=== PATIENT | female | born 1950 | race American Indian/Alaskan Native ===

== ENCOUNTER 2017-03-07 18:08 | Inpatient (IN) | payer BC, MEDICARE ==
--- NOTE | 2017-03-07 18:21 | ED PDOC ---
Arrival/HPI <Дмитрий Beniteziy - Last Filed: 03/07/17 20:02> - General Historian: Patient - History of Present Illness Time/Duration: 1-3 hours Context: Home <Alina Canales - Last Filed: 03/08/17 15:26> - General Time Seen by Provider: 03/07/17 18:12 - History of Present Illness Narrative History of Present Illness (Text): 03/07/17 18:20 This 66 year old female, whose past medical history includes diabetes, hypertension, CAD, chronic kidney disease, A-fib, presents to this ED c/o dysarthria x 1 1/2 hours ago. Patient stated while talking with her , she was not able to get "words out of her mouth", for at least 3 minutes. Patient stated symptoms have been gradually improving. Patient still feels symptom at this time, very it is mild. Patient stated compliance with her medication. Denies francisco, sob, cp, abdominal pain, dizziness, diplopia, weakness, paresthesias, or abnormal gait. PATIENT TOOK 2 TABS ASPIRIN 325 MG THIS MORNING. (Alina Canales) Past Medical History - Provider Review Nursing Documentation Reviewed: Yes - Infectious Disease Hx of Infectious Diseases: None - Tetanus Immunization Tetanus Immunization: Unknown - Cardiac Hx Pacemaker: No - Pulmonary Hx Respiratory Disorders: No - Neurological Hx Paralysis: No - HEENT Hx Cataracts: Yes (extraction 2014) - Renal Hx Renal Disorder: Yes Other/Comment: stage 2 renal disease - Endocrine/Metabolic Hx Diabetes Mellitus Type 2: Yes - Hematological/Oncological Hx Blood Transfusions: No - Integumentary Hx Dermatological Disorder: No - Musculoskeletal/Rheumatological Hx Musculoskeletal Disorders: No - Gastrointestinal Hx Gastrointestinal Disorders: Yes Other/Comment: H.Pylori - Genitourinary/Gynecological Hx Genitourinary Disorders: No - Psychiatric Hx Emotional Abuse: No Hx Physical Abuse: No Hx Substance Use: No - Surgical History Hx Cardiac Catheterization: Yes Other/Comment: breast sx 1979 benign tumor, benign fibroid tumor removal 2000 - Anesthesia Hx Anesthesia Reactions: Yes ("AWARE OF SURROUNDINGS BUT UNABLE TO MOVE FOR A WHILE") Hx Malignant Hyperthermia: No - Suicidal Assessment Feels Threatened In Home Enviroment: No <Alina Canales - Last Filed: 03/08/17 15:26> Family/Social History - Physician Review Nursing Documentation Reviewed: Yes Family/Social History: No Known Family HX Smoking Status: Never Smoked Hx Alcohol Use: No Hx Substance Use: No <Sary Canalesim P - Last Filed: 03/08/17 15:26> Allergies/Home Meds <Дмитрий Beniteziy - Last Filed: 03/07/17 20:02> <Canales,Nahim P - Last Filed: 03/08/17 15:26> Allergies/Adverse Reactions: Allergies Sulfa (Sulfonamide Antibiotics) Allergy (Severe, Verified 03/07/17 18:42) RASH acetaminophen [From Percocet] Adverse Reaction (Severe, Verified 03/07/17 18:42) NAUSEA/VOMITING oxycodone HCl [From Percocet] Adverse Reaction (Severe, Verified 03/07/17 18:42) NAUSEA/VOMITING bacitracin Adverse Reaction (Mild, Verified 03/07/17 18:42) RASH clonidine Adverse Reaction (Mild, Verified 03/07/17 18:42) "FEELING VERY VAGUE & CLOUDY WHEN TAKING" Clonidine may have interacted with her heart block, no longer a concern due to pacer present fentanyl Adverse Reaction (Verified 03/07/17 18:42) VOMITING Home Medications: Home Meds Medication Instructions Recorded Confirmed SITagliptin [Januvia] 100 mg PO DAILY 07/23/13 03/07/17 GlipiZIDE SR [Glucotrol XL] 10 mg PO BID 02/23/16 03/07/17 Metformin HCl [Glucophage] 1,000 mg PO BID 02/23/16 03/07/17 Insulin Glargine, Recombina 15 unit SQ HS 05/28/16 03/07/17 [Lantus] Atorvastatin [Lipitor] 20 mg PO DAILY 08/20/16 03/07/17 amLODIPine [Norvasc] 10 mg PO DAILY 09/06/16 03/07/17 Review of Systems - Review of Systems Constitutional: Normal. absent: Fatigue, Weight Change, Fevers, Night Sweats Eyes: Normal. absent: Vision Changes, Photophobia, Eye Pain ENT: Normal Respiratory: Normal. absent: SOB, Cough Cardiovascular: Normal. absent: Chest Pain, Palpitations, Edema, Calf Pain, AGUDELO , Orthopnea, Syncope Gastrointestinal: Normal. absent: Abdominal Pain, Nausea, Vomiting Genitourinary Female: Normal. absent: Dysuria, Frequency, Hematuria Musculoskeletal: Normal. absent: Back Pain Skin: Normal Neurological: Speech Changes. absent: Headache, Dizziness, Focal Weakness, Gait Changes, Facial Droop, Disequilibrium, Seizure Endocrine: Normal Hemo/Lymphatic: Normal Psychiatric: Normal <Alina Canales P - Last Filed: 03/08/17 15:26> Physical Exam Temperature: Afebrile Blood Pressure: Normal Pulse: Regular Respiratory Rate: Normal Appearance: Positive for: Well-Appearing, Non-Toxic, Comfortable Pain Distress: None Mental Status: Positive for: Alert and Oriented X 3 - Systems Exam Head: Present: Atraumatic, Normocephalic Pupils: Present: PERRL Extroacular Muscles: Present: EOMI Conjunctiva: Present: Normal Mouth: Present: Moist Mucous Membranes Neck: Present: Normal Range of Motion Respiratory/Chest: Present: Clear to Auscultation, Good Air Exchange. No: Respiratory Distress, Accessory Muscle Use Cardiovascular: Present: Regular Rate and Rhythm, Normal S1, S2. No: Murmurs Abdomen: Present: Normal Bowel Sounds. No: Tenderness, Distention, Peritoneal Signs Back: Present: Normal Inspection. No: CVA Tenderness Upper Extremity: Present: Normal Inspection, Normal ROM, NORMAL PULSES, Neurovascularly Intact, Capillary Refill < 2s. No: Cyanosis, Edema Lower Extremity: Present: Normal Inspection, NORMAL PULSES, Normal ROM, Neurovascularly Intact, Capillary Refill < 2 s. No: Edema, CALF TENDERNESS Neurological: Present: GCS=15, CN II-XII Intact, Speech Normal, Motor Func Grossly Intact, Normal Sensory Function, Normal Cerebellar Funct, Gait Normal Skin: Present: Warm, Dry, Normal Color. No: Rashes Psychiatric: Present: Alert, Oriented x 3 <Alina Canales P - Last Filed: 03/08/17 15:26> Vital Signs Temp Pulse Resp BP Pulse Ox 03/07/17 20:49 80 18 169/68 H 98 03/07/17 19:02 98.2 F 102 H 18 200/92 H 100 03/07/17 19:01 89 200/92 H Medical Decision Making <Fred Benitez - Last Filed: 03/07/17 20:02> Re-evaluation Time: 20:00 Reassessment Condition: Re-examined, Improved, Improving,but remains with symptoms <Alina Canales - Last Filed: 03/08/17 15:26> ED Course and Treatment: pt seen and examined with PA pt's symptoms have fully resolved she denies any complaints no focal neurological deficits on reevaluation BP decreased to 170's on monitor pt denies complaints agrees with obs dw Dr. Patterson, aware of and agrees with plan resident paged pt's glu elevated, states she ate at [employer] and had coke today no gap (Fred Benitez) 03/07/17 20:00 Patient came c/o aphasia x 90 minutes ago, which lasted for 3 minutes. Patient stated symptoms have been progressively improving. Physical exam was unremarkable, without neuro focal deficits. NIH score was Zero. Blood pressure was found to be elevated, and it was treated with Hydralazine 5 mg IVP. Also glucose was elevated > 400's, Regualr insuline 8 U was administered IVP. No anion gap found. Patient denies dysphagia (Alina Canales) - Lab Interpretations Lab Results: 03/07/17 19:10 03/07/17 19:10 Lab Results 03/07/17 19:55: POC Glucose (mg/dL) 403 H* 03/07/17 19:30: Urine Color Yellow, Urine Appearance Clear, Urine pH 6.5, Ur Specific [place] 1.015, Urine Protein 100 H, Urine Glucose (UA) >=1000, Urine Ketones Negative, Urine Blood Trace-lysed H, Urine Nitrate Negative, Urine Bilirubin Negative, Urine Urobilinogen 0.2, Ur Leukocyte Esterase Negative, Urine RBC 2 - 5, Urine WBC 1 - 3, Ur Epithelial Cells 1 - 3 03/07/17 19:10: Hemoglobin A1c 8.8 H 03/07/17 19:10: Triglycerides 266 H, Cholesterol 173, LDL Cholesterol Direct 111 , HDL Cholesterol 32 03/07/17 19:10: PT 11.0, INR 1.02, APTT 25.2 03/07/17 19:10: Sodium 136, Potassium 4.3, Chloride 100, Carbon Dioxide 25, Anion Gap 15, BUN 35 H, Creatinine 1.6 H, Est GFR ( Amer) 39, Est GFR ( Non-Af Amer) 32, Random Glucose 428 H* D, Calcium 10.8 H, Magnesium 2.1, Total Bilirubin 0.3, AST 23, ALT 26, Alkaline Phosphatase 77, Lactate Dehydrogenase 482, Total Creatine Kinase 61, Troponin I 0.03 D, NT-Pro-B Natriuret Pep 560 H , Total Protein 8.3, Albumin 4.1, Globulin 4.2, Albumin/Globulin Ratio 1.0 L 03/07/17 19:10: WBC 5.1, RBC 4.00, Hgb 11.2 L, Hct 33.8 L, MCV 84.5, MCH 28.0, MCHC 33.1, RDW 15.1 H, Plt Count 187, MPV 11.4 H, Gran % 54.6, Lymph % (Auto) 35.0, [place] % (Auto) 4.5, Eos % (Auto) 5.1 H, Baso % (Auto) 0.8, Gran # 2.79, Lymph # 1.8, [place] # 0.2, Eos # 0.3, Baso # 0.04 03/07/17 18:43: POC Glucose (mg/dL) > 500 H* - RAD Interpretation Narrative RAD Interpretations (Text): 03/07/17 19:08 Accession No. : [id number] Patient Name / ID : NICOLE Leyva / [id number] Exam Date : 03/07/2017 18:48:33 ( Approved ) Study Comment : Sex / Age : F / 66Y Creator : Jesus GILMORE Dictator : Faustina Chan Optical Brightener Maker Helper : Client Technical Professional : Faustina Chan Approver2 : Report Date : 03/07/2017 18:57:14 My Comment : PROCEDURE: CT HEAD WITHOUT CONTRAST. HISTORY: dysarthria COMPARISON: Comparison is made to the previous study dated 08/18/2016 TECHNIQUE: Axial computed tomography images were obtained through the head/brain without intravenous contrast. Radiation dose: Total exam DLP = 852.59 mGy-cm. This CT exam was performed using one or more of the following dose reduction techniques: Automated exposure control, adjustment of the mA and/or kV according to patient size, and/or use of iterative reconstruction technique. FINDINGS: HEMORRHAGE: No intracranial hemorrhage. BRAIN: Again seen are 2 foci of encephalomalacia at the left frontal and left posterior parietal occipital lobe consistent with old infarction. Mild atrophy and mild chronic microvascular ischemic disease are again seen. VENTRICLES: Unremarkable. No hydrocephalus. CALVARIUM: Unremarkable. PARANASAL SINUSES: Unremarkable as visualized. No significant inflammatory changes. MASTOID AIR CELLS: Unremarkable as visualized. No inflammatory changes. OTHER FINDINGS: None. IMPRESSION: No evidence of acute intracranial hemorrhage new acute territorial infarct mass effect or midline shift. Re- demonstration of foci of encephalomalacia at the left frontal and left posterior parietal occipital lobe suggestive of old infarctions. (Alina Canales) Radiology Orders: 03/07/17 18:42 HEAD W/O (CODE STROKE) [CT] Stat 03/07/17 19:06 CHEST PORTABLE [RAD] Stat - Medication Orders Current Medication Orders: Amlodipine Besylate (Norvasc) 10 mg PO DAILY [facility] Last Admin: 03/08/17 09:13 Dose: 10 mg Aspirin (Aspirin) 325 mg PO DAILY [facility] Last Admin: 03/08/17 09:13 Dose: 325 mg Atorvastatin Calcium (Lipitor) 40 mg PO DIN ROJELIO Atorvastatin Calcium (Lipitor) 20 mg PO DAILY [facility] Last Admin: 03/08/17 09:13 Dose: 20 mg Famotidine (Pepcid) 20 mg PO 1000,2200 [facility] Last Admin: 03/08/17 09:13 Dose: 20 mg Furosemide (Lasix) 40 mg PO DAILY [facility] Last Admin: 03/08/17 09:13 Dose: 40 mg Heparin Sodium (Porcine) (Heparin) 5,000 units SC Q12 [facility] PRN Reason: Protocol Last Admin: 03/08/17 09:14 Dose: 5,000 units Hydralazine HCl (Apresoline) 100 mg PO TID [facility] Last Admin: 03/08/17 13:10 Dose: 100 mg Insulin Detemir (Levemir) 15 unit SC HS [facility] Last Admin: 03/08/17 00:19 Dose: Not Given Non-Admin Reason: Patient Refused Insulin Human Regular (Humulin R Low) 0 units SC ACHS [facility] PRN Reason: Protocol Last Admin: 03/08/17 12:30 Dose: 2 units Losartan Potassium (Cozaar) 100 mg PO DAILY [facility] Last Admin: 03/08/17 09:13 Dose: 100 mg Discontinued Medications Atorvastatin Calcium (Lipitor) 40 mg PO STAT STA Stop: 03/07/17 19:38 Last Admin: 03/07/17 20:00 Dose: 40 mg Hydralazine HCl (Apresoline) 5 mg IVP ONCE ONE Stop: 03/07/17 18:52 Last Admin: 03/07/17 19:01 Dose: 5 mg Hydralazine HCl (Apresoline) 50 mg PO BID [facility] Last Admin: 03/08/17 09:14 Dose: Hydralazine HCl (Apresoline) 50 mg PO STAT STA Stop: 03/08/17 05:48 Last Admin: 03/08/17 06:06 Dose: 50 mg Hydralazine HCl (Apresoline) 50 mg PO TID [facility] Last Admin: 03/08/17 10:23 Dose: Insulin Human Regular (Humulin R) 8 units IVP STAT STA Stop: 03/07/17 19:48 Last Admin: 03/07/17 20:00 Dose: 8 units NIHSS Scale ([place]) Time Performed: 19:00 - How Severe is the [place]oke Baseline Level of Consciousness: 0=Alert LOC to Questions: 0=Both comments correct LOC to commands: 0=Obeys both correctly Best Gaze: 0=Normal Visual: 0=No visual loss Facial: 0=Normal Motor Arm - Left: 0=No drift Motor Arm - Right: 0=No drift Motor Leg - Left: 0=No drift Motor Leg - Right: 0=No drift Limb Ataxia: 0=Absent Sensory: 0=Normal Best Language: 0=No aphasia Dysarthia: 0=Normal articulation Extinction & Inattention (Neglect): 0=Normal, no object Score: 0 Risk Level: No Stroke Risk <Alina Canales - Last Filed: 03/08/17 15:26> Disposition/Present on Arrival - Present on Arrival Any Indicators Present on Arrival: No - Disposition Have Diagnosis and Disposition been Completed?: Yes Disposition Time: 20:06 Patient Plan: Observation <Fred Benitez - Last Filed: 03/07/17 20:02> - Present on Arrival Any Indicators Present on Arrival: No History of DVT/PE: No History of Uncontrolled Diabetes: No Urinary Catheter: No History Surgical Site Infection Following: None - Disposition Have Diagnosis and Disposition been Completed?: Yes Patient Plan: Observation <Alina Canales - Last Filed: 03/08/17 15:26> - Disposition Diagnosis: TIA (transient ischemic attack) Disposition: HOSPITALIZED Patient Problems: Current Active Problems Problem Status Onset TIA (transient ischemic attack) Acute Condition: FAIR
[2017-03-07 18:42] VITALS: BMI 25.3
--- NOTE | 2017-03-07 19:06 | CT ---
PROCEDURE: CT HEAD WITHOUT CONTRAST. HISTORY: dysarthria COMPARISON: Comparison is made to the previous study dated 08/18/2016 TECHNIQUE: Axial computed tomography images were obtained through the head/brain without intravenous contrast. Radiation dose: Total exam DLP = 852.59 mGy-cm. This CT exam was performed using one or more of the following dose reduction techniques: Automated exposure control, adjustment of the mA and/or kV according to patient size, and/or use of iterative reconstruction technique. FINDINGS: HEMORRHAGE: No intracranial hemorrhage. BRAIN: Again seen are 2 foci of encephalomalacia at the left frontal and left posterior parietal occipital lobe consistent with old infarction. Mild atrophy and mild chronic microvascular ischemic disease are again seen. VENTRICLES: Unremarkable. No hydrocephalus. CALVARIUM: Unremarkable. PARANASAL SINUSES: Unremarkable as visualized. No significant inflammatory changes. MASTOID AIR CELLS: Unremarkable as visualized. No inflammatory changes. OTHER FINDINGS: None. IMPRESSION: No evidence of acute intracranial hemorrhage new acute territorial infarct mass effect or midline shift. Re- demonstration of foci of encephalomalacia at the left frontal and left posterior parietal occipital lobe suggestive of old infarctions.
[2017-03-07 19:32] LABS: ALBUMIN 4.1 g/dL (3.0-4.8); BASO # 0.04 K/mm3 (0.0-2.0); BASO % 0.8 % (0.0-3.0); CALCIUM 10.8 mg/dL (8.4-10.5); EOS # 0.3 (0.0-0.7); EOS % 5.1 % (1.5-5.0); GRAN # 2.79 (1.4-6.5); GRAN % 54.6 % (50.0-68.0); HEMOGLOBIN 11.2 gm/dL (12.0-16.0); LYMPH # 1.8 (1.2-3.4); MAGNESIUM 2.1 mg/dL (1.7-2.2); MEAN CELL VOLUME 84.5 fL (80.0-105.0); MEAN CORPUSCULAR HGB CONC 33.1 g/dl (31.0-37.0); MEAN PLATELET VOLUME 11.4 fl (7.0-11.0); MONO # 0.2 (0.1-0.6); MONO % 4.5 % (1.0-6.0); PLATELET COUNT 187 10^3/uL (120.0-450.0); RED CELL DISTRIBUTION WIDTH 15.1 % (11.5-14.5); WHITE BLOOD COUNT 5.1 10^3/ul (4.5-11.0)
[2017-03-07 19:38] LABS: INR 1.02 (0.93-1.08); PARTIAL THROMBOPLASTIN TIME 25.2 Seconds (23.7-30.8)
[2017-03-07 19:44] LABS: TROPONIN I 0.03 ng/mL
[2017-03-07] MEDS ORDERED: Insulin Regular 1 UNITS/0.01 ML ML IVP STA (19:47)
[2017-03-07 20:01] LABS: PH,URINE 6.5 (4.7-8.0); URINE BILIRUBIN NEGATIVE (NEGATIVE); URINE BLOOD TRACE-LYSED (NEGATIVE); URINE GLUCOSE (UA) >=1000 mg/dL (NEGATIVE); URINE LEUKOCYTE ESTERASE NEGATIVE Leu/uL (NEGATIVE); URINE NITRATE NEGATIVE (NEGATIVE); URINE PROTEIN 100 mg/dL (<30 mg/dL); URINE UROBILINOGEN 0.2 E.U./dL (<1 E.U./dL)
[2017-03-07 20:04] LABS: URINE APPEARANCE CLEAR (CLEAR); URINE COLOR YELLOW (YELLOW)
[2017-03-07 21:33] LABS: HDL CHOLESTEROL 32 mg/dL (29-60)
[2017-03-07 21:45] LABS: LDL CHOLESTEROL 111 mg/dL (0-129)
[2017-03-07] MEDS ORDERED: Insulin Detemir 100 units/ml Vial (Levemir) SC SCH (22:00)
--- NOTE | 2017-03-08 06:23 | CP.PCM.HP ---
Addendum entered and electronically signed by MADDIE GARCIA DO 03/08/17 07:51 : MRI not ordered for patient due to pacemaker. Original Note: <MADDIE GARCIA - Last Filed: 03/08/17 06:09> History of Present Illness - History of Present Illness History of Present Illness: CC: Inability to speak 66 year old female PMH CAD, HTN, DM II, HLD presents to [facility] ED on 03/07/2017 with complaints of losing ability to speak while talking to her . Patient states that this lasted about 3 minutes. She tried speaking but could only make grunting sounds. Patient states that during this episode she did not feel any dizziness, chest pain, blurry vision, headache, n/v/d/, shortness of breath, numbness, or tingling. Patient states that the first time something similar happened was in April 2016 when she was cutting a tomato she was unable to physically cut, which lasted 15 minutes. 3 weeks later she states that when she was also speaking with her she lost the ability to speak for 15 minutes. PMD: PMH: as per HPI Allergies:sulfonamides, acetaminophen, bacitracin, oxycodone PSH: B/L cataract repair, Pacemaker SH: patients denies tobacco, alcohol, illicit drug use Review of Systems Constitutional: pt denies fever, chills, generalized weakness ENT: pt denies dysphagia, ofalgia, hearing deficit, rhinorrhea Eyes: pt denies sudden loss of vision, diplopia, blurred vision MSK: pt denies muscle stiffness, joint pain, extremity cramping Cardio: pt denies sob, heart murmur Pulm: pt denies cough, hemoptysis, wheeze GI: pt denies loss of appetite, abdominal pain, constipation, melena, n/v/d : pt denies burning on urination, urinary frequency, hematuria, urinary urgency Neuro: pt denies paresis, paresthesia, dizziness, francisco, numbness, tingling Endo: pt denies intolerance to heat/cold, diaphoresis, night sweats, polydipsia Psych: pt denies anxiety, depression, mood changes Physical exam Constitutional: pleasant female, a&o x 4, nad Head and Neck: neck supple, no jvd, trachea midline, carotid midline, no cervical/head mass Eyes: carmita, nonicteric sclera, eom intact ENT: auditory acuity grossly intact, throat not congested, no nasal deformity Cardio: rrr, no m/r/g, no carotid bruit, nml s1, s2 Pulm: CTAB, no accessory muscle use, equal nml breath sounds bilaterally Abd: s/nt/nd, nbs x 4 q, no palpable masses Derm: no rashes, no ulcers, no lesions Extr: no edema, no cyanosis, no calf tenderness, no lesions, no varicosities Neuro: cn II-XII grossly intact, ue and le 5 muscle strength bilaterally, (-)dysdiadochokinesia, (-) dysmetria Present on Admission - Present on Admission Any Indicators Present on Admission: No Past Patient History - Infectious Disease Hx of Infectious Diseases: None - Tetanus Immunizations Tetanus Immunization: Unknown - Past Medical History & Family History Past Medical History?: Yes - Past Social History Smoking Status: Never Smoked - CARDIAC Hx Pacemaker: No - PULMONARY Hx Respiratory Disorders: No - NEUROLOGICAL Hx Paralysis: No - HEENT Hx Cataracts: Yes (extraction 2014) - RENAL Hx Chronic Kidney Disease: Yes Other/Comment: stage 2 renal disease - ENDOCRINE/METABOLIC Hx Diabetes Mellitus Type 2: Yes - HEMATOLOGICAL/ONCOLOGICAL Hx Blood Transfusions: No - INTEGUMENTARY Hx Dermatological Problems: No - MUSCULOSKELETAL/RHEUMATOLOGICAL Hx Musculoskeletal Disorders: No - GASTROINTESTINAL Hx Gastrointestinal Disorders: Yes Other/Comment: H.Pylori - GENITOURINARY/GYNECOLOGICAL Hx Genitourinary Disorders: No - PSYCHIATRIC Hx Emotional Abuse: No Hx Physical Abuse: No Hx Substance Use: No - SURGICAL HISTORY Hx Cardiac Catheterization: Yes Other/Comment: breast sx 1979 benign tumor, benign fibroid tumor removal 2000 - ANESTHESIA Hx Anesthesia Reactions: Yes ("AWARE OF SURROUNDINGS BUT UNABLE TO MOVE FOR A WHILE") Hx Malignant Hyperthermia: No Meds Allergies/Adverse Reactions: Allergies Allergy/AdvReac Type Severity Reaction Status Date / Time Sulfa (Sulfonamide Allergy Severe RASH Verified 03/07/17 18:42 Antibiotics) acetaminophen [From Percocet] AdvReac Severe NAUSEA/VOMI Verified 03/07/17 18:42 TING oxycodone HCl [From Percocet] AdvReac Severe NAUSEA/VOMI Verified 03/07/17 18:42 TING bacitracin AdvReac Mild RASH Verified 03/07/17 18:42 clonidine AdvReac Mild "FEELING Verified 03/07/17 18:42 VERY VAGUE & CLOUDY WHEN TAKING" fentanyl AdvReac VOMITING Verified 03/07/17 18:42 Results - Vital Signs Recent Vital Signs: Last Vital Signs Temp 98.2 F 03/07/17 19:02 Pulse 78 03/08/17 06:06 Resp 18 03/07/17 23:31 BP 175/98 H 03/08/17 06:06 Pulse Ox 98 03/07/17 20:49 - Labs Result Diagrams: 03/07/17 19:10 03/07/17 19:10 Assessment & Plan - Assessment and Plan (Free Text) Assessment: 66 year old female PMh CAD, HTN, DM II, HLD with symptoms of TIA. Plan: 1. TIA -Neurology consulted -CT scan negative for acute changes,old infarctions in left frontal and left posterior parietal occipital lobe -Carotid and vertebral doppler studies -Administer Lipitor 40 mg PO DIN, Lipitor 20 mg PO Daily, Aspirin 325 mg PO Daily -BP control with Cozaar 100 mg PO qD, Hydralazine 50 mg PO BID, Furosemide 40 mg PO qD, Norvasc 10 mg PO qD -CBC, CMP, HgA1c, TSH results pending -Seizure/Fall precuations -PT evaluation for gait -Echo for further evaluation -Neuro Check q4x8 2. DM II -Random glucose 428 -HgbA1C results still pending -Insulin Detemir 15 unit SC HS, INsulin Humulin SC ACHS 3.HTN -BP control with Cozaar 100 mg PO qD, Hydralazine 50 mg PO BID, Furosemide 40 mg PO qD, Norvasc 10 mg PO qD -DVT/GI prophylaxis- 5000 IU Heparin q 12/Pepcid 20 mg BID <Scott Patterson - Last Filed: 03/21/17 16:57> Results - Vital Signs Recent Vital Signs: Last Vital Signs Temp 98.2 F 03/10/17 08:26 Pulse 86 03/10/17 14:00 Resp 18 03/10/17 08:26 BP 153/81 H 03/10/17 13:51 Pulse Ox 98 03/10/17 08:26 - Labs Result Diagrams: 03/10/17 07:00 03/10/17 07:00 Attending/Attestation - Attestation I have personally seen and examined this patient.: Yes I have fully participated in the care of the patient.: Yes I have reviewed all pertinent clinical information: Yes Notes (Text): 03/21/17 16:57 Medical record note made by the resident after discussion with my direction and input after the patient was personally seen and examined by me. I have reviewed the chart and agree that the record accurately reflects by personal performance of the history, physical exam, data review, and medical decision-making, in the course for the patient. I have also personally directed the plan of care.
[2017-03-08] MEDS: Insulin Reg-LOW-Coverage SC SCH ×4 (07:59→21:59)
--- NOTE | 2017-03-08 08:06 | RAD ---
HISTORY: admission COMPARISON: 09/06/2016 FINDINGS: LUNGS: There is mild vascular congestion. Prominent interstitial markings PLEURA: No significant pleural effusion identified, no pneumothorax apparent. CARDIOVASCULAR: Normal. OSSEOUS STRUCTURES: No significant abnormalities. VISUALIZED UPPER ABDOMEN: Normal. OTHER FINDINGS: Dual lead pacemaker IMPRESSION: No active disease.
[2017-03-08 08:17] LABS: HEMOGLOBIN 11.1 gm/dL (12.0-16.0); MEAN CELL VOLUME 84.4 fL (80.0-105.0); MEAN CORPUSCULAR HEMOGLOBIN 27.1 pg (25.0-35.0); MEAN CORPUSCULAR HGB CONC 32.2 g/dl (31.0-37.0); RBC 4.09 10^6/uL (3.5-6.1); RED CELL DISTRIBUTION WIDTH 15.3 % (11.5-14.5); WHITE BLOOD COUNT 6.7 10^3/ul (4.5-11.0)
[2017-03-08 08:36] LABS: CALCIUM 10.3 mg/dL (8.4-10.5)
--- NOTE | 2017-03-08 09:10 | CP.PCM.CON ---
<Adelso Chaudhry - Last Filed: 03/08/17 15:01> History of Present Illness - History of Present Illness History of Present Illness: PGY-[address] Castro's Neurology Service: Reason for Consult: TIA This is a 66 year old female with PMHx CAD, HTN, DM, HLD who presented with complaint sudden onset of loss of speaking ability. Patient was speaking to her when she suddenly felt that she could not articulate proper words. Patient stated that she could plan what she wanted to say but was unable to speak articulate words. She could only make crude or incomprehensible sounds. This lasted for 3 minutes before she regained the ability to speak properly. Patient states that this occurred twice in the past during April 2016. Previous episodes resolved in about 15 minutes. Patient denied weakness, headaches, dizziness, numbness, tingling, CP, SOB, palpitations. PMHx: CAD, HTN, DM, HLD PSHx: b/l cataract surgery, pacemaker Allergies: sulfonamides, acetaminophen, bacitracin, oxycodone Social: Denies tobacco, alcohol, drug use. Family Hx: Mother with CVA PMD: Dr. Lo Review of Systems - Constitutional Constitutional: absent: Headache, Weakness - EENT Eyes: absent: Change in Vision Ears: absent: Decreased Hearing Nose/Mouth/Throat: absent: Dysphagia - Cardiovascular Cardiovascular: absent: Chest Pain - Respiratory Respiratory: absent: Dyspnea - Gastrointestinal Gastrointestinal: absent: Abdominal Pain, Constipation, Diarrhea, Nausea, Vomiting - Genitourinary Genitourinary: absent: Dysuria - Musculoskeletal Musculoskeletal: absent: Muscle Weakness - Neurological Neurological: absent: Dizziness, Numbness, Headaches, Tingling - Endocrine Endocrine: absent: Palpitations Past Patient History - Infectious Disease Hx of Infectious Diseases: None - Tetanus Immunizations Tetanus Immunization: Unknown - Past Medical History & Family History Past Medical History?: Yes - Past Social History Smoking Status: Never Smoked - CARDIAC Hx Pacemaker: No - PULMONARY Hx Respiratory Disorders: No - NEUROLOGICAL Hx Paralysis: No - HEENT Hx Cataracts: Yes (extraction 2014) - RENAL Hx Chronic Kidney Disease: Yes Other/Comment: stage 2 renal disease - ENDOCRINE/METABOLIC Hx Diabetes Mellitus Type 2: Yes - HEMATOLOGICAL/ONCOLOGICAL Hx Blood Transfusions: No - INTEGUMENTARY Hx Dermatological Problems: No - MUSCULOSKELETAL/RHEUMATOLOGICAL Hx Musculoskeletal Disorders: No - GASTROINTESTINAL Hx Gastrointestinal Disorders: Yes Other/Comment: H.Pylori - GENITOURINARY/GYNECOLOGICAL Hx Genitourinary Disorders: No - PSYCHIATRIC Hx Emotional Abuse: No Hx Physical Abuse: No Hx Substance Use: No - SURGICAL HISTORY Hx Cardiac Catheterization: Yes Other/Comment: breast sx 1979 benign tumor, benign fibroid tumor removal 2001 - ANESTHESIA Hx Anesthesia Reactions: Yes ("AWARE OF SURROUNDINGS BUT UNABLE TO MOVE FOR A WHILE") Hx Malignant Hyperthermia: No Meds Allergies/Adverse Reactions: Allergies Allergy/AdvReac Type Severity Reaction Status Date / Time Sulfa (Sulfonamide Allergy Severe RASH Verified 03/07/17 18:42 Antibiotics) acetaminophen [From Percocet] AdvReac Severe NAUSEA/VOMI Verified 03/07/17 18:42 TING oxycodone HCl [From Percocet] AdvReac Severe NAUSEA/VOMI Verified 03/07/17 18:42 TING bacitracin AdvReac Mild RASH Verified 03/07/17 18:42 clonidine AdvReac Mild "FEELING Verified 03/07/17 18:42 VERY VAGUE & CLOUDY WHEN TAKING" fentanyl AdvReac VOMITING Verified 03/07/17 18:42 - Medications Medications: Current Medications Amlodipine Besylate (Norvasc) 10 mg PO DAILY [facility] Aspirin (Aspirin) 325 mg PO DAILY [facility] Atorvastatin Calcium (Lipitor) 40 mg PO DIN [facility] Atorvastatin Calcium (Lipitor) 20 mg PO DAILY [facility] Famotidine (Pepcid) 20 mg PO 1000,2200 [facility] Furosemide (Lasix) 40 mg PO DAILY [facility] Heparin Sodium (Porcine) (Heparin) 5,000 units SC Q12 [facility] PRN Reason: Protocol Hydralazine HCl (Apresoline) 50 mg PO BID [facility] Insulin Detemir (Levemir) 15 unit SC HS [facility] Last Admin: 03/08/17 00:19 Dose: Not Given Insulin Human Regular (Humulin R Low) 0 units SC ACHS [facility] PRN Reason: Protocol Last Admin: 03/08/17 07:59 Dose: 1 units Labetalol HCl (Trandate) 100 mg PO BID PRN PRN Reason: Heart rate Losartan Potassium (Cozaar) 100 mg PO DAILY [facility] Physical Exam - Constitutional Appears: Non-toxic, No Acute Distress - Head Exam Head Exam: ATRAUMATIC, NORMAL INSPECTION, NORMOCEPHALIC - Eye Exam Eye Exam: EOMI, PERRL - ENT Exam ENT Exam: Mucous Membranes Moist - Respiratory Exam Respiratory Exam: Clear to Auscultation Bilateral - Cardiovascular Exam Cardiovascular Exam: REGULAR RHYTHM - GI/Abdominal Exam GI & Abdominal Exam: Normal Bowel Sounds, Soft - Neurological Exam Neurological exam: Alert, CN II-XII Intact, Oriented x3 Additional comments: No pronator drift. Equivocal plantar responses. Normal finger to nose testing. Manual muscle testing 5/5 bilateral upper and lower extremities. Reflexes 2/4 bilateral upper extremities and 1/4 bilateral lower extremities. Sensations intact bilateral upper and lower extremities. Results - Vital Signs Recent Vital Signs: Last Vital Signs Temp 98.3 F 03/08/17 08:23 Pulse 78 03/08/17 08:23 Resp 18 03/08/17 08:23 BP 175/98 H 03/08/17 06:06 Pulse Ox 99 03/08/17 08:23 - Labs Result Diagrams: 03/08/17 07:00 03/08/17 07:00 Labs: Laboratory Results - last 24 hr 03/08/17 03/08/17 07:00 07:00 WBC 6.7 D RBC 4.09 Hgb 11.1 L Hct 34.5 L MCV 84.4 MCH 27.1 MCHC 32.2 RDW 15.3 H Plt Count 205 MPV 12.0 H Sodium 142 Potassium 3.7 Chloride 106 Carbon Dioxide 25 Anion Gap 15 BUN 24 H Creatinine 1.3 Est GFR ( Amer) 50 Est GFR (Non-Af Amer) 41 Random Glucose 193 H Calcium 10.3 Total Bilirubin 0.4 AST 27 ALT 24 Alkaline Phosphatase 83 Total Protein 8.2 Albumin 4.0 Globulin 4.2 Albumin/Globulin Ratio 1.0 L Assessment & Plan - Assessment and Plan (Free Text) Assessment: This is a 66 year old female with PMHx CAD, HTN, DM, HLD who presented with complaint sudden onset of loss of speaking ability. The patient suffered a TIA secondary to hypertensive urgency and hyperglycemia. CT head reveals no acute ischemic changes and shows encephalomalacia at the left frontal and left posterior parietal occipital lobe suggestive of old infarctions. Plan: 1) Needs better control of blood pressure. 2) Maintain SBP between 130-140 mmHg. 3) Continue ASA, Plavix, Lipitor for stroke prevention. 4) Low salt diet. 5) Needs better control of blood sugars. 6) Maintain blood glucose between 140-180. Case discussed with Dr. Matthew Chaudhry, PGY-1 - Date & Time Date: 03/08/17 Time: 09:21 <Soham Castro - Last Filed: 03/08/17 15:07> Meds - Medications Medications: Current Medications Amlodipine Besylate (Norvasc) 10 mg PO DAILY [facility] Last Admin: 03/08/17 09:13 Dose: 10 mg Aspirin (Aspirin) 325 mg PO DAILY [facility] Last Admin: 03/08/17 09:13 Dose: 325 mg Atorvastatin Calcium (Lipitor) 40 mg PO DIN [facility] Atorvastatin Calcium (Lipitor) 20 mg PO DAILY [facility] Last Admin: 03/08/17 09:13 Dose: 20 mg Famotidine (Pepcid) 20 mg PO 1000,2200 [facility] Last Admin: 03/08/17 09:13 Dose: 20 mg Furosemide (Lasix) 40 mg PO DAILY [facility] Last Admin: 03/08/17 09:13 Dose: 40 mg Heparin Sodium (Porcine) (Heparin) 5,000 units SC Q12 [facility] PRN Reason: Protocol Last Admin: 03/08/17 09:14 Dose: 5,000 units Hydralazine HCl (Apresoline) 100 mg PO TID [facility] Last Admin: 03/08/17 13:10 Dose: 100 mg Insulin Detemir (Levemir) 15 unit SC HS [facility] Last Admin: 03/08/17 00:19 Dose: Not Given Insulin Human Regular (Humulin R Low) 0 units SC ACHS [facility] PRN Reason: Protocol Last Admin: 03/08/17 12:30 Dose: 2 units Losartan Potassium (Cozaar) 100 mg PO DAILY [facility] Last Admin: 03/08/17 09:13 Dose: 100 mg Results - Vital Signs Recent Vital Signs: Last Vital Signs Temp 98.3 F 03/08/17 08:23 Pulse 78 03/08/17 08:23 Resp 18 03/08/17 08:23 BP 155/82 H 03/08/17 09:13 Pulse Ox 99 03/08/17 08:23 - Labs Result Diagrams: 03/08/17 07:00 03/08/17 07:00 Labs: Laboratory Results - last 24 hr 03/08/17 03/08/17 03/08/17 07:00 07:00 07:00 WBC 6.7 D RBC 4.09 Hgb 11.1 L Hct 34.5 L MCV 84.4 MCH 27.1 MCHC 32.2 RDW 15.3 H Plt Count 205 MPV 12.0 H APTT Sodium 142 Potassium 3.7 Chloride 106 Carbon Dioxide 25 Anion Gap 15 BUN 24 H Creatinine 1.3 Est GFR ( Amer) 50 Est GFR (Non-Af Amer) 41 Random Glucose 193 H Calcium 10.3 Total Bilirubin 0.4 AST 27 ALT 24 Alkaline Phosphatase 83 Total Protein 8.2 Albumin 4.0 Globulin 4.2 Albumin/Globulin Ratio 1.0 L TSH 3rd Generation 1.73 03/08/17 11:45 WBC RBC Hgb Hct MCV MCH MCHC RDW Plt Count MPV APTT 28.5 Sodium Potassium Chloride Carbon Dioxide Anion Gap BUN Creatinine Est GFR ( Amer) Est GFR (Non-Af Amer) Random Glucose Calcium Total Bilirubin AST ALT Alkaline Phosphatase Total Protein Albumin Globulin Albumin/Globulin Ratio TSH 3rd Generation Attending/Attestation - Attestation I have personally seen and examined this patient.: Yes I have fully participated in the care of the patient.: Yes I have reviewed all pertinent clinical information: Yes
--- NOTE | 2017-03-08 12:44 | CARD ---
APPROVED REPORT EKG Measurement Heart [id number] <Conclusion> Electronic ventricular pacemaker
--- NOTE | 2017-03-08 17:01 | CP.PCM.PN ---
Addendum entered and electronically signed by Miguel Jackson DO 03/09/17 10:23: Patient was seen and examined and case was discussed at length with Dr. Brown. Educated patient at length about her hypertension and DM and how these are increasing her risk of stroke. Seen with Dr. Castro at bedside as well, will continue on plavix and ASA. Will be monitoring her accuchecks and BP closely and make medication changes. Miguel Jackson D.O. PGY-2 Original Note: <BAUDILIO BROWN - Last Filed: 03/08/17 16:58> Subjective - Date & Time of Evaluation Date of Evaluation: 03/08/17 Time of Evaluation: 06:45 - Subjective Subjective: Baudilio Brown DO PGY1 - Internal Medicine Progress Note - Julius/Yesenia Service Patient seen and examined at bedside. Today is hospital day 2. Patient feels well with no complaints. She denies CP, SOB, headache, confusion, difficulty swallowing or speaking, focal weakness or numbness. Objective - Vital Signs/Intake and Output Vital Signs (last 24 hours): Temp Pulse Resp BP Pulse Ox 98.3 F 89 20 171/80 H 98 03/08/17 16:00 03/08/17 16:00 03/08/17 16:00 03/08/17 16:00 03/08/17 16:00 Intake and Output: 03/08/17 03/08/17 06:59 18:59 Intake Total 120 360 Balance 120 360 - Medications Medications: Current Medications Amlodipine Besylate (Norvasc) 10 mg PO DAILY [facility] Last Admin: 03/08/17 09:13 Dose: 10 mg Aspirin (Aspirin) 325 mg PO DAILY [facility] Last Admin: 03/08/17 09:13 Dose: 325 mg Atorvastatin Calcium (Lipitor) 40 mg PO DIN [facility] Atorvastatin Calcium (Lipitor) 20 mg PO DAILY [facility] Last Admin: 03/08/17 09:13 Dose: 20 mg Famotidine (Pepcid) 20 mg PO 1000,2200 [facility] Last Admin: 03/08/17 09:13 Dose: 20 mg Furosemide (Lasix) 40 mg PO DAILY [facility] Last Admin: 03/08/17 09:13 Dose: 40 mg Heparin Sodium (Porcine) (Heparin) 5,000 units SC Q12 [facility] PRN Reason: Protocol Last Admin: 07/11/17 09:14 Dose: 5,000 units Hydralazine HCl (Apresoline) 100 mg PO TID [facility] Last Admin: 03/08/17 13:10 Dose: 100 mg Insulin Detemir (Levemir) 15 unit SC AMHS [facility] Insulin Human Regular (Humulin R Low) 0 units SC ACHS [facility] PRN Reason: Protocol Last Admin: 03/08/17 12:30 Dose: 2 units Losartan Potassium (Cozaar) 100 mg PO DAILY [facility] Last Admin: 03/08/17 09:13 Dose: 100 mg - Labs Labs: 03/08/17 07:00 03/08/17 07:00 PT 11.0 Seconds (9.9-11.8) 03/07/17 19:10 INR 1.02 (0.93-1.08) 03/07/17 19:10 APTT 28.5 Seconds (23.7-30.8) 03/08/17 11:45 - Constitutional Appears: Well, Non-toxic, No Acute Distress - Head Exam Head Exam: ATRAUMATIC, NORMOCEPHALIC - Eye Exam Eye Exam: EOMI, Normal appearance - ENT Exam ENT Exam: Mucous Membranes Moist - Respiratory Exam Respiratory Exam: Clear to Ausculation Bilateral. absent: Rales, Rhonchi, Wheezes - Cardiovascular Exam Cardiovascular Exam: RRR, +S1, +S2 - GI/Abdominal Exam GI & Abdominal Exam: Soft, Normal Bowel Sounds. absent: Tenderness - Extremities Exam Extremities Exam: Full ROM, Normal Inspection - Neurological Exam Neurological Exam: Alert, Awake, CN II-XII Intact, Oriented x3 Neuro motor strength exam: Left Upper Extremity: 5, Right Upper Extremity: 5, Left Lower Extremity: 5, Right Lower Extremity: 5 - Psychiatric Exam Psychiatric exam: Normal Affect, Normal Mood - Skin Skin Exam: Dry, Intact, Normal Color Assessment and Plan - Assessment and Plan (Free Text) Assessment: 66 year old female PMH CAD, HTN, DM II, HLD [place] [facility] [place] with complaints of losing ability to speak while talking to her . Currently being treated for TIA, HTN, and DM. Plan: 1. 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 DM II - Random glucose 428, 403, 193. A1c 8.8 - Increase Insulin Detemir 15 unit to SC [facility], continue Insulin Humulin Sliding Scale Low 3.HTN - remains uncontrolled - Increase Hydralazine to 100 mg PO TID - Continue Cozaar 100 mg PO qD, Furosemide 40 mg PO qD, Norvasc 10 mg PO qD DVT/GI prophylaxis - 5000 IU Heparin q 12/Pepcid 20 mg BID Patient was discussed and reviewed with senior resident Dr. Jackson PGY2 and attending Dr. Patterson <Scott Patterson - Last Filed: 03/21/17 17:06> Objective - Vital Signs/Intake and Output Vital Signs (last 24 hours): Temp Pulse Resp BP Pulse Ox 98.2 F 86 18 153/81 H 98 03/10/17 08:26 03/10/17 14:00 03/10/17 08:26 03/10/17 13:51 03/10/17 08:26 - Labs Labs: 03/10/17 07:00 03/10/17 07:00 PT 11.0 Seconds (9.9-11.8) 03/07/17 19:10 INR 1.02 (0.93-1.08) 03/07/17 19:10 APTT 28.5 Seconds (23.7-30.8) 03/08/17 11:45 Attending/Attestation - Attestation I have personally seen and examined this patient.: Yes I have fully participated in the care of the patient.: Yes I have reviewed all pertinent clinical information, including history, physical exam and plan: Yes Notes (Text): 03/21/17 17:06 Medical record note made by the resident after discussion with my direction and input after the patient was personally seen and examined by me. I have reviewed the chart and agree that the record accurately reflects by personal performance of the history, physical exam, data review, and medical decision-making, in the course for the patient. I have also personally directed the plan of care.
--- NOTE | 2017-03-08 19:37 | US ---
PROCEDURE: Bilateral carotid artery duplex ultrasound HISTORY: Carotid stenosis TIA PHYSICIAN(S): Orion Gonzalez MD. TECHNIQUE: Duplex sonography and color-flow Doppler were used to evaluate the carotid bifurcations and limited segments of the vertebral arteries bilaterally. FINDINGS: There is mild smooth heterogeneous plaque noted at the carotid bifurcations bilaterally. The peak systolic velocity in the proximal right internal carotid artery is 78 cm/sec. This corresponds to a 20 to 39% proximal right ICA stenosis. Normal systolic velocities are noted in the proximal right external carotid artery. There is antegrade flow in the right vertebral artery. The peak systolic velocity in the proximal left internal carotid artery is 46 cm/sec. This corresponds to a 20 to 39% proximal left ICA stenosis. Normal systolic velocities are noted in the proximal left external carotid artery. There is antegrade flow in the left vertebral artery. IMPRESSION: 1. Bilateral 20-39% proximal ICA stenoses. 2. Antegrade flow in both vertebral arteries.
--- NOTE | 2017-03-08 20:28 | CARD ---
APPROVED REPORT EXAM: Two-dimensional and M-mode echocardiogram with Doppler and color Doppler. INDICATION 2D DIMENSIONS IVSd1.4 (0.7-1.1cm)LVDd3.8 (3.9-5.9cm) PWd1.6 (0.7-1.1cm)LVDs2.1 (2.5-4.0cm) FS (%) 44.6 %LVEF (%)76.6 (>50%) M-Mode DIMENSIONS Left Atrium (MM)3.70 (2.5-4.0cm)Aortic Root2.50 (2.2-3.7cm) Aortic Cusp Exc.2.00 (1.5-2.0cm) Aortic Valve AoV Peak Abparqbe318.0cm/Sherry Peak GR.12mmHg Mitral Valve MV E Bphsugfu831.0cm/s TDI Lateral E' Peak V6.04cm/sMedial E' Peak V7.41cm/sE/Lateral E'17.7 E/Medial E'14.4 Tricuspid Valve TR Peak [id number]/sRAP [id number] Peak Gr.51mmHg [id number] LEFT VENTRICLE The left ventricle is normal size. There is moderate concentric left ventricular hypertrophy. The left ventricular function is normal.EF-65-70% There is normal LV segmental wall motion. Transmitral Doppler flow pattern is Grade II-pseudonormal filling dynamics. No left ventricle thrombus noted on this study. There is no ventricular septal defect visualized. There is no left ventricular aneurysm. There is no mass noted in the left ventricle. RIGHT VENTRICLE The right ventricle is normal size. There is normal right ventricular wall thickness. The right ventricular systolic function is normal. There is a pacemaker lead in the right ventricle. ATRIA The left atrium is mildly dilated. The right atrium size is normal. There is a catheter/pacemaker lead seen in the right atrium. The interatrial septum is intact with no evidence for an atrial septal defect. AORTIC VALVE The aortic valve is thickened but opens well. The aortic valve is moderately thickened. There is trace to mild aortic regurgitation. There is no aortic valvular stenosis. There is no aortic valvular vegetation. MITRAL VALVE The mitral valve is thickened but opens well. Mitral regurgitation is mild to moderate. There is no mitral valve stenosis. There is no evidence of mitral valve prolapse. TRICUSPID VALVE The tricuspid valve leaflets are thickened , but open well. There is moderate to severe tricuspid regurgitation.RVSP There is moderate to severe pulmonary hypertension.61 mmof hg. There is no tricuspid valve stenosis. There is no tricuspid valve prolapse or vegetation. PULMONIC VALVE The pulmonic valve is mildly thickened. There is mild pulmonic valvular regurgitation. There is no pulmonic valvular stenosis. GREAT VESSELS The aortic root is normal in size. The ascending aorta is normal in size. The pulmonary artery is normal. The IVC is normal in size and collapses >50% with inspiration. PERICARDIAL EFFUSION There is no pleural effusion. There is no pericardial effusion. <Conclusion> The left ventricle is normal size. There is moderate concentric left ventricular hypertrophy. The left ventricular function is normal.EF-65-70% There is a pacemaker lead in the right ventricle. There is trace to mild aortic regurgitation. Mitral regurgitation is mild to moderate. There is moderate to severe tricuspid regurgitation.[id number] mmof hg. There is mild pulmonic valvular regurgitation. The IVC is normal in size and collapses >50% with inspiration. There is no pericardial effusion. There is moderate to severe pulmonary hypertension.61 mmof hg.
[2017-03-08] MEDS: Insulin Detemir 100 units/ml Vial (Levemir) SC SCH (22:00)
[2017-03-09 07:00] LABS: ALB/GLOB RATIO 0.9 (1.1-1.8); ALBUMIN 3.9 g/dL (3.0-4.8); CALCIUM 10.3 mg/dL (8.4-10.5)
[2017-03-09 07:03] LABS: HEMOGLOBIN 10.9 gm/dL (12.0-16.0); MEAN CELL VOLUME 84.4 fL (80.0-105.0); MEAN CORPUSCULAR HEMOGLOBIN 26.9 pg (25.0-35.0); MEAN CORPUSCULAR HGB CONC 31.9 g/dl (31.0-37.0); MEAN PLATELET VOLUME 11.7 fl (7.0-11.0); RBC 4.05 10^6/uL (3.5-6.1); RED CELL DISTRIBUTION WIDTH 15.3 % (11.5-14.5)
[2017-03-09] MEDS ORDERED: Potassium Chloride 20 mEq ER Tab PO ONE (07:50)
[2017-03-09] MEDS: Insulin Reg-LOW-Coverage SC SCH ×4 (08:16→21:39)
[2017-03-09] MEDS: Insulin Detemir 100 units/ml Vial (Levemir) SC SCH ×2 (09:06→21:39)
[2017-03-09] MEDS: Potassium Chloride 20 mEq ER Tab PO SCH ×2 (13:45→21:38)
--- NOTE | 2017-03-09 14:20 | CP.PCM.PN ---
Addendum entered and electronically signed by Miguel Jackson DO 03/10/17 11:42: Patient was seen and examined and case was discussed at length with Dr. López. Patient's blood pressure still uncontrolled, will keep overnight, changed to procardia off amlodipine and only PRN clonidine, discussed this with her. Patient verbalized both the understanding and agreement with the aforementioned plan. Miguel Jackson D.O. PGY-2 Original Note: <BAUDILIO LÓPEZ - Last Filed: 03/09/17 15:40> Subjective - Date & Time of Evaluation Date of Evaluation: 03/09/17 Time of Evaluation: 06:45 - Subjective Subjective: Baudilio López DO PGY1 - Internal Medicine Progress Note - Dedjenna/Yesenia Service Patient seen and examined at bedside. Today is hospital day 3. Patient feels well, but is worked up and anxious, worried about having another TIA or stroke. Immediately before the encounter, she felt a mild throbbing headache and reportedly had an elevated BP reading of 209/105, and was angry and flustered when a nurse refused to give her HTN medication that she normally takes at that time at home, but wasn't yet scheduled for administration in the hospital. After speaking to her for a few minutes, she calmed down, and was given a stat dose of hydralazine and started clonidine 0.3mg BID. Currently, she denies CP, SOB, headache, confusion, difficulty swallowing or speaking, focal weakness or numbness. Objective - Vital Signs/Intake and Output Vital Signs (last 24 hours): Temp Pulse Resp BP Pulse Ox 99 F 94 H 19 160/91 H 98 03/09/17 08:12 03/09/17 13:45 03/09/17 08:12 03/09/17 13:45 03/09/17 08:12 Intake and Output: 03/09/17 03/09/17 06:59 18:59 Intake Total 540 Balance 540 - Medications Medications: Current Medications Amlodipine Besylate (Norvasc) 10 mg PO DAILY [facility] Last Admin: 03/09/17 11:15 Dose: Not Given Aspirin (Aspirin) 325 mg PO DAILY [facility] Last Admin: 03/09/17 09:05 Dose: 325 mg Atorvastatin Calcium (Lipitor) 40 mg PO DIN [facility] Last Admin: 03/08/17 17:21 Dose: 40 mg Atorvastatin Calcium (Lipitor) 20 mg PO DAILY [facility] Last Admin: 03/09/17 09:05 Dose: 20 mg Clonidine HCl (Catapres) 0.3 mg PO BID [facility] Last Admin: 03/09/17 11:15 Dose: Not Given Famotidine (Pepcid) 20 mg PO 1000,2200 [facility] Last Admin: 03/09/17 09:05 Dose: 20 mg Furosemide (Lasix) 40 mg PO DAILY [facility] Last Admin: 03/09/17 09:06 Dose: 40 mg Heparin Sodium (Porcine) (Heparin) 5,000 units SC Q12 [facility] PRN Reason: Protocol Last Admin: 03/09/17 09:06 Dose: 5,000 units Hydralazine HCl (Apresoline) 100 mg PO TID [facility] Last Admin: 03/09/17 13:45 Dose: 100 mg Insulin Detemir (Levemir) 15 unit SC AMHS [facility] Last Admin: 03/09/17 09:06 Dose: 15 unit Insulin Human Regular (Humulin R Low) 0 units SC ACHS [facility] PRN Reason: Protocol Last Admin: 03/09/17 12:09 Dose: 3 units Losartan Potassium (Cozaar) 100 mg PO DAILY [facility] Last Admin: 03/09/17 11:15 Dose: Not Given Potassium Chloride (K-Dur 20 Meq Er Tab) 40 meq PO Q8 [facility] Last Admin: 03/09/17 13:45 Dose: 40 meq - Labs Labs: 03/09/17 06:00 03/09/17 06:00 PT 11.0 Seconds (9.9-11.8) 03/07/17 19:10 INR 1.02 (0.93-1.08) 03/07/17 19:10 APTT 28.5 Seconds (23.7-30.8) 03/08/17 11:45 - Constitutional Appears: Well, Non-toxic, Agitated - Head Exam Head Exam: ATRAUMATIC, NORMOCEPHALIC - Eye Exam Eye Exam: EOMI, Normal appearance Pupil Exam: PERRL - ENT Exam ENT Exam: Mucous Membranes Moist - Respiratory Exam Respiratory Exam: Clear to Ausculation Bilateral. absent: Rales, Rhonchi, Wheezes - Cardiovascular Exam Cardiovascular Exam: RRR, +S1, +S2 - GI/Abdominal Exam GI & Abdominal Exam: Soft, Normal Bowel Sounds - Extremities Exam Extremities Exam: Full ROM, Normal Inspection - Neurological Exam Neurological Exam: Alert, Awake, CN II-XII Intact, Oriented x3 Neuro motor strength exam: Left Upper Extremity: 5, Right Upper Extremity: 5, Left Lower Extremity: 5, Right Lower Extremity: 5 - Psychiatric Exam Psychiatric exam: Agitated, Anxious, Normal Affect - Skin Skin Exam: Dry, Intact Assessment and Plan - Assessment and Plan (Free Text) Assessment: 66 year old female PMH CAD, HTN, DM II, HLD presented to [facility] on 03/07/2017 with complaints of losing ability to speak while talking to her . Currently being treated for TIA, HTN, and DM. Plan: 1. 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 DM II - uncontrolled - Random glucose improving slightly, though still elevated A1c 8.8 - Continue insulin Detemir 15 unit to SC AMHS, continue Insulin Humulin Sliding Scale Low 3.HTN - remains uncontrolled - Given one stat dose Hydralazine to 100 mg PO, continue Hydralazine Q8H - Continue Cozaar 100 mg PO qD, Furosemide 40 mg PO qD - Stop Norvasc 10 mg PO qD - Start Nifedipine 60 mg PO HS - Start Clonidine 0.3 mg PRN BID - Start Carvedilol 12.5 mg PO Q12 - Admit from observation for continued monitoring DVT/GI prophylaxis - 5000 IU Heparin q 12/Pepcid 20 mg BID Patient was discussed and reviewed with senior resident Dr. Jackson PGY2 and attending Dr. Patterson <Scott Patterson - Last Filed: 03/21/17 17:08> Objective - Vital Signs/Intake and Output Vital Signs (last 24 hours): Temp Pulse Resp BP Pulse Ox 98.2 F 86 18 153/81 H 98 03/10/17 08:26 03/10/17 14:00 03/10/17 08:26 03/10/17 13:51 03/10/17 08:26 - Labs Labs: 03/10/17 07:00 03/10/17 07:00 PT 11.0 Seconds (9.9-11.8) 03/07/17 19:10 INR 1.02 (0.93-1.08) 03/07/17 19:10 APTT 28.5 Seconds (23.7-30.8) 03/08/17 11:45 Attending/Attestation - Attestation I have personally seen and examined this patient.: Yes I have fully participated in the care of the patient.: Yes I have reviewed all pertinent clinical information, including history, physical exam and plan: Yes Notes (Text): 03/21/17 17:08 Medical record note made by the resident after discussion with my direction and input after the patient was personally seen and examined by me. I have reviewed the chart and agree that the record accurately reflects by personal performance of the history, physical exam, data review, and medical decision-making, in the course for the patient. I have also personally directed the plan of care.
[2017-03-09] MEDS ORDERED: NIFEdipine 60 mg ER Tab PO SCH (22:00)
[2017-03-10] MEDS: Potassium Chloride 20 mEq ER Tab PO SCH ×2 (05:36→13:51)
[2017-03-10 07:22] LABS: HEMOGLOBIN 12.3 gm/dL (12.0-16.0); MEAN CELL VOLUME 83.8 fL (80.0-105.0); MEAN CORPUSCULAR HEMOGLOBIN 27.3 pg (25.0-35.0); MEAN CORPUSCULAR HGB CONC 32.6 g/dl (31.0-37.0); MEAN PLATELET VOLUME 11.3 fl (7.0-11.0); RBC 4.5 10^6/uL (3.5-6.1); RED CELL DISTRIBUTION WIDTH 15.3 % (11.5-14.5); WHITE BLOOD COUNT 5.9 10^3/ul (4.5-11.0)
[2017-03-10 07:39] LABS: ALBUMIN 4.4 g/dL (3.0-4.8)
[2017-03-10 08:27] VITALS: RESP 18; TEMP 98.2; O2SAT 98
[2017-03-10] MEDS: Insulin Reg-LOW-Coverage SC SCH ×2 (09:13→13:50)
[2017-03-10] MEDS: Insulin Detemir 100 units/ml Vial (Levemir) SC SCH (09:13)
[2017-03-10 13:55] VITALS: BP 153/81
[2017-03-10 15:07] VITALS: PULSE 86
--- NOTE | 2017-03-10 22:33 | CP.PCM.DIS ---
Provider - Provider Date of Admission: 03/09/17 14:21 Attending physician: Reji Madrid MD Primary care physician: Scott Patterson MD Consults: Neuro: Matthew Cardio: Matty Time Spent in preparation of Discharge (in minutes): 45 Diagnosis - Discharge Diagnosis (1) HTN (hypertension) Status: Chronic Priority: High (2) TIA (transient ischemic attack) Status: Acute Priority: High (3) Type 2 diabetes mellitus Status: Chronic Priority: High Hospital Course - Lab Results Lab Results: Most Recent Lab Values WBC 5.9 10^3/ul (4.5-11.0) 03/10/17 07:00 RBC 4.50 10^6/uL (3.5-6.1) 03/10/17 07:00 Hgb 12.3 gm/dL (12.0-16.0) 03/10/17 07:00 Hct 37.7 % (36.0-48.0) 03/10/17 07:00 MCV 83.8 fL (80.0-105.0) 03/10/17 07:00 MCH 27.3 pg (25.0-35.0) 03/10/17 07:00 MCHC 32.6 g/dl (31.0-37.0) 03/10/17 07:00 RDW 15.3 % (11.5-14.5) H 03/10/17 07:00 Plt Count 216 10^3/uL (120.0-450.0) 03/10/17 07:00 MPV 11.3 fl (7.0-11.0) H 03/10/17 07:00 Gran % 54.6 % (50.0-68.0) 03/07/17 19:10 Lymph % (Auto) 35.0 % (22.0-35.0) 03/07/17 19:10 [place] % (Auto) 4.5 % (1.0-6.0) 03/07/17 19:10 Eos % (Auto) 5.1 % (1.5-5.0) H 03/07/17 19:10 Baso % (Auto) 0.8 % (0.0-3.0) 03/07/17 19:10 Gran # 2.79 (1.4-6.5) 03/07/17 19:10 Lymph # 1.8 (1.2-3.4) 03/07/17 19:10 [place] # 0.2 (0.1-0.6) 03/07/17 19:10 Eos # 0.3 (0.0-0.7) 03/07/17 19:10 Baso # 0.04 K/mm3 (0.0-2.0) 03/07/17 19:10 PT 11.0 Seconds (9.9-11.8) 03/07/17 19:10 INR 1.02 (0.93-1.08) 03/07/17 19:10 APTT 28.5 Seconds (23.7-30.8) 03/08/17 11:45 Sodium 140 mmol/L (132-148) 03/10/17 07:00 Potassium 4.9 mmol/L (3.6-5.0) 03/10/17 07:00 Chloride 109 mmol/L (95-110) 03/10/17 07:00 Carbon Dioxide 19 mmol/L (21-33) L 03/10/17 07:00 Anion Gap 17 (10-20) 03/10/17 07:00 BUN 26 mg/dL (7-21) H 03/10/17 07:00 Creatinine 1.6 mg/dL (0.5-1.4) H 03/10/17 07:00 Est GFR ( Amer) 39 03/10/17 07:00 Est GFR (Non-Af Amer) 32 03/10/17 07:00 POC Glucose (mg/dL) 403 mg/dL (65-110) H* 03/07/17 19:55 Random Glucose 178 mg/dL (70-110) H 03/10/17 07:00 Hemoglobin A1c 8.8 % (4.2-6.5) H 03/07/17 19:10 Calcium 11.0 mg/dL (8.4-10.5) H 03/10/17 07:00 Magnesium 2.1 mg/dL (1.7-2.2) 03/07/17 19:10 Total Bilirubin 0.5 mg/dL (0.2-1.3) 03/10/17 07:00 AST 24 U/L (15-39) 03/10/17 07:00 ALT 23 U/L (7-56) 03/10/17 07:00 Alkaline Phosphatase 87 U/L (38-133) 03/10/17 07:00 Lactate Dehydrogenase 482 U/L (333-699) 03/07/17 19:10 Total Creatine Kinase 61 U/L (35-230) 03/07/17 19:10 Troponin I 0.03 ng/mL D 03/07/17 19:10 NT-Pro-B Natriuret Pep 560 pg/mL (0-450) H 03/07/17 19:10 Total Protein 8.8 g/dL (5.8-8.3) H 03/10/17 07:00 Albumin 4.4 g/dL (3.0-4.8) 03/10/17 07:00 Globulin 4.4 gm/dL 03/10/17 07:00 Albumin/Globulin Ratio 1.0 (1.1-1.8) L 03/10/17 07:00 Triglycerides 266 mg/dL (35-160) H 03/07/17 19:10 Cholesterol 173 mg/dL (130-200) 03/07/17 19:10 LDL Cholesterol Direct 111 mg/dL (0-129) 03/07/17 19:10 HDL Cholesterol 32 mg/dL (29-60) 03/07/17 19:10 TSH 3rd Generation 1.73 mIU/mL (0.46-4.68) 03/08/17 07:00 Urine Color Yellow (YELLOW) 03/07/17 19:30 Urine Appearance Clear (CLEAR) 03/07/17 19:30 Urine pH 6.5 (4.7-8.0) 03/07/17 19:30 Ur Specific Lynn 1.015 (1.005-1.035) 03/07/17 19:30 Urine Protein 100 mg/dL (<30 mg/dL) H 03/07/17 19:30 Urine Glucose (UA) >=1000 mg/dL (NEGATIVE) 03/07/17 19:30 Urine Ketones Negative mg/dL (NEGATIVE) 03/07/17 19:30 Urine Blood Trace-lysed (NEGATIVE) H 03/07/17 19:30 Urine Nitrate Negative (NEGATIVE) 03/07/17 19:30 Urine Bilirubin Negative (NEGATIVE) 03/07/17 19:30 Urine Urobilinogen 0.2 E.U./dL (<1 E.U./dL) 03/07/17 19:30 Ur Leukocyte Esterase Negative Veronica/uL (NEGATIVE) 03/07/17 19:30 Urine RBC 2 - 5 /hpf (0-2) 03/07/17 19:30 Urine WBC 1 - 3 /hpf (0-6) 03/07/17 19:30 Ur Epithelial Cells 1 - 3 /hpf (0-5) 03/07/17 19:30 - Hospital Course Hospital Course: 66 year old female PMH CAD, HTN, DM II, HLD [place] [facility] with complaints of losing ability to speak while talking to her . Upon admission, head CT, carotid and vertebral doppler studies, and echocardiogram were all normal or unchanged from prior exams. She also remained asymptomatic with no focal weakness, numbness, or parasthesias, aphasias, mental status changes, confusion, or LOC throughout her stay. On admission, she was severely hypertensive and hyperglycemic, despite taking her home medications. On hospital day 2, her hydralazine was changed from BID to TID, which improved her BP slightly, but it remained elevated. On day 3, her BP remained elevated and in the morning, she was agitated and complained of a headache, at which point her BP was 209/105. That day, her Norvasc was stopped and she was started on Nifedipine 60mg PO HS, and clonidine was switched to PRN. Throughout her stay, her hyperglycemia was managed on her normal home medications, and improved slightly. She admitted to poor diet recently, and the importance of diet and exercised was stressed repeatedly. Today, she feels well, BP was stable, though slightly elevated overnight, and she reports that she did not require clonidine at any point. She denies GER[place], CP, SOB, vision changes, abdominal pain. Medication compliance, stress reduction, diet and exercise were discussed and low carb diet was stressed. Medications were discussed, and all questions were answered to patient's satisfaction, and then discharged to home. Discharge Exam - Head Exam Head Exam: ATRAUMATIC, NORMOCEPHALIC - Eye Exam Eye Exam: EOMI, Normal appearance - ENT Exam ENT Exam: Mucous Membranes Moist - Neck Exam Neck exam: Normal Inspection - Respiratory Exam Respiratory Exam: Clear to PA & Lateral. absent: Rales, Rhonchi, Wheezes - Cardiovascular Exam Cardiovascular Exam: RRR, +S1, +S2 - GI/Abdominal Exam GI & Abdominal Exam: Normal Bowel Sounds, Soft. absent: Tenderness - Extremities Exam Extremities exam: normal inspection - Back Exam Back exam: NORMAL INSPECTION - Neurological Exam Neurological exam: Alert, CN II-XII Intact, Oriented x3 - Psychiatric Exam Psychiatric exam: Normal Affect, Normal Mood - Skin Skin Exam: Dry, Intact Discharge Plan - Discharge Medications Prescriptions: Clopidogrel [Plavix] 75 mg PO DAILY 30 Days NIFEdipine ER [Procardia XL] 60 mg PO HS 30 Days - Follow Up Plan Condition: FAIR Disposition: HOME/ ROUTINE Patient education suggested?: Yes Instructions: Transient Ischemic Attack (DC), Transient Ischemic Attack (GEN), Hypertension (DC), Hypertension (GEN) Additional Instructions: 1. Continue to take all medications as prescribed, including newly prescribed Plavix and Procardia 2. Maintain a low carb diet, taking extra care to avoid added sugars and sugary drinks 3. Follow up with Dr. Madrid in one week, next 4. In case of any new or worsening symptoms or concerns, contact Dr. Madrid immediately or return to the ER Referrals: Scott Patterson MD [Primary Care Provider] -
--- NOTE | 2017-03-11 09:17 | PN ---
SUBJECTIVE The patient had an episode of weakness today. No dysarthria. PHYSICAL EXAMINATION: VITAL SIGNS: Blood pressure is 158/94, heart rate in the 80s. NECK: Negative JVD. LUNGS: Without rales. HEART: S1 and S2. EXTREMITIES: Without edema. LABORATORY DATA: Hemoglobin is 12.3. Chemistries; BUN and creatinine is 26 and 1.6. Echocardiogram reveals good LV function. Her carotid artery ultrasound reveals no significant flow obstructing lesion. IMPRESSION: 1. Transient ischemic attack. 2. Coronary artery disease. 3. Diabetes mellitus. 4. Hypercholesteremia. 5. Hypertension. PLAN: Given these findings, the patient has no arrhythmias noted. Awaiting neuro recommendations. The patient was started on Plavix. The question is that the patient needs an MRA of her cranial vessels.
--- NOTE | 2017-03-11 20:06 | CP.PCM.CON ---
History of Present Illness - History of Present Illness History of Present Illness: Patient is a 66 year old woman with multiple cardiac risk factors including hypertension, diabetes mellitus, and hypercholesterolemia, who presents with an hour of dysarthria. This is her second episode. Patient has received extensive work up for TIA like symptoms without success. She notes she is currently taking Aspirin. Patient denies any chest pain or shortness of breath Review of Systems - Review of Systems All systems: reviewed and no additional remarkable complaints except - Cardiovascular Cardiovascular: absent: Chest Pain - Respiratory Respiratory: absent: Dyspnea - Neurological Additional comments: Positive dysarthria Past Patient History - Infectious Disease Hx of Infectious Diseases: None - Tetanus Immunizations Tetanus Immunization: Unknown - Past Medical History & Family History Past Medical History?: Yes - Past Social History Smoking Status: Never Smoked - CARDIAC Hx Hypercholesterolemia: Yes Hx Hypertension: Yes Hx Pacemaker: No - PULMONARY Hx Respiratory Disorders: No - NEUROLOGICAL Hx Paralysis: No - HEENT Hx Cataracts: Yes (extraction 2014) - RENAL Hx Chronic Kidney Disease: Yes Other/Comment: stage 2 renal disease - ENDOCRINE/METABOLIC Hx Diabetes Mellitus Type 2: Yes - HEMATOLOGICAL/ONCOLOGICAL Hx Blood Transfusions: No - INTEGUMENTARY Hx Dermatological Problems: No - MUSCULOSKELETAL/RHEUMATOLOGICAL Hx Musculoskeletal Disorders: No - GASTROINTESTINAL Hx Gastrointestinal Disorders: Yes Other/Comment: H.Pylori - GENITOURINARY/GYNECOLOGICAL Hx Genitourinary Disorders: No - PSYCHIATRIC Hx Emotional Abuse: No Hx Physical Abuse: No Hx Substance Use: No - SURGICAL HISTORY Hx Cardiac Catheterization: Yes Other/Comment: pacemaker, breast sx 1978 benign tumor, benign fibroid tumor removal 2000 - ANESTHESIA Hx Anesthesia Reactions: Yes ("AWARE OF SURROUNDINGS BUT UNABLE TO MOVE FOR A WHILE") Hx Malignant Hyperthermia: No Meds Home Medications: Home Medication List Medication Instructions Recorded Confirmed Type Atorvastatin [Lipitor] 40 mg PO DIN tab 03/10/17 Rx Carvedilol [Coreg] 12.5 mg PO Q12 tab 03/10/17 Rx Clopidogrel [Plavix] 75 mg PO DAILY 30 Days 03/10/17 Rx Famotidine [Pepcid] 20 mg PO 1000,2200 tab 03/10/17 Rx Insulin Detemir [Levemir] 15 unit SC AMHS unit 03/10/17 Rx Insulin Human Regular-LOW [HumuLIN 0 units SC ACHS ml 03/10/17 Rx R LOW] NIFEdipine ER [Procardia XL] 60 mg PO HS 30 Days 03/10/17 Rx cloNIDine [Catapres] 0.3 mg PO BID PRN tab 03/10/17 Rx Allergies/Adverse Reactions: Allergies Allergy/AdvReac Type Severity Reaction Status Date / Time Sulfa (Sulfonamide Allergy Severe RASH Verified 03/07/17 18:42 Antibiotics) acetaminophen [From Percocet] AdvReac Severe NAUSEA/VOMI Verified 03/07/17 18:42 TING oxycodone HCl [From Percocet] AdvReac Severe NAUSEA/VOMI Verified 03/07/17 18:42 TING bacitracin AdvReac Mild RASH Verified 03/07/17 18:42 clonidine AdvReac Mild "FEELING Verified 03/07/17 18:42 VERY VAGUE & CLOUDY WHEN TAKING" fentanyl AdvReac VOMITING Verified 03/07/17 18:42 Physical Exam - Neck Exam Additional comments: Negative JVD - Respiratory Exam Respiratory Exam: absent: Rales - Cardiovascular Exam Cardiovascular Exam: +S1, +S2 - Extremities Exam Extremities exam: Negative for: pedal edema Results - Vital Signs Recent Vital Signs: 03/09/17 Blood Pressure: 160/91 Heart Rate: 70s Last Vital Signs Temp 98.2 F 03/10/17 08:26 Pulse 86 03/10/17 14:00 Resp 18 03/10/17 08:26 BP 153/81 H 03/10/17 13:51 Pulse Ox 98 03/10/17 08:26 - Labs Result Diagrams: 03/10/17 07:00 03/10/17 07:00 Labs: 03/09/17: Hemoglobin: 10.9 BUN: 21 Creatinine: 1.5 - EKG Data EKG comments: Reveals an EKG that is a paced rhythm. Assessment & Plan - Assessment and Plan (Free Text) Assessment: 1) Status post TIA 2) Diabetes mellitus 3) Hypertension 4) Hypercholesterolemia 5) History of pacemaker for symptomatic AV gurdeep block Plan: 1) Given these findings, her echocardiogram reveals no thrombus. The carotid arteries reveal no critical carotid disease. 2) Start patient on Plavix given her recurrent episode of TIA. - Date & Time Date: 03/09/17
== END 2017-03-10 15:27 | disposition home or self-care (01) | DRG 305 ==
LOC: ED 18:08 → ERH 20:06 → 3RNO 21:22 → OBSVTOIN 03-09 14:21
PROVIDERS: ADMIT Internal Medicine; ATTEND Internal Medicine
DX: I16.0 Hypertensive urgency (principal); E11.22 Type 2 diabetes mellitus with diabetic chronic kidney disease; G93.89 Other specified disorders of brain; G45.9 Transient cerebral ischemic attack, unspecified; I12.9 Hypertensive chronic kidney disease with stage 1 through stage 4 chronic kidney disease, or unspecified chronic kidney disease; E11.65 Type 2 diabetes mellitus with hyperglycemia; N18.2 Chronic kidney disease, stage 2 (mild); E78.00 Pure hypercholesterolemia, unspecified; E78.5 Hyperlipidemia, unspecified; I25.10 Atherosclerotic heart disease of native coronary artery without angina pectoris; I48.91 Unspecified atrial fibrillation; Z79.02 Long term (current) use of antithrombotics/antiplatelets; Z79.4 Long term (current) use of insulin; Z79.82 Long term (current) use of aspirin; Z79.899 Other long term (current) drug therapy; Z82.3 Family history of stroke; Z83.3 Family history of diabetes mellitus; Z86.73 Personal history of transient ischemic attack (TIA), and cerebral infarction without residual deficits; Z95.0 Presence of cardiac pacemaker; Z98.42 Cataract extraction status, left eye; Z98.41 Cataract extraction status, right eye; Z88.6 Allergy status to analgesic agent; Z88.3 Allergy status to other anti-infective agents; Z88.5 Allergy status to narcotic agent; Z88.2 Allergy status to sulfonamides; Z88.8 Allergy status to other drugs, medicaments and biological substances; R40.2412 Glasgow coma scale score 13-15, at arrival to emergency department

== ENCOUNTER 2017-09-15 07:49 | Observation (INO) | payer BC, MEDICARE ==
--- NOTE | 2017-09-15 08:02 | ED PDOC ---
Arrival/HPI - General Time Seen by Provider: 09/15/17 07:59 Historian: Patient - History of Present Illness Narrative History of Present Illness (Text): 09/15/17 07:59 A 67 year old female, whose past medical history includes insulin dependent diabetes, hypertension, CAD and pacemaker, presents to the emergency department for right hand weakness since 05:00 this morning. Patient reports she noticed her symptom began while failing to place a paperclip on a sheet of paper. She notes her symptom has improved since but not yet fully resolved. On evaluation, patient notes she is right handed. She was asked to write her name down which was legible, however, patient states it does not appear like her usual writing. Patient denies any fever, chills, nausea, vomiting, abdominal pain, chest pain, shortness of breath, headache, dizziness or any other complaints. PMD: Dr. Álvaro Hicks Time/Duration: Other (05:00 this morning) Symptom Course: Improving Context: Home Past Medical History - Provider Review Nursing Documentation Reviewed: Yes - Infectious Disease Hx of Infectious Diseases: None - Tetanus Immunization Tetanus Immunization: Unknown - Cardiac Hx Hypertension: Yes Hx Pacemaker: Yes - Pulmonary Hx Respiratory Disorders: No - Neurological Hx Paralysis: No - HEENT Hx Cataracts: Yes (extraction 2014) - Renal Hx Renal Disorder: Yes Other/Comment: stage 2 renal disease - Endocrine/Metabolic Hx Diabetes Mellitus Type 2: Yes - Hematological/Oncological Hx Blood Transfusions: No - Integumentary Hx Dermatological Disorder: No - Musculoskeletal/Rheumatological Hx Musculoskeletal Disorders: No - Gastrointestinal Hx Gastrointestinal Disorders: Yes Other/Comment: H.Pylori - Genitourinary/Gynecological Hx Genitourinary Disorders: No - Psychiatric Hx Emotional Abuse: No Hx Physical Abuse: No Hx Substance Use: No - Surgical History Hx Cardiac Catheterization: Yes Other/Comment: pacemaker, breast sx 1979 benign tumor, benign fibroid tumor removal 2000 - Anesthesia Hx Anesthesia Reactions: Yes ("AWARE OF SURROUNDINGS BUT UNABLE TO MOVE FOR A WHILE") Hx Malignant Hyperthermia: No - Suicidal Assessment Feels Threatened In Home Enviroment: No Family/Social History - Physician Review Nursing Documentation Reviewed: Yes Family/Social History: No Known Family HX Smoking Status: Never Smoked Hx Alcohol Use: No Hx Substance Use: No Allergies/Home Meds Allergies/Adverse Reactions: Allergies Sulfa (Sulfonamide Antibiotics) Allergy (Severe, Verified 09/15/17 08:03) RASH acetaminophen [From Percocet] Adverse Reaction (Severe, Verified 09/15/17 08:03) NAUSEA/VOMITING oxycodone HCl [From Percocet] Adverse Reaction (Severe, Verified 09/15/17 08:03) NAUSEA/VOMITING bacitracin Adverse Reaction (Mild, Verified 09/15/17 08:03) RASH clonidine Adverse Reaction (Mild, Verified 09/15/17 08:03) "FEELING VERY VAGUE & CLOUDY WHEN TAKING" Clonidine may have interacted with her heart block, no longer a concern due to pacer present fentanyl Adverse Reaction (Verified 09/15/17 08:03) VOMITING Home Medications: Home Meds Medication Instructions Recorded Confirmed Unobtainable 09/15/17 09/15/17 Review of Systems - Physician Review All systems were reviewed & negative as marked: Yes - Review of Systems Constitutional: absent: Fevers, Night Sweats Respiratory: absent: SOB Cardiovascular: absent: Chest Pain Gastrointestinal: absent: Abdominal Pain, Nausea, Vomiting Neurological: Other (Right hand weakness). absent: Headache, Dizziness Physical Exam Vital Signs Reviewed: Yes Vital Signs Temp Pulse Resp BP Pulse Ox 09/15/17 09:47 48 L 20 146/63 99 09/15/17 08:03 97.8 F 70 18 133/72 99 Temperature: Afebrile Blood Pressure: Normal Pulse: Regular Respiratory Rate: Normal Appearance: Positive for: Well-Appearing, Non-Toxic, Comfortable Pain Distress: None Mental Status: Positive for: Alert and Oriented X 3 - Systems Exam Head: Present: Atraumatic, Normocephalic Pupils: Present: PERRL Extroacular Muscles: Present: EOMI Conjunctiva: Present: Normal Mouth: Present: Moist Mucous Membranes Neck: Present: Normal Range of Motion Respiratory/Chest: Present: Clear to Auscultation, Good Air Exchange. No: Respiratory Distress, Accessory Muscle Use Cardiovascular: Present: Regular Rate and Rhythm, Normal S1, S2. No: Murmurs Abdomen: Present: Normal Bowel Sounds. No: Tenderness, Distention, Peritoneal Signs Back: Present: Normal Inspection Upper Extremity: Present: Normal Inspection, Normal ROM, NORMAL PULSES, Neurovascularly Intact. No: Cyanosis, Edema Lower Extremity: Present: Normal Inspection. No: Edema Neurological: Present: GCS=15, CN II-XII Intact, Speech Normal, Motor Func Grossly Intact, Normal Sensory Function, Normal Cerebellar Funct Skin: Present: Warm, Dry, Normal Color. No: Rashes Psychiatric: Present: Alert, Oriented x 3, Normal Insight, Normal Concentration Medical Decision Making ED Course and Treatment: 09/15/17 07:59 Impression: A 67 year old female with right hand weakness. Plan: -- Head CT -- Chest xray -- EKG -- Labs -- Urinalysis -- IV fluids -- Reassess and disposition Progress Notes: EKG shows paced rhythm at 69 BPM. Interpreted by me. Patient seen upon arrival. Code stoke activated at 08:14. 09/15/17 08:22 Case discussed with neurologist Dr. Delgado Report Date : 09/15/2017 08:33:02 PROCEDURE: CT HEAD WITHOUT CONTRAST. Dictator : Haley Manzanares MD IMPRESSION: No acute intracranial abnormality. If there is a persistent focal neurologic deficit and an ongoing clinical concern for acute infarction, an MRI of the brain without intravenous contrast would be a more sensitive modality for evaluation of hyperacute/acute ischemic infarction. Left frontal and parietal lobe cystic encephalomalacia, a sequela of remote MCA territory infarctions. Important findings were discussed with Dr. Rashard Patel in the ER on 09/15/2017 at 8:30 a.m. Report Date : 09/15/2017 08:53:04 Procedure: Chest xray Dictator : Sharath Hinkle MD IMPRESSION: Chronic interstitial findings 09/15/17 09:01 Cased discussed with PMD, Dr. Hicks, who is in agreement with plan to admit under hospitalist service. call center associate hospitalist, cesar Wade. Awaiting call back. 09/15/17 10:[address] Grimaldo, Will admit to his service, Telemetry Bed. - Lab Interpretations Lab Results: 09/15/17 08:20 09/15/17 08:20 Lab Results 09/15/17 08:35: Blood Type A POSITIVE, Antibody Screen Negative, BBK History Checked Patient has bt 09/15/17 08:20: Sodium 140, Potassium 3.8, Chloride 106, Carbon Dioxide 24, Anion Gap 14, BUN 29 H, Creatinine 1.7 H, Est GFR ( Amer) 36, Est GFR ( Non-Af Amer) 30, Random Glucose 118 H, Calcium 10.2, Total Bilirubin 0.3, AST 33 , ALT 34, Alkaline Phosphatase 83, Troponin I 0.07 D, NT-Pro-B Natriuret Pep 1010 H, Total Protein 8.2, Albumin 4.0, Globulin 4.2, Albumin/Globulin Ratio 1.0 L, Triglycerides 88, Cholesterol 116 L, LDL Cholesterol Direct 59, HDL Cholesterol 32 09/15/17 08:20: PT 14.6 H, INR 1.26 H, APTT 29.9 09/15/17 08:20: WBC 6.8, RBC 3.84, Hgb 10.3 L, Hct 32.3 L, MCV 84.1, MCH 26.8, MCHC 31.9, RDW 16.3 H, Plt Count 182, MPV 11.7 H, Gran % 64.2, Lymph % (Auto) 26.7, Lucas % (Auto) 4.7, Eos % (Auto) 3.8, Baso % (Auto) 0.6, Gran # 4.34, Lymph # 1.8, Lucas # 0.3, Eos # 0.3, Baso # 0.04 I have reviewed the lab results: Yes - RAD Interpretation Radiology Orders: 09/15/17 08:06 HEAD W/O (CODE STROKE) [CT] Stat CHEST PORTABLE [RAD] Stat - Medication Orders Current Medication Orders: Sodium Chloride (Sodium Chloride 0.9%) 1,000 mls @ 125 mls/hr IV .Q8H [facility] Last Admin: 09/15/17 08:43 Dose: 125 mls/hr eMAR Start Stop Document 09/15/17 08:43 RANDY (Rec: 09/15/17 08:43 RANDY [id number]) Intravenous Solution Start Date 09/15/17 Start Time 08:43 Discontinued Medications Aspirin (Ecotrin) 325 mg PO STAT STA Stop: 09/15/17 08:21 Last Admin: 09/15/17 08:30 Dose: NIHSS Scale ([place]) Time Performed: 07:59 - How Severe is the Stoke Baseline Level of Consciousness: 0=Alert LOC to Questions: 0=Both comments correct LOC to commands: 0=Obeys both correctly Best Gaze: 0=Normal Visual: 0=No visual loss Facial: 0=Normal Motor Arm - Left: 0=No drift Motor Arm - Right: 0=No drift Motor Leg - Left: 0=No drift Motor Leg - Right: 0=No drift Limb Ataxia: 0=Absent Sensory: 0=Normal Best Language: 0=No aphasia Dysarthia: 0=Normal articulation Extinction & Inattention (Neglect): 0=Normal, no object Score: 0 Risk Level: No Stroke Risk - Notes Notes: Some incoordination of the right hand rTPA Inclusion/Exclusion - Refusal of Treatment Patient Refused Treatment: No - Inclusion Criteria for Altepase Patient is 18 years or Older: Yes The Clinical Diagnosis of Ischemic Stroke That is Causing a Potentially Disabling Neurological Deficit: No Time of Onset is Well Established to be Less Than 270 Minute Before Treatment Would Begin: Yes Risk/Benefit Discussed With Patient/Family Member Present: No - Scribe Statement The provider has reviewed the documentation as recorded by the Matthewibharmeet Domingo Provider Scribe Attestation: All medical record entries made by the Scribe were at my direction and personally dictated by me. I have reviewed the chart and agree that the record accurately reflects my personal performance of the history, physical exam, medical decision making, and the department course for this patient. I have also personally directed, reviewed, and agree with the discharge instructions and disposition. Disposition/Present on Arrival - Present on Arrival Any Indicators Present on Arrival: No History of DVT/PE: No History of Uncontrolled Diabetes: No Urinary Catheter: No History Surgical Site Infection Following: None - Disposition Have Diagnosis and Disposition been Completed?: Yes Diagnosis: TIA (transient ischemic attack), Acute CVA (cerebrovascular accident) Disposition: HOSPITALIZED Disposition Time: 10:14 Patient Plan: Admission, Telemetry Patient Problems: Current Active Problems Problem Status Onset Acute CVA (cerebrovascular accident) Acute TIA (transient ischemic attack) Acute Condition: GOOD
[2017-09-15 08:05] VITALS: BMI 26.2
[2017-09-15] MEDS ORDERED: Sodium Chloride 0.9% 1,000 ML IV SCH (08:15)
[2017-09-15] MEDS: Aspirin 325 mg EC Tablets PO STA ×2 (08:30→08:42)
--- NOTE | 2017-09-15 08:34 | CT ---
PROCEDURE: CT HEAD WITHOUT CONTRAST. HISTORY: Code Stroke COMPARISON: None available. TECHNIQUE: Axial computed tomography images were obtained through the head/brain without intravenous contrast. Radiation dose: Total exam DLP = 785.87 mGy-cm. This CT exam was performed using one or more of the following dose reduction techniques: Automated exposure control, adjustment of the mA and/or kV according to patient size, and/or use of iterative reconstruction technique. FINDINGS: HEMORRHAGE: No intracranial hemorrhage. BRAIN: Culver-white matter differentiation is preserved. There is redemonstration of cystic encephalomalacia in the left frontal and parietal lobes. There is no mass, mass effect or abnormal extra-axial fluid collection. VENTRICLES: The ventricles are normal in size, shape and configuration. CALVARIUM: The skull base and calvarium are normal. PARANASAL SINUSES: Predominantly clear. MASTOID AIR CELLS: Predominantly clear. OTHER FINDINGS: None. IMPRESSION: No acute intracranial abnormality. If there is a persistent focal neurologic deficit and an ongoing clinical concern for acute infarction, an MRI of the brain without intravenous contrast would be a more sensitive modality for evaluation of hyperacute/acute ischemic infarction. Left frontal and parietal lobe cystic encephalomalacia, a sequela of remote MCA territory infarctions. Important findings were discussed with Dr. Rashard Patel in the ER on 09/15/2017 at 8:30 a.m.
[2017-09-15 08:47] LABS: BASO # 0.04 K/mm3 (0.0-2.0); BASO % 0.6 % (0.0-3.0); EOS # 0.3 (0.0-0.7); EOS % 3.8 % (1.5-5.0); GRAN # 4.34 (1.4-6.5); GRAN % 64.2 % (50.0-68.0); HEMOGLOBIN 10.3 g/dL (12.0-16.0); LYMPH # 1.8 (1.2-3.4); LYMPH % 26.7 % (22.0-35.0); MEAN CELL VOLUME 84.1 fl (80.0-105.0); MEAN CORPUSCULAR HEMOGLOBIN 26.8 pg (25.0-35.0); MEAN CORPUSCULAR HGB CONC 31.9 g/dl (31.0-37.0); MEAN PLATELET VOLUME 11.7 fl (7.0-11.0); MONO # 0.3 (0.1-0.6); MONO % 4.7 % (1.0-6.0); RBC 3.84 10^6/uL (3.5-6.1); RED CELL DISTRIBUTION WIDTH 16.3 % (11.5-14.5); WHITE BLOOD COUNT 6.8 10^3/ul (4.5-11.0)
--- NOTE | 2017-09-15 08:54 | RAD ---
HISTORY: Code Stroke COMPARISON: 03/07/2017 FINDINGS: LUNGS: Chronic interstitial findings PLEURA: No significant pleural effusion identified, no pneumothorax apparent. CARDIOVASCULAR: Mild cardiomegaly. Dual lead pacemaker OSSEOUS STRUCTURES: No significant abnormalities. VISUALIZED UPPER ABDOMEN: Normal. OTHER FINDINGS: None. IMPRESSION: Chronic interstitial findings
[2017-09-15 09:00] LABS: INR 1.26 (0.93-1.08); PARTIAL THROMBOPLASTIN TIME 29.9 Seconds (25.1-36.5); PROTHROMBIN TIME 14.6 SECONDS (9.4-12.5)
[2017-09-15 09:10] LABS: CALCIUM 10.2 mg/dL (8.4-10.5)
[2017-09-15 09:32] LABS: TROPONIN I 0.07 ng/mL
[2017-09-15 10:36] LABS: URINE APPEARANCE CLEAR (CLEAR); URINE BILIRUBIN NEGATIVE (NEGATIVE); URINE BLOOD NEGATIVE (NEGATIVE); URINE COLOR YELLOW (YELLOW); URINE GLUCOSE (UA) NEGATIVE (NEGATIVE); URINE LEUKOCYTE ESTERASE NEGATIVE Leu/uL (NEGATIVE); URINE NITRATE NEGATIVE (NEGATIVE); URINE PROTEIN 100 mg/dL (<30 mg/dL); URINE UROBILINOGEN 0.2 E.U./dL (<1 E.U./dL)
[2017-09-15 10:45] LABS: URINE EPITHELIAL CELLS 0 - 2 /hpf (0-5); URINE RBC 0 - 2 /hpf (0-2); URINE WBC 0 - 2 /hpf (0-6)
[2017-09-15 10:46] LABS: URINE HYALINE CAST 0 - 2 /hpf
[2017-09-15] MEDS: Sodium Chloride 0.9% 1,000 ML IV SCH ×2 (12:07→23:35)
--- NOTE | 2017-09-15 13:19 | CARD ---
APPROVED REPORT EKG Measurement Heart [id number] <Conclusion> Electronic ventricular pacemaker: 100% V. Paced and A. Sensed. Alternate QRS's are fusion beats.
[2017-09-15] MEDS ORDERED: Influenza Vaccine 60 mcg/0.5 mL SYR (4YR UP) IM ONE (15:55)
[2017-09-15] MEDS ORDERED: Pneumococcal 23-Valent Vaccine IM ONE (15:55)
--- NOTE | 2017-09-15 16:45 | CP.PCM.CON ---
History of Present Illness - History of Present Illness History of Present Illness: Mrs. Carlitos Friedman is a 67-year-old woman with a past medical history of diabetes , hypertension, CAD and pacemaker on Eliquis, two previous left MCA and [employer] region ischemic strokes, who presented to the ED complaining of right hand weakness since 05:00 this morning. The weakness lasted for about 15 minutes, then began to resolve. Currently, she does not have any weakness that she does not have at baseline. Review of Systems - Review of Systems All systems: reviewed and no additional remarkable complaints except Past Patient History - Infectious Disease Hx of Infectious Diseases: None - Tetanus Immunizations Tetanus Immunization: Unknown - Past Medical History & Family History Past Medical History?: Yes - Past Social History Smoking Status: Never Smoked - CARDIAC Hx Cardiac Disorders: (cad) Hx Cardia Arrhythmia: Yes (afib) Hx Hypercholesterolemia: Yes Hx Hypertension: Yes Hx Pacemaker: Yes - PULMONARY Hx Respiratory Disorders: No - NEUROLOGICAL Hx Neurological Disorder: Yes Hx Transient Ischemic Attacks (TIA): Yes (x4 mini strokes in the past) Other/Comment: 1st mini stroke 04/2016, the first one afftected right hand weakness, the next 3 affected speech pt stated "I couldn't talk" all episodes lasting few minutes and resolving - HEENT Hx Cataracts: Yes (bl sx 2014) - RENAL Hx Chronic Kidney Disease: Yes Other/Comment: stage 2 renal disease - ENDOCRINE/METABOLIC Hx Diabetes Mellitus Type 2: Yes - HEMATOLOGICAL/ONCOLOGICAL Hx Blood Disorders: No - INTEGUMENTARY Hx Dermatological Problems: Yes Other/Comment: b/l skin discolorations both legs and itchy skin - MUSCULOSKELETAL/RHEUMATOLOGICAL Hx Musculoskeletal Disorders: No Hx Falls: No Other/Comment: 5th toe right ft turn inward pt keeps bandaid on toe to protect nail, 2nd toe crooked instep turns inward,left foot bunyon - GASTROINTESTINAL Hx Gastrointestinal Disorders: Yes Hx Gastroesophageal Reflux: Yes Hx Ulcer: Yes Other/Comment: H.Pylori - GENITOURINARY/GYNECOLOGICAL Hx Genitourinary Disorders: No - PSYCHIATRIC Hx Emotional Abuse: No Hx Physical Abuse: No Hx Substance Use: No - SURGICAL HISTORY Hx Cardiac Catheterization: Yes (2012) Other/Comment: pacemaker, breast sx 07/02/1984 left benign tumor, benign fibroid tumor removal 2000, colon polyps removed via colonoscopy, fishbome extraction via bronchoscopy from throat - ANESTHESIA Hx Anesthesia Reactions: Yes ("AWARE OF SURROUNDINGS BUT UNABLE TO MOVE FOR A WHILE") Hx Malignant Hyperthermia: No Meds Allergies/Adverse Reactions: Allergies Allergy/AdvReac Type Severity Reaction Status Date / Time Sulfa (Sulfonamide Allergy Severe RASH Verified 09/15/17 08:03 Antibiotics) acetaminophen [From Percocet] AdvReac Severe NAUSEA/VOMI Verified 09/15/17 08:03 TING oxycodone HCl [From Percocet] AdvReac Severe NAUSEA/VOMI Verified 09/15/17 08:03 TING bacitracin AdvReac Mild RASH Verified 09/15/17 08:03 clonidine AdvReac Mild "FEELING Verified 09/15/17 08:03 VERY VAGUE & CLOUDY WHEN TAKING" fentanyl AdvReac VOMITING Verified 09/15/17 08:03 - Medications Medications: Current Medications Enoxaparin Sodium (Lovenox) 30 mg SC DAILY COUNT INCLUDES THE [facility] PRN Reason: Protocol Sodium Chloride (Sodium Chloride 0.9%) 1,000 mls @ 60 mls/hr IV .[id number] COUNT INCLUDES THE [facility] Last Admin: 09/15/17 12:07 Dose: Not Given Insulin Human Regular (Humulin R Med) 0 units SC ACHS ROJELIO PRN Reason: Protocol Physical Exam - Constitutional Appears: Well - Head Exam Head Exam: ATRAUMATIC, NORMAL INSPECTION, NORMOCEPHALIC - Eye Exam Eye Exam: EOMI, Normal appearance, PERRL - ENT Exam ENT Exam: Mucous Membranes Moist, Normal Exam - Neck Exam Neck exam: Positive for: Normal Inspection - Respiratory Exam Respiratory Exam: Clear to Auscultation Bilateral, NORMAL BREATHING PATTERN - Cardiovascular Exam Cardiovascular Exam: REGULAR RHYTHM, +S1, +S2 - GI/Abdominal Exam GI & Abdominal Exam: Normal Bowel Sounds, Soft. absent: Tenderness - Rectal Exam Rectal Exam: Deferred - Extremities Exam Extremities exam: Positive for: normal inspection - Back Exam Back exam: NORMAL INSPECTION - Neurological Exam Neurological exam: Alert, CN II-XII Intact, Normal Gait, Oriented x3, Reflexes Normal Additional comments: Right upper and lower extremity drift as compared with the left side. NIHSS = 1. - Psychiatric Exam Psychiatric exam: Normal Affect, Normal Mood Results - Vital Signs Recent Vital Signs: Last Vital Signs Temp 98 F 09/15/17 13:37 Pulse 75 09/15/17 13:37 Resp 18 09/15/17 13:37 BP 160/82 H 09/15/17 13:37 Pulse Ox 99 09/15/17 09:47 - Labs Result Diagrams: 09/15/17 08:20 09/15/17 08:20 Labs: Laboratory Results - last 24 hr 09/15/17 09/15/17 09/15/17 10:32 11:42 12:40 POC Glucose (mg/dL) 126 H Troponin I 0.07 Urine Color Yellow Urine Appearance Clear Urine pH 6.0 Ur Specific [place] 1.025 Urine Protein 100 H Urine Glucose (UA) Negative Urine Ketones Negative Urine Blood Negative Urine Nitrate Negative Urine Bilirubin Negative Urine Urobilinogen 0.2 Ur Leukocyte Esterase Negative Urine RBC 0 - 2 Urine WBC 0 - 2 Ur Epithelial Cells 0 - 2 Hyaline Casts 0 - 2 - Imaging and Cardiology CT scan - head Status: Image reviewed by me, Report reviewed by me (Chronic left frontal lobe and left occipital/temporal region infarcts. ) Assessment & Plan (1) TIA (transient ischemic attack) Assessment and Plan: Considering the patient's history of multiple ischemic strokes in the past, and the fact that she has cardiac dysrhythmia with a pacemaker, I recommend the followin. Telemetry 2. Echocardiogram with bubble study 3. Continue Eliquis at 5 mg BID 4. Lipid panel, HbA1c, TSH, B12, folate 5. PT/OT eval and treat 6. Fluids with 100 mL/hr NS 7. Case management consult. Thank you for this consultation. Status: Acute Priority: High
[2017-09-15] MEDS: Insulin Reg-MEDIUM-Coverage SC SCH ×2 (17:17→23:38)
--- NOTE | 2017-09-16 00:18 | CON ---
DATE: 09/15/2017 CARDIOLOGY CONSULTATION HISTORY OF PRESENT ILLNESS: The patient is a 67-year-old woman who presented with transient hand discoordination. This has since resolved. No other symptoms were noted. The patient's past medical history is notable for diabetes, hypertension, intermittent Mobitz II Wenckebach that was symptomatic. She was treated with a pacemaker. She denies chest pain, denies shortness of breath. SOCIAL HISTORY: Does not smoke. REVIEW OF SYSTEMS: Reviewed in detail. No cardiac symptomatology noted. PHYSICAL EXAMINATION: VITAL SIGNS: On physical exam, blood pressure 146/63, heart rate varies from the 40s to the 70s, it is currently being paced. NECK: Negative JVD. LUNGS: Without rales. HEART: S1, S2. EXTREMITIES: Without edema. The strength in both upper extremities are equal. Radial pulses on both upper extremities are equal. EKG shows a paced rhythm, BUN and creatinine 29 and 1.7, hemoglobin is 10.3. IMPRESSION: 1. Transient right hand weakness. 2. Stable angina. 3. Coronary artery disease. 4. Diabetes mellitus. 5. Hypertension. 6. History of symptomatic Mobitz II heart block, treated with a pacemaker. Given these findings, the patient's hemodynamic and cardiac status is stable. We will observe on telemetry to see whether the patient goes into an atrial fibrillation which so far there is no evidence of. Orion Starr MD
--- NOTE | 2017-09-16 01:03 | HP ---
HISTORY OF PRESENT ILLNESS: I saw Leanna in the hospital room, I was called by the hospitalist to put on my service. I have known her for many years covering Dr. Madrid's services in the past, was good to see her, and she was happy to see me. She is a 67-year-old female who presents to the Emergency Room Department at 05:00 a.m. with right hand weakness. She knows her symptoms began when trying to place a paper clip on a sheet of paper, it improved, but not fully resolved yet. Her writing on paper when she uses the pen is also little bit off. PAST MEDICAL HISTORY: She has a past medical history of diabetes, hypertension, CAD, and pacemaker. She had cataracts done. She has stage II renal disease and H. Pylori in the past. She had pacemaker to breasts in 1978, benign fibroid tumor. When I get to her, she is doing much better and she is feeling better. She can move all four extremities, little bit improved. FAMILY HISTORY: No family history. SOCIAL HISTORY: Never smoked alcohol. No drugs. ALLERGIES: MULTIPLE ALLERGIES TO SULFA, PERCOCET, BACITRACIN, CLONIDINE, FENTANYL, NOT SURE WHAT MEDICATION SHE IS ON WHILE PRESENTING TO THE HOSPITAL, I WILL PUT THEM ON WHEN THEY GET THEM HERE. REVIEW OF SYSTEMS: No fever. No night sweats. No shortness of breath or cough. No chest pain or palpitations. No abdominal pain, nausea, vomiting, constipation, or diarrhea. The right hand got weak and is slowly returning. No headache. No dizziness. No skin issues. PHYSICAL EXAMINATION: GENERAL: Well appearing, comfortable and alert and oriented x3. VITAL SIGNS: 97.8 temperature, 70 pulse, 18 respiratory rate, 133/72 blood pressure, and 99% O2 sat on room air. HEENT: Head is atraumatic and normocephalic. Extraocular muscles are intact. Pupils equal and reactive to light. Tongue is midline. Throat is moist. NECK: Supple. HEART: Regular rate. Normal S1 and S2. LUNGS: Clear to auscultation bilaterally. No wheezes or rhonchi. ABDOMEN: Soft and nontender. Positive bowel sounds. EXTREMITIES: No edema bilaterally. She can move all four extremities, appears equal to me. NEUROLOGIC: Midline tongue. GCS is 15. Cranial nerves II through XII grossly intact. Normal speech. Alert and oriented x3. Thyroid midline. No palpable appreciable lymphadenopathy noticed. LABORATORY DATA: She had a urine that is clean. Chemistry; 140 sodium, potassium 3.8, BUN 29, creatinine 1.7, little bit renal insufficient, but she is getting IV fluids. GFR is 30. Sugar is 126. Calcium is 10.2. Bilirubin is 0.3, AST is 33, ALT is 34, and alk phos is 83. Troponin I is indeterminate at 0.07. BNP was high at 1010. I decrease the IV fluids down to 60 mL an hour. Total protein is 8.2, triglycerides 808, cholesterol is 116. INR is 1.26. White count of 6.8, hemoglobin 10.3, hematocrit 32.3, and platelets are 182. She will have insulin coverage, labs tomorrow. Consult with Neuro and also Cardiology. Head CT showed no acute intracranial abnormality. There is a persistent focal neurological deficit and ongoing clinical concern for acute infarction and MRI will be worthwhile, left frontal and parietal lobe cystic encephalomalacia. She had a chest x-ray, which showed chronic interstitial findings. We will continue with aggressive treatment and care. See what Neuro wants to do, Cardio wants to do, insulin coverage, and checking her labs. There was a code CVA in the Emergency Room. Darshan Jimenez DO
[2017-09-16] MEDS: Sodium Chloride 0.9% 1,000 ML IV SCH ×2 (05:35→16:08)
--- NOTE | 2017-09-16 06:24 | CP.PCM.PN ---
Subjective - Date & Time of Evaluation Date of Evaluation: 09/16/17 Time of Evaluation: 06:23 - Subjective Subjective: draft asx 180/80 Objective - Vital Signs/Intake and Output Vital Signs (last 24 hours): Temp Pulse Resp BP Pulse Ox 97.9 F 71 20 157/75 H 99 09/16/17 00:01 09/16/17 02:00 09/16/17 00:01 09/16/17 00:01 09/16/17 00:01 Intake and Output: 09/15/17 09/16/17 18:59 06:59 Intake Total 300 180 Balance 300 180 - Medications Medications: Current Medications Apixaban (Eliquis) 5 mg PO BID [facility] PRN Reason: Protocol Last Admin: 09/15/17 17:18 Dose: 5 mg Sodium Chloride (Sodium Chloride 0.9%) 1,000 mls @ 60 mls/hr IV .[id number] ROJELIO Last Admin: 09/16/17 05:35 Dose: Not Given Insulin Human Regular (Humulin R Med) 0 units SC ACHS ROJELIO PRN Reason: Protocol Last Admin: 09/15/17 23:38 Dose: Not Given - Labs Labs: PT 14.6 SECONDS (9.4-12.5) H 09/15/17 08:20 INR 1.26 (0.93-1.08) H 09/15/17 08:20 APTT 29.9 Seconds (25.1-36.5) 09/15/17 08:20
[2017-09-16 06:37] LABS: HEMOGLOBIN 10.1 g/dL (12.0-16.0); MEAN CELL VOLUME 84.6 fl (80.0-105.0); MEAN CORPUSCULAR HEMOGLOBIN 26.8 pg (25.0-35.0); MEAN CORPUSCULAR HGB CONC 31.7 g/dl (31.0-37.0); MEAN PLATELET VOLUME 11.7 fl (7.0-11.0); RBC 3.77 10^6/uL (3.5-6.1); RED CELL DISTRIBUTION WIDTH 16.8 % (11.5-14.5); WHITE BLOOD COUNT 5.4 10^3/ul (4.5-11.0)
[2017-09-16 07:06] LABS: ALB/GLOB RATIO 0.9 (1.1-1.8); CALCIUM 9.8 mg/dL (8.4-10.5)
--- NOTE | 2017-09-16 07:29 | CP.PCM.PN ---
Subjective - Date & Time of Evaluation Date of Evaluation: 09/16/17 Time of Evaluation: 07:26 - Subjective Subjective: Ms. Urbina was seen and examined at the bedside. She is alert, oriented in all spheres. She denies any headache, blurred vision, diplopia, lightheadedness, numbness, nausea, or vomiting. She is able to follow simple commands. She further states of 90% back to her baseline. There was no untoward events overnight. Objective - Vital Signs/Intake and Output Vital Signs (last 24 hours): Temp Pulse Resp BP Pulse Ox 97.4 F L 65 20 180/80 H 99 09/16/17 06:00 09/16/17 06:39 09/16/17 06:00 09/16/17 06:39 09/16/17 06:00 Intake and Output: 09/16/17 09/16/17 06:59 18:59 Intake Total 780 Balance 780 - Medications Medications: Current Medications Apixaban (Eliquis) 5 mg PO BID ROJELIO PRN Reason: Protocol Last Admin: 09/15/17 17:18 Dose: 5 mg Clonidine HCl (Catapres) 0.3 mg PO BID ROJELIO Sodium Chloride (Sodium Chloride 0.9%) 1,000 mls @ 60 mls/hr IV .[id number] [facility] Last Admin: 09/16/17 05:35 Dose: Not Given Insulin Human Regular (Humulin R Med) 0 units SC ACHS ROJELIO PRN Reason: Protocol Last Admin: 09/15/17 23:38 Dose: Not Given - Labs Labs: 09/16/17 06:00 09/16/17 06:00 PT 14.6 SECONDS (9.4-12.5) H 09/15/17 08:20 INR 1.26 (0.93-1.08) H 09/15/17 08:20 APTT 29.9 Seconds (25.1-36.5) 09/15/17 08:20 - Constitutional Appears: No Acute Distress - Head Exam Head Exam: NORMAL INSPECTION - Neurological Exam Neurological Exam: Alert, Awake, CN II-XII Intact, Oriented x3 Neuro motor strength exam: Left Upper Extremity: 5, Right Upper Extremity: 5, Left Lower Extremity: 5, Right Lower Extremity: 5 Additional comments: She is able to answer questions appropriately and follows simple commands. Sensation remains intact. Assessment and Plan (1) TIA (transient ischemic attack) Assessment & Plan: Case discussed with Dr. Delgado, continue all current medical and physical therapy. Recommend OT eval and treat, echocardiogram with bubble study. Status: Acute
[2017-09-16] MEDS: Insulin Reg-MEDIUM-Coverage SC SCH ×3 (08:38→16:53)
[2017-09-16] MEDS: NIFEdipine 60 mg ER Tab PO SCH ×2 (09:39→09:53)
[2017-09-16] MEDS: GlipiZIDE 10 mg SR Tab PO SCH ×2 (09:41→17:24)
[2017-09-16] MEDS ORDERED: Enoxaparin 30 mg Syringe SC SCH (10:00)
[2017-09-16] MEDS ORDERED: INSULIN GLARGINE HUM REC ANLOG 25 UNIT SQ SCH (10:00)
[2017-09-16] MEDS ORDERED: Insulin Detemir 100 units/ml Vial (Levemir) SC SCH (10:00)
[2017-09-16 12:52] VITALS: RESP 18
[2017-09-16 15:34] VITALS: O2SAT 97
--- NOTE | 2017-09-16 17:13 | PN ---
DATE: 09/16/2017 SUBJECTIVE: The patient is comfortable. There is no more of weakness in her right hand. OBJECTIVE: VITAL SIGNS: Blood pressure is 170 systolic, heart rate is in the 60s. NECK: Negative JVD. LUNGS: Without rales. HEART: With S1, S2. EXTREMITIES: Without edema. LABORATORY DATA: Hemoglobin is 10.1. Chemistries, BUN and creatinine are 26 and 1.3, glucose is 163. Interrogation of her pacemaker reveals the patient has transient atrial flutter. IMPRESSION: 1. Transient weakness of the right hand which is unlikely due to a transient ischemic attack. 2. History of paroxysmal atrial flutter. 3. Hypertension. 4. Diabetes mellitus. 5. History of coronary artery disease. 6. Stable angina. PLAN: Given these findings, the patient's cardiac status is stable for discharge. She has been placed on antihypertensive medications as well as back on her anticoagulants. Followup instructions have been given to the patient in detail. Orion Starr MD
[2017-09-16 17:30] VITALS: BP 137/70
[2017-09-16 18:20] VITALS: TEMP 98.4
[2017-09-16 18:36] VITALS: PULSE 61
--- NOTE | 2017-09-17 10:31 | CARD ---
APPROVED REPORT EXAM: Two-dimensional and M-mode echocardiogram with Doppler and color Doppler. Other Information Quality : AverageRhythm : INDICATION CVA/TIA BUBBLE STUDY 2D DIMENSIONS Left Atrium (2D)4.1 (1.6-4.0cm)IVSd1.3 (0.7-1.1cm) LVDd4.0 (3.9-5.9cm)PWd1.3 (0.7-1.1cm) LVDs2.7 (2.5-4.0cm)FS (%) 32.6 % LVEF (%)61.0 (>50%) M-Mode DIMENSIONS Aortic Root2.50 (2.2-3.7cm)Aortic Cusp Exc.1.60 (1.5-2.0cm) Aortic Valve AoV Peak Trlfmogh878.0cm/s Mitral Valve MV E Owwwrhzv185.0cm/sMV A Gmxcfrqj44.6cm/sE/A ratio2.0 TDI E/Lateral E'0.0E/Medial E'0.0 Tricuspid Valve TR Peak Wmlqsqcv679ic/sRAP [id number] Peak Gr.47mmHg [id number] LEFT VENTRICLE The left ventricle is normal size. There is mild concentric left ventricular hypertrophy. The left ventricular function is normal. The left ventricular ejection fraction is within the normal range. There is normal LV segmental wall motion. RIGHT VENTRICLE The right ventricle is normal size. There is a pacemaker lead in the right ventricle. ATRIA The left atrium is mildly dilated. The right atrium size is normal. A pacemaker electrode is seen in the right atrium. AORTIC VALVE The aortic valve is normal in structure. MITRAL VALVE The mitral valve is normal in structure. Mitral regurgitation is moderate. TRICUSPID VALVE The tricuspid valve is normal in structure. There is moderate tricuspid regurgitation. PULMONIC VALVE The pulmonic valve is not well visualized. GREAT VESSELS The aortic root is normal in size. PERICARDIAL EFFUSION There is no pericardial effusion. <Conclusion> The left ventricle is normal size. There is mild concentric left ventricular hypertrophy. The left ventricular function is normal. Mitral regurgitation is moderate. There is moderate tricuspid regurgitation. Negative bubble study.
--- NOTE | 2017-09-19 08:15 | DS ---
SUBJECTIVE: She is doing much better this morning. She is 95% back to where she was before she came in. She is having some hypertension issues right now. We are going to discuss this with Cardiology, also Neurology. If they say she can be discharged, we will discharge her. She came in with a kind of a picture but the symptoms kind of faded. She is on Clonidine 0.3, now twice a day for elevated blood pressure, Eliquis 5 twice a day, and stopped the IV fluids. PHYSICAL EXAMINATION: VITAL SIGNS: She has 97.4 temperature, 66 pulse, 180/80 blood pressure, 20 respiratory rate, 99% O2 saturations on room air. HEENT: Head is atraumatic, normocephalic. HEART: Regular rate. LUNGS: Decreased breath sounds. Clear to auscultation. ABDOMEN: Soft, nontender. Positive bowel sounds. EXTREMITIES: No edema. She is moving all 4 extremities equally now. LABORATORY DATA: She has 5.4 white count, 10.1 hemoglobin, 31.9 hematocrit, and 180 platelets. Sodium 143, potassium 4, BUN 26, creatinine 1.3 that is better than when she came in, last blood sugar is 126, calcium 9.8, total bilirubin is 0.5, AST is 35, ALT is 36, alkaline phosphate 39, last troponin 0.06. MEDICATIONS: I will renew her medications. She will go back on hydralazine, Coreg, Eliquis, glipizide, insulin, Lasix, atorvastatin, nifedipine, and allopurinol. I will discuss this with Cardiology and Neurology. Darshan Jimenez DO [facility]
== END 2017-09-16 21:11 | disposition home or self-care (01) ==
LOC: ED 07:49 → INTOOBSV 10:14 → ERH 10:14 → 2RSO 11:19
PROVIDERS: ADMIT Hospitalist; ATTEND Family Medicine
DX: I12.9 Hypertensive chronic kidney disease with stage 1 through stage 4 chronic kidney disease, or unspecified chronic kidney disease (principal); N18.2 Chronic kidney disease, stage 2 (mild); G93.89 Other specified disorders of brain; I25.118 Atherosclerotic heart disease of native coronary artery with other forms of angina pectoris; E11.22 Type 2 diabetes mellitus with diabetic chronic kidney disease; E78.00 Pure hypercholesterolemia, unspecified; K21.9 Gastro-esophageal reflux disease without esophagitis; Z86.73 Personal history of transient ischemic attack (TIA), and cerebral infarction without residual deficits; Z79.4 Long term (current) use of insulin; Z79.01 Long term (current) use of anticoagulants; Z95.0 Presence of cardiac pacemaker
CPT/HCPCS: 36415; 70450; 71045; 80053; 80061; 81001; 82948; 83036; 83880; 84484; 85025; 85027; 85610; 85730; 86850; 86900; 93005; 93306; 97116; 97161; 99285; G0378; G8978; G8979; G8980; J7040

== ENCOUNTER 2017-10-02 14:52 | Inpatient (IN) | payer BC, MEDICARE ==
--- NOTE | 2017-10-02 14:55 | ED PDOC ---
Arrival/HPI - General Time Seen by Provider: 10/02/17 14:54 Historian: Patient - History of Present Illness Narrative History of Present Illness (Text): 10/02/17 14:54 A 67 year old female, whose past medical history includes insulin dependent diabetes, hypertension, CAD and pacemaker, presents to the emergency department complaining of possible stroke. Patient reports face felt "twisted up" and was unable to speak. Patient notes also experiencing right arm numbness/weakness, and right facial droop. PMD: Dr. Álvaro Hicks Past Medical History - Provider Review Nursing Documentation Reviewed: Yes - Infectious Disease Hx of Infectious Diseases: None - Tetanus Immunization Tetanus Immunization: Unknown - Cardiac Hx Cardiac Disorders: (cad) Hx Cardiac Arrhythmia: Yes (afib) Hx Hypertension: Yes Hx Pacemaker: Yes - Pulmonary Hx Respiratory Disorders: No - Neurological Hx Neurological Disorder: Yes Hx Transient Ischemic Attacks (TIA): Yes (x4 mini strokes in the past) Other/Comment: 1st mini stroke 04/2016, the first one afftected right hand weakness, the next 3 affected speech pt stated "I couldn't talk" all episodes lasting few minutes and resolving - HEENT Hx Cataracts: Yes (bl sx 2014) - Renal Hx Renal Disorder: Yes Other/Comment: stage 2 renal disease - Endocrine/Metabolic Hx Diabetes Mellitus Type 2: Yes - Hematological/Oncological Hx Blood Disorders: No - Integumentary Hx Dermatological Disorder: Yes Other/Comment: b/l skin discolorations both legs and itchy skin - Musculoskeletal/Rheumatological Hx Musculoskeletal Disorders: No Hx Falls: No Other/Comment: 5th toe right ft turn inward pt keeps bandaid on toe to protect nail, 2nd toe crooked instep turns inward,left foot bunyon - Gastrointestinal Hx Gastrointestinal Disorders: Yes Hx Gastroesophageal Reflux: Yes Other/Comment: H.Pylori - Genitourinary/Gynecological Hx Genitourinary Disorders: No - Psychiatric Hx Emotional Abuse: No Hx Physical Abuse: No Hx Substance Use: No - Surgical History Hx Cardiac Catheterization: Yes (2012) Other/Comment: pacemaker, breast sx 07/02/1984 left benign tumor, benign fibroid tumor removal 2000, colon polyps removed via colonoscopy, fishbome extraction via bronchoscopy from throat - Anesthesia Hx Anesthesia Reactions: Yes ("AWARE OF SURROUNDINGS BUT UNABLE TO MOVE FOR A WHILE") Hx Malignant Hyperthermia: No - Suicidal Assessment Feels Threatened In Home Enviroment: No Family/Social History - Physician Review Nursing Documentation Reviewed: Yes Family/Social History: No Known Family HX Smoking Status: Never Smoked Hx Alcohol Use: No Hx Substance Use: No Allergies/Home Meds Allergies/Adverse Reactions: Allergies Sulfa (Sulfonamide Antibiotics) Allergy (Severe, Verified 09/15/17 08:03) RASH acetaminophen [From Percocet] Adverse Reaction (Severe, Verified 09/15/17 08:03) NAUSEA/VOMITING oxycodone HCl [From Percocet] Adverse Reaction (Severe, Verified 09/15/17 08:03) NAUSEA/VOMITING bacitracin Adverse Reaction (Mild, Verified 09/15/17 08:03) RASH clonidine Adverse Reaction (Mild, Verified 09/15/17 08:03) "FEELING VERY VAGUE & CLOUDY WHEN TAKING" Clonidine may have interacted with her heart block, no longer a concern due to pacer present fentanyl Adverse Reaction (Verified 09/15/17 08:03) VOMITING Home Medications: Home Meds Medication Instructions Recorded Confirmed Allopurinol [Zyloprim] 300 mg PO DAILY 09/15/17 10/02/17 Apixaban [Eliquis] 2.5 mg PO BID 09/15/17 10/02/17 Atorvastatin [Lipitor] 20 mg PO DAILY 09/15/17 10/02/17 Carvedilol [Coreg] 25 mg PO BID 09/15/17 10/02/17 Colchicine [Colcrys] 0.6 mg PO DAILY 09/15/17 10/02/17 Furosemide [Lasix] 20 mg PO DAILY 09/15/17 10/02/17 Glipizide [Glipizide ER] 10 mg PO BID 09/15/17 10/02/17 Insulin Glargine,Hum.rec.anlog 25 unit SQ DAILY 09/15/17 10/02/17 [Lantus Solostar] Losartan Potassium 25 mg PO DAILY 09/15/17 10/02/17 NIFEdipine ER [Nifedipine ER] 60 mg PO DAILY 09/15/17 10/02/17 cloNIDine [Catapres] 0.3 mg PO BID 09/15/17 10/02/17 hydrALAZINE [hydralazine 100 mg PO BID 09/15/17 10/02/17 Hydrochloride] Aspirin [Ecotrin] 81 mg PO DAILY 09/16/17 10/02/17 Famotidine [Pepcid] 20 mg PO DAILY 10/02/17 10/02/17 Physical Exam Vital Signs Reviewed: Yes Vital Signs Temp Pulse Resp BP Pulse Ox 10/02/17 17:52 63 18 156/75 H 99 10/02/17 16:50 67 18 152/85 H 100 10/02/17 15:55 70 18 100 10/02/17 14:54 98.2 F 69 19 154/97 H 97 Temperature: Afebrile Blood Pressure: Hypertensive Pulse: Regular Respiratory Rate: Normal Appearance: Positive for: Well-Appearing Pain Distress: None Mental Status: Positive for: Alert and Oriented X 3 - Systems Exam Head: Present: Atraumatic, Normocephalic Pupils: Present: PERRL Extroacular Muscles: Present: EOMI Conjunctiva: Present: Normal Mouth: Present: Moist Mucous Membranes Neck: Present: Normal Range of Motion Respiratory/Chest: Present: Clear to Auscultation, Good Air Exchange. No: Respiratory Distress, Accessory Muscle Use Cardiovascular: Present: Regular Rate and Rhythm, Normal S1, S2. No: Murmurs Abdomen: Present: Normal Bowel Sounds. No: Tenderness, Distention, Peritoneal Signs Back: Present: Normal Inspection Upper Extremity: Present: Normal Inspection. No: Cyanosis, Edema Lower Extremity: Present: Normal Inspection. No: Edema Neurological: Present: GCS=15, CN II-XII Intact, Speech Normal, Other (right facial droop) Skin: Present: Warm, Dry, Normal Color. No: Rashes Psychiatric: Present: Alert, Oriented x 3, Normal Insight, Normal Concentration Medical Decision Making ED Course and Treatment: 10/02/17 14:55 Impression: 67 year old female brought in for possible stroke. Physical exam shows right facial droop; otherwise overall normal examination. Plan: -- EKG -- Head CT -- Chest X-ray -- Labs -- Nasal Cannula -- Reassess and disposition Prior Visits: Notes and results from previous visits were reviewed. Patient was last seen in the emergency department on 09/15/2017 for possible stroke. Patient was admitted. Progress Notes: 10/02/2017 14:53 Code stroke called. 10/02/2017 14:56 Case discussed with neurologist, who does not agree patient to be a tPA candidate. 10/02/2017 15:15 EKG: Ordered, reviewed, and independently interpreted the EKG. Rate : 78 BPM Rhythm : AV sequential or dual chamber electronic pacemaker. Interpretation : No ST-segment elevations or depressions, no T-wave inversions, normal intervals. Comparison : No previous EKG for comparison. 10/02/2017 15:[address] IMPRESSION: No acute intracranial findings. Dictator: Sharath Gomez MD 10/02/2017 15:23 Neurologist has seen patient and states patient currently takes Eliquis 2.5 mg, and recommends giving up to 5 mg if pacemaker is abnormal. Requests for CTA of Head & Neck. 10/02/2017 15:39 Chest X-ray IMPRESSION: No active disease. Dictator: Sharath Gomez MD 10/02/17 16:04 Pacemaker normal study. - Lab Interpretations Lab Results: 10/02/17 15:18 10/02/17 15:18 Lab Results 10/02/17 15:37: Blood Type A POSITIVE, Antibody Screen Negative, BBK History Checked Patient has bt 10/02/17 15:18: Hemoglobin A1c 8.0 H 10/02/17 15:18: Sodium 144, Potassium 4.2, Chloride 106, Carbon Dioxide 21, Anion Gap 21 H, BUN 36 H, Creatinine 2.0 H, Est GFR ( Amer) 30, Est GFR ( Non-Af Amer) 25, Random Glucose 142 H, Calcium 10.7 H, Total Bilirubin 0.4, AST 36, ALT 26, Alkaline Phosphatase 90, Troponin I 0.07, Total Protein 8.8 H, Albumin 4.2, Globulin 4.5, Albumin/Globulin Ratio 0.9 L, Triglycerides 159, Cholesterol 140, LDL Cholesterol Direct 85, HDL Cholesterol 32 10/02/17 15:18: PT 18.2 H, INR 1.58 H, APTT 32.5 10/02/17 15:18: WBC 6.2, RBC 4.16, Hgb 11.4 L, Hct 35.0 L, MCV 84.1, MCH 27.4, MCHC 32.6, RDW 16.6 H, Plt Count 222, MPV 11.6 H, Gran % 56.6, Lymph % (Auto) 33.3, Turner % (Auto) 4.5, Eos % (Auto) 5.0, Baso % (Auto) 0.6, Gran # 3.50, Lymph # (Auto) 2.1, Turner # (Auto) 0.3, Eos # (Auto) 0.3, Baso # (Auto) 0.04 I have reviewed the lab results: Yes - RAD Interpretation Radiology Orders: 10/02/17 14:59 HEAD W/O (CODE STROKE) [CT] Stat CHEST PORTABLE [RAD] Stat - Medication Orders Current Medication Orders: Acetylcysteine (Acetylcysteine 20%) 4 ml PO BID [facility] Apixaban (Eliquis) 5 mg PO BID [facility] PRN Reason: Protocol Last Admin: 10/03/17 17:01 Dose: 5 mg Aspirin (Ecotrin) 81 mg PO DAILY [facility] Last Admin: 10/03/17 10:01 Dose: 81 mg Atorvastatin Calcium (Lipitor) 20 mg PO DIN [facility] Last Admin: 10/03/17 17:10 Dose: 20 mg Carvedilol (Coreg) 25 mg PO BID [facility] Last Admin: 10/03/17 10:02 Dose: 25 mg MAR Pulse and Blood Pressure Document 10/03/17 10:02 CD (Rec: 10/03/17 10:02 CD [facility] [id number]) Pulse Pulse Rate (60-90) 69 Blood Pressure Blood Pressure (100/60-150/90) 148/61 Clonidine HCl (Catapres) 0.3 mg PO BID [facility] Last Admin: 10/03/17 10:02 Dose: 0.3 mg MAR Pulse and Blood Pressure Document 10/03/17 10:02 CD (Rec: 10/03/17 10:02 CD [facility] [id number]) Pulse Pulse Rate (60-90) 69 Blood Pressure Blood Pressure (100/60-150/90) 148/61 Famotidine (Pepcid) 20 mg PO DAILY [facility] Last Admin: 10/03/17 10:04 Dose: 20 mg Hydralazine HCl (Apresoline) 100 mg PO BID [facility] Last Admin: 10/03/17 10:01 Dose: 100 mg MAR Pulse and Blood Pressure Document 10/03/17 10:01 CD (Rec: 10/03/17 10:02 CD [facility] [id number] Pulse Pulse Rate (60-90) 69 Blood Pressure Blood Pressure (100/60-150/90) 148/61 Sodium Chloride (Sodium Chloride 0.9%) 1,000 mls @ 150 mls/hr IV .Q6H40M [facility] Last Admin: 10/03/17 18:17 Dose: 150 mls/hr eMAR Start Stop Document 10/03/17 18:17 LM (Rec: 10/03/17 18:17 LM [facility] [id number]) Intravenous Solution Start Date 10/03/17 Start Time 18:17 Insulin Detemir (Levemir) 15 unit SC HS [facility] Insulin Human Lispro (Humalog Med) 0 units SC ACHS [facility] PRN Reason: Protocol Nifedipine (Procardia Xl) 60 mg PO DAILY [facility] Last Admin: 10/03/17 10:01 Dose: 60 mg MAR Pulse and Blood Pressure Document 10/03/17 10:01 CD (Rec: 10/03/17 10:01 CD [facility] [id number]) Pulse Pulse Rate (60-90) 69 Blood Pressure Blood Pressure (100/60-150/90) 148/61 Discontinued Medications Acetylcysteine (Mucomyst 20% Inhal Marilee (30ml)) 3 ml PO BID [facility] Apixaban (Eliquis) 2.5 mg PO BID ROJELIO PRN Reason: Protocol Last Admin: 10/03/17 10:02 Dose: 2.5 mg Apixaban (Eliquis) 2.5 mg PO ONCE STA PRN Reason: Protocol Stop: 10/03/17 16:27 Last Admin: 10/03/17 17:10 Dose: Aspirin (Aspirin) 325 mg PO ONCE ONE Stop: 10/03/17 16:27 Last Admin: 10/03/17 17:10 Dose: 325 mg Sodium Chloride (Sodium Chloride 0.9%) 1,000 mls @ 100 mls/hr IV .Q10H [facility] Last Admin: 10/03/17 13:43 Dose: NIHSS Scale (Wrights) Time Performed: 14:54 - How Severe is the Stoke Baseline Level of Consciousness: 0=Alert LOC to Questions: 0=Both comments correct LOC to commands: 0=Obeys both correctly Best Gaze: 0=Normal Visual: 0=No visual loss Facial: 1=Minor asymmetry Motor Arm - Left: 0=No drift Motor Arm - Right: 0=No drift Motor Leg - Left: 0=No drift Motor Leg - Right: 0=No drift Limb Ataxia: 0=Absent Sensory: 0=Normal Best Language: 0=No aphasia Dysarthia: 0=Normal articulation Extinction & Inattention (Neglect): 0=Normal, no object Score: 1 Risk Level: Minor Stroke Risk - PA / RETAIL PRICING COORDINATOR / Resident Statement MD/DO has reviewed & agrees with the documentation as recorded. - Scribe Statement The provider has reviewed the documentation as recorded by the Desiree Arango Provider Scribe Attestation: All medical record entries made by the Matthewibe were at my direction and personally dictated by me. I have reviewed the chart and agree that the record accurately reflects my personal performance of the history, physical exam, medical decision making, and the department course for this patient. I have also personally directed, reviewed, and agree with the discharge instructions and disposition. Disposition/Present on Arrival - Present on Arrival Any Indicators Present on Arrival: No History of DVT/PE: No History of Uncontrolled Diabetes: No Urinary Catheter: No History Surgical Site Infection Following: None - Disposition Have Diagnosis and Disposition been Completed?: Yes Diagnosis: TIA (transient ischemic attack), History of CVA (cerebrovascular accident), HTN (hypertension), HLD (hyperlipidemia), CAD (coronary artery disease) Disposition: HOSPITALIZED Disposition Time: 16:30 Patient Plan: Admission Condition: IMPROVED
--- NOTE | 2017-10-02 15:17 | CT ---
PROCEDURE: CT HEAD WITHOUT CONTRAST. HISTORY: Code Stroke COMPARISON: 09/15/2017 TECHNIQUE: Axial computed tomography images were obtained through the head/brain without intravenous contrast. Radiation dose: Total exam DLP = 808 mGy-cm. This CT exam was performed using one or more of the following dose reduction techniques: Automated exposure control, adjustment of the mA and/or kV according to patient size, and/or use of iterative reconstruction technique. FINDINGS: HEMORRHAGE: No intracranial hemorrhage. BRAIN: No mass effect or edema. Chronic encephalomalacia is seen in the left frontal and left parietal lobe. There are no acute intracranial findings VENTRICLES: Unremarkable. No hydrocephalus. CALVARIUM: Unremarkable. PARANASAL SINUSES: Unremarkable as visualized. No significant inflammatory changes. MASTOID AIR CELLS: Unremarkable as visualized. No inflammatory changes. OTHER FINDINGS: None. IMPRESSION: No acute intracranial findings
[2017-10-02 15:28] LABS: BASO # 0.04 K/mm3 (0.0-2.0); BASO % 0.6 % (0.0-3.0); EOS # 0.3 (0.0-0.7); GRAN # 3.5 (1.4-6.5); GRAN % 56.6 % (50.0-68.0); HEMOGLOBIN 11.4 g/dL (12.0-16.0); LYMPH # 2.1 (1.2-3.4); LYMPH % 33.3 % (22.0-35.0); MEAN CELL VOLUME 84.1 fl (80.0-105.0); MEAN CORPUSCULAR HEMOGLOBIN 27.4 pg (25.0-35.0); MEAN CORPUSCULAR HGB CONC 32.6 g/dl (31.0-37.0); MEAN PLATELET VOLUME 11.6 fl (7.0-11.0); MONO # 0.3 (0.1-0.6); MONO % 4.5 % (1.0-6.0); RBC 4.16 10^6/uL (3.5-6.1); RED CELL DISTRIBUTION WIDTH 16.6 % (11.5-14.5); WHITE BLOOD COUNT 6.2 10^3/ul (4.5-11.0)
--- NOTE | 2017-10-02 15:30 | CP.PCM.CON ---
History of Present Illness - History of Present Illness History of Present Illness: Mrs. 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 Currently, she is back to baseline and does not have any residual symptoms, with an NIHSS of 0. She was a code stroke, but is not a candidate for IV tPA due to being on Eliquis and resolved symptoms. Review of Systems - Review of Systems All systems: reviewed and no additional remarkable complaints except Past Patient History - Infectious Disease Hx of Infectious Diseases: None - Tetanus Immunizations Tetanus Immunization: Unknown - Past Medical History & Family History Past Medical History?: Yes - Past Social History Smoking Status: Never Smoked - CARDIAC Hx Cardiac Disorders: (cad) Hx Cardia Arrhythmia: Yes (afib) Hx Hypertension: Yes Hx Pacemaker: Yes - PULMONARY Hx Respiratory Disorders: No - NEUROLOGICAL Hx Neurological Disorder: Yes Hx Transient Ischemic Attacks (TIA): Yes (x4 mini strokes in the past) Other/Comment: 1st mini stroke 04/2016, the first one afftected right hand weakness, the next 3 affected speech pt stated "I couldn't talk" all episodes lasting few minutes and resolving - HEENT Hx Cataracts: Yes (bl sx 2014) - RENAL Hx Chronic Kidney Disease: Yes Other/Comment: stage 2 renal disease - ENDOCRINE/METABOLIC Hx Diabetes Mellitus Type 2: Yes - HEMATOLOGICAL/ONCOLOGICAL Hx Blood Disorders: No - INTEGUMENTARY Hx Dermatological Problems: Yes Other/Comment: b/l skin discolorations both legs and itchy skin - MUSCULOSKELETAL/RHEUMATOLOGICAL Hx Musculoskeletal Disorders: No Hx Falls: No Other/Comment: 5th toe right ft turn inward pt keeps bandaid on toe to protect nail, 2nd toe crooked instep turns inward,left foot bunyon - GASTROINTESTINAL Hx Gastrointestinal Disorders: Yes Hx Gastroesophageal Reflux: Yes Other/Comment: H.Pylori - GENITOURINARY/GYNECOLOGICAL Hx Genitourinary Disorders: No - PSYCHIATRIC Hx Emotional Abuse: No Hx Physical Abuse: No Hx Substance Use: No - SURGICAL HISTORY Hx Cardiac Catheterization: Yes (2012) Other/Comment: pacemaker, breast sx 07/02/1984 left benign tumor, benign fibroid tumor removal 2000, colon polyps removed via colonoscopy, fishbome extraction via bronchoscopy from throat - ANESTHESIA Hx Anesthesia Reactions: Yes ("AWARE OF SURROUNDINGS BUT UNABLE TO MOVE FOR A WHILE") Hx Malignant Hyperthermia: No Meds Allergies/Adverse Reactions: Allergies Allergy/AdvReac Type Severity Reaction Status Date / Time Sulfa (Sulfonamide Allergy Severe RASH Verified 09/15/17 08:03 Antibiotics) acetaminophen [From Percocet] AdvReac Severe NAUSEA/VOMI Verified 09/15/17 08:03 TING oxycodone HCl [From Percocet] AdvReac Severe NAUSEA/VOMI Verified 09/15/17 08:03 TING bacitracin AdvReac Mild RASH Verified 09/15/17 08:03 clonidine AdvReac Mild "FEELING Verified 09/15/17 08:03 VERY VAGUE & CLOUDY WHEN TAKING" fentanyl AdvReac VOMITING Verified 09/15/17 08:03 Physical Exam - Constitutional Appears: Well - Head Exam Head Exam: ATRAUMATIC, NORMAL INSPECTION, NORMOCEPHALIC - Eye Exam Eye Exam: EOMI, Normal appearance, PERRL - Respiratory Exam Respiratory Exam: Clear to Auscultation Bilateral, NORMAL BREATHING PATTERN - Cardiovascular Exam Cardiovascular Exam: REGULAR RHYTHM, +S1, +S2 - GI/Abdominal Exam GI & Abdominal Exam: Normal Bowel Sounds, Soft. 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 No acute findings noted. ) Assessment & Plan (1) TIA (transient ischemic attack) Assessment and Plan: This could be due to resurgence of the previous stroke symptoms, since the complaints were similar to previous stroke and in the same territory. However, there is also the concern that she may be having recurrent cardio-embolisms since she is not on full dose Eliquis. I recommend the followin. Telemetry and interrogation of the pacemaker to determine if she had gone into an abberant rhythm during symptoms. 2. CTA of the head/neck to rule out occlusion 3. Fluids with NS at 100 mL/hr 4. DVT Px wish SCD 5. PT/OT eval and treatment if needed. 6. Echocardiogram 7. Case management consult Thank you. Status: Acute Priority: High
[2017-10-02 15:36] LABS: INR 1.58 (0.93-1.08); PARTIAL THROMBOPLASTIN TIME 32.5 Seconds (25.1-36.5); PROTHROMBIN TIME 18.2 SECONDS (9.4-12.5)
--- NOTE | 2017-10-02 15:40 | RAD ---
HISTORY: code stroke COMPARISON: 09/15/2017 FINDINGS: LUNGS: Chronic interstitial changes are seen. PLEURA: No significant pleural effusion identified, no pneumothorax apparent. CARDIOVASCULAR: Moderate cardiomegaly. Dual lead pacemaker OSSEOUS STRUCTURES: No significant abnormalities. VISUALIZED UPPER ABDOMEN: Normal. OTHER FINDINGS: None. IMPRESSION: No active disease.
[2017-10-02 15:51] LABS: ALB/GLOB RATIO 0.9 (1.1-1.8); ALBUMIN 4.2 g/dL (3.0-4.8); CALCIUM 10.7 mg/dL (8.4-10.5)
[2017-10-02 15:57] LABS: TROPONIN I 0.07 ng/mL
[2017-10-02] MEDS: Sodium Chloride 0.9% 1,000 ML IV SCH (17:58)
[2017-10-02 20:14] VITALS: BMI 24.4
--- NOTE | 2017-10-02 20:26 | CP.PCM.HP ---
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 Patient states that she was taking to her when she felt her face was twisting. Her states that she he saw her the right side of her face was drooping and that seh was slurring her word. This episode lasted about 20 mins and resolved completely. In the ED patient is back to baseline and does not have any residual symptoms. Her NIHSS was 0. She was a code stroke, but per neurology is not a candidate for IV tPA due to being on Eliquis and resolved symptoms. Patient was recently in the hospital for similar symptoms at that time she was started on asa 81mg. She is currently on Eliquis 2.5 mg BID and Aspirin 81 mg daily for secondary stroke prevention. She denies any other complaints, denies chest pain ,sob, abd pain, n /v, fever, chills. 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 Hicks Present on Admission - Present on Admission Any Indicators Present on Admission: No Review of Systems - Constitutional Constitutional: absent: Fatigue, Fever, Headache - EENT Eyes: absent: Change in Vision Nose/Mouth/Throat: absent: Nasal Congestion, Post Nasal Drip, Sore Throat - Cardiovascular Cardiovascular: absent: Chest Pain, Chest Pain at Rest, Dyspnea, Leg Edema, Palpitations - Respiratory Respiratory: absent: Cough, Dyspnea, Wheezing - Gastrointestinal Gastrointestinal: absent: Abdominal Pain, Bloating, Constipation, Diarrhea, Nausea, Vomiting - Genitourinary Genitourinary: absent: Difficulty Urinating, Dysuria, Hematuria - Musculoskeletal Musculoskeletal: Numbness (right hand). absent: Arthralgias, Back Pain, Neck Pain, Tingling - Integumentary Integumentary: absent: Pruritus, Rash, Skin Ulcer, Wounds - Neurological Neurological: Abnormal Speech, Numbness, Other (facial droop). absent: Dizziness, Focal Weakness, Headaches, Syncope, Weakness - Hematologic/Lymphatic Hematologic: absent: Easy Bleeding, Easy Bruising Past Patient History - Infectious Disease Hx of Infectious Diseases: None - Tetanus Immunizations Tetanus Immunization: Unknown - Past Medical History & Family History Past Medical History?: Yes - Past Social History Smoking Status: Never Smoked - CARDIAC Hx Cardiac Disorders: (cad) Hx Cardia Arrhythmia: Yes (afib) Hx Hypertension: Yes Hx Pacemaker: Yes - PULMONARY Hx Respiratory Disorders: No - NEUROLOGICAL Hx Neurological Disorder: Yes Hx Transient Ischemic Attacks (TIA): Yes (x4 mini strokes in the past) Other/Comment: 1st mini stroke 04/2016, the first one afftected right hand weakness, the next 3 affected speech pt stated "I couldn't talk" all episodes lasting few minutes and resolving - HEENT Hx Cataracts: Yes (bl sx 2014) - RENAL Hx Chronic Kidney Disease: Yes Other/Comment: stage 2 renal disease - ENDOCRINE/METABOLIC Hx Diabetes Mellitus Type 2: Yes - HEMATOLOGICAL/ONCOLOGICAL Hx Blood Disorders: No - INTEGUMENTARY Hx Dermatological Problems: Yes Other/Comment: b/l skin discolorations both legs and itchy skin - MUSCULOSKELETAL/RHEUMATOLOGICAL Hx Falls: No - GASTROINTESTINAL Hx Gastrointestinal Disorders: Yes Hx Gastroesophageal Reflux: Yes Other/Comment: H.Pylori - GENITOURINARY/GYNECOLOGICAL Hx Genitourinary Disorders: No - PSYCHIATRIC Hx Emotional Abuse: No Hx Physical Abuse: No - SURGICAL HISTORY Hx Cardiac Catheterization: Yes (2012) Other/Comment: pacemaker, breast sx 07/02/1984 left benign tumor, benign fibroid tumor removal 2000, colon polyps removed via colonoscopy, fishbome extraction via bronchoscopy from throat - ANESTHESIA Hx Anesthesia Reactions: Yes ("AWARE OF SURROUNDINGS BUT UNABLE TO MOVE FOR A WHILE") Hx Malignant Hyperthermia: No Meds Allergies/Adverse Reactions: Allergies Allergy/AdvReac Type Severity Reaction Status Date / Time Sulfa (Sulfonamide Allergy Severe RASH Verified 09/15/17 08:03 Antibiotics) acetaminophen [From Percocet] AdvReac Severe NAUSEA/VOMI Verified 09/15/17 08:03 TING oxycodone HCl [From Percocet] AdvReac Severe NAUSEA/VOMI Verified 09/15/17 08:03 TING bacitracin AdvReac Mild RASH Verified 09/15/17 08:03 clonidine AdvReac Mild "FEELING Verified 09/15/17 08:03 VERY VAGUE & CLOUDY WHEN TAKING" fentanyl AdvReac VOMITING Verified 09/15/17 08:03 Physical Exam - Constitutional Appears: Well, No Acute Distress - Head Exam Head Exam: ATRAUMATIC, NORMAL INSPECTION, NORMOCEPHALIC - Eye Exam Eye Exam: EOMI, Normal appearance - ENT Exam ENT Exam: Mucous Membranes Moist - Respiratory Exam Respiratory Exam: Clear to Auscultation Bilateral, NORMAL BREATHING PATTERN. absent: Decreased Breath Sounds, Rales, Rhonchi, Wheezes, Respiratory Distress - Cardiovascular Exam Cardiovascular Exam: REGULAR RHYTHM, +S1, +S2. absent: Tachycardia, Systolic Murmur - GI/Abdominal Exam GI & Abdominal Exam: Normal Bowel Sounds, Soft. absent: Distended, Firm, Guarding - Extremities Exam Extremities exam: Positive for: normal inspection. Negative for: pedal edema, tenderness - Back Exam Back exam: NORMAL INSPECTION - Neurological Exam Neurological exam: Alert, CN II-XII Intact, Oriented x3 - Expanded Neurological Exam Expanded Patient oriented to: person, place, time Speech: Fluid Speech Cranial nerves: EOM's Intact: Normal, Facial Palsey w/Forehead Movement: Normal , Facial Palsey w/o Forehead Movement: Normal, Facial Sensation: Normal, Tongue Deviation: Normal Neuro motor strength exam: Left Upper Extremity: 5, Right Upper Extremity: 5, Left Lower Extremity: 5, Right Lower Extremity: 5 Coma Scale Eye Opening: SPONTANEOUS Coma Scale Motor Response: OBEYS COMMANDS Coma Scale Verbal: Oriented Coma Scale Total: 15 - Psychiatric Exam Psychiatric exam: Normal Affect, Normal Mood - Skin Skin Exam: Dry, Intact, Normal Color, Warm Results - Vital Signs Recent Vital Signs: Last Vital Signs Temp 98.2 F 10/02/17 14:54 Pulse 63 10/02/17 20:10 Resp 18 10/02/17 20:10 BP 156/75 H 10/02/17 20:10 Pulse Ox 99 10/02/17 17:52 - Labs Result Diagrams: 10/02/17 15:18 10/02/17 15:18 Assessment & Plan - Assessment and Plan (Free Text) Assessment: 67-year-old woman with a past medical history of insulin dependent diabetes, hypertension, CAD and pacemaker, multiple previous ischemic strokes (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 CT head was negative. She was found to CASSIA. Plan: Slurred speech right sided facial droop- resolved - most likely TIA, cardio-embolic - CT head negative - Echo on 09/16 showed EF of 61%, moderated mitral regurgitation, negative bubble study - Neuro consulted recommended CTA head and neck, will hold due to CASSIA - unable to do MRI due to pacemaker - per nurse patient passed bedside swallow eval, will continue po home medication s - lipid panel and [id number] ordered - cont BP control - cont asa and eliquis - continue lipitor - Neuro consulted - EP- Dr. Traore for pacemaker - PT/OT pending CASSIA - most like due to medications, vs dehydration - urine Na, urea and creatinine - IVF NS@100 - hold lasix and lorsartan HTN - controlled - continue coreg 25BID, clonidine 0.3 BID, hydralazine 100 BID, nifedipine 60 daily - will hold losartan and lasix due to CASSIA - cont to monitor a. fib - cont eliquis diabetes - controlled - hold home meds - ISSS - fingerstick achs DVT ppx- Elquis and scds GI ppx- pepcid <Angela Kirkland A - Last Filed: 10/10/17 07:22> Results - Vital Signs Recent Vital Signs: Last Vital Signs Temp 98.1 F 10/10/17 00:01 Pulse 67 10/10/17 02:00 Resp 21 10/10/17 01:52 BP 218/65 H 10/10/17 01:13 Pulse Ox 92 L 10/10/17 01:52 - Labs Result Diagrams: 10/09/17 05:00 10/09/17 05:00 Labs: Laboratory Results - last 24 hr 10/09/17 10/09/17 10/09/17 07:13 08:44 11:20 POC Glucose (mg/dL) 84 195 H Magnesium 2.0 10/09/17 10/09/17 15:52 22:10 POC Glucose (mg/dL) 227 H 175 H Magnesium Attending/Attestation - Attestation I have personally seen and examined this patient.: Yes I have fully participated in the care of the patient.: Yes I have reviewed all pertinent clinical information: Yes Notes (Text): 67 year old female with past medical history of diabetes, hypertension, CAD, s/ p pacemaker, and TIA/CVA who presents with complaint of brief episode of right facial droop, slurred speech and right arm numbness, now resolved. CT head is negative for acute findings. Recent echocardiogram was reviewed. Continue with aspirin, statin and eliquis. Neurology evaluation was appreciated. PT/Sp/ Sw evaluation is requested. Consider CTA head and neck once renal function improves with ivf. MRI is able to be obtained secondary to history of pacemaker. EP evaluation +/- cardiology evaluation. Resume home medications except lasix and losartan due to CASSIA. Family is at bedside and questions were answered. Angela Kirkland MD Hospitalist.
[2017-10-03] MEDS: Sodium Chloride 0.9% 1,000 ML IV SCH ×3 (04:15→21:04)
[2017-10-03 04:47] LABS: CREATININE,RANDOM URINE 48 mg/dL
[2017-10-03 06:47] LABS: BASO # 0.04 K/mm3 (0.0-2.0); BASO % 0.7 % (0.0-3.0); EOS # 0.3 (0.0-0.7); EOS % 5.2 % (1.5-5.0); GRAN # 2.59 (1.4-6.5); GRAN % 46.9 % (50.0-68.0); HEMOGLOBIN 10.4 g/dL (12.0-16.0); LYMPH # 2.3 (1.2-3.4); LYMPH % 41.2 % (22.0-35.0); MEAN CELL VOLUME 83.5 fl (80.0-105.0); MEAN CORPUSCULAR HEMOGLOBIN 26.7 pg (25.0-35.0); MEAN PLATELET VOLUME 11.5 fl (7.0-11.0); MONO # 0.3 (0.1-0.6); RBC 3.89 10^6/uL (3.5-6.1); RED CELL DISTRIBUTION WIDTH 16.4 % (11.5-14.5); WHITE BLOOD COUNT 5.5 10^3/ul (4.5-11.0)
[2017-10-03 07:29] LABS: ALB/GLOB RATIO 0.9 (1.1-1.8); ALBUMIN 3.8 g/dL (3.0-4.8); CALCIUM 9.9 mg/dL (8.4-10.5)
[2017-10-03] MEDS: NIFEdipine 60 mg ER Tab PO SCH (10:01)
--- NOTE | 2017-10-03 13:06 | CP.PCM.PN ---
Subjective - Date & Time of Evaluation Date of Evaluation: 10/03/17 Time of Evaluation: 13:03 - Subjective Subjective: Ms. Carlitos Friedman was seen and examined at the bedside. She is alert, oriented in all spheres. She denies any headache, blurred vision, nausea, or vomiting. She states of feeling lightheaded during her therapy. She is able to follow commands, Currently receiving IVF and tolerating it well. Ct of the head yesterday did not show any acute intracranial finding. There was no untoward events overnight. Objective - Vital Signs/Intake and Output Vital Signs (last 24 hours): Temp Pulse Resp BP Pulse Ox 99.5 F 67 18 181/86 H 99 10/03/17 12:00 10/03/17 12:00 10/03/17 12:00 10/03/17 12:00 10/03/17 05:44 Intake and Output: 10/03/17 10/03/17 06:59 18:59 Intake Total 1560 120 Balance 1560 120 - Medications Medications: Current Medications Apixaban (Eliquis) 2.5 mg PO BID [facility] PRN Reason: Protocol Last Admin: 10/03/17 10:02 Dose: 2.5 mg Aspirin (Ecotrin) 81 mg PO DAILY [facility] Last Admin: 10/03/17 10:01 Dose: 81 mg Atorvastatin Calcium (Lipitor) 20 mg PO DIN [facility] Carvedilol (Coreg) 25 mg PO BID [facility] Last Admin: 10/03/17 10:02 Dose: 25 mg Clonidine HCl (Catapres) 0.3 mg PO BID [facility] Last Admin: 10/03/17 10:02 Dose: 0.3 mg Famotidine (Pepcid) 20 mg PO DAILY [facility] Last Admin: 10/03/17 10:04 Dose: 20 mg Hydralazine HCl (Apresoline) 100 mg PO BID [facility] Last Admin: 10/03/17 10:01 Dose: 100 mg Sodium Chloride (Sodium Chloride 0.9%) 1,000 mls @ 100 mls/hr IV .Q10H [facility] Last Admin: 10/03/17 04:15 Dose: 100 mls/hr Nifedipine (Procardia Xl) 60 mg PO DAILY [facility] Last Admin: 10/03/17 10:01 Dose: 60 mg - Labs Labs: 10/03/17 06:00 10/03/17 06:00 PT 18.2 SECONDS (9.4-12.5) H 10/02/17 15:18 INR 1.58 (0.93-1.08) H 10/02/17 15:18 APTT 32.5 Seconds (25.1-36.5) 10/02/17 15:18 - Constitutional Appears: No Acute Distress - Head Exam Head Exam: NORMAL INSPECTION - Neurological Exam Neurological Exam: Alert, Awake, Oriented x3 Neuro motor strength exam: Left Upper Extremity: 5, Right Upper Extremity: 5, Left Lower Extremity: 5, Right Lower Extremity: 5 Additional comments: She is able to answer questions, follow commands, Sensation remains intact. Assessment and Plan (1) TIA (transient ischemic attack) Assessment & Plan: Case discussed with Dr. Roberson, continue all current medical, physical, and occupational therapies. With her creatinine level improving, recommend CTA of the head and neck and echocardiogram. Status: Acute
[2017-10-03] MEDS ORDERED: Iohexol 350 MG/100 ML VIAL ONE (13:08)
--- NOTE | 2017-10-03 14:42 | CARD ---
APPROVED REPORT EKG Measurement Heart [id number] <Conclusion> AV sequential or dual chamber electronic pacemaker
--- NOTE | 2017-10-03 16:02 | CP.PCM.PN ---
<WilsonReggie - Last Filed: 10/03/17 17:30> Subjective - Date & Time of Evaluation Date of Evaluation: 10/03/17 Time of Evaluation: 09:56 - Subjective Subjective: Reggie Rachel PGY1 IM Progress Note Patient was seen and examined at bedside.Denies any acute overnight events, but is anxious about why these events keep happening to her. The patient describes it as a Left sided weakness and trouble ambulating at times. She also says that she was slurring her speech for about 10 minutes. Regarding her pacemaker, the patient states that she saw Dr. Traore on 09/23/17 for an interrogation and was told everything was fine. The patient denies any current symptoms of slurring speech, weakness, urinary/bowel habit changes or loss of control, chest pain, shortness of breath, fevers/chills, recent falls, or trauma. Patient is able to ambulate without assistance. Dr. Traore was contacted and he states that the pacemaker was interrogated on and showed Atrial flutter but no fibrillation. He recommends patient to go for outpatient MRI at another location that has capacity for MRI's in patients with pacemakers. He also states that the patient was started on Eliquis 2.5 instead of 5 due to CKD. Objective - Vital Signs/Intake and Output Vital Signs (last 24 hours): Temp Pulse Resp BP Pulse Ox 99.5 F 68 18 130/68 99 10/03/17 12:00 10/03/17 13:50 10/03/17 12:00 10/03/17 13:50 10/03/17 05:44 Intake and Output: 10/03/17 10/03/17 06:59 18:59 Intake Total 1560 120 Balance 1560 120 - Medications Medications: Current Medications Apixaban (Eliquis) 5 mg PO BID [facility] PRN Reason: Protocol Aspirin (Ecotrin) 81 mg PO DAILY [facility] Last Admin: 10/03/17 10:01 Dose: 81 mg Atorvastatin Calcium (Lipitor) 20 mg PO DIN [facility] Carvedilol (Coreg) 25 mg PO BID [facility] Last Admin: 10/03/17 10:02 Dose: 25 mg Clonidine HCl (Catapres) 0.3 mg PO BID [facility] Last Admin: 10/03/17 10:02 Dose: 0.3 mg Famotidine (Pepcid) 20 mg PO DAILY [facility] Last Admin: 10/03/17 10:04 Dose: 20 mg Hydralazine HCl (Apresoline) 100 mg PO BID [facility] Last Admin: 10/03/17 10:01 Dose: 100 mg Sodium Chloride (Sodium Chloride 0.9%) 1,000 mls @ 100 mls/hr IV .Q10H [facility] Last Admin: 10/03/17 13:43 Dose: Not Given Nifedipine (Procardia Xl) 60 mg PO DAILY [facility] Last Admin: 10/03/17 10:01 Dose: 60 mg - Labs Labs: 10/03/17 06:00 10/03/17 06:00 PT 18.2 SECONDS (9.4-12.5) H 10/02/17 15:18 INR 1.58 (0.93-1.08) H 10/02/17 15:18 APTT 32.5 Seconds (25.1-36.5) 10/02/17 15:18 - Constitutional Appears: Well, Non-toxic, No Acute Distress - Head Exam Head Exam: ATRAUMATIC, NORMAL INSPECTION - Eye Exam Eye Exam: EOMI, Normal appearance, PERRL. absent: Nystagmus - ENT Exam ENT Exam: Mucous Membranes Moist - Neck Exam Neck Exam: Normal Inspection - Respiratory Exam Respiratory Exam: Clear to Ausculation Bilateral, NORMAL BREATHING PATTERN. absent: Rales, Rhonchi, Wheezes - Cardiovascular Exam Cardiovascular Exam: RRR, +S1, +S2 - GI/Abdominal Exam GI & Abdominal Exam: Soft, Normal Bowel Sounds. absent: Distended, Tenderness - Extremities Exam Extremities Exam: Full ROM, Normal Inspection. absent: Tenderness Additional comments: anterior nuñez multiple hyper-pigmented spots - Back Exam Back Exam: NORMAL INSPECTION - Neurological Exam Neurological Exam: Alert, Awake, Oriented x3. 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 CT head was negative. She was found to have an CASSIA. Plan: 1. TIA causing slurred speech right sided facial droop- resolved - CT head unremarkable - Echo on 09/16/17 showed EF of 61%, moderated mitral regurgitation, negative bubble study - Neuro consulted recommended CTA head and neck, will consult Nephro for assistance w/ obtaining necessary study. - unable to do MRI at [facility] due to pacemaker; recommend outpatient follow up and MRI at other location with pacemaker capability - passed bedside swallow eval, will continue po home medications - lipid panel and hgba1c ordered - cont BP control - cont asa and eliquis (decreased dose due to CKD) - continue lipitor - Neuro consulted, recs appreciated - EP- Dr. Traore for pacemaker, recommends outpatient follow up - PT/OT pending 2. CASSIA - most like due to medications, vs dehydration - FENa 3, likely 2/2 ischemic ATN - IVF NS@ 100 - holding home PO diabetic medications, Lasix, Losartan 3. HTN - controlled - continue coreg 25BID, clonidine 0.3 BID, hydralazine 100 BID, nifedipine 60 daily - will hold losartan and lasix due to CASSIA - cont to monitor 4. A. flutter - patient being paced - cont eliquis 5. diabetes - A1C 8 - hold home meds due to CASSIA on CKD - ISS med - fingerstick achs DVT ppx- Elquis and scds GI ppx- pepcid HHD Patient was seen, examined and discussed with attending, Dr. Parris Rachel PGY1 Pager # [phone] <Layla Nye - Last Filed: 10/04/17 15:18> Objective - Vital Signs/Intake and Output Vital Signs (last 24 hours): Temp Pulse Resp BP Pulse Ox 100.2 F H 67 18 144/58 L 97 10/04/17 12:00 10/04/17 12:00 10/04/17 12:00 10/04/17 12:00 10/04/17 12:00 Intake and Output: 10/04/17 10/04/17 06:59 18:59 Intake Total 1200 120 Balance 1200 120 - Medications Medications: Current Medications Acetaminophen (Tylenol 325mg Tab) 650 mg PO Q4 PRN PRN Reason: Fever >100.4 F Acetylcysteine (Acetylcysteine 20%) 4 ml PO BID [facility] Last Admin: 10/04/17 11:41 Dose: 4 ml Apixaban (Eliquis) 5 mg PO BID [facility] PRN Reason: Protocol Last Admin: 10/04/17 11:39 Dose: 5 mg Aspirin (Ecotrin) 81 mg PO DAILY [facility] Last Admin: 10/04/17 11:40 Dose: 81 mg Atorvastatin Calcium (Lipitor) 20 mg PO DIN [facility] Last Admin: 10/03/17 17:10 Dose: 20 mg Carvedilol (Coreg) 25 mg PO BID [facility] Last Admin: 10/04/17 11:40 Dose: 25 mg Clonidine HCl (Catapres) 0.3 mg PO BID [facility] Last Admin: 10/04/17 11:35 Dose: 0.3 mg Famotidine (Pepcid) 20 mg PO DAILY [facility] Last Admin: 10/04/17 11:39 Dose: 20 mg Hydralazine HCl (Apresoline) 100 mg PO BID [facility] Last Admin: 10/04/17 11:40 Dose: 100 mg Sodium Chloride (Sodium Chloride 0.9%) 1,000 mls @ 100 mls/hr IV .Q10H [facility] Last Admin: 10/04/17 05:35 Dose: 100 mls/hr Insulin Detemir (Levemir) 25 unit SC HS [facility] Insulin Human Lispro (Humalog Med) 0 units SC ACHS [facility] PRN Reason: Protocol Last Admin: 10/04/17 11:42 Dose: Not Given Nifedipine (Procardia Xl) 60 mg PO DAILY [facility] Last Admin: 10/04/17 11:39 Dose: 60 mg - Labs Labs: 10/04/17 06:30 10/04/17 06:30 PT 18.2 SECONDS (9.4-12.5) H 10/02/17 15:18 INR 1.58 (0.93-1.08) H 10/02/17 15:18 APTT 32.5 Seconds (25.1-36.5) 10/02/17 15:18 Attending/Attestation - Attestation I have personally seen and examined this patient.: Yes I have fully participated in the care of the patient.: Yes I have reviewed all pertinent clinical information, including history, physical exam and plan: Yes Notes (Text): 10/04/17 15:14 attending note; Patient seen and examined with resident. Patient is a 67-year-old woman with a past medical history of insulin dependent diabetes, hypertension, pacemaker, multiple previous ischemic strokes/TIA presented to ED with sudden onset of slurred speech, right facial droop and right arm numbness that lasted 10 minutes. her symptoms resolved. CT head is negative. CT angiogram of head and neck recommended by neurology. Acute renal failure; possibly secondary to prerenal/hemodynamic changes. Creatinine is improving after IV hydration. Monitor neurological status. Patient is tolerating diet. PT evaluation appreciated. addendum; Patient had another episode of slurred speech and right arm weakness. code Stroke called. CT head is negative. CT angios ordered. continue aspirin, Lipitor. Eliquis dosage increased to 5 mg by mouth twice a day since creatinine is improving. hypertension; continue medications. Diabetes; continue regular insulin sliding scale and Levemir. 10/04/17 15:17
--- NOTE | 2017-10-03 16:43 | CP.PCM.CON ---
History of Present Illness - History of Present Illness History of Present Illness: called to respond to a code stroke that was called at 4:15 for a 10 minute onset of miss augusto stereotypic symptoms of right face drooping and slurred speech. Patient is trully dysarthric and continues to have symptoms in this right mca territory. She is not a TPA candidate and she is on eloquis. I will order an extra eloquis and CTA Head and NEck. Past Patient History - Infectious Disease Hx of Infectious Diseases: None - Tetanus Immunizations Tetanus Immunization: Unknown - Past Medical History & Family History Past Medical History?: Yes - Past Social History Smoking Status: Never Smoked - CARDIAC Hx Cardiac Disorders: (cad) Hx Hypertension: Yes - PULMONARY Hx Respiratory Disorders: No - NEUROLOGICAL Hx Neurological Disorder: Yes Hx Transient Ischemic Attacks (TIA): Yes (x4 mini strokes in the past) Other/Comment: 1st mini stroke 04/2016, the first one afftected right hand weakness, the next 3 affected speech pt stated "I couldn't talk" all episodes lasting few minutes and resolving - HEENT Hx Cataracts: Yes (bl sx 2014) - RENAL Hx Chronic Kidney Disease: Yes Other/Comment: stage 2 renal disease - ENDOCRINE/METABOLIC Hx Diabetes Mellitus Type 2: Yes - HEMATOLOGICAL/ONCOLOGICAL Hx Blood Disorders: No - INTEGUMENTARY Hx Dermatological Problems: Yes Other/Comment: b/l skin discolorations both legs and itchy skin - MUSCULOSKELETAL/RHEUMATOLOGICAL Hx Falls: No - GASTROINTESTINAL Hx Gastrointestinal Disorders: Yes Hx Gastroesophageal Reflux: Yes Other/Comment: H.Pylori - GENITOURINARY/GYNECOLOGICAL Hx Genitourinary Disorders: No - PSYCHIATRIC Hx Emotional Abuse: No Hx Physical Abuse: No - SURGICAL HISTORY Hx Cardiac Catheterization: Yes (2012) Other/Comment: pacemaker, breast sx 07/02/1984 left benign tumor, benign fibroid tumor removal 2000, colon polyps removed via colonoscopy, fishbome extraction via bronchoscopy from throat - ANESTHESIA Hx Anesthesia Reactions: Yes ("AWARE OF SURROUNDINGS BUT UNABLE TO MOVE FOR A WHILE") Hx Malignant Hyperthermia: No Meds Allergies/Adverse Reactions: Allergies Allergy/AdvReac Type Severity Reaction Status Date / Time Sulfa (Sulfonamide Allergy Severe RASH Verified 09/15/17 08:03 Antibiotics) acetaminophen [From Percocet] AdvReac Severe NAUSEA/VOMI Verified 09/15/17 08:03 TING oxycodone HCl [From Percocet] AdvReac Severe NAUSEA/VOMI Verified 09/15/17 08:03 TING bacitracin AdvReac Mild RASH Verified 09/15/17 08:03 clonidine AdvReac Mild "FEELING Verified 09/15/17 08:03 VERY VAGUE & CLOUDY WHEN TAKING" fentanyl AdvReac VOMITING Verified 09/15/17 08:03 - Medications Medications: Current Medications Apixaban (Eliquis) 5 mg PO BID [facility] PRN Reason: Protocol Aspirin (Ecotrin) 81 mg PO DAILY [facility] Last Admin: 10/03/17 10:01 Dose: 81 mg Atorvastatin Calcium (Lipitor) 20 mg PO DIN [facility] Carvedilol (Coreg) 25 mg PO BID [facility] Last Admin: 10/03/17 10:02 Dose: 25 mg Clonidine HCl (Catapres) 0.3 mg PO BID [facility] Last Admin: 10/03/17 10:02 Dose: 0.3 mg Famotidine (Pepcid) 20 mg PO DAILY [facility] Last Admin: 10/03/17 10:04 Dose: 20 mg Hydralazine HCl (Apresoline) 100 mg PO BID [facility] Last Admin: 10/03/17 10:01 Dose: 100 mg Sodium Chloride (Sodium Chloride 0.9%) 1,000 mls @ 100 mls/hr IV .Q10H [facility] Last Admin: 10/03/17 13:43 Dose: Not Given Nifedipine (Procardia Xl) 60 mg PO DAILY [facility] Last Admin: 10/03/17 10:01 Dose: 60 mg Results - Vital Signs Recent Vital Signs: Last Vital Signs Temp 99.5 F 10/03/17 12:00 Pulse 68 10/03/17 13:50 Resp 18 10/03/17 12:00 BP 130/68 10/03/17 13:50 Pulse Ox 99 10/03/17 05:44 - Labs Result Diagrams: 10/03/17 06:00 10/03/17 06:00 Labs: Laboratory Results - last 24 hr 10/03/17 10/03/17 10/03/17 03:40 06:00 06:00 WBC 5.5 RBC 3.89 Hgb 10.4 L Hct 32.5 L MCV 83.5 MCH 26.7 MCHC 32.0 RDW 16.4 H Plt Count 203 MPV 11.5 H Gran % 46.9 L Lymph % (Auto) 41.2 H [place] % (Auto) 6.0 Eos % (Auto) 5.2 H Baso % (Auto) 0.7 Gran # 2.59 Lymph # (Auto) 2.3 [place] # (Auto) 0.3 Eos # (Auto) 0.3 Baso # (Auto) 0.04 Sodium 144 Potassium 3.9 Chloride 109 H Carbon Dioxide 20 L Anion Gap 19 BUN 25 H Creatinine 1.3 H Est GFR ( Amer) 49 Est GFR (Non-Af Amer) 41 POC Glucose (mg/dL) Random Glucose 164 H Calcium 9.9 Total Bilirubin 0.5 AST 27 ALT 30 Alkaline Phosphatase 86 Total Protein 8.0 Albumin 3.8 Globulin 4.2 Albumin/Globulin Ratio 0.9 L Ur Random Creatinine 48 Ur Random Sodium 103 Ur Random Urea Nitrogn 586 10/03/17 07:37 WBC RBC Hgb Hct MCV MCH MCHC RDW Plt Count MPV Gran % Lymph % (Auto) [place] % (Auto) Eos % (Auto) Baso % (Auto) Gran # Lymph # (Auto) [place] # (Auto) Eos # (Auto) Baso # (Auto) Sodium Potassium Chloride Carbon Dioxide Anion Gap BUN Creatinine Est GFR ( Amer) Est GFR (Non-Af Amer) POC Glucose (mg/dL) 155 H Random Glucose Calcium Total Bilirubin AST ALT Alkaline Phosphatase Total Protein Albumin Globulin Albumin/Globulin Ratio Ur Random Creatinine Ur Random Sodium Ur Random Urea Nitrogn
--- NOTE | 2017-10-03 16:59 | CT ---
PROCEDURE: CT HEAD WITHOUT CONTRAST. HISTORY: code stroke COMPARISON: 10/02/2017. TECHNIQUE: Axial computed tomography images were obtained through the head/brain without intravenous contrast. Radiation dose: Total exam DLP = 935.36 mGy-cm. This CT exam was performed using one or more of the following dose reduction techniques: Automated exposure control, adjustment of the mA and/or kV according to patient size, and/or use of iterative reconstruction technique. FINDINGS: HEMORRHAGE: No intracranial hemorrhage. BRAIN: No mass effect or edema. Encephalomalacia changes identified left occipital and left frontal parietal regions. VENTRICLES: Unremarkable. No hydrocephalus. CALVARIUM: Unremarkable. PARANASAL SINUSES: Unremarkable as visualized. No significant inflammatory changes. MASTOID AIR CELLS: Unremarkable as visualized. No inflammatory changes. OTHER FINDINGS: None. IMPRESSION: No acute intracranial abnormalities. No significant findings to account for the clinical presentation. No significant interval change compared to the prior examination(s). Code stroke protocol: Study completed 16:40 Radiologist notified 16:49 Results conveyed verbally at 16:55 I discussed findings with the resident involved in the care and management of this patient Dr. Rachel Interpretation finalized and available for review 16:57
--- NOTE | 2017-10-03 17:08 | CP.PCM.PCO ---
Addendum Addendum: 10/03/17 17:00 Reggie Rachel PGY1 CODE STROKE NOTE I was paged regarding patient experiencing Left sided weakness. The patient was examined by me and she did not exhibit any focal weaknesses at the time, and had no facial asymmetry or slurring of speech. I explained to the patient in depth that we required a CTA to better visualize her vessels and that she would receive adequate hydration to avoid renal damage. At the time, the patient was still refusing contrast studies. I was contacted again regarding slurring of speech and facial asymmetry. I re- examined the patient, and determined that she has slurring of speech, facial asymmetry but unchanged Left sided weakness similar to this morning. Findings were discussed with Dr. Roberson (neurologist) who was contacted via phone and spoke to patient on the phone. Dr. Roberson wanted the patient to receive CTA Head/Neck as well as an extra dose of Aspirin and Eliquis. Patient agreed to contrast study. CODE STROKE was called at 1618 and appropriate staff attended the [facility]. 2nd peripheral line was inserted to continue adequate IV hydration. Aspirin and Eliquis were not given at this time until it was determined whether possible CVA was hemorrhagic or ischemic to avoid further exacerbation of bleeding. Vital Signs were taken and were stable at this time. Patient was transferred to CT suite for imaging. CT Head (CODE STROKE PROTOCOL) was done and showed no acute hemorrhage, and so CTA Head/Neck were done. Patient remained stable throughout studies. Patient was transferred back to [address] [place] [address]. Radiologist contacted me regarding CT Head being unchanged from prior exam, and with no acute hemorrhage. Aspirin and Eliquis were given, and patient is being hydrated with NS. Patient is currently stable and slurring of speech/facial asymmetry is improving. Will wait for CTA study findings and reach out to Neurology if any pertinent findings. Will continue to monitor patient's vitals and neurochecks. NIHSS is attached below. Patient was seen, examined and discussed with attending, Dr. Parris Rachel PGY1 NIHSS Stroke Scale - Date/Time Evaluation Performed Date Performed: 10/03/17 Time Performed: 16:15 When Was NIHSS Performed: Code Stroke - How Severe is the Stroke Level of Consciousness: 0=Alert LOC to Questions: 0=Both comments correct LOC to commands: 0=Obeys both correctly Best Gaze: 0=Normal Visual: 0=No visual loss Facial: 2=Partial (lower face paralysis) Motor Arm - Left: 1=Drift noted before 10 sec Motor Arm - Right: 0=No drift Motor Leg - Left: 1=Drift before 5 sec Motor Leg - Right: 0=No drift Limb Ataxia: 0=Absent Sensory: 0=Normal Best Language: 1=Mild to moderate aphasia Dysarthia: 1=Mild to moderate slurring Extinction & Inattention (Neglect): 0=Normal, no object Score: 6
[2017-10-03] MEDS ORDERED: Sodium Chloride 0.9% 1,000 ML IV SCH ×2 (18:02→20:02)
[2017-10-03] MEDS ORDERED: Acetylcysteine 20% Inhal Sol (30ml) PO SCH (18:15)
[2017-10-03] MEDS: Insulin Lispro (humaLOG) MEDIUM Coverage SC SCH (21:56)
[2017-10-03] MEDS ORDERED: Insulin Detemir 100 units/ml Vial (Levemir) SC SCH (22:00)
[2017-10-04] MEDS: Sodium Chloride 0.9% 1,000 ML IV SCH ×2 (05:35→18:47)
[2017-10-04 07:19] LABS: BASO # 0.03 K/mm3 (0.0-2.0); BASO % 0.5 % (0.0-3.0); EOS # 0.3 (0.0-0.7); EOS % 4.3 % (1.5-5.0); GRAN # 3.93 (1.4-6.5); GRAN % 65.7 % (50.0-68.0); HEMOGLOBIN 10.2 g/dL (12.0-16.0); LYMPH # 1.6 (1.2-3.4); LYMPH % 26.2 % (22.0-35.0); MEAN CELL VOLUME 83.6 fl (80.0-105.0); MEAN CORPUSCULAR HEMOGLOBIN 26.9 pg (25.0-35.0); MEAN CORPUSCULAR HGB CONC 32.2 g/dl (31.0-37.0); MEAN PLATELET VOLUME 11.8 fl (7.0-11.0); MONO # 0.2 (0.1-0.6); MONO % 3.3 % (1.0-6.0); RBC 3.79 10^6/uL (3.5-6.1); RED CELL DISTRIBUTION WIDTH 16.6 % (11.5-14.5)
--- NOTE | 2017-10-04 07:37 | CON ---
DATE: NEPHROLOGY CONSULTATION HISTORY OF PRESENT ILLNESS: A 67-year-old female with past medical history of diabetes, hypertension, CKD stage III, CAD, status post pacemaker placement, multiple previous ischemic CVAs, who presented to ED yesterday with sudden onset of slurred speech, right facial droop and right arm numbness with symptoms lasting about 15-20 minutes; patient is now having another episode of CVA symptoms with new code stroke called; Nephrology being consulted due to IV contrast study in the setting of advanced renal insufficiency. The patient reports that she had been doing well while at home, had been ambulating without any difficulty, without any shortness of breath; appetite had been well; patient had been on Eliquis since July after having another CVA; patient denies any bleeding or easy bruising due to it. Code stroke was called this afternoon after the patient found to have right-sided weakness again; also was reportedly again having slurring of speech and facial asymmetry. PAST MEDICAL HISTORY: As above. The patient follows with an outside software project engineer, Dr. Jacquie Pimentel. SOCIAL HISTORY: Denies smoking. FAMILY HISTORY: Father with diabetes. Mother with pancreatic CA. REVIEW OF SYSTEMS: CONSTITUTIONAL: Eating well. No reported weight loss. HEENT: Denies any upper respiratory symptoms. Denies any flu-like symptoms. RESPIRATORY: Denies any cough. CARDIOVASCULAR: Denies any chest pains or palpitations. GI: Denies any nausea, vomiting, or diarrhea. : Denies any urinary frequency or urgency. MUSCULOSKELETAL: Gets gouty flares periodically; the last one being in June of last year; takes colchicine and allopurinol for it; denies taking any NSAIDs. SKIN: Reports pruritus of legs due to diabetes. NEURO: Denies any numbness in feet. PHYSICAL EXAMINATION: VITALS: This evening, blood pressure 115/59, heart rate 66, respirations 18 earlier this afternoon, temperature 99.5. GENERAL: No distress. Conversing coherently in full sentences. HEENT: Moist mucous membranes. Nonicteric. NECK: No cervical lymphadenopathy. RESPIRATORY: Lungs clear to auscultation bilaterally. No rales, no rhonchi, no wheezes. CARDIOVASCULAR: Heart sounds S1 and S2 normal. No murmurs, no gallops, no rubs. GI: Abdomen soft, nontender, nondistended. : No bladder distention. EXTREMITIES: No lower leg edema. SKIN: Warm and no cyanosis. Excoriations over bilateral lower legs. PSYCHIATRIC: Normal mood, normal affect. NEURO: No numbness in feet. LABORATORY DATA: This morning, CBC; WBC 5.5, hemoglobin 10.4, hematocrit 32.5, platelets 203,000. Chemistry panel: Sodium 144, potassium 3.9, chloride 109, bicarb 20, BUN 25, creatinine 1.3 (improved from 2.0 yesterday), glucose 164, calcium 9.9, albumin 3.8. Hemoglobin A1c 8.0. Chest x-ray from yesterday on presentation, directly visualized, not showing any significant pulmonary venous congestion, although report does mention chronic interstitial changes. ASSESSMENT/PLAN: 1. Acute kidney injury, resolved, likely prerenal etiology in the setting of being on diuretics and angiotensin II receptor jose daniel; no reported gastrointestinal losses. For now, continue with IV fluids with normal saline at 100 mL/hour. 2. Chronic kidney disease, stage III. The patient with serum creatinine 1.3, corresponding to estimated glomerular filtration rate of 49; proteinuric kidney disease with 2+ proteinuria consistently on previous urinalysis studies; on losartan 25 mg daily at home; unclear why dose was not increased as patient is following with an outpatient software project engineer - will defer to them. 3. Hypertensive chronic kidney disease. Blood pressure currently on the lower end of normal; on nifedipine ER 60 mg daily, Coreg 25 mg b.i.d., hydralazine 100 mg b.i.d., clonidine 0.3 mg b.i.d., losartan currently on hold, Lasix currently on hold. Patient is on extensive antihypertensive regimen. She should have workup for secondary hypertension done if not already pursued; for now, continue to hold diuretics and losartan. 4. Cerebrovascular accident. The patient undergoing urgently this afternoon; discussed with primary attending about need to rule out any possible thrombus; given the repeated presentations of cerebrovascular accident, tests should be done despite not having adequate time for prophylaxis for contrast nephropathy; continue intravenous fluids with normal saline at 100 mL/hour; 5. Anemia. Mild drop in hemoglobin after being given intravenous fluids. Check iron studies. Thank you for this referral. We will be following closely. Miguelangel Huber MD [facility] # [id number]
[2017-10-04 07:43] LABS: ALB/GLOB RATIO 0.9 (1.1-1.8); ALBUMIN 3.6 g/dL (3.0-4.8)
[2017-10-04 07:47] LABS: MAGNESIUM 1.8 mg/dL (1.7-2.2)
--- NOTE | 2017-10-04 09:17 | CT ---
PROCEDURE: CT Angiography of the neck with contrast HISTORY: code stroke COMPARISON: None available. TECHNIQUE: Contiguous axial images of the neck were obtained from the level of the skull-base to the superior mediastinum in the arteriographic phase of enhancement. Coronal and sagittal reformats or also generated. IV contrast dose: 150 cc of Omni 350 Radiation Dose - DLP: 502 mGy-cm This CT exam was performed using one or more of the following dose reduction techniques: Automated exposure control, adjustment of the mA and/or kV according to patient size, and/or use of iterative reconstruction technique. FINDINGS: RIGHT CAROTID ARTERIES: Common Carotid Artery: Normal. Carotid Bifurcation: Normal. Internal Carotid Artery:Normal. External Carotid Artery (proximal branches): Normal. LEFT CAROTID ARTERIES: Common Carotid Artery: Normal. Carotid Bifurcation: Normal. Internal Carotid Artery:Normal. External Carotid Artery (proximal branches): Normal. VERTEBRAL ARTERIES: Right Vertebral Artery: Normal. Left Vertebral Artery: Normal. OTHER FINDINGS: None. IMPRESSION: Normal CT Angiography of the neck. PROCEDURE: CT Angiography of the Brain. HISTORY: code stroke COMPARISON: None available. TECHNIQUE: CT angiography of the intracranial arteries was performed. Coronal and sagittal maximum intensity projection reformated images were generated. This CT exam was performed using one or more of the following dose reduction techniques: Automated exposure control, adjustment of the mA and/or kV according to patient size, and/or use of iterative reconstruction technique. FINDINGS: INTERNAL CEREBRAL ARTERIES: Unremarkable. The skull base, petrous, cavernous and supraclinoid segments are bilaterally widely patent. ANTERIOR CEREBRAL ARTERIES: Unremarkable. A1 and A2 segments are widely patent. Smaller distal branches unremarkable, as visualized. MIDDLE CEREBRAL ARTERIES: Unremarkable. M1 and M2 segments are widely patent. Perisylvian branches grossly symmetric. POSTERIOR CIRCULATION: Basilar Artery: Unremarkable. Distal Vertebral Arteries: Unremarkable. Posterior Cerebral Arteries: Unremarkable. Posterior Inferior Cerebellar Arteries: Unremarkable. ANEURYSM/ VASCULAR MALFORMATIONS: None. OTHER FINDINGS: None. IMPRESSION: Unremarkable CT Angiography of the Brain.
[2017-10-04] MEDS: NIFEdipine 60 mg ER Tab PO SCH (11:39)
[2017-10-04] MEDS: Insulin Lispro (humaLOG) MEDIUM Coverage SC SCH ×4 (11:41→21:51)
[2017-10-04] MEDS: Acetylcysteine 20% Inhal Soln (4ml) PO SCH ×2 (11:41→18:45)
--- NOTE | 2017-10-04 12:32 | CP.PCM.PN ---
<Reggie Rachel - Last Filed: 10/04/17 12:16> Subjective - Date & Time of Evaluation Date of Evaluation: 10/04/17 Time of Evaluation: 11:16 - Subjective Subjective: Reggie Rachel PGY1 IM Progress Note Patient was seen and examined at bedside. The patient is confused and is unable to answer questions completely but follows simple commands. She is able to move all 4 extremities, with the RUE moving with difficulty but poor wrist movement. Mr. Padilla Friedman (, ) was observed outside the patient's room and he stated that the patient was feeling well overall and carrying a normal conversation last night, however, this morning she is a bit confused. Objective - Vital Signs/Intake and Output Vital Signs (last 24 hours): Temp Pulse Resp BP Pulse Ox 98.3 F 66 20 144/58 L 97 10/04/17 06:00 10/04/17 11:40 10/04/17 06:00 10/04/17 11:40 10/04/17 06:00 Intake and Output: 10/04/17 10/04/17 06:59 18:59 Intake Total 1200 120 Balance 1200 120 - Medications Medications: Current Medications Acetylcysteine (Acetylcysteine 20%) 4 ml PO BID [facility] Last Admin: 10/04/17 11:41 Dose: 4 ml Apixaban (Eliquis) 5 mg PO BID [facility] PRN Reason: Protocol Last Admin: 10/04/17 11:39 Dose: 5 mg Aspirin (Ecotrin) 81 mg PO DAILY [facility] Last Admin: 10/04/17 11:40 Dose: 81 mg Atorvastatin Calcium (Lipitor) 20 mg PO DIN [facility] Last Admin: 10/03/17 17:10 Dose: 20 mg Carvedilol (Coreg) 25 mg PO BID [facility] Last Admin: 10/04/17 11:40 Dose: 25 mg Clonidine HCl (Catapres) 0.3 mg PO BID [facility] Last Admin: 10/04/17 11:35 Dose: 0.3 mg Famotidine (Pepcid) 20 mg PO DAILY [facility] Last Admin: 10/04/17 11:39 Dose: 20 mg Hydralazine HCl (Apresoline) 100 mg PO BID [facility] Last Admin: 10/04/17 11:40 Dose: 100 mg Sodium Chloride (Sodium Chloride 0.9%) 1,000 mls @ 100 mls/hr IV .Q10H [facility] Last Admin: 10/04/17 05:35 Dose: 100 mls/hr Insulin Detemir (Levemir) 25 unit SC HS [facility] Insulin Human Lispro (Humalog Med) 0 units SC ACHS [facility] PRN Reason: Protocol Last Admin: 10/04/17 11:42 Dose: Not Given Nifedipine (Procardia Xl) 60 mg PO DAILY [facility] Last Admin: 10/04/17 11:39 Dose: 60 mg - Labs Labs: 10/04/17 06:30 10/04/17 06:30 PT 18.2 SECONDS (9.4-12.5) H 10/02/17 15:18 INR 1.58 (0.93-1.08) H 10/02/17 15:18 APTT 32.5 Seconds (25.1-36.5) 10/02/17 15:18 - Additional Findings Additional findings: - Constitutional Appears: Well, Non-toxic, No Acute Distress - Head Exam Head Exam: ATRAUMATIC, NORMAL INSPECTION - Eye Exam Eye Exam: EOMI, Normal appearance, PERRL. absent: Nystagmus - ENT Exam ENT Exam: Mucous Membranes Moist - Neck Exam Neck Exam: Normal Inspection - Respiratory Exam Respiratory Exam: Clear to Ausculation Bilateral, NORMAL BREATHING PATTERN. absent: Rales, Rhonchi, Wheezes - Cardiovascular Exam Cardiovascular Exam: RRR, +S1, +S2 - GI/Abdominal Exam GI & Abdominal Exam: Soft, Normal Bowel Sounds. absent: Distended, Tenderness - Extremities Exam Extremities Exam: Normal Inspection. absent: Tenderness Additional comments: anterior nuñez multiple hyper-pigmented spots - Back Exam Back Exam: NORMAL INSPECTION - Neurological Exam Neurological Exam: Alert, Awake. absent: Oriented x3 (unable to assess) Neuro motor strength exam: Left Upper Extremity: 5, Right Upper Extremity: 4 ( full but sluggish ROM except for wrist movement which is not present), Left Lower Extremity: 5, Right Lower Extremity: 4 Additional comments: dysarthria noted confused; expressive aphasia noted decreased right nasolabial folds patient able to move RUE against gravity, however, the wrist is flaccid RLE able to move against gravity with no difficulty warren sign negative b/l - Psychiatric Exam Psychiatric exam: Anxious - Skin Skin Exam: Dry, Warm Assessment and Plan - Assessment and Plan (Free Text) Assessment: 67-year-old woman with a past medical history of insulin dependent diabetes, hypertension, CAD and pacemaker, multiple previous ischemic strokes (left MCA region and FLOAT REMOVER region) presented to ED with sudden onset of slurred speech, right facial droop and right arm numbness that lasted 10 minutes and resolved prior to admission. CT head was negativeon admission. She was found to have an CASSIA, which improved with hydration. CODE STROKE was called due to recurrent symptoms while on the medical floors. CT Head was unchanged and CTA Head/Neck was unremarkable. Plan: 1. TIA causing slurred speech right sided facial droop, recurrent - given patient's history of HTN, cause could be dysarthria-clumsy hand syndrome 2/2 lacunar infarcts vs embolic strokes given hx of arrhythmias - CT head shows encephalomalacia in left frontal parietal regions but no bleeding - CTA head/neck were unremarkable - Echo on 09/16/17 showed EF of 61%, moderated mitral regurgitation, pending repeat ECHO - Neuro consulted, recs appreciated - [place] [facility]; recommend outpatient follow up and MRI at other location with pacemaker capability - passed bedside swallow eval, will obtain full speech and swallow eval; currently patient is tolerating PO Diet - lipid panel wnl and A1C 8 - cont BP control - cont asa and eliquis (increased dose due to symptoms and resolved CASSIA) - continue lipitor - EP- Dr. Traore for pacemaker, recommends outpatient follow up - PT/OT pending after recurrent symptoms - Speech and swallow eval 2. CASSIA on CKD, resolved - IVF NS@ 100 - NAC was started to prevent contrast nephropathy - holding home PO diabetic medications, Lasix, Losartan - Nephrology consulted, recommending outpatient workup for secondary causes of CKD and HTN 3. HTN - controlled on multiple medications - continue coreg 25BID, clonidine 0.3 BID, hydralazine 100 BID, nifedipine 60 daily - will hold losartan and lasix due to CASSIA - cont to monitor 4. Hx arrhythmias s/p pacemaker - recent interrogation by Dr. Traore (09/23/17) showed no Afib, and he recommends outpatient follow up - cont eliquis, increased dose to 5mg BID - patient on tele floor, cont to monitor HR 5. diabetes (A1C 8) - PO meds held due to CASSIA on admission and risk of contrast nephropathy - ISS medium - Levemir 25units HS (home dose) - fingerstick achs DVT ppx- Elquis and scds GI ppx- pepcid HHD Patient was seen, examined and discussed with attending, Dr. Parris Rachel PGY1 Pager # [phone] <Layla Nye - Last Filed: 10/04/17 15:20> Objective - Vital Signs/Intake and Output Vital Signs (last 24 hours): Temp Pulse Resp BP Pulse Ox 100.2 F H 67 18 144/58 L 97 10/04/17 12:00 10/04/17 12:00 10/04/17 12:00 10/04/17 12:00 10/04/17 12:00 Intake and Output: 10/04/17 10/04/17 06:59 18:59 Intake Total 1200 120 Balance 1200 120 - Medications Medications: Current Medications Acetaminophen (Tylenol 325mg Tab) 650 mg PO Q4 PRN PRN Reason: Fever >100.4 F Acetylcysteine (Acetylcysteine 20%) 4 ml PO BID [facility] Last Admin: 10/04/17 11:41 Dose: 4 ml Apixaban (Eliquis) 5 mg PO BID [facility] PRN Reason: Protocol Last Admin: 10/04/17 11:39 Dose: 5 mg Aspirin (Ecotrin) 81 mg PO DAILY [facility] Last Admin: 10/04/17 11:40 Dose: 81 mg Atorvastatin Calcium (Lipitor) 20 mg PO DIN [facility] Last Admin: 10/03/17 17:10 Dose: 20 mg Carvedilol (Coreg) 25 mg PO BID [facility] Last Admin: 10/04/17 11:40 Dose: 25 mg Clonidine HCl (Catapres) 0.3 mg PO BID [facility] Last Admin: 10/04/17 11:35 Dose: 0.3 mg Famotidine (Pepcid) 20 mg PO DAILY [facility] Last Admin: 10/04/17 11:39 Dose: 20 mg Hydralazine HCl (Apresoline) 100 mg PO BID [facility] Last Admin: 10/04/17 11:40 Dose: 100 mg Sodium Chloride (Sodium Chloride 0.9%) 1,000 mls @ 100 mls/hr IV .Q10H [facility] Last Admin: 10/04/17 05:35 Dose: 100 mls/hr Insulin Detemir (Levemir) 25 unit SC HS [facility] Insulin Human Lispro (Humalog Med) 0 units SC ACHS [facility] PRN Reason: Protocol Last Admin: 10/04/17 11:42 Dose: Not Given Nifedipine (Procardia Xl) 60 mg PO DAILY [facility] Last Admin: 10/04/17 11:39 Dose: 60 mg - Labs Labs: 10/04/17 06:30 10/04/17 06:30 PT 18.2 SECONDS (9.4-12.5) H 10/02/17 15:18 INR 1.58 (0.93-1.08) H 10/02/17 15:18 APTT 32.5 Seconds (25.1-36.5) 10/02/17 15:18 Attending/Attestation - Attestation I have personally seen and examined this patient.: Yes I have fully participated in the care of the patient.: Yes I have reviewed all pertinent clinical information, including history, physical exam and plan: Yes Notes (Text): 10/04/17 15:18 attending note; Patient seen and examined with resident. Patient is a 67-year-old woman with a past medical history of insulin dependent diabetes, hypertension, pacemaker, multiple previous ischemic strokes/TIA presented to ED with sudden onset of slurred speech, right facial droop and right arm numbness that lasted 10 minutes. her symptoms resolved. CT head is negative. Patient had another episode of slurred speech and right arm weakness yesterday. code Stroke called. CT head is negative. CT angios is negative. continue aspirin, Lipitor. Eliquis dosage increased to 5 mg by mouth twice a day since creatinine is improving. hypertension; continue medications. Diabetes; continue regular insulin sliding scale and Levemir. Acute on CKD: resolved. Creatinine is improving after IV hydration. creatinine is stable at 1.3. patient had expressive aphasia today. Case discussed with neurologist in detail. continue current management. Speech and swallow evaluation ordered. PT evaluation requested.
--- NOTE | 2017-10-04 21:21 | CP.PCM.PN ---
Subjective - Date & Time of Evaluation Date of Evaluation: 10/04/17 Time of Evaluation: 21:00 - Subjective Subjective: Patient reportedly more aphasic and confused today; diet advanced by speech therapist; Objective - Vital Signs/Intake and Output Vital Signs (last 24 hours): Temp Pulse Resp BP Pulse Ox 99.7 F H 67 18 125/64 98 10/04/17 18:00 10/04/17 18:00 10/04/17 18:00 10/04/17 18:00 10/04/17 18:00 Intake and Output: 10/04/17 10/05/17 18:59 06:59 Intake Total 480 Balance 480 - Medications Medications: Current Medications Acetaminophen (Tylenol 325mg Tab) 650 mg PO Q4 PRN PRN Reason: Fever >100.4 F Last Admin: 10/04/17 18:48 Dose: 650 mg Acetylcysteine (Acetylcysteine 20%) 4 ml PO BID [facility] Last Admin: 10/04/17 18:45 Dose: 4 ml Apixaban (Eliquis) 5 mg PO BID [facility] PRN Reason: Protocol Last Admin: 10/04/17 18:46 Dose: 5 mg Aspirin (Ecotrin) 81 mg PO DAILY [facility] Last Admin: 10/04/17 11:40 Dose: 81 mg Atorvastatin Calcium (Lipitor) 20 mg PO DIN [facility] Last Admin: 10/04/17 18:47 Dose: 20 mg Carvedilol (Coreg) 25 mg PO BID [facility] Last Admin: 10/04/17 18:46 Dose: 25 mg Clonidine HCl (Catapres) 0.3 mg PO BID [facility] Last Admin: 10/04/17 18:46 Dose: 0.3 mg Famotidine (Pepcid) 20 mg PO DAILY [facility] Last Admin: 10/04/17 11:39 Dose: 20 mg Hydralazine HCl (Apresoline) 100 mg PO BID [facility] Last Admin: 10/04/17 18:46 Dose: 100 mg Sodium Chloride (Sodium Chloride 0.9%) 1,000 mls @ 100 mls/hr IV .Q10H [facility] Last Admin: 10/04/17 18:47 Dose: 100 mls/hr Insulin Detemir (Levemir) 25 unit SC HS [facility] Insulin Human Lispro (Humalog Med) 0 units SC ACHS [facility] PRN Reason: Protocol Last Admin: 10/04/17 18:49 Dose: 3 units Nifedipine (Procardia Xl) 60 mg PO DAILY [facility] Last Admin: 10/04/17 11:39 Dose: 60 mg - Labs Labs: 10/04/17 06:30 10/04/17 06:30 PT 18.2 SECONDS (9.4-12.5) H 10/02/17 15:18 INR 1.58 (0.93-1.08) H 10/02/17 15:18 APTT 32.5 Seconds (25.1-36.5) 10/02/17 15:18 - Constitutional Appears: Non-toxic, No Acute Distress - Eye Exam Eye Exam: absent: Scleral icterus - Respiratory Exam Respiratory Exam: Clear to Ausculation Bilateral. absent: Respiratory Distress - Cardiovascular Exam Cardiovascular Exam: RRR, +S1, +S2 - GI/Abdominal Exam GI & Abdominal Exam: Soft. absent: Distended, Tenderness - Extremities Exam Additional comments: no leg edema; - Neurological Exam Neurological Exam: Alert, Awake Additional comments: New R facial droop; speech unintelligible; - Psychiatric Exam Psychiatric exam: Normal Affect. absent: Agitated - Skin Skin Exam: Warm. absent: Cyanosis Assessment and Plan (1) Acute CVA (cerebrovascular accident) Assessment & Plan: Patient seen late today; new gross neurologic findings not seen on exam yesterday evening (R facial droop, aphasia); need to avoid tight BP control as this will add to ischemic insult acutely; should not d/c B-jose daniel or clonidine abruptly due to likelihood for severe rebound htn/tachycardia; -hold nifedipine and hydralazine; decrease clonidine to 0.2 mg bid; continue IVF for now; Status: Acute (2) CKD (chronic kidney disease) Assessment & Plan: CKD IIIA likely due to DM nephropathy; needs to be on ARB/CHICO inhibitor intermediate but should hold for now; no CASSIA from contrast CT yesterday; avoid volume depletion and further nephrotoxic agents; Status: Acute (3) HTN (hypertension) Assessment & Plan: Needs permissive hypertension in setting of acute CVA, see above; Status: Acute
[2017-10-04] MEDS: Insulin Detemir 100 units/ml Vial (Levemir) SC SCH (21:51)
--- NOTE | 2017-10-04 22:48 | CP.PCM.PN ---
Subjective - Date & Time of Evaluation Date of Evaluation: 10/04/17 Time of Evaluation: 15:30 - Subjective Subjective: Miss Urbina has right sided facial weakness, on my exam, with aphasia. however, only the right sided facial weakness is consistent, but her aphasia waxes and wanes. I do not feel that she has true aphasia at this point. Her right arm and leg weakness is 4/5, and she is not completely plegic, per my exam. Objective - Vital Signs/Intake and Output Vital Signs (last 24 hours): Temp Pulse Resp BP Pulse Ox 100.2 F H 67 18 144/58 L 97 10/04/17 12:00 10/04/17 12:00 10/04/17 12:00 10/04/17 12:00 10/04/17 12:00 Intake and Output: 10/04/17 10/04/17 06:59 18:59 Intake Total 1200 480 Balance 1200 480 - Medications Medications: Current Medications Acetaminophen (Tylenol 325mg Tab) 650 mg PO Q4 PRN PRN Reason: Fever >100.4 F Acetylcysteine (Acetylcysteine 20%) 4 ml PO BID [facility] Last Admin: 10/04/17 11:41 Dose: 4 ml Apixaban (Eliquis) 5 mg PO BID [facility] PRN Reason: Protocol Last Admin: 10/04/17 11:39 Dose: 5 mg Aspirin (Ecotrin) 81 mg PO DAILY [facility] 234 B[facility]S [facility] Last Admin: 10/04/17 11:40 Dose: 81 mg Atorvastatin Calcium (Lipitor) 20 mg PO DIN [facility] 234 [facility]S [facility] Last Admin: 10/03/17 17:10 Dose: 20 mg Carvedilol (Coreg) 25 mg PO BID [facility] 234 B[facility]S [facility] Last Admin: 10/04/17 11:40 Dose: 25 mg Clonidine HCl (Catapres) 0.3 mg PO BID [facility] 234 B[facility]S AT [facility] Last Admin: 10/04/17 11:35 Dose: 0.3 mg Famotidine (Pepcid) 20 mg PO DAILY [facility] 234 B[facility]S AT [facility] Last Admin: 10/04/17 11:39 Dose: 20 mg Hydralazine HCl (Apresoline) 100 mg PO BID [facility] 234 [facility]S [facility] Last Admin: 10/04/17 11:40 Dose: 100 mg Sodium Chloride (Sodium Chloride 0.9%) 1,000 mls @ 100 mls/hr IV .Q10H [facility] 234 [facility]S [facility] Last Admin: 10/04/17 05:35 Dose: 100 mls/hr Insulin Detemir (Levemir) 25 unit SC HS [facility] 234 B[facility]S [facility] Insulin Human Lispro (Humalog Med) 0 units SC ACHS [facility] 234 B[facility]S [facility] PRN Reason: Protocol Last Admin: 10/04/17 11:42 Dose: Not Given Nifedipine (Procardia Xl) 60 mg PO DAILY [facility] 234 [facility]S [facility] Last Admin: 10/04/17 11:39 Dose: 60 mg - Labs Labs: 10/04/17 06:30 10/04/17 06:30 PT 18.2 SECONDS (9.4-12.5) H 10/02/17 15:18 INR 1.58 (0.93-1.08) H 10/02/17 15:18 APTT 32.5 Seconds (25.1-36.5) 10/02/17 15:18 Assessment and Plan - Assessment and Plan (Free Text) Assessment: 67 yr old woman with what appears to be possibly recrudescence of stroke in left frontal lobe, etiology not clearly delineated. CTA is normal, and we are not able to obtain MRI Brain due to pacemaker. Repeat CT head has been normal as well. I feel that she may have a component of vasospasm and functional issues. In addition, this is not localization related epilepsy. Plan: 1. permissive hypertension. 2. IV fluids with normal saline 100ccs per hour 3. Speech and physical therapy.
[2017-10-05] MEDS: Sodium Chloride 0.9% 1,000 ML IV SCH (02:38)
[2017-10-05 06:50] LABS: BASO # 0.02 K/mm3 (0.0-2.0); BASO % 0.5 % (0.0-3.0); EOS # 0.2 (0.0-0.7); EOS % 3.5 % (1.5-5.0); GRAN # 2.44 (1.4-6.5); GRAN % 56.6 % (50.0-68.0); LYMPH # 1.5 (1.2-3.4); LYMPH % 34.7 % (22.0-35.0); MEAN CELL VOLUME 84.4 fl (80.0-105.0); MONO # 0.2 (0.1-0.6); MONO % 4.7 % (1.0-6.0); RBC 3.33 10^6/uL (3.5-6.1); RED CELL DISTRIBUTION WIDTH 16.7 % (11.5-14.5); WHITE BLOOD COUNT 4.3 10^3/ul (4.5-11.0)
[2017-10-05 08:01] LABS: ALB/GLOB RATIO 0.9 (1.1-1.8); CALCIUM 9.8 mg/dL (8.4-10.5)
--- NOTE | 2017-10-05 10:33 | CP.PCM.PN ---
<Reggie Rachel - Last Filed: 10/05/17 12:11> Subjective - Date & Time of Evaluation Date of Evaluation: 10/05/17 Time of Evaluation: 08:33 - Subjective Subjective: Reggie Rachel PGY1 IM Progress Note Patient was seen and examined at bedside. The patient is more alert today than yesterday, and seems more understanding and responsive. and son are bedside and medical team had conversation with them regarding the patient's current condition and her stroke treatment. Neurology [employer] was contacted regarding the patient, and she states that she will see patient, discuss with neurology team and make further recommendations. fuel verification technician was contacted by me regarding the Echo not being done yet and the importance of it, even if it's a repeat from August due to persistent symptoms. Objective - Vital Signs/Intake and Output Vital Signs (last 24 hours): Temp Pulse Resp BP Pulse Ox 99.2 F 75 20 152/80 H 98 10/05/17 05:58 10/05/17 05:58 10/05/17 05:58 10/05/17 05:58 10/05/17 05:58 Intake and Output: 10/05/17 10/05/17 06:59 18:59 Intake Total 1420 Balance 1420 - Medications Medications: Current Medications Acetaminophen (Tylenol 325mg Tab) 650 mg PO Q4 PRN PRN Reason: Fever >100.4 F Last Admin: 10/04/17 18:48 Dose: 650 mg Acetylcysteine (Acetylcysteine 20%) 4 ml PO BID [facility] Last Admin: 10/04/17 18:45 Dose: 4 ml Apixaban (Eliquis) 5 mg PO BID [facility] PRN Reason: Protocol Last Admin: 10/04/17 18:46 Dose: 5 mg Aspirin (Ecotrin) 81 mg PO DAILY [facility] Last Admin: 10/04/17 11:40 Dose: 81 mg Atorvastatin Calcium (Lipitor) 20 mg PO DIN [facility] Last Admin: 10/04/17 18:47 Dose: 20 mg Carvedilol (Coreg) 25 mg PO BID [facility] Last Admin: 10/04/17 18:46 Dose: 25 mg Clonidine HCl (Catapres) 0.2 mg PO BID [facility] Famotidine (Pepcid) 20 mg PO DAILY [facility] Last Admin: 10/04/17 11:39 Dose: 20 mg Hydralazine HCl (Apresoline) 100 mg PO BID [facility] Last Admin: 10/04/17 18:46 Dose: 100 mg Sodium Chloride (Sodium Chloride 0.9%) 1,000 mls @ 100 mls/hr IV .Q10H [facility] Last Admin: 10/05/17 02:38 Dose: 100 mls/hr Insulin Detemir (Levemir) 25 unit SC HS [facility] Last Admin: 10/04/17 21:51 Dose: Not Given Insulin Human Lispro (Humalog Med) 0 units SC ACHS [facility] PRN Reason: Protocol Last Admin: 10/04/17 21:51 Dose: Not Given Nifedipine (Procardia Xl) 60 mg PO DAILY [facility] Last Admin: 10/04/17 11:39 Dose: 60 mg - Labs Labs: 10/05/17 06:30 10/05/17 06:30 PT 18.2 SECONDS (9.4-12.5) H 10/02/17 15:18 INR 1.58 (0.93-1.08) H 10/02/17 15:18 APTT 32.5 Seconds (25.1-36.5) 10/02/17 15:18 - Additional Findings Additional findings: - Constitutional Appears: Well, Non-toxic, No Acute Distress - Head Exam Head Exam: ATRAUMATIC, NORMAL INSPECTION - Eye Exam Eye Exam: EOMI, Normal appearance, PERRL. absent: Nystagmus - ENT Exam ENT Exam: Mucous Membranes Moist - Neck Exam Neck Exam: Normal Inspection - Respiratory Exam Respiratory Exam: Clear to Ausculation Bilateral, NORMAL BREATHING PATTERN. absent: Rales, Rhonchi, Wheezes, Respiratory Distress - Cardiovascular Exam Cardiovascular Exam: RRR, +S1, +S2 - GI/Abdominal Exam GI & Abdominal Exam: Soft, Normal Bowel Sounds. absent: Distended, Tenderness - Extremities Exam Extremities Exam: Normal Inspection. absent: Tenderness Additional comments: anterior nuñez multiple hyper-pigmented spots - Back Exam Back Exam: NORMAL INSPECTION - Neurological Exam Neurological Exam: Alert, Awake. absent: Oriented x3 (unable to assess) Neuro motor strength exam: Left Upper Extremity: 5, Right Upper Extremity: 3 ( was 0 this morning, but on re-exam, the patient is able to lift arm without assistance but not full active ROM) , Left Lower Extremity: 5, Right Lower Extremity: 4 Additional comments: dysarthria noted, improved from yesterday less confused than yesterday; expressive aphasia improved and patient responding appropriately in short sentences decreased right nasolabial folds patient able to move RUE against gravity, however, the wrist is flaccid RLE able to move against gravity with no difficulty warren sign negative b/l - Psychiatric Exam Psychiatric exam: Anxious - Skin Skin Exam: Dry, Warm Assessment and Plan - Assessment and Plan (Free Text) Assessment: 67-year-old woman with a past medical history of insulin dependent diabetes, hypertension, CAD and pacemaker, multiple previous ischemic strokes (left MCA region 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 CT head was negative on admission. She was found to have an CASSIA, which resolved with hydration. CODE STROKE was called due to recurrent symptoms while on the medical floors. CT Head was unchanged and CTA Head/Neck was unremarkable. Patient continues to have persistent symptoms, will repeat CT Head today since 24hrs since onset of new symptoms and obtain echo. Plan: 1. TIA causing slurred speech right sided facial droop, recurrent - given patient's history of HTN, cause could be dysarthria-clumsy hand syndrome 2/2 lacunar infarcts vs embolic strokes given hx of arrhythmias vs ischemic 2/2 hx HLD and DM2 - CT head (on 10/03 and 10/05) showed encephalomalacia in left frontal parietal regions but no bleeding or new infarcts - CTA head/neck were unremarkable - Echo on 09/16/17 showed EF of 61%, moderated mitral regurgitation, pending repeat ECHO - Neuro consulted, recs appreciated - unable to do MRI at [facility] [place] due to pacemaker; recommend outpatient follow up and MRI at other location with pacemaker capability - speech and swallow eval recommending advanced bite size with nectar thick liquids, 1:1 assist with po, aspiration precautions, HOB upright with all po - lipid panel wnl and A1C 8 - cont BP control - cont asa and eliquis (increased dose due to symptoms and resolved CASSIA) - continue lipitor - EP- Dr. Traore for pacemaker, recommends outpatient follow up - PT/OT pending after recurrent symptoms - Speech and swallow eval 2. CASSIA on CKD, resolved - IVF NS@ 100 - NAC was started to prevent contrast nephropathy - holding home PO diabetic medications, Lasix, Losartan - Nephrology consulted, recommending outpatient workup for secondary causes of CKD and HTN 3. HTN - controlled on multiple medications - continue coreg 25BID, clonidine 0.3 BID - Hydralazine and Nifedipine were held due to permissive HTN - will hold losartan and lasix due to CASSIA - cont to monitor 4. Hx arrhythmias s/p pacemaker - recent interrogation by Dr. Traore (09/23/17) showed no Afib, and he recommends outpatient follow up - cont eliquis, increased dose to 5mg BID as CASSIA resolved and for current symptoms - patient on tele floor, cont to monitor HR 5. diabetes (A1C 8) - PO meds held due to CASSIA on admission and risk of contrast nephropathy - ISS medium - Levemir 25units HS (home dose) - fingerstick achs DVT ppx- Elquis and scds GI ppx- pepcid HHD Patient was seen, examined and discussed with attending, Dr. Parris Rachel PGY1 Pager # [phone] <Layla Nye - Last Filed: 10/05/17 17:53> Objective - Vital Signs/Intake and Output Vital Signs (last 24 hours): Temp Pulse Resp BP Pulse Ox 99.2 F 66 33 H 188/75 H 99 10/05/17 05:58 10/05/17 17:07 10/05/17 15:50 10/05/17 17:07 10/05/17 15:50 Intake and Output: 10/05/17 10/05/17 06:59 18:59 Intake Total 1420 Balance 1420 - Medications Medications: Current Medications Acetaminophen (Tylenol 325mg Tab) 650 mg PO Q4 PRN PRN Reason: Fever >100.4 F Last Admin: 10/04/17 18:48 Dose: 650 mg Acetylcysteine (Acetylcysteine 20%) 4 ml PO BID [facility] Last Admin: 10/05/17 17:18 Dose: 4 ml Apixaban (Eliquis) 5 mg PO BID [facility] PRN Reason: Protocol Last Admin: 10/05/17 17:06 Dose: 5 mg Aspirin (Ecotrin) 81 mg PO DAILY [facility] Last Admin: 10/05/17 13:59 Dose: Not Given Atorvastatin Calcium (Lipitor) 20 mg PO DIN [facility] Last Admin: 10/05/17 17:07 Dose: 20 mg Carvedilol (Coreg) 25 mg PO BID [facility] Last Admin: 10/05/17 17:07 Dose: 25 mg Clonidine HCl (Catapres) 0.2 mg PO BID [facility] Last Admin: 10/05/17 13:59 Dose: Not Given Famotidine (Pepcid) 20 mg PO BID [facility] Last Admin: 10/05/17 17:23 Dose: 20 mg Hydralazine HCl (Apresoline) 100 mg PO BID [facility] Last Admin: 10/04/17 18:46 Dose: 100 mg Insulin Detemir (Levemir) 25 unit SC HS [facility] Last Admin: 10/04/17 21:51 Dose: Not Given Insulin Human Lispro (Humalog Med) 0 units SC [facility] PRN Reason: Protocol Last Admin: 10/05/17 17:06 Dose: 5 units Nifedipine (Procardia Xl) 60 mg PO DAILY [facility] Last Admin: 10/05/17 16:13 Dose: 60 mg - Labs Labs: 10/05/17 06:30 10/05/17 06:30 PT 18.2 SECONDS (9.4-12.5) H 10/02/17 15:18 INR 1.58 (0.93-1.08) H 10/02/17 15:18 APTT 32.5 Seconds (25.1-36.5) 10/02/17 15:18 Attending/Attestation - Attestation I have personally seen and examined this patient.: Yes I have fully participated in the care of the patient.: Yes I have reviewed all pertinent clinical information, including history, physical exam and plan: Yes Notes (Text): 10/05/17 17:49 attending note; Patient seen and examined with resident this morning. Patient's son by the bedside. Patient is a 67-year-old woman with a past medical history of insulin dependent diabetes, hypertension, pacemaker, multiple previous ischemic strokes/TIA presented to ED with sudden onset of slurred speech, right facial droop and right arm numbness that lasted 10 minutes. her symptoms resolved. CT head is negative. Patient had another episode of slurred speech and right arm weakness yesterday. CT head is negative. CT angios is negative. Still with persistent arm weakness. Expressive aphasia is improving. Repeat CT head ordered. continue aspirin, Lipitor. Eliquis dosage increased to 5 mg by mouth twice a day since creatinine is improving. hypertension; continue medications. Diabetes; continue regular insulin sliding scale and Levemir. Acute on CKD: resolved. Creatinine is improving after IV hydration. creatinine is stable at 1.3. continue speech therapy. PT evaluation requested. monitor closely .
--- NOTE | 2017-10-05 11:08 | CT ---
PROCEDURE: CT HEAD WITHOUT CONTRAST. HISTORY: fu rt weakness COMPARISON: CT 10/03/2017 and CTA TECHNIQUE: Axial computed tomography images were obtained through the head/brain without intravenous contrast. Radiation dose: Total exam DLP = 854 mGy-cm. This CT exam was performed using one or more of the following dose reduction techniques: Automated exposure control, adjustment of the mA and/or kV according to patient size, and/or use of iterative reconstruction technique. FINDINGS: HEMORRHAGE: No intracranial hemorrhage. BRAIN: There is a new infarct in the left frontal lobe. This measures approximately 2 x 7 cm as seen on image 40 series 4. Chronic encephalomalacia is seen in the left occipital lobe. VENTRICLES: Unremarkable. No hydrocephalus. CALVARIUM: Unremarkable. PARANASAL SINUSES: Unremarkable as visualized. No significant inflammatory changes. MASTOID AIR CELLS: Unremarkable as visualized. No inflammatory changes. OTHER FINDINGS: None. IMPRESSION: New large infarct in the left frontal lobe
[2017-10-05] MEDS ORDERED: Albuterol-Ipratrop 3 mg / 0.5 (3 ml) UD IH STA (11:14)
[2017-10-05 11:17] LABS: ARTERIAL BLOOD GAS HCO3 15.6 mmol/L (21-28); ARTERIAL BLOOD GAS HEMOGLOBIN 9.4 g/dL (11.7-17.4); ARTERIAL BLOOD GAS O2 CAPACITY 13.1 mL/dl (16-24); ARTERIAL BLOOD GAS O2 CONTENT 12.6 ML/dl (15-23); ARTERIAL BLOOD GAS O2 SAT 95.9 % (95-98); ARTERIAL BLOOD GAS PCO2 24 mm/Hg (35-45); ARTERIAL BLOOD GAS PH 7.42 (7.35-7.45); ARTERIAL BLOOD GAS TCO2 16.3 mmol.L (22-28)
--- NOTE | 2017-10-05 12:11 | CP.PCM.CON ---
History of Present Illness - History of Present Illness History of Present Illness: Critical Care Consult Note HPI Pt is 67-year-old woman with a PMHx of insulin dependent diabetes, hypertension , CAD and pacemaker, multiple previous ischemic strokes (left MCA region and ALTERATION HAND region; asymptomatic) presented to ED with sudden onset of slurred speech, right facial droop and right arm numbness that lasted for about 15-20 minutes and then resolved completely. Pt not given tPA. Pt was on Eliquis 5mg BID, this moring had repeat CT head which showed new large LEFT frontal ischemic stroke. Pt is currently awake, alert, NAD, protecting airway, with R Arm weakness, and aphasia. PMH: IDDM, hypertension, CAD and pacemaker, multiple previous ischemic strokes ( left MCA region and ALTERATION HAND region; asymptomatic) PSH: pacemaker placement, breast biopsy social history: denies smoking, alcohol use, illicit drug use family history: mother pancreatic cancer, father diabetes ROS: as above Review of Systems - Review of Systems Review of Systems: as per HPI Past Patient History - Infectious Disease Hx of Infectious Diseases: None - Tetanus Immunizations Tetanus Immunization: Unknown - Past Medical History & Family History Past Medical History?: Yes - Past Social History Smoking Status: Never Smoked - CARDIAC Hx Cardiac Disorders: Yes Hx Hypertension: Yes - PULMONARY Hx Respiratory Disorders: No - NEUROLOGICAL HX Cerebrovascular Accident: Yes - HEENT Hx Cataracts: Yes (bl sx 2014) - RENAL Hx Chronic Kidney Disease: Yes Other/Comment: stage 2 renal disease - ENDOCRINE/METABOLIC Hx Diabetes Mellitus Type 2: Yes - HEMATOLOGICAL/ONCOLOGICAL Hx Blood Disorders: No - INTEGUMENTARY Hx Dermatological Problems: Yes Other/Comment: b/l skin discolorations both legs and itchy skin - MUSCULOSKELETAL/RHEUMATOLOGICAL Hx Musculoskeletal Disorders: No Hx Falls: No Other/Comment: 5th toe right ft turn inward pt keeps bandaid on toe to protect nail, 2nd toe crooked instep turns inward,left foot bunyon - GASTROINTESTINAL Hx Gastrointestinal Disorders: Yes Hx Gastroesophageal Reflux: Yes Other/Comment: H.Pylori - GENITOURINARY/GYNECOLOGICAL Hx Genitourinary Disorders: No - PSYCHIATRIC Hx Emotional Abuse: No Hx Physical Abuse: No Hx Substance Use: No - SURGICAL HISTORY Hx Cardiac Catheterization: Yes (2012) Other/Comment: pacemaker, breast sx 07/02/1984 left benign tumor, benign fibroid tumor removal 2000, colon polyps removed via colonoscopy, fishbome extraction via bronchoscopy from throat - ANESTHESIA Hx Anesthesia Reactions: Yes ("AWARE OF SURROUNDINGS BUT UNABLE TO MOVE FOR A WHILE") Hx Malignant Hyperthermia: No Meds Allergies/Adverse Reactions: Allergies Allergy/AdvReac Type Severity Reaction Status Date / Time Sulfa (Sulfonamide Allergy Severe RASH Verified 09/15/17 08:03 Antibiotics) acetaminophen [From Percocet] AdvReac Severe NAUSEA/VOMI Verified 09/15/17 08:03 TING oxycodone HCl [From Percocet] AdvReac Severe NAUSEA/VOMI Verified 09/15/17 08:03 TING bacitracin AdvReac Mild RASH Verified 09/15/17 08:03 clonidine AdvReac Mild "FEELING Verified 09/15/17 08:03 VERY VAGUE & CLOUDY WHEN TAKING" fentanyl AdvReac VOMITING Verified 09/15/17 08:03 - Medications Medications: Current Medications Acetaminophen (Tylenol 325mg Tab) 650 mg PO Q4 PRN PRN Reason: Fever >100.4 F Last Admin: 10/04/17 18:48 Dose: 650 mg Acetylcysteine (Acetylcysteine 20%) 4 ml PO BID [facility] Last Admin: 10/04/17 18:45 Dose: 4 ml Apixaban (Eliquis) 5 mg PO BID [facility] PRN Reason: Protocol Last Admin: 10/04/17 18:46 Dose: 5 mg Aspirin (Ecotrin) 81 mg PO DAILY [facility] Last Admin: 10/04/17 11:40 Dose: 81 mg Atorvastatin Calcium (Lipitor) 20 mg PO DIN [facility] Last Admin: 10/04/17 18:47 Dose: 20 mg Carvedilol (Coreg) 25 mg PO BID [facility] Last Admin: 10/04/17 18:46 Dose: 25 mg Clonidine HCl (Catapres) 0.2 mg PO BID [facility] Famotidine (Pepcid) 20 mg PO DAILY [facility] Last Admin: 10/04/17 11:39 Dose: 20 mg Hydralazine HCl (Apresoline) 100 mg PO BID [facility] Last Admin: 10/04/17 18:46 Dose: 100 mg Insulin Detemir (Levemir) 25 unit SC HS [facility] Last Admin: 10/04/17 21:51 Dose: Not Given Insulin Human Lispro (Humalog Med) 0 units SC [facility] PRN Reason: Protocol Last Admin: 10/04/17 21:51 Dose: Not Given Nifedipine (Procardia Xl) 60 mg PO DAILY [facility] Last Admin: 10/04/17 11:39 Dose: 60 mg Physical Exam - Constitutional Appears: Non-toxic, No Acute Distress, Older Than Stated Age - Eye Exam Eye Exam: Normal appearance - ENT Exam ENT Exam: Mucous Membranes Moist - Respiratory Exam Respiratory Exam: Wheezes, NORMAL BREATHING PATTERN - Cardiovascular Exam Cardiovascular Exam: REGULAR RHYTHM, +S1, +S2 - GI/Abdominal Exam GI & Abdominal Exam: Normal Bowel Sounds, Soft - Neurological Exam Neurological exam: Alert, Oriented x3 Additional comments: RUE 1/5 RLE 4/5 LUE 4/5 LLE 4/5 Results - Vital Signs Recent Vital Signs: Last Vital Signs Temp 99.2 F 10/05/17 05:58 Pulse 75 10/05/17 05:58 Resp 20 10/05/17 05:58 BP 152/80 H 10/05/17 05:58 Pulse Ox 98 10/05/17 05:58 - Labs Result Diagrams: 10/05/17 06:30 10/05/17 06:30 Labs: Laboratory Results - last 24 hr 10/04/17 10/04/17 10/04/17 06:30 11:22 16:39 WBC RBC Hgb Hct MCV MCH MCHC RDW Plt Count MPV Gran % Lymph % (Auto) [place] % (Auto) Eos % (Auto) Baso % (Auto) Gran # Lymph # (Auto) [place] # (Auto) Eos # (Auto) Baso # (Auto) pCO2 pO2 HCO3 ABG pH ABG Total CO2 ABG O2 Saturation ABG O2 Content ABG Base Excess ABG Hemoglobin ABG Carboxyhemoglobin POC ABG HHb (Measured) ABG Methemoglobin ABG O2 Capacity Hgb O2 Saturation FiO2 Sodium Potassium Chloride Carbon Dioxide Anion Gap BUN Creatinine Est GFR ( Amer) Est GFR (Non-Af Amer) POC Glucose (mg/dL) 122 H 206 H Random Glucose Calcium Total Bilirubin AST ALT Alkaline Phosphatase Total Protein Albumin Globulin Albumin/Globulin Ratio Vitamin B12 312 10/05/17 10/05/17 10/05/17 06:30 06:30 07:33 WBC 4.3 L D RBC 3.33 L Hgb 9.0 L Hct 28.1 L MCV 84.4 MCH 27.0 MCHC 32.0 RDW 16.7 H Plt Count 148 MPV 12.0 H Gran % 56.6 Lymph % (Auto) 34.7 [place] % (Auto) 4.7 Eos % (Auto) 3.5 Baso % (Auto) 0.5 Gran # 2.44 Lymph # (Auto) 1.5 [place] # (Auto) 0.2 Eos # (Auto) 0.2 Baso # (Auto) 0.02 pCO2 pO2 HCO3 ABG pH ABG Total CO2 ABG O2 Saturation ABG O2 Content ABG Base Excess ABG Hemoglobin ABG Carboxyhemoglobin POC ABG HHb (Measured) ABG Methemoglobin ABG O2 Capacity Hgb O2 Saturation FiO2 Sodium 145 Potassium 4.0 Chloride 116 H Carbon Dioxide 17 L Anion Gap 16 BUN 17 Creatinine 1.4 H Est GFR ( Amer) 45 Est GFR (Non-Af Amer) 38 POC Glucose (mg/dL) 182 H Random Glucose 186 H Calcium 9.8 Total Bilirubin 0.5 AST 32 ALT 49 Alkaline Phosphatase 67 Total Protein 6.5 Albumin 3.0 Globulin 3.5 Albumin/Globulin Ratio 0.9 L Vitamin B12 10/05/17 11:10 WBC RBC Hgb Hct MCV MCH MCHC RDW Plt Count MPV Gran % Lymph % (Auto) [place] % (Auto) Eos % (Auto) Baso % (Auto) Gran # Lymph # (Auto) [place] # (Auto) Eos # (Auto) Baso # (Auto) pCO2 24 L pO2 73.0 L HCO3 15.6 L ABG pH 7.42 ABG Total CO2 16.3 L ABG O2 Saturation 95.9 ABG O2 Content 12.6 L ABG Base Excess -7.6 L ABG Hemoglobin 9.4 L ABG Carboxyhemoglobin 1.0 POC ABG HHb (Measured) 4.1 ABG Methemoglobin 0.3 ABG O2 Capacity 13.1 L Hgb O2 Saturation 94.7 L FiO2 36.0 Sodium Potassium Chloride Carbon Dioxide Anion Gap BUN Creatinine Est GFR ( Amer) Est GFR (Non-Af Amer) POC Glucose (mg/dL) Random Glucose Calcium Total Bilirubin AST ALT Alkaline Phosphatase Total Protein Albumin Globulin Albumin/Globulin Ratio Vitamin B12 - Imaging and Cardiology CT scan - head Status: Image reviewed by me, Report reviewed by me Assessment & Plan - Assessment and Plan (Free Text) Assessment: 67yo female a/w acute ischemic L frontal CVA CVA HTN HLD Hx of Aflutter on A/C hx CAD Recommend: - supp o2 as needed - duonebs PRN - panculture, check procal - CXR follow up - permissive HTN for cerebral perfusion, as per neurology - cont with Eliquis 5mg BID - speech swallow eval - NPO for now - ASA, Statin - Lipid Panel, HgbA1C - Pt eval - consider JABARI, rule out LV clot - follow up neurology - GI ppx - DVT ppx - monitor in MICU
--- NOTE | 2017-10-05 12:27 | RAD ---
HISTORY: r/o volume overload COMPARISON: 03/07/2017 10/02/2017. FINDINGS: LUNGS: Increasing multifocal infiltrates likely pulmonary. PLEURA: No significant pleural effusion identified, no pneumothorax apparent. CARDIOVASCULAR: Cardiomegaly, Position/ configuration of pacemaker Satisfactory. OSSEOUS STRUCTURES: No significant abnormalities. VISUALIZED UPPER ABDOMEN: Normal. OTHER FINDINGS: None. IMPRESSION: Acute pulmonary edema.
--- NOTE | 2017-10-05 12:39 | PCM.RRT ---
<Reggie Rachel - Last Filed: 10/05/17 12:40> SUPPLIER DEVELOPMENT MANAGER Nurse Assessment - Situation Date: 10/05/17 Time SUPPLIER DEVELOPMENT MANAGER was called: 11:01 SUPPLIER DEVELOPMENT MANAGER Responder Arrival Time: 11:03 SUPPLIER DEVELOPMENT MANAGER Location:: [address] [place] [address] Room Number: [id number] SUPPLIER DEVELOPMENT MANAGER Reason for Call: Hypertension, Respiratory Distress SUPPLIER DEVELOPMENT MANAGER Called By: RN - IV IV Inserted during SUPPLIER DEVELOPMENT MANAGER?: Yes IV Fluids Initiated During SUPPLIER DEVELOPMENT MANAGER?: no - Respiratory Oxygen Delivery Method: Room Air Received Nebulizer Treatments:: Yes (1107) Was the Patient Ventilated with Bag/Mask 100% O2?: No Secretions Suctioned?: No Was the Patient Intubated?: No Was the Patient Placed on a Ventilator?: No - Medication Medications Administered During SUPPLIER DEVELOPMENT MANAGER: Duoneb Respiratory Treatment - Diagnostic Test Ordered EKG: Yes Chest X-Ray: Yes CT Scan: No (patient had just completed CT Head prior to SUPPLIER DEVELOPMENT MANAGER) - Stat Labs Ordered SUPPLIER DEVELOPMENT MANAGER Stat Labs Ordered: ABG CPR started during SUPPLIER DEVELOPMENT MANAGER?: No - Vital Signs Vital Sign: Rapid Response Vital Sign Blood Pressure 206/121 Pulse Rate 80 Respiratory Rate 20 Temperature 98.4 F Oxygen Saturation 97 - Finger Stick Blood Glucose Finger Stick Blood Glucose: 303 - Time SUPPLIER DEVELOPMENT MANAGER Ended Time SUPPLIER DEVELOPMENT MANAGER Ended: 11:15 - Vital Signs at end of SUPPLIER DEVELOPMENT MANAGER Vital Signs at end of SUPPLIER DEVELOPMENT MANAGER: Rapid Response End Vital Sign Blood Pressure 200/83 Pulse Rate 80 Respiratory Rate 20 Temperature 98.4 F O2 Sat by Pulse Oximetry 100 - Recommendations 5) SUPPLIER DEVELOPMENT MANAGER Level of Care Recommendations: Transfer to ICU Notifications: Attending Physician, Family or Designated Caregiver I.Reason for SUPPLIER DEVELOPMENT MANAGER - A) Acute Change in Patient: Subjective: BP elevated >200/100 and patient in tachypnea but SaO2 was >90% - Neurological Status (Select all that apply): Alert, Responsive, Verbal, Weakness (R-sided weakness ( NOT new symptoms; pt admitted for CVA)). absent: Disoriented - Respiratory Oxygen Delivery Method: Room Air - Constitutional Appears: Well, Non-toxic, In Acute Distress (breathing difficulty) - Head Head Exam: ATRAUMATIC, NORMAL INSPECTION - Eyes Eye Exam: EOMI, Normal appearance, PERRL - Respiratory Exam Respiratory Exam: Decreased Breath Sounds, Respiratory Distress. absent: Rhonchi, Wheezes - Cardiovascular Exam Cardiovascular Exam: RRR, +S1, +S2 - GI/Abdominal Exam GI & Abdominal Exam: Soft, Normal Bowel Sounds. absent: Distended, Tenderness - Neurological Exam Neurological Exam: Alert, Awake Additional exam: RUE 3/5 RLE 4/5 L-sided 5/5 dysarthria noted decreased right nasolabial folds - Extremities Exam Extremities Exam: Normal Inspection. absent: Full ROM, Pedal Edema Plan - Assessment of Findings&Treatment Plan Rapid response was called on patient and team responded STAT. Per staff, the patient had just returned from CT Head exam, and when she came back up, the patient was noted to be short of breath. Vitals were taken and patient was noted to be hypertensive in 200's/120's (please see above for entered information). Patient was admitted for suspicion of CVA and has been being managed by neurology and medical team appropriately. Dr. Gomez was contacted regarding STAT read of the CT head, and he read it as a large ischemic stroke in the Left frontal region. Dr. Roberson was contacted and informed that the patient will be transferred to ICU, and she recommended BP goal of 180/90, and a JABARI to be ordered. Patient's SaO2 is wnl and no new focal deficits are found. Hydralazine was ordered STAT and BP at end of SUPPLIER DEVELOPMENT MANAGER had improved. Plan: transfer patient to ICU for close monitoring of BP, respiratory status and stroke symptoms Cardiology consult placed for Dr. Starr (cardiology) for JABARI to r/o thrombus cont patient on ASA and Eliquis Goal BP 180/90 per Neuro Obtain CXR and EKG continue PT/OT and Speech therapy Continue medical management of CVA and other medical conditions Reggie Rachel PGY1 <Layla Nye - Last Filed: 10/05/17 15:17> SUPPLIER DEVELOPMENT MANAGER Nurse Assessment - Vital Signs Vital Sign: Rapid Response Vital Sign Blood Pressure 206/121 Pulse Rate 80 Respiratory Rate 20 Temperature 98.4 F Oxygen Saturation 97 - Vital Signs at end of SUPPLIER DEVELOPMENT MANAGER Vital Signs at end of SUPPLIER DEVELOPMENT MANAGER: Rapid Response End Vital Sign Blood Pressure 200/83 Pulse Rate 80 Respiratory Rate 20 Temperature 98.4 F O2 Sat by Pulse Oximetry 100 Attending/Attestation - Attestation I have personally seen and examined this patient.: Yes I have fully participated in the care of the patient.: Yes I have reviewed all pertinent clinical information, including history, physical exam and plan: Yes Notes (Text): 10/05/17 15:15 Attending note; Rapid response was called after patient was found hypotensive and had episode of shortness of breath. Blood pressure was 200/110. Patient just came back from head CT. CT scan reviewed with the radiologist. Which showed new left frontal infarct. Neurology informed. Patient is not hypoxic. Monitor blood pressure closely. Patient was evaluated by international manager. Transferred to ICU for close monitoring. Cardiology evaluation requested for possible JABARI to rule out cardiac thrombus. Patient's son by the bedside. The diagnosis and treatment option explained to him in detail.
--- NOTE | 2017-10-05 13:41 | CP.PCM.PN ---
<Bobby Alva - Last Filed: 10/05/17 13:37> Subjective - Date & Time of Evaluation Date of Evaluation: 10/05/17 Time of Evaluation: 13:37 - Subjective Subjective: Ms Carlitos Friedman was seen and examined at the bedside in ICU. She is alert, awake , with dysarthia. She has the right facial palsy with right arm flaccidity. 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 CT of the head without contrast today showed new large infarct in the left frontal lobe. She is able to answer questions appropriately and follow simple commands. She has the bilateral lower extremities SCD's. Objective - Vital Signs/Intake and Output Vital Signs (last 24 hours): Temp Pulse Resp BP Pulse Ox 99.2 F 75 20 152/80 H 98 10/05/17 05:58 10/05/17 05:58 10/05/17 05:58 10/05/17 05:58 10/05/17 05:58 Intake and Output: 10/05/17 10/05/17 06:59 18:59 Intake Total 1420 Balance 1420 - Medications Medications: Current Medications Acetaminophen (Tylenol 325mg Tab) 650 mg PO Q4 PRN PRN Reason: Fever >100.4 F Last Admin: 10/04/17 18:48 Dose: 650 mg Acetylcysteine (Acetylcysteine 20%) 4 ml PO BID [facility] Last Admin: 10/04/17 18:45 Dose: 4 ml Apixaban (Eliquis) 5 mg PO BID [facility] PRN Reason: Protocol Last Admin: 10/04/17 18:46 Dose: 5 mg Aspirin (Ecotrin) 81 mg PO DAILY [facility] Last Admin: 10/04/17 11:40 Dose: 81 mg Atorvastatin Calcium (Lipitor) 20 mg PO DIN [facility] Last Admin: 10/04/17 18:47 Dose: 20 mg Carvedilol (Coreg) 25 mg PO BID [facility] Last Admin: 10/04/17 18:46 Dose: 25 mg Clonidine HCl (Catapres) 0.2 mg PO BID [facility] Famotidine (Pepcid) 20 mg PO DAILY [facility] Last Admin: 10/04/17 11:39 Dose: 20 mg Hydralazine HCl (Apresoline) 100 mg PO BID [facility] Last Admin: 10/04/17 18:46 Dose: 100 mg Insulin Detemir (Levemir) 25 unit SC HS [facility] Last Admin: 10/04/17 21:51 Dose: Not Given Insulin Human Lispro (Humalog Med) 0 units SC [facility] PRN Reason: Protocol Last Admin: 10/04/17 21:51 Dose: Not Given Nifedipine (Procardia Xl) 60 mg PO DAILY [facility] Last Admin: 10/04/17 11:39 Dose: 60 mg - Labs Labs: 10/05/17 06:30 10/05/17 06:30 PT 18.2 SECONDS (9.4-12.5) H 10/02/17 15:18 INR 1.58 (0.93-1.08) H 10/02/17 15:18 APTT 32.5 Seconds (25.1-36.5) 10/02/17 15:18 - Constitutional Appears: No Acute Distress - Head Exam Head Exam: NORMAL INSPECTION - Eye Exam Pupil Exam: PERRL - Respiratory Exam Respiratory Exam: Accessory Muscle Use Additional comments: tachypnea RR- 30's - Neurological Exam Neurological Exam: Alert, Awake, Oriented x3 Neuro motor strength exam: Left Upper Extremity: 5, Right Upper Extremity: 0, Left Lower Extremity: 5, Right Lower Extremity: 3 Additional comments: New onset of right facial palsy, right arm flaccidity, right lower extremity weakness. Sensation is asymmetric less in the right side in comparison to the left. Assessment and Plan (1) Acute CVA (cerebrovascular accident) Assessment & Plan: Case discussed with Dr. Roberson, continue all current medical, physical, occupational, and speech therapies. NPO for now until speech can re-evaluate the patient. Recommend JABARI, wallpaper scraper was on consult. Unable to do MRI due to her PPM. Recommend permissive HTN treat blood pressure if systolic is above 200mm HG and diastolic above 100 mmg/hg. Status: Acute <Roberson,Gautami - Last Filed: 10/05/17 14:11> Objective - Vital Signs/Intake and Output Vital Signs (last 24 hours): Temp Pulse Resp BP Pulse Ox 99.2 F 75 20 152/80 H 98 10/05/17 05:58 10/05/17 05:58 10/05/17 05:58 10/05/17 05:58 10/05/17 05:58 Intake and Output: 10/05/17 10/05/17 06:59 18:59 Intake Total 1420 Balance 1420 - Medications Medications: Current Medications Acetaminophen (Tylenol 325mg Tab) 650 mg PO Q4 PRN PRN Reason: Fever >100.4 F Last Admin: 10/04/17 18:48 Dose: 650 mg Acetylcysteine (Acetylcysteine 20%) 4 ml PO BID [facility] Last Admin: 10/05/17 13:58 Dose: Not Given Apixaban (Eliquis) 5 mg PO BID [facility] PRN Reason: Protocol Last Admin: 10/05/17 13:59 Dose: Not Given Aspirin (Ecotrin) 81 mg PO DAILY [facility] Last Admin: 10/05/17 13:59 Dose: Not Given Atorvastatin Calcium (Lipitor) 20 mg PO DIN [facility] Last Admin: 10/04/17 18:47 Dose: 20 mg Carvedilol (Coreg) 25 mg PO BID [facility] Last Admin: 10/05/17 13:59 Dose: Not Given Clonidine HCl (Catapres) 0.2 mg PO BID [facility] Last Admin: 10/05/17 13:59 Dose: Not Given Famotidine (Pepcid) 20 mg PO DAILY [facility] Last Admin: 10/05/17 14:00 Dose: Not Given Hydralazine HCl (Apresoline) 100 mg PO BID [facility] Last Admin: 10/04/17 18:46 Dose: 100 mg Insulin Detemir (Levemir) 25 unit SC HS [facility] Last Admin: 10/04/17 21:51 Dose: Not Given Insulin Human Lispro (Humalog Med) 0 units SC ACHS [facility] PRN Reason: Protocol Last Admin: 10/05/17 14:00 Dose: Not Given Nifedipine (Procardia Xl) 60 mg PO DAILY [facility] Last Admin: 10/04/17 11:39 Dose: 60 mg - Labs Labs: 10/05/17 06:30 10/05/17 06:30 PT 18.2 SECONDS (9.4-12.5) H 10/02/17 15:18 INR 1.58 (0.93-1.08) H 10/02/17 15:18 APTT 32.5 Seconds (25.1-36.5) 10/02/17 15:18 Assessment and Plan - Assessment and Plan (Free Text) Assessment: At this point, it seems that this is a thrombotic event in the same location where patient has had prior strokes. Heparin could cause hemorrhage in this patient and we will weigh risk benefit before deciding on this management pathway. JABARI would be important to evaluate cardiogenic origin.
[2017-10-05] MEDS: Acetylcysteine 20% Inhal Soln (4ml) PO SCH ×2 (13:58→17:18)
[2017-10-05] MEDS: Insulin Lispro (humaLOG) MEDIUM Coverage SC SCH ×4 (13:59→22:24)
--- NOTE | 2017-10-05 15:56 | CARD ---
APPROVED REPORT EKG Measurement Heart [id number] <Conclusion> Atria sensed, ventricular paced rhythm
[2017-10-05] MEDS: NIFEdipine 60 mg ER Tab PO SCH (16:13)
[2017-10-05] MEDS: Insulin Detemir 100 units/ml Vial (Levemir) SC SCH (22:24)
--- NOTE | 2017-10-06 00:41 | CON ---
DATE: 10/05/2017 CARDIOLOGY CONSULTATION HISTORY OF PRESENT ILLNESS: The patient is a 67-year-old woman who presented with recurrent neurologic events. The patient suffers from diabetes mellitus, hypertension, coronary artery disease, and has had a pacemaker placed. At her last admission, she was placed on Eliquis b.i.d. She presented at this admission with a new left frontal CVA. She denies chest pain, denies shortness of breath. She is compliant with her medications. SOCIAL HISTORY: The patient does not smoke. REVIEW OF SYSTEMS: A 14-point review of systems was reviewed in detail. No ongoing symptoms at this time. PHYSICAL EXAMINATION: VITAL SIGNS: Blood pressure varies from 152 to 206, currently 180. NECK: Negative JVD. LUNGS: Without rales. HEART: S1, S2. EXTREMITIES: Without edema. DIAGNOSTIC DATA: EKG, is a paced rhythm. LABORATORY DATA: Hemoglobin is 9.0. Chemistries; BUN and creatinine are 17 and 1.4. Glucose is 206. IMPRESSION: 1. Recurrent transient ischemic attacks. 2. Hypertension. 3. Coronary artery disease. 4. History of pacemaker placement. 5. Diabetes mellitus. PLAN: Given these findings, we will schedule the patient for JABARI tomorrow to evaluate intracardiac thrombus as well as to review her aortic arch. Orion Starr MD
--- NOTE | 2017-10-06 04:20 | CP.PCM.PN ---
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, found to be in acute pulmonary edema with uncontrolled htn; still with new facial droop and aphasia; Objective - Vital Signs/Intake and Output Vital Signs (last 24 hours): Temp Pulse Resp BP Pulse Ox 98.0 F 69 36 H 186/98 H 100 10/05/17 18:29 10/06/17 03:50 10/06/17 03:50 10/06/17 03:00 10/06/17 03:50 Intake and Output: 10/05/17 10/06/17 18:59 06:59 Intake Total 400 Balance 400 - Medications Medications: Current Medications Acetaminophen (Tylenol 325mg Tab) 650 mg PO Q4 PRN PRN Reason: Fever >100.4 F Last Admin: 10/04/17 18:48 Dose: 650 mg Acetylcysteine (Acetylcysteine 20%) 4 ml PO BID [facility] Last Admin: 10/05/17 17:18 Dose: 4 ml Apixaban (Eliquis) 5 mg PO BID [facility] PRN Reason: Protocol Last Admin: 10/05/17 17:06 Dose: 5 mg Aspirin (Ecotrin) 81 mg PO DAILY [facility] Last Admin: 10/05/17 13:59 Dose: Not Given Atorvastatin Calcium (Lipitor) 20 mg PO DIN [facility] Last Admin: 10/05/17 17:07 Dose: 20 mg Carvedilol (Coreg) 25 mg PO BID [facility] Last Admin: 10/05/17 17:07 Dose: 25 mg Clonidine HCl (Catapres) 0.2 mg PO BID [facility] Last Admin: 10/05/17 13:59 Dose: Not Given Clonidine HCl (Catapres) 0.2 mg PO BID PRN PRN Reason: Systolic Blood Pressure Famotidine (Pepcid) 20 mg PO BID [facility] Last Admin: 10/05/17 17:23 Dose: 20 mg Hydralazine HCl (Apresoline) 100 mg PO BID [facility] Last Admin: 10/04/17 18:46 Dose: 100 mg Hydralazine HCl (Apresoline) 10 mg IVP Q6H PRN PRN Reason: Systolic Blood Pressure Insulin Detemir (Levemir) 25 unit SC [facility] Last Admin: 10/05/17 22:24 Dose: 25 unit Insulin Human Lispro (Humalog Med) 0 units SC ACHS [facility] PRN Reason: Protocol Last Admin: 10/05/17 22:24 Dose: Not Given Nifedipine (Procardia Xl) 60 mg PO DAILY [facility] Last Admin: 10/05/17 16:13 Dose: 60 mg - Labs Labs: 10/05/17 06:30 10/05/17 06:30 PT 18.2 SECONDS (9.4-12.5) H 10/02/17 15:18 INR 1.58 (0.93-1.08) H 10/02/17 15:18 APTT 32.5 Seconds (25.1-36.5) 10/02/17 15:18 - Constitutional Appears: Non-toxic, No Acute Distress - Eye Exam Eye Exam: absent: Scleral icterus - ENT Exam ENT Exam: Mucous Membranes Moist - Respiratory Exam Additional comments: basal rales present; mildly tachypneic, no resp distress; - Cardiovascular Exam Cardiovascular Exam: RRR, +S1, +S2 - GI/Abdominal Exam GI & Abdominal Exam: Soft. absent: Distended, Tenderness - Extremities Exam Additional comments: mild lower leg edema - Neurological Exam Neurological Exam: Alert, Awake Additional comments: following commands but speech not intelligible; - Psychiatric Exam Psychiatric exam: Normal Mood. absent: Agitated - Skin Skin Exam: Warm. absent: Cyanosis Assessment and Plan (1) Acute CVA (cerebrovascular accident) Assessment & Plan: New R frontal lobe CVA; agree with permissive hypertension but should avoid rebound htn from holding clonidine, restart at lower dose (0.1 mg prn); Status: Acute (2) CKD (chronic kidney disease) Assessment & Plan: Renal function relatively stable; monitor; avoid nephrotoxic insults; Status: Chronic (3) HTN (hypertension) Assessment & Plan: BP meds decreased to allow permissive htn; see above; Status: Acute (4) Pulmonary edema Assessment & Plan: In the setting of IVF, uncontrolled BP, LVH and CKD; mildly tachypeic with rales on exam; however, is otherwise comfortable with acceptable O2 sat on [place] oxygen; should avoid diuretics and dropping BP in the setting of acute CVA; Status: Acute
[2017-10-06 06:51] LABS: BASO # 0.03 K/mm3 (0.0-2.0); BASO % 0.3 % (0.0-3.0); EOS # 0.1 (0.0-0.7); EOS % 0.8 % (1.5-5.0); GRAN # 6.52 (1.4-6.5); GRAN % 74.9 % (50.0-68.0); LYMPH # 1.6 (1.2-3.4); LYMPH % 18.6 % (22.0-35.0); MEAN CELL VOLUME 84.4 fl (80.0-105.0); MEAN CORPUSCULAR HEMOGLOBIN 27.4 pg (25.0-35.0); MEAN CORPUSCULAR HGB CONC 32.5 g/dl (31.0-37.0); MEAN PLATELET VOLUME 11.3 fl (7.0-11.0); MONO # 0.5 (0.1-0.6); MONO % 5.4 % (1.0-6.0); RBC 3.65 10^6/uL (3.5-6.1); RED CELL DISTRIBUTION WIDTH 16.6 % (11.5-14.5); WHITE BLOOD COUNT 8.7 10^3/ul (4.5-11.0)
[2017-10-06 07:11] LABS: ALB/GLOB RATIO 0.9 (1.1-1.8); ALBUMIN 3.7 g/dL (3.0-4.8); CALCIUM 10.1 mg/dL (8.4-10.5)
[2017-10-06] MEDS: Insulin Lispro (humaLOG) MEDIUM Coverage SC SCH ×4 (09:08→21:36)
--- NOTE | 2017-10-06 09:12 | CT ---
PROCEDURE: CT HEAD WITHOUT CONTRAST. HISTORY: ischemic stroke COMPARISON: CT 10/05/2017 TECHNIQUE: Axial computed tomography images were obtained through the head/brain without intravenous contrast. Radiation dose: Total exam DLP = 800 mGy-cm. This CT exam was performed using one or more of the following dose reduction techniques: Automated exposure control, adjustment of the mA and/or kV according to patient size, and/or use of iterative reconstruction technique. FINDINGS: HEMORRHAGE: No intracranial hemorrhage. BRAIN: There is a slight increase in the size of left frontal infarct especially in the anterior aspect of the frontal lobe adjacent to the frontal horn. The remainder of the infarct is unchanged. The infarct is more well defined and hypodense. There is no hemorrhage VENTRICLES: Unremarkable. No hydrocephalus. CALVARIUM: Unremarkable. PARANASAL SINUSES: Unremarkable as visualized. No significant inflammatory changes. MASTOID AIR CELLS: Unremarkable as visualized. No inflammatory changes. OTHER FINDINGS: None. IMPRESSION: There is a slight increase in the size of left frontal infarct especially in the anterior aspect of the frontal lobe adjacent to the frontal horn. The remainder of the infarct is unchanged. The infarct is more well defined and hypodense. There is no hemorrhage
[2017-10-06] MEDS: Acetylcysteine 20% Inhal Soln (4ml) PO SCH (10:01)
[2017-10-06] MEDS: NIFEdipine 60 mg ER Tab PO SCH (10:52)
[2017-10-06] MEDS ORDERED: Naloxone 0.4 mg/ml Inj (Adult) ONE (12:34)
[2017-10-06] MEDS ORDERED: Flumazenil 0.1 mg/ml Inj (5ml) IVP ONE (12:34)
[2017-10-06] MEDS ORDERED: Midazolam 2 MG/2 ML VIAL ONE (12:34)
[2017-10-06] MEDS ORDERED: Midazolam 2 MG/2 ML VIAL IV ONE (13:04)
--- NOTE | 2017-10-06 13:45 | CP.PCM.PN ---
<Jannie Cardoso - Last Filed: 10/06/17 13:42> Subjective - Date & Time of Evaluation Date of Evaluation: 10/06/17 Time of Evaluation: 13:42 - Subjective Subjective: ICU progress note for José Reyes PGY2 Patient seen and examined at bedside. She had no events overnight as per nursing staff. Patient is aphasic and only saying yes. ROS could not obtained. She does follow commands. Objective - Vital Signs/Intake and Output Vital Signs (last 24 hours): Temp Pulse Resp BP Pulse Ox 98.0 F 62 30 H 194/78 H 100 10/05/17 18:29 10/06/17 10:52 10/06/17 10:40 10/06/17 10:52 10/06/17 10:40 Intake and Output: 10/06/17 10/06/17 06:59 18:59 Intake Total 0 Output Total 100 Balance -100 - Medications Medications: Current Medications Acetaminophen (Tylenol 325mg Tab) 650 mg PO Q4 PRN PRN Reason: Fever >100.4 F Last Admin: 10/04/17 18:48 Dose: 650 mg Acetylcysteine (Acetylcysteine 20%) 4 ml PO BID [facility] [place] Last Admin: 10/06/17 10:01 Dose: 4 ml Apixaban (Eliquis) 5 mg PO BID [facility] PRN Reason: Protocol Last Admin: 10/06/17 10:13 Dose: 5 mg Aspirin (Ecotrin) 81 mg PO DAILY [facility] Last Admin: 10/06/17 10:13 Dose: 81 mg Atorvastatin Calcium (Lipitor) 20 mg PO DIN [facility] [place] Last Admin: 10/05/17 17:07 Dose: 20 mg Carvedilol (Coreg) 25 mg PO BID [facility] Last Admin: 10/06/17 10:52 Dose: 25 mg Clonidine HCl (Catapres) 0.2 mg PO BID [facility] Last Admin: 10/05/17 13:59 Dose: Not Given Famotidine (Pepcid) 20 mg PO DAILY [facility] [place] Last Admin: 10/06/17 10:01 Dose: 20 mg Hydralazine HCl (Apresoline) 100 mg PO BID [facility] [place] Last Admin: 10/04/17 18:46 Dose: 100 mg Hydralazine HCl (Apresoline) 10 mg IVP Q6 PRN PRN Reason: Systolic Blood Pressure Insulin Detemir (Levemir) 25 unit SC HS [facility] [place] Last Admin: 10/05/17 22:24 Dose: 25 unit Insulin Human Lispro (Humalog Med) 0 units SC [facility] PRN Reason: Protocol Last Admin: 10/06/17 12:23 Dose: Not Given Nifedipine (Procardia Xl) 60 mg PO DAILY [facility] Last Admin: 10/06/17 10:52 Dose: 60 mg - Labs Labs: 10/06/17 06:30 10/06/17 06:30 PT 18.2 SECONDS (9.4-12.5) H 10/02/17 15:18 INR 1.58 (0.93-1.08) H 10/02/17 15:18 APTT 32.5 Seconds (25.1-36.5) 10/02/17 15:18 - Constitutional Appears: No Acute Distress - Head Exam Head Exam: ATRAUMATIC, NORMOCEPHALIC - Eye Exam Eye Exam: Normal appearance, PERRL Pupil Exam: NORMAL ACCOMODATION, PERRL - ENT Exam ENT Exam: Mucous Membranes Moist Additional comments: R facial droop - Respiratory Exam Respiratory Exam: Clear to Ausculation Bilateral, NORMAL BREATHING PATTERN. absent: Rales, Rhonchi, Wheezes - Cardiovascular Exam Cardiovascular Exam: REGULAR RHYTHM, +S1, +S2. absent: Gallop, Rubs, Murmur - GI/Abdominal Exam GI & Abdominal Exam: Soft, Normal Bowel Sounds. absent: Rigid, Tenderness, Mass , Rebound - Extremities Exam Extremities Exam: Normal Inspection. absent: Calf Tenderness, Pedal Edema - Neurological Exam Neurological Exam: Alert, Awake Neuro motor strength exam: Left Upper Extremity: 5, Right Upper Extremity: 0, Left Lower Extremity: 5, Right Lower Extremity: 4 Additional comments: R sided facial droop. Aphasia. Follows commands. 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 Plan: Neuro: Left frontal ischemic stroke Alert, awake, following commands with expressive aphasia Neuro consulted-recs appreciated Repeat head CT showed slight increase in L frontal stroke Continue Eliquis, Lipitor, ASA, statin Maintain normothermia Pt on Depakote seizure precaution Physical therapy, speech therapy Cardio: Pt has pacer JABARI will be done today to r/o any thrombus Hx arrhythmias Pt on ASA, Eliquis, Lipitor Pt on coreg and norvasc Cardio consulted- recs appreciated EP consulted Pulm: Comfortable on room air HOB elevated, aspiration precautions Maintain >90% Sp02 Mucomyst GI: Speech swallow eval pending Will start diet after eval Nephro: CASSIA on CKD Cr stable Monitor electrolytes, replete as needed Maintain euvolemia Avoid diuretics Avoid nephrotoxic drugs ID: Afebrile, no leukocytosis No sign of infection - will continue to monitor Heme/onc: Hgb stable- no overt signs of bleeding Continue to monitor H/H Endo: Hx of IDDM Levemir 25U HS ISS maintain euglycemia DVT ppx: SCDs- hold anticoagulants for risk of hemorrhagic conversion in CVA GI ppx: Pepcid Case seen, discussed and reviewed with attending. José Cardoso PGY2 <Bud Gay - Last Filed: 10/06/17 17:44> Objective - Vital Signs/Intake and Output Vital Signs (last 24 hours): Temp Pulse Resp BP Pulse Ox 98.4 F 66 32 H 155/62 H 93 L 10/06/17 16:51 10/06/17 15:55 10/06/17 15:55 10/06/17 15:55 10/06/17 15:55 Intake and Output: 10/06/17 10/06/17 06:59 18:59 Intake Total 0 Output Total 100 Balance -100 - Medications Medications: Current Medications Acetaminophen (Tylenol 325mg Tab) 650 mg PO Q4 PRN PRN Reason: Fever >100.4 F Last Admin: 10/04/17 18:48 Dose: 650 mg Apixaban (Eliquis) 5 mg PO BID [facility] PRN Reason: Protocol Last Admin: 10/06/17 10:13 Dose: 5 mg Aspirin (Ecotrin) 81 mg PO DAILY [facility] Last Admin: 10/06/17 10:13 Dose: 81 mg Atorvastatin Calcium (Lipitor) 20 mg PO DIN [facility] Last Admin: 10/05/17 17:07 Dose: 20 mg Carvedilol (Coreg) 12.5 mg PO BID [facility] Clonidine HCl (Catapres) 0.2 mg PO BID [facility] Last Admin: 10/05/17 13:59 Dose: Not Given Famotidine (Pepcid) 20 mg PO DAILY [facility] Last Admin: 10/06/17 10:01 Dose: 20 mg Hydralazine HCl (Apresoline) 100 mg PO BID [facility] Last Admin: 10/04/17 18:46 Dose: 100 mg Hydralazine HCl (Apresoline) 10 mg IVP Q6 PRN PRN Reason: Systolic Blood Pressure Valproate Sodium 250 mg/ (Sodium Chloride) 102.5 mls @ 100 mls/hr IVPB Q12 [facility] Insulin Detemir (Levemir) 25 unit SC HS [facility] [place] Last Admin: 10/05/17 22:24 Dose: 25 unit Insulin Human Lispro (Humalog Med) 0 units SC ACHS [facility] PRN Reason: Protocol Last Admin: 10/06/17 16:46 Dose: Not Given Nifedipine (Procardia Xl) 60 mg PO DAILY [facility] Last Admin: 10/06/17 10:52 Dose: 60 mg - Labs Labs: 10/06/17 06:30 10/06/17 06:30 PT 18.2 SECONDS (9.4-12.5) H 10/02/17 15:18 INR 1.58 (0.93-1.08) H 10/02/17 15:18 APTT 32.5 Seconds (25.1-36.5) 10/02/17 15:18 Attending/Attestation - Attestation I have personally seen and examined this patient.: Yes I have fully participated in the care of the patient.: Yes I have reviewed all pertinent clinical information, including history, physical exam and plan: Yes Notes (Text): 10/06/17 17:40 67 yo with L.MCA stroke, in the ICU for acute stroke management, not a candidate for tPA (eliquis failure/on eliquis), permissive hypertension for first 24 hrs then normotension, maintain euvolemia, euglycemia and normothermia , 02sat>93. Passed swallow eval-->ok PO meds and nutrition. DVT/GI prophylaxis. JABARI: no PFO or ASD by bubbles, very minimal by doppler; significant "smoking" in [place] (as per Dr. Ge)-->will call hematology consult for eliquis failure. Ok to downgrade to medsurg/strke floor as per Dr. Roberson. AP ccm time 40 min
--- NOTE | 2017-10-06 13:54 | CP.PCM.PN ---
Subjective - Date & Time of Evaluation Date of Evaluation: 10/06/17 Time of Evaluation: 13:48 - Subjective Subjective: Ms. Carlitos BYRNES was seen and examined at the bedside in ICU. She is alert, awake, but with expressive aphasia. She is able to communicate usind non- verbal cues such as shaking and nodding her head with occasional few clear words such as no or yes. She denies any headache, dizziness, lightheadedness. She remains with right facial droop and right arm flaccid and right lower extremity weak but able to move.CT scan of the head today showed a slight increase in the size of left frontal infarct especially in the anterior aspect of the frontal lobe adjacent to the frontal horn. The remainder of the infarct is unchanged. The infarct is more well defined and hypodense. There is no hemorrhage. According to staff the patient mood was labile overnight with periods of crying. Patient is schedule for JABARI today.There was no untoward events overnight. Objective - Vital Signs/Intake and Output Vital Signs (last 24 hours): Temp Pulse Resp BP Pulse Ox 98.0 F 62 30 H 194/78 H 100 10/05/17 18:29 10/06/17 10:52 10/06/17 10:40 10/06/17 10:52 10/06/17 10:40 Intake and Output: 10/06/17 10/06/17 06:59 18:59 Intake Total 0 Output Total 100 Balance -100 - Medications Medications: Current Medications Acetaminophen (Tylenol 325mg Tab) 650 mg PO Q4 PRN PRN Reason: Fever >100.4 F Last Admin: 10/04/17 18:48 Dose: 650 mg Acetylcysteine (Acetylcysteine 20%) 4 ml PO BID [facility] Last Admin: 10/06/17 10:01 Dose: 4 ml Apixaban (Eliquis) 5 mg PO BID [facility] PRN Reason: Protocol Last Admin: 10/06/17 10:13 Dose: 5 mg Aspirin (Ecotrin) 81 mg PO DAILY [facility] Last Admin: 10/06/17 10:13 Dose: 81 mg Atorvastatin Calcium (Lipitor) 20 mg PO DIN [facility] Last Admin: 10/05/17 17:07 Dose: 20 mg Carvedilol (Coreg) 12.5 mg PO BID [facility] Clonidine HCl (Catapres) 0.2 mg PO BID [facility] Last Admin: 10/05/17 13:59 Dose: Not Given Famotidine (Pepcid) 20 mg PO DAILY [facility] Last Admin: 10/06/17 10:01 Dose: 20 mg Hydralazine HCl (Apresoline) 100 mg PO BID [facility] Last Admin: 10/04/17 18:46 Dose: 100 mg Hydralazine HCl (Apresoline) 10 mg IVP Q6 PRN PRN Reason: Systolic Blood Pressure Valproate Sodium 250 mg/ (Sodium Chloride) 102.5 mls @ 100 mls/hr IVPB Q12 [facility] Insulin Detemir (Levemir) 25 unit SC HS [facility] Last Admin: 10/05/17 22:24 Dose: 25 unit Insulin Human Lispro (Humalog Med) 0 units SC ACHS [facility] PRN Reason: Protocol Last Admin: 10/06/17 12:23 Dose: Not Given Nifedipine (Procardia Xl) 60 mg PO DAILY [facility] Last Admin: 10/06/17 10:52 Dose: 60 mg - Labs Labs: 10/06/17 06:30 10/06/17 06:30 PT 18.2 SECONDS (9.4-12.5) H 10/02/17 15:18 INR 1.58 (0.93-1.08) H 10/02/17 15:18 APTT 32.5 Seconds (25.1-36.5) 10/02/17 15:18 - Constitutional Appears: No Acute Distress - Head Exam Head Exam: NORMAL INSPECTION - Neurological Exam Neurological Exam: Alert, Awake Neuro motor strength exam: Left Upper Extremity: 5, Right Upper Extremity: 0, Left Lower Extremity: 5, Right Lower Extremity: 3 Additional comments: She is able to participate in a conversation using non-verbal cues. She is able to follow simple commands. Sensation is asymmetrical especially in the right upper extremity and facial area. Assessment and Plan (1) Acute CVA (cerebrovascular accident) Assessment & Plan: Case discussed with Dr. Roberson, continue all current medical, physical, occupational, and speech therapies. Recommend Depakote 250 mg IV Q 12 hours for mood stabilizer. Pending JABARI this afternoon. Recommend acute rehab for discharge planning. Status: Acute
--- NOTE | 2017-10-06 16:15 | PN ---
DATE: 10/06/2017 CARDIOLOGY FOLLOWUP SUBJECTIVE: The patient is comfortable in bed. No shortness of breath. PHYSICAL EXAMINATION: VITAL SIGNS: Blood pressure is 190 systolic. NECK: Negative JVD. LUNGS: Without rales. HEART: S1, S2. EXTREMITIES: Without edema. LABORATORY DATA: Hemoglobin is 10. Chemistries: BUN and creatinine 19 and 1.3. Glucose is 140. IMPRESSION: 1. Recurrent cerebrovascular accident. 2. Accelerated hypertension. 3. Diabetes mellitus. 4. History of pacemaker placement. Given these findings, the patient was given her blood pressure medications today. After an hour if her pressure does not come down, we will add an extra dose of clonidine. Orion Starr MD
--- NOTE | 2017-10-06 16:16 | CARD ---
APPROVED REPORT EXAM: Transesophageal echocardiogram with color flow Doppler. INDICATION R/O THROMBUS/PFO Reason For Test : Rule out cardiac source of emboli. PROCEDURE After obtaining informed consent, patient underwent transesophageal echo in the Echo Lab. Type of Sedation : Conscious Sedation Sedation was administered by . Sedation was achieved with Versed and , Fentanyl 1mg and 25 mcg intravenously. Transesophageal probe was inserted and advanced into esophagus without difficulty. Echo enhancement indication: R/O Septal defect. Echo enhancement agent administered: Agitated Saline The JABARI was performed without complications. Throughout the procedure, the blood pressure, pulse oximetry, cardiac rhythm, and rate were monitored. The patient tolerated the procedure without adverse effects. Recovery from conscious sedation was uneventful and vital signs were stable. LEFT VENTRICLE The left ventricle is normal size. There is mild to moderate concentric left ventricular hypertrophy. The left ventricular function is normal.EF-60-65% There is normal LV segmental wall motion. The left ventricular diastolic function is normal. No left ventricle thrombus noted on this study. There is no ventricular septal defect visualized. There is no mass noted in the left ventricle. RIGHT VENTRICLE The right ventricle is mildly dilated. There is normal right ventricular wall thickness. Systolic function is mildly reduced. There is a pacemaker lead in the right ventricle. ATRIA The left atrium is moderately dilated. The right atrium is mildly dilated. There is a catheter/pacemaker lead seen in the right atrium. The atrial septum is aneurysmal, Tiny PFO by color flow and left to Right Shunt intermittent, and not by Bubble study.( negative Bubbltstudy for Right to left shunt). AORTIC VALVE The aortic valve is mildly thickened. There is trace aortic regurgitation. There is no aortic valvular stenosis. There is no aortic valvular vegetation. MITRAL VALVE The mitral valve leaflets are thickened. A moderate mitral valve prolapse is present. There is no mitral valve stenosis. There is no mitral valve regurgitation noted. TRICUSPID VALVE The tricuspid valve leaflets display thickening. There is moderate tricuspid regurgitation. There is no tricuspid valve prolapse or vegetation. There is no tricuspid valve stenosis. PULMONIC VALVE The pulmonary valve is normal in structure. There is trace to mild pulmonic valvular regurgitation. There is no pulmonic valvular stenosis. GREAT VESSELS The aortic root is normal in size. The ascending aorta is normal in size. The pulmonary artery is normal. The IVC is normal in size and collapses >50% with inspiration. PERICARDIAL EFFUSION There is no pericardial effusion. There is no pleural effusion. <Conclusion> The left ventricle is normal size. There is mild to moderate concentric left ventricular hypertrophy. The left ventricular function is normal.EF-60-65% The atrial septum is aneurysmal, Tiny PFO by color flow and left to Right Shunt intermittent, and not by Bubble study.( negative Bubbltstudy for Right to left shunt). There is trace aortic regurgitation. A moderate mitral valve prolapse is present. There is moderate tricuspid regurgitation. PPM Lead noted in RA/RV Mild Flat Plaque noted in descending aorta ( non Mobile) Thick Spontaneous Contrast Echo noted (smoke) in ENOCH. Velocity in ENOCH<0.3m/s.
--- NOTE | 2017-10-06 17:15 | CP.PCM.PN ---
<Reggie Rachel - Last Filed: 10/07/17 04:21> Subjective - Date & Time of Evaluation Date of Evaluation: 10/06/17 Time of Evaluation: 11:21 - Subjective Subjective: Reggie Rachel PGY1 IM Progress Note Patient was seen and examined in ICU with family bedside. The patient is more alert today but remains aphasic. RUE limited ROM but able to move RLE with some difficulty. Overall, she seems less in distress and anxious than on prior day. Denies any chest pain, shortness of breath, fevers/chills. Objective - Vital Signs/Intake and Output Vital Signs (last 24 hours): Temp Pulse Resp BP Pulse Ox 98.4 F 66 32 H 155/62 H 93 L 10/06/17 16:51 10/06/17 15:55 10/06/17 15:55 10/06/17 15:55 10/06/17 15:55 Intake and Output: 10/06/17 10/06/17 06:59 18:59 Intake Total 0 Output Total 100 Balance -100 - Medications Medications: Current Medications Acetaminophen (Tylenol 325mg Tab) 650 mg PO Q4 PRN PRN Reason: Fever >100.4 F Last Admin: 10/04/17 18:48 Dose: 650 mg Acetylcysteine (Acetylcysteine 20%) 4 ml PO BID [facility] Last Admin: 10/06/17 10:01 Dose: 4 ml Apixaban (Eliquis) 5 mg PO BID [facility] PRN Reason: Protocol Last Admin: 10/06/17 10:13 Dose: 5 mg Aspirin (Ecotrin) 81 mg PO DAILY [facility] Last Admin: 10/06/17 10:13 Dose: 81 mg Atorvastatin Calcium (Lipitor) 20 mg PO DIN [facility] Last Admin: 10/05/17 17:07 Dose: 20 mg Carvedilol (Coreg) 12.5 mg PO BID [facility] Clonidine HCl (Catapres) 0.2 mg PO BID [facility] Last Admin: 10/05/17 13:59 Dose: Not Given Famotidine (Pepcid) 20 mg PO DAILY [facility] Last Admin: 10/06/17 10:01 Dose: 20 mg Hydralazine HCl (Apresoline) 100 mg PO BID [facility] Last Admin: 10/04/17 18:46 Dose: 100 mg Hydralazine HCl (Apresoline) 10 mg IVP Q6 PRN PRN Reason: Systolic Blood Pressure Valproate Sodium 250 mg/ (Sodium Chloride) 102.5 mls @ 100 mls/hr IVPB Q12 [facility] Insulin Detemir (Levemir) 25 unit SC HS [facility] Last Admin: 10/05/17 22:24 Dose: 25 unit Insulin Human Lispro (Humalog Med) 0 units SC ACHS ROJELIO PRN Reason: Protocol Last Admin: 10/06/17 16:46 Dose: Not Given Nifedipine (Procardia Xl) 60 mg PO DAILY [facility] Last Admin: 10/06/17 10:52 Dose: 60 mg - Labs Labs: 10/06/17 06:30 10/06/17 06:30 PT 18.2 SECONDS (9.4-12.5) H 10/02/17 15:18 INR 1.58 (0.93-1.08) H 10/02/17 15:18 APTT 32.5 Seconds (25.1-36.5) 10/02/17 15:18 - Additional Findings Additional findings: - Constitutional Appears: Well, Non-toxic, No Acute Distress - Head Exam Head Exam: ATRAUMATIC, NORMAL INSPECTION - Eye Exam Eye Exam: EOMI, Normal appearance, PERRL. absent: Nystagmus - ENT Exam ENT Exam: Mucous Membranes Moist - Neck Exam Neck Exam: Normal Inspection - Respiratory Exam Respiratory Exam: Clear to Ausculation Bilateral, NORMAL BREATHING PATTERN. absent: Rales, Rhonchi, Wheezes, Respiratory Distress - Cardiovascular Exam Cardiovascular Exam: RRR, +S1, +S2 - GI/Abdominal Exam GI & Abdominal Exam: Soft, Normal Bowel Sounds. absent: Distended, Tenderness - Extremities Exam Extremities Exam: Normal Inspection. absent: Tenderness Additional comments: anterior nuñez multiple hyper-pigmented spots - Back Exam Back Exam: NORMAL INSPECTION - Neurological Exam Neurological Exam: Alert, Awake. absent: Oriented x3 (unable to assess) Neuro motor strength exam: Left Upper Extremity: 5, Right Upper Extremity: 3 , Left Lower Extremity: 5, Right Lower Extremity: 4 Additional comments: dysarthria noted, improved from yesterday less confused than yesterday; expressive aphasia improved and patient responding appropriately in short sentences decreased right nasolabial folds patient able to move RUE against gravity, however, the wrist is flaccid RLE able to move against gravity with no difficulty awrren sign negative b/l - Psychiatric Exam Psychiatric exam: Anxious - Skin Skin Exam: Dry, Warm Assessment and Plan - Assessment and Plan (Free Text) Assessment: 67-year-old woman with a past medical history of insulin dependent diabetes, hypertension, CAD and pacemaker, multiple previous ischemic strokes (left MCA region and [facility] HEALTH NURSE region) presented to ED with sudden onset of slurred speech, right facial droop and right arm numbness that lasted 10 minutes and resolved prior to admission. CT head was negative on admission. She was found to have an CASSIA, which resolved with hydration. CODE STROKE was called due to recurrent symptoms while on the medical floors. CT Head was unchanged and CTA Head/Neck was unremarkable. Patient continued to have persistent symptoms, and repeat CT Head showed acute stroke. Patient was transferred to ICU due to shortness of breath after [employer]ER was called. Plan: 1. 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 Traore for pacemaker, recommends outpatient follow up - PT/OT pending after recurrent symptoms - Speech and swallow eval 2. CASSIA on CKD, resolved - IVF NS@ 100 - NAC was started to prevent contrast nephropathy - holding home PO diabetic medications, Lasix, Losartan - Nephrology consulted, recommending outpatient workup for secondary causes of CKD and HTN 3. HTN, in setting of CVA requiring permissive HTN - controlled on multiple medications per Nephro, Neuro and Cardio recs - continue coreg 25BID, clonidine 0.3 BID - Hydralazine and Nifedipine were held due to permissive HTN - will hold losartan and lasix due to CASSIA on admission - cont to monitor 4. Hx arrhythmias s/p pacemaker - recent interrogation by Dr. Traore (09/23/17) showed no Afib, and he recommends outpatient follow up - cont eliquis, increased dose to 5mg BID as CASSIA resolved and for current symptoms - patient on tele floor, cont to monitor HR 5. diabetes (A1C 8) - PO meds held due to CASSIA on admission and risk of contrast nephropathy - ISS medium - Levemir 25units HS (home dose) - fingerstick achs DVT ppx- Elquis and scds GI ppx- pepcid HHD Patient was seen, examined and discussed with attending, Dr. Parris Rachel PGY1 Pager # [phone] <Layla Nye - Last Filed: 10/08/17 13:10> Objective - Vital Signs/Intake and Output Vital Signs (last 24 hours): Temp Pulse Resp BP Pulse Ox 99 F 60 20 184/74 H 100 10/08/17 00:13 10/08/17 09:58 10/08/17 06:50 10/08/17 09:58 10/08/17 06:50 Intake and Output: 10/08/17 10/08/17 06:59 18:59 Intake Total 250 Balance 250 - Medications Medications: Current Medications Acetaminophen (Tylenol 325mg Tab) 650 mg PO Q4 PRN PRN Reason: Fever >100.4 F Last Admin: 10/04/17 18:48 Dose: 650 mg Albuterol/Ipratropium (Duoneb 3 Mg/0.5 Mg (3 Ml) Ud) 3 ml IH [id number] PRN PRN Reason: Shortness of Breath Aspirin (Ecotrin) 81 mg PO DAILY [facility] Last Admin: 10/08/17 09:58 Dose: 81 mg Atorvastatin Calcium (Lipitor) 20 mg PO DIN [facility] Last Admin: 10/07/17 17:05 Dose: 20 mg Carvedilol (Coreg) 6.25 mg PO BID [facility] Last Admin: 10/08/17 09:58 Dose: 6.25 mg Clonidine HCl (Catapres) 0.2 mg PO BID [facility] Last Admin: 10/05/17 13:59 Dose: Not Given Docusate Sodium (Colace Liquid) 100 mg PO TID [facility] Last Admin: 10/08/17 09:58 Dose: 100 mg Famotidine (Pepcid) 20 mg PO DAILY [facility] Last Admin: 10/08/17 09:58 Dose: 20 mg Hydralazine HCl (Apresoline) 100 mg PO BID [facility] Last Admin: 10/04/17 18:46 Dose: 100 mg Hydralazine HCl (Apresoline) 10 mg IVP Q6 PRN PRN Reason: Systolic Blood Pressure Last Admin: 10/08/17 03:12 Dose: 10 mg Valproate Sodium 250 mg/ (Sodium Chloride) 102.5 mls @ 100 mls/hr IVPB Q12 [facility] Last Admin: 10/08/17 10:03 Dose: 100 mls/hr Heparin Sodium/Sodium Chloride (Heparin 66065 Units/250ml 1/2 Normal Saline) 25 ,000 units in 250 mls @ 12.974 mls/hr IV .[id number] PRN; Protocol; 18 UNITS/KG/HR PRN Reason: ADJUST RATE PER PROTOCOL Last Admin: 10/08/17 05:35 Dose: 15 units/kg/hr, 10.811 mls/hr Sodium Chloride (Sodium Chloride 0.45%) 1,000 mls @ 60 mls/hr IV .[id number] [facility] Last Admin: 10/08/17 09:59 Dose: 60 mls/hr Insulin Detemir (Levemir) 25 unit SC HS [facility] Last Admin: 10/07/17 22:02 Dose: 25 unit Insulin Human Lispro (Humalog Med) 0 units SC ACHS [facility] PRN Reason: Protocol Last Admin: 10/08/17 07:30 Dose: Not Given Losartan Potassium (Cozaar) 12.5 mg PO DAILY [facility] Nifedipine (Procardia Xl) 60 mg PO DAILY [facility] Last Admin: 10/08/17 09:54 Dose: 60 mg Polyethylene Glycol (Miralax) 17 gm PO DAILY [facility] Last Admin: 10/07/17 16:03 Dose: 17 gm Warfarin Sodium (Coumadin) 5 mg PO 1800 [facility] PRN Reason: Protocol Last Admin: 10/07/17 22:02 Dose: 5 mg - Labs Labs: 10/08/17 04:00 10/08/17 04:00 PT 20.4 SECONDS (9.4-12.5) H 10/08/17 04:00 INR 1.75 (0.93-1.08) H 10/08/17 04:00 APTT 79.5 Seconds (25.1-36.5) H 10/08/17 10:55 Attending/Attestation - Attestation I have personally seen and examined this patient.: Yes I have fully participated in the care of the patient.: Yes I have reviewed all pertinent clinical information, including history, physical exam and plan: Yes Notes (Text): 10/08/17 12:00 Attending note; patient seen and examined with resident in ICU. Patient's family by the bedside. still have expressive aphasia. Right-sided weakness upper extremity more than lower extremity. blood pressure is fluctuating. Medications adjusted. CT scan showed new left frontal infarct. Neurology evaluation appreciated. Patient is not hypoxic. Monitor blood pressure closely. JABARI showed negative bubble study no thrombus but smoke/left ventircular appendage. monitor the patient closely in ICU. Frequent neuro checks.
[2017-10-06] MEDS: Insulin Detemir 100 units/ml Vial (Levemir) SC SCH (21:39)
--- NOTE | 2017-10-06 21:39 | CP.PCM.CON ---
History of Present Illness - History of Present Illness History of Present Illness: 67 year old female with a history of DM, CAD s/p pacemaker, multiple ischemic CVA's, admitted with acute ischemic CVA while on aspirin and Eliquis. I have been asked to comment on whether the patient has failed anticoagulation with Eliquis given her new CVA. The patient currently has expressive aphasia and I am unable to obtained a history from the patient. Review of her records shows her home medication list including aspirin 81mg daily and Eliquis 2.5mg BID. The patient has undergone a JABAIR which revealed an aneurismal atrial septum with tiny PFO and smoke in the ENOCH. She is currently receiving Eliquis 5mg BID. Pat medical, surgical, family, social history cannot be obtained from the patient. Allergies: Per documentation sulfa, acetaminophen, oxycodone, bacitracin, clonidine, fentanyl. Review of systems cannot be reviewed. Past Patient History - Infectious Disease Hx of Infectious Diseases: None - Tetanus Immunizations Tetanus Immunization: Unknown - Past Medical History & Family History Past Medical History?: Yes - Past Social History Smoking Status: Never Smoked - CARDIAC Hx Cardiac Disorders: Yes Hx Hypertension: Yes - PULMONARY Hx Respiratory Disorders: No - NEUROLOGICAL HX Cerebrovascular Accident: Yes - HEENT Hx Cataracts: Yes (bl sx 2014) - RENAL Hx Chronic Kidney Disease: Yes Other/Comment: stage 2 renal disease - ENDOCRINE/METABOLIC Hx Diabetes Mellitus Type 2: Yes - HEMATOLOGICAL/ONCOLOGICAL Hx Blood Disorders: No - INTEGUMENTARY Hx Dermatological Problems: Yes Other/Comment: b/l skin discolorations both legs and itchy skin - MUSCULOSKELETAL/RHEUMATOLOGICAL Hx Musculoskeletal Disorders: No Hx Falls: No Other/Comment: 5th toe right ft turn inward pt keeps bandaid on toe to protect nail, 2nd toe crooked instep turns inward,left foot bunyon - GASTROINTESTINAL Hx Gastrointestinal Disorders: Yes Hx Gastroesophageal Reflux: Yes Other/Comment: H.Pylori - GENITOURINARY/GYNECOLOGICAL Hx Genitourinary Disorders: No - PSYCHIATRIC Hx Emotional Abuse: No Hx Physical Abuse: No Hx Substance Use: No - SURGICAL HISTORY Hx Cardiac Catheterization: Yes (2012) Other/Comment: pacemaker, breast sx 07/02/1984 left benign tumor, benign fibroid tumor removal 2000, colon polyps removed via colonoscopy, fishbome extraction via bronchoscopy from throat - ANESTHESIA Hx Anesthesia Reactions: Yes ("AWARE OF SURROUNDINGS BUT UNABLE TO MOVE FOR A WHILE") Hx Malignant Hyperthermia: No Meds Allergies/Adverse Reactions: Allergies Allergy/AdvReac Type Severity Reaction Status Date / Time Sulfa (Sulfonamide Allergy Severe RASH Verified 09/15/17 08:03 Antibiotics) acetaminophen [From Percocet] AdvReac Severe NAUSEA/VOMI Verified 09/15/17 08:03 TING oxycodone HCl [From Percocet] AdvReac Severe NAUSEA/VOMI Verified 09/15/17 08:03 TING bacitracin AdvReac Mild RASH Verified 09/15/17 08:03 clonidine AdvReac Mild "FEELING Verified 09/15/17 08:03 VERY VAGUE & CLOUDY WHEN TAKING" fentanyl AdvReac VOMITING Verified 09/15/17 08:03 - Medications Medications: Current Medications Acetaminophen (Tylenol 325mg Tab) 650 mg PO Q4 PRN PRN Reason: Fever >100.4 F Last Admin: 10/04/17 18:48 Dose: 650 mg Apixaban (Eliquis) 5 mg PO BID [facility] PRN Reason: Protocol Last Admin: 10/06/17 17:49 Dose: 5 mg Aspirin (Ecotrin) 81 mg PO DAILY [facility] Last Admin: 10/06/17 10:13 Dose: 81 mg Atorvastatin Calcium (Lipitor) 20 mg PO DIN [facility] Last Admin: 10/06/17 17:49 Dose: 20 mg Carvedilol (Coreg) 12.5 mg PO BID [facility] Last Admin: 10/06/17 17:46 Dose: 12.5 mg Clonidine HCl (Catapres) 0.2 mg PO BID [facility] Last Admin: 10/05/17 13:59 Dose: Not Given Famotidine (Pepcid) 20 mg PO DAILY [facility] Last Admin: 10/06/17 10:01 Dose: 20 mg Hydralazine HCl (Apresoline) 100 mg PO BID [facility] Last Admin: 10/04/17 18:46 Dose: 100 mg Hydralazine HCl (Apresoline) 10 mg IVP Q6 PRN PRN Reason: Systolic Blood Pressure Valproate Sodium 250 mg/ (Sodium Chloride) 102.5 mls @ 100 mls/hr IVPB Q12 [facility] Insulin Detemir (Levemir) 25 unit SC HS [facility] Last Admin: 10/05/17 22:24 Dose: 25 unit Insulin Human Lispro (Humalog Med) [address] [facility] PRN Reason: Protocol Last Admin: 10/06/17 16:46 Dose: Not Given Nifedipine (Procardia Xl) 60 mg PO DAILY [facility] Last Admin: 10/06/17 10:52 Dose: 60 mg Physical Exam - Head Exam Head Exam: ATRAUMATIC - Eye Exam Eye Exam: Normal appearance - ENT Exam ENT Exam: Mucous Membranes Dry - Respiratory Exam Respiratory Exam: NORMAL BREATHING PATTERN - Cardiovascular Exam Cardiovascular Exam: +S1, +S2 - GI/Abdominal Exam GI & Abdominal Exam: Normal Bowel Sounds - Extremities Exam Extremities exam: Positive for: normal inspection Results - Vital Signs Recent Vital Signs: Last Vital Signs Temp 98.4 F 10/06/17 16:51 Pulse 62 10/06/17 18:00 Resp 38 H 10/06/17 18:00 BP 171/72 H 10/06/17 18:00 Pulse Ox 94 L 10/06/17 18:00 - Labs Result Diagrams: 10/06/17 06:30 10/06/17 06:30 Labs: Laboratory Results - last 24 hr 10/05/17 10/06/17 10/06/17 22:18 06:30 06:30 WBC 8.7 D RBC 3.65 Hgb 10.0 L Hct 30.8 L MCV 84.4 MCH 27.4 MCHC 32.5 RDW 16.6 H Plt Count 169 MPV 11.3 H Gran % 74.9 H Lymph % (Auto) 18.6 L [place] % (Auto) 5.4 Eos % (Auto) 0.8 L Baso % (Auto) 0.3 Gran # 6.52 H Lymph # (Auto) 1.6 [place] # (Auto) 0.5 Eos # (Auto) 0.1 Baso # (Auto) 0.03 Sodium 147 Potassium 4.0 Chloride 117 H Carbon Dioxide 17 L Anion Gap 17 BUN 19 Creatinine 1.3 H Est GFR ( Amer) 49 Est GFR (Non-Af Amer) 41 POC Glucose (mg/dL) 218 H Random Glucose 140 H Calcium 10.1 Total Bilirubin 0.6 AST 24 ALT 38 Alkaline Phosphatase 74 Total Protein 7.8 Albumin 3.7 Globulin 4.1 Albumin/Globulin Ratio 0.9 L 10/06/17 10/06/17 10/06/17 08:10 11:35 16:40 WBC RBC Hgb Hct MCV MCH MCHC RDW Plt Count MPV Gran % Lymph % (Auto) [place] % (Auto) Eos % (Auto) Baso % (Auto) Gran # Lymph # (Auto) [place] # (Auto) Eos # (Auto) Baso # (Auto) Sodium Potassium Chloride Carbon Dioxide Anion Gap BUN Creatinine Est GFR ( Amer) Est GFR (Non-Af Amer) POC Glucose (mg/dL) 122 H 146 H 141 H Random Glucose Calcium Total Bilirubin AST ALT Alkaline Phosphatase Total Protein Albumin Globulin Albumin/Globulin Ratio Assessment & Plan (1) Acute CVA (cerebrovascular accident) Assessment and Plan: appears to be cardiac thromboembolic related per documentation the patient appears to have been on Eliquis 2.5mg; this would be an underdosing as opposed to an Eliquis failure given the patient is now on therapeutic full dosing of Eliquis, it is reasonable to continue Eliquis should the patient develop further clotting, I would recommend switching to coumadin Status: Acute Priority: Medium (2) Anemia Assessment and Plan: will check retic count, b12, folate, ferritin to further characterize Status: Acute (3) Coagulopathy Assessment and Plan: secondary to Eliquis may have nutritional component Thank you for this interesting consult. Status: Acute
--- NOTE | 2017-10-06 22:09 | CP.PCM.PN ---
Objective - Vital Signs/Intake and Output Vital Signs (last 24 hours): Temp Pulse Resp BP Pulse Ox 98.4 F 62 38 H 171/72 H 94 L 10/06/17 16:51 10/06/17 18:00 10/06/17 18:00 10/06/17 18:00 10/06/17 18:00 Intake and Output: 10/06/17 10/07/17 18:59 06:59 Intake Total 360 Output Total 100 Balance 260 - Medications Medications: Current Medications Acetaminophen (Tylenol 325mg Tab) 650 mg PO Q4 PRN PRN Reason: Fever >100.4 F Last Admin: 10/04/17 18:48 Dose: 650 mg Apixaban (Eliquis) 5 mg PO BID [facility] PRN Reason: Protocol Last Admin: 10/06/17 17:49 Dose: 5 mg Aspirin (Ecotrin) 81 mg PO DAILY [facility] Last Admin: 10/06/17 10:13 Dose: 81 mg Atorvastatin Calcium (Lipitor) 20 mg PO DIN [facility] Last Admin: 10/06/17 17:49 Dose: 20 mg Carvedilol (Coreg) 12.5 mg PO BID [facility] Last Admin: 10/06/17 17:46 Dose: 12.5 mg Clonidine HCl (Catapres) 0.2 mg PO BID [facility] Last Admin: 10/05/17 13:59 Dose: Not Given Famotidine (Pepcid) 20 mg PO DAILY [facility] Last Admin: 10/06/17 10:01 Dose: 20 mg Hydralazine HCl (Apresoline) 100 mg PO BID [facility] Last Admin: 10/04/17 18:46 Dose: 100 mg Hydralazine HCl (Apresoline) 10 mg IVP Q6 PRN PRN Reason: Systolic Blood Pressure Valproate Sodium 250 mg/ (Sodium Chloride) 102.5 mls @ 100 mls/hr IVPB Q12 [facility] Insulin Detemir (Levemir) 25 unit SC HS [facility] Last Admin: 10/06/17 21:39 Dose: 25 unit Insulin Human Lispro (Humalog Med) 0 units SC ACHS [facility] PRN Reason: Protocol Last Admin: 10/06/17 21:36 Dose: Not Given Nifedipine (Procardia Xl) 60 mg PO DAILY [facility] Last Admin: 10/06/17 10:52 Dose: 60 mg - Labs Labs: 10/06/17 06:30 10/06/17 06:30 PT 18.2 SECONDS (9.4-12.5) H 10/02/17 15:18 INR 1.58 (0.93-1.08) H 10/02/17 15:18 APTT 32.5 Seconds (25.1-36.5) 10/02/17 15:18 Assessment and Plan (1) Acute CVA (cerebrovascular accident) Status: Acute (2) CKD (chronic kidney disease) Status: Chronic (3) HTN (hypertension) Status: Acute (4) Pulmonary edema Status: Acute
[2017-10-06] MEDS: Valproate 250 MG in Sodium Chloride 0.9% 100 ML IVPB SCH (22:17)
[2017-10-07 07:13] LABS: BASO # 0.03 K/mm3 (0.0-2.0); BASO % 0.4 % (0.0-3.0); EOS # 0.1 (0.0-0.7); EOS % 0.9 % (1.5-5.0); GRAN # 5.82 (1.4-6.5); GRAN % 74.5 % (50.0-68.0); HEMOGLOBIN 9.7 g/dL (12.0-16.0); LYMPH # 1.6 (1.2-3.4); LYMPH % 20.2 % (22.0-35.0); MEAN CELL VOLUME 84.1 fl (80.0-105.0); MEAN CORPUSCULAR HGB CONC 32.1 g/dl (31.0-37.0); MEAN PLATELET VOLUME 11.9 fl (7.0-11.0); MONO # 0.3 (0.1-0.6); RBC 3.59 10^6/uL (3.5-6.1); WHITE BLOOD COUNT 7.8 10^3/ul (4.5-11.0)
[2017-10-07 07:37] LABS: ALB/GLOB RATIO 0.9 (1.1-1.8); ALBUMIN 3.5 g/dL (3.0-4.8); CALCIUM 10.1 mg/dL (8.4-10.5)
[2017-10-07] MEDS: Insulin Lispro (humaLOG) MEDIUM Coverage SC SCH ×4 (08:20→21:58)
[2017-10-07] MEDS: Valproate 250 MG in Sodium Chloride 0.9% 100 ML IVPB SCH ×2 (10:20→22:03)
[2017-10-07] MEDS: NIFEdipine 60 mg ER Tab PO SCH (10:22)
--- NOTE | 2017-10-07 14:01 | CP.PCM.PN ---
<Bobby Alva - Last Filed: 10/07/17 14:02> Subjective - Date & Time of Evaluation Date of Evaluation: 10/07/17 Time of Evaluation: 13:57 - Subjective Subjective: Ms. Carlitos Friedman was seen and examined at the bedside in ICU. She is alert, awake, able to utter few words clearly, but unable to state place, person and time. She has expressive aphasia from previous examination.She uses non-verbal cues such as shaking or nodding her head. She is able to follow simple commands , but remains with right facial droop, right arm flaccid, right lower extremity weakness. Sensation remains asymmetrical. She is able to tolerate diet with assistance.She had an episode of elevated blood pressure and was medicated by staff, currently her blood pressure is 124/63. Her respirations remains on the 30's with saturation at 99%. There was no untoward events overnight. Objective - Vital Signs/Intake and Output Vital Signs (last 24 hours): Temp Pulse Resp BP Pulse Ox 98.2 F 61 30 H 124/63 99 10/07/17 06:00 10/07/17 11:59 10/07/17 11:59 10/07/17 12:00 10/07/17 11:59 - Medications Medications: Current Medications Acetaminophen (Tylenol 325mg Tab) 650 mg PO Q4 PRN PRN Reason: Fever >100.4 F Last Admin: 10/04/17 18:48 Dose: 650 mg Apixaban (Eliquis) 5 mg PO BID [facility] PRN Reason: Protocol Last Admin: 10/07/17 10:21 Dose: 5 mg Aspirin (Ecotrin) 81 mg PO DAILY [facility] Last Admin: 10/07/17 10:22 Dose: 81 mg Atorvastatin Calcium (Lipitor) 20 mg PO DIN [facility] Last Admin: 10/06/17 17:49 Dose: 20 mg Carvedilol (Coreg) 12.5 mg PO BID [facility] Last Admin: 10/07/17 10:21 Dose: 12.5 mg Clonidine HCl (Catapres) 0.2 mg PO BID [facility] Last Admin: 10/05/17 13:59 Dose: Not Given Famotidine (Pepcid) 20 mg PO DAILY [facility] Last Admin: 10/07/17 10:21 Dose: 20 mg Hydralazine HCl (Apresoline) 100 mg PO BID [facility] Last Admin: 10/04/17 18:46 Dose: 100 mg Hydralazine HCl (Apresoline) 10 mg IVP Q6 PRN PRN Reason: Systolic Blood Pressure Last Admin: 10/07/17 10:13 Dose: 10 mg Valproate Sodium 250 mg/ (Sodium Chloride) 102.5 mls @ 100 mls/hr IVPB Q12 [facility] Last Admin: 10/07/17 10:20 Dose: 100 mls/hr Insulin Detemir (Levemir) 25 unit SC HS [facility] Last Admin: 10/06/17 21:39 Dose: 25 unit Insulin Human Lispro (Humalog Med) 0 units SC ACHS [facility] PRN Reason: Protocol Last Admin: 10/07/17 08:20 Dose: Not Given Nifedipine (Procardia Xl) 60 mg PO DAILY [facility] Last Admin: 10/07/17 10:22 Dose: 60 mg - Labs Labs: 10/07/17 06:55 10/07/17 06:55 PT 18.2 SECONDS (9.4-12.5) H 10/02/17 15:18 INR 1.58 (0.93-1.08) H 10/02/17 15:18 APTT 32.5 Seconds (25.1-36.5) 10/02/17 15:18 - Constitutional Appears: No Acute Distress - Head Exam Head Exam: NORMAL INSPECTION - Neurological Exam Neurological Exam: Alert, Awake Neuro motor strength exam: Left Upper Extremity: 5, Right Upper Extremity: 0, Left Lower Extremity: 5, Right Lower Extremity: 2/1 Additional comments: Neurological decline from previous examination. She is unable to spontaneously move her right lower extremity. Assessment and Plan (1) Acute CVA (cerebrovascular accident) Assessment & Plan: Case discussed with Dr. Roberson, continue all current medical, physical, occupational, speech therapies. Pending repeat CT scan of the head without contrast and maintain normotensive, keep head of the bed elevated at least 30 degrees to maintain brain perfusion. Status: Acute <Piyush Roberson - Last Filed: 10/07/17 17:29> Objective - Vital Signs/Intake and Output Vital Signs (last 24 hours): Temp Pulse Resp BP Pulse Ox 98.2 F 63 30 H 168/73 H 100 10/07/17 06:00 10/07/17 17:05 10/07/17 14:50 10/07/17 17:05 10/07/17 14:40 - Medications Medications: Current Medications Acetaminophen (Tylenol 325mg Tab) 650 mg PO Q4 PRN PRN Reason: Fever >100.4 F Last Admin: 10/04/17 18:48 Dose: 650 mg Aspirin (Ecotrin) 81 mg PO DAILY [facility] Last Admin: 10/07/17 10:22 Dose: 81 mg Atorvastatin Calcium (Lipitor) 20 mg PO DIN [facility] Last Admin: 10/07/17 17:05 Dose: 20 mg Carvedilol (Coreg) 12.5 mg PO BID [facility] Last Admin: 10/07/17 17:05 Dose: 12.5 mg Clonidine HCl (Catapres) 0.2 mg PO BID [facility] Last Admin: 10/05/17 13:59 Dose: Not Given Docusate Sodium (Colace Liquid) 100 mg PO TID [facility] Last Admin: 10/07/17 17:05 Dose: 100 mg Famotidine (Pepcid) 20 mg PO DAILY [facility] Last Admin: 10/07/17 10:21 Dose: 20 mg Hydralazine HCl (Apresoline) 100 mg PO BID [facility] Last Admin: 10/04/17 18:46 Dose: 100 mg Hydralazine HCl (Apresoline) 10 mg IVP Q6 PRN PRN Reason: Systolic Blood Pressure Last Admin: 10/07/17 10:13 Dose: 10 mg Valproate Sodium 250 mg/ (Sodium Chloride) 102.5 mls @ 100 mls/hr IVPB Q12 [facility] Last Admin: 10/07/17 10:20 Dose: 100 mls/hr Heparin Sodium/Sodium Chloride (Heparin 05873 Units/250ml 1/2 Normal Saline) 25 ,000 units in 250 mls @ 12.974 mls/hr IV .[id number] PRN; Protocol; 18 UNITS/KG/HR PRN Reason: ADJUST RATE PER PROTOCOL Insulin Detemir (Levemir) 25 unit SC HS [facility] Last Admin: 10/06/17 21:39 Dose: 25 unit Insulin Human Lispro (Humalog Med) 0 units SC ACHS [facility] PRN Reason: Protocol Last Admin: 10/07/17 12:30 Dose: 1 units Nifedipine (Procardia Xl) 60 mg PO DAILY [facility] Last Admin: 10/07/17 10:22 Dose: 60 mg Polyethylene Glycol (Miralax) 17 gm PO DAILY [facility] Last Admin: 10/07/17 16:03 Dose: 17 gm Warfarin Sodium (Coumadin) 5 mg PO 1800 [facility] PRN Reason: Protocol - Labs Labs: 10/07/17 06:55 10/07/17 06:55 PT 18.2 SECONDS (9.4-12.5) H 10/02/17 15:18 INR 1.58 (0.93-1.08) H 10/02/17 15:18 APTT 32.5 Seconds (25.1-36.5) 10/02/17 15:18 Assessment and Plan - Assessment and Plan (Free Text) Assessment: Plan: It appears to be that Miss casas has had another right internal capsule ischemic stroke. This is the same territory that she continually infarcts. Recent ECHO shows that she has smoke in her left atrial appendage. I am quite suspicious that she has a clot in this region, and will anticoagulate her to bridge to coumadin. Risks and benefit discussed with family. ;
--- NOTE | 2017-10-07 14:28 | CT ---
PROCEDURE: CT HEAD WITHOUT CONTRAST. HISTORY: rt wkness COMPARISON: Head CT 10/06/2017. TECHNIQUE: Axial computed tomography images were obtained through the head/brain without intravenous contrast. Radiation dose: Total exam DLP = 849.85 mGy-cm. This CT exam was performed using one or more of the following dose reduction techniques: Automated exposure control, adjustment of the mA and/or kV according to patient size, and/or use of iterative reconstruction technique. FINDINGS: HEMORRHAGE: No intracranial hemorrhage. BRAIN: Injected mid left MCA infarct in evolution again appreciated remaining likely early chronic phase with limited increase in edema at the left frontal parietal junction noted. Local mass effect is stable but there remains no subfalcine herniation. The basilar cisterns remain widely patent. This infarcted territory obscures the prior small left chronic infarct if not enveloping it. Mild diffuse cerebral atrophy chronic microangiopathy are again seen underlying bilaterally. Posterior fossa contents are stable appearing, including the brainstem. Chronic lobar infarction left occipital lobe again evident. Mild age related neuro degenerative changes are again identified. VENTRICLES: Trace effacing the left lateral ventricle appears stable with remaining ventricular system unremarkable. No hydrocephalus. CALVARIUM: Unremarkable. PARANASAL SINUSES: Unremarkable as visualized. No significant inflammatory changes. MASTOID AIR CELLS: Unremarkable as visualized. No inflammatory changes. OTHER FINDINGS: None. IMPRESSION: Early chronic infarct left anterior and middle MCA distribution again evident with marginal increased edema posteriorly at the left frontal parietal junction. No subfalcine herniation. Basilar cisterns are widely patent and no associated intracranial hemorrhage is appreciated this time or new infarcted territory. Chronic infarct left occipital lobe again evident. Age related neuro degenerative changes reiterated and remain mild.
--- NOTE | 2017-10-07 14:28 | PN ---
DATE: FOLLOWUP Covering for Dr. Orion Starr MD. SUBJECTIVE: The patient was noted to have more motor deficits, especially in the right leg as well as speech difficulty. She does not appear to be in any distress. PHYSICAL EXAMINATION: VITAL SIGNS: Blood pressure 124/63, heart rate 61, respirations 30, temperature 97.9. HEENT: Loss of right nasolabial fold. CHEST: Minimal rhonchi. HEART: S1 and S2 regular. ABDOMEN: Soft. EXTREMITIES: Trace leg edema. EKG revealed atrial sensed, ventricular paced rhythm. Transesophageal echocardiography study revealed smoke in the left atrium. Ejection fraction is in the rage of 60-65%. Negative bubble study for right to left shunt. Most recent CAT scan from yesterday revealed slight increase in the size of left frontal infarct, especially in the anterior aspect. LABORATORY DATA: Today's hemoglobin and hematocrit 9.7 and 30.2. White count and platelet count are within normal limit. SMA-7: Sodium 150, potassium 3.9, chloride 118, CO2 of 18, glucose 107, BUN 26, creatinine 1.4. ASSESSMENT: 1. Recurrent cerebrovascular accident. 2. Chronic renal insufficiency. 3. Accelerated hypertension. 4. Diabetes mellitus. 5. Dual-chamber pacemaker placement. RECOMMENDATIONS: Continue hydralazine 100 mg twice a day with hydralazine 10 mg IV push q. 6 hours p.r.n. Continue Coreg 12.5 mg twice a day, aspirin 81 mg once a day, Eliquis was started today at 5 mg twice a day, Lipitor 20 mg once a day, Procardia XL 60 mg once a day. The patient will undergo a repeat head CT scan today. Case was discussed with the patient's family at the bedside. Ramiro Syed MD
--- NOTE | 2017-10-07 14:57 | CP.PCM.PN ---
<Reggie Rachel - Last Filed: 10/07/17 18:02> Subjective - Date & Time of Evaluation Date of Evaluation: 10/07/17 Time of Evaluation: 14:55 - Subjective Subjective: Reggie Rachel PGY1 IM Progress Note Patient was seen and examined in ICU with family bedside. The patient is more alert today but remains aphasic. RUE very limited ROM but able to move RLE with some difficulty. Overall, she seems less in distress and anxious than on prior day. Denies any chest pain, shortness of breath, fevers/chills. Objective - Vital Signs/Intake and Output Vital Signs (last 24 hours): Temp Pulse Resp BP Pulse Ox 98.2 F 61 30 H 124/63 99 10/07/17 06:00 10/07/17 11:59 10/07/17 11:59 10/07/17 12:00 10/07/17 11:59 - Medications Medications: Current Medications Acetaminophen (Tylenol 325mg Tab) 650 mg PO Q4 PRN PRN Reason: Fever >100.4 F Last Admin: 10/04/17 18:48 Dose: 650 mg Apixaban (Eliquis) 5 mg PO BID [facility] PRN Reason: Protocol Last Admin: 10/07/17 10:21 Dose: 5 mg Aspirin (Ecotrin) 81 mg PO DAILY [facility] Last Admin: 10/07/17 10:22 Dose: 81 mg Atorvastatin Calcium (Lipitor) 20 mg PO DIN [facility] Last Admin: 10/06/17 17:49 Dose: 20 mg Carvedilol (Coreg) 12.5 mg PO BID [facility] Last Admin: 10/07/17 10:21 Dose: 12.5 mg Clonidine HCl (Catapres) 0.2 mg PO BID [facility] Last Admin: 10/05/17 13:59 Dose: Not Given Famotidine (Pepcid) 20 mg PO DAILY [facility] Last Admin: 10/07/17 10:21 Dose: 20 mg Hydralazine HCl (Apresoline) 100 mg PO BID [facility] Last Admin: 10/04/17 18:46 Dose: 100 mg Hydralazine HCl (Apresoline) 10 mg IVP Q6 PRN PRN Reason: Systolic Blood Pressure Last Admin: 10/07/17 10:13 Dose: 10 mg Valproate Sodium 250 mg/ (Sodium Chloride) 102.5 mls @ 100 mls/hr IVPB Q12 [facility] Last Admin: 10/07/17 10:20 Dose: 100 mls/hr Insulin Detemir (Levemir) 25 unit SC [facility] Last Admin: 10/06/17 21:39 Dose: 25 unit Insulin Human Lispro (Humalog Med) 0 units SC ACHS [facility] PRN Reason: Protocol Last Admin: 10/07/17 08:20 Dose: Not Given Nifedipine (Procardia Xl) 60 mg PO DAILY [facility] Last Admin: 10/07/17 10:22 Dose: 60 mg - Labs Labs: 10/07/17 06:55 10/07/17 06:55 PT 18.2 SECONDS (9.4-12.5) H 10/02/17 15:18 INR 1.58 (0.93-1.08) H 10/02/17 15:18 APTT 32.5 Seconds (25.1-36.5) 10/02/17 15:18 - Additional Findings Additional findings: - Constitutional Appears: Well, Non-toxic, No Acute Distress - Head Exam Head Exam: ATRAUMATIC, NORMAL INSPECTION - Eye Exam Eye Exam: EOMI, Normal appearance, PERRL. absent: Nystagmus - ENT Exam ENT Exam: Mucous Membranes Moist - Neck Exam Neck Exam: Normal Inspection - Respiratory Exam Respiratory Exam: Clear to Ausculation Bilateral, NORMAL BREATHING PATTERN. absent: Rales, Rhonchi, Wheezes, Respiratory Distress - Cardiovascular Exam Cardiovascular Exam: RRR, +S1, +S2 - GI/Abdominal Exam GI & Abdominal Exam: Soft, Normal Bowel Sounds. absent: Distended, Tenderness - Extremities Exam Extremities Exam: Normal Inspection. absent: Tenderness Additional comments: anterior nuñez multiple hyper-pigmented spots - Back Exam Back Exam: NORMAL INSPECTION - Neurological Exam Neurological Exam: Alert, Awake. absent: Oriented x3 (unable to assess) Neuro motor strength exam: Left Upper Extremity: 5, Right Upper Extremity: 2 , Left Lower Extremity: 5, Right Lower Extremity: 4 Additional comments: dysarthria noted, improved from yesterday less confused than yesterday; expressive aphasia improved and patient responding appropriately in short sentences decreased right nasolabial folds patient unable to move RUE against gravity, and the wrist is flaccid RLE able to move against gravity with difficulty warren sign negative b/l - Psychiatric Exam Psychiatric exam: Anxious - Skin Skin Exam: Dry, Warm Assessment and Plan - Assessment and Plan (Free Text) Assessment: 67-year-old woman with a past medical history of insulin dependent diabetes, hypertension, CAD and pacemaker, 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 CT head was negative on admission. She was found to have an CASSIA, which resolved with hydration. CODE STROKE was called due to recurrent symptoms while on the medical floors. CT Head was unchanged and CTA Head/Neck was unremarkable. Patient continued to have persistent symptoms, and repeat CT Head showed acute stroke. Patient was transferred to ICU due to shortness of breath after [employer] was called. Plan: 1. CVA in frontal lobe, after recurrent TIA's - no hemorrhage is noted - CT head on 10/05 verified L frontal lobe infarct that was previously not seen ( on 10/03 and 10/05 CT's showed encephalomalacia in left frontal parietal regions but no bleeding or new infarcts; CTA head/neck were unremarkable) - JABARI showed EF 60-65%, atrial septum aneurysm w/ L to R shunt (negative bubble study) and mild flat plaque in descending aorta - Neuro consulted, recs appreciated - unable to do MRI at [facility] due to pacemaker; recommend outpatient follow up and MRI at other location with pacemaker capability - speech and swallow eval recommending advanced bite size with nectar thick liquids, 1:1 assist with po, aspiration precautions, HOB upright with all po - lipid panel wnl and A1C 8 - cont BP control - will switch from Eliquis to heparin drip and bridge to Coumadin - continue lipitor - EP- Dr. Traore for pacemaker, recommends outpatient follow up - PT/OT pending after recurrent symptoms - Speech and swallow eval 2. HTN, in setting of CVA requiring permissive HTN - controlled on multiple medications per Nephro, Neuro and Cardio recs - continue coreg 25BID, clonidine 0.3 BID - Hydralazine and Nifedipine were held due to permissive HTN - will hold losartan and lasix due to CASSIA on admission - cont to monitor 3. Hx arrhythmias s/p pacemaker - recent interrogation by Dr. Traore (09/23/17) showed no Afib, and he recommends outpatient follow up - will switch patient from Eliquis to Heparin drip and Coumadin - patient on tele floor, cont to monitor HR 4. Hx CKD - CASSIA resolved - IVF NS@ 100 - NAC was started to prevent contrast nephropathy - holding home PO diabetic medications, Lasix, Losartan - Nephrology consulted, recommending outpatient workup for secondary causes of CKD and HTN 5. diabetes (A1C 8) - PO meds held due to CASSIA on admission and risk of contrast nephropathy - ISS medium - Levemir 25units HS (home dose) - fingerstick achs DVT ppx- Elquis and scds GI ppx- pepcid HHD Patient was seen, examined and discussed with attending, Dr. Parris Rachel PGY1 Pager # [phone] <Layla Nye - Last Filed: 10/08/17 13:12> Objective - Vital Signs/Intake and Output Vital Signs (last 24 hours): Temp Pulse Resp BP Pulse Ox 99 F 60 20 184/74 H 100 10/08/17 00:13 10/08/17 09:58 10/08/17 06:50 10/08/17 09:58 10/08/17 06:50 Intake and Output: 10/08/17 10/08/17 06:59 18:59 Intake Total 250 Balance 250 - Medications Medications: Current Medications Acetaminophen (Tylenol 325mg Tab) 650 mg PO Q4 PRN PRN Reason: Fever >100.4 F Last Admin: 10/04/17 18:48 Dose: 650 mg Albuterol/Ipratropium (Duoneb 3 Mg/0.5 Mg (3 Ml) Ud) 3 ml IH [id number] PRN PRN Reason: Shortness of Breath Aspirin (Ecotrin) 81 mg PO DAILY [facility] Last Admin: 10/08/17 09:58 Dose: 81 mg Atorvastatin Calcium (Lipitor) 20 mg PO DIN [facility] Last Admin: 10/07/17 17:05 Dose: 20 mg Carvedilol (Coreg) 6.25 mg PO BID [facility] Last Admin: 10/08/17 09:58 Dose: 6.25 mg Clonidine HCl (Catapres) 0.2 mg PO BID [facility] Last Admin: 10/05/17 13:59 Dose: Not Given Docusate Sodium (Colace Liquid) 100 mg PO TID [facility] Last Admin: 10/08/17 09:58 Dose: 100 mg Famotidine (Pepcid) 20 mg PO DAILY [facility] Last Admin: 10/08/17 09:58 Dose: 20 mg Hydralazine HCl (Apresoline) 100 mg PO BID [facility] Last Admin: 10/04/17 18:46 Dose: 100 mg Hydralazine HCl (Apresoline) 10 mg IVP Q6 PRN PRN Reason: Systolic Blood Pressure Last Admin: 10/08/17 03:12 Dose: 10 mg Valproate Sodium 250 mg/ (Sodium Chloride) 102.5 mls @ 100 mls/hr IVPB Q12 [facility] Last Admin: 10/08/17 10:03 Dose: 100 mls/hr Heparin Sodium/Sodium Chloride (Heparin 35202 Units/250ml 1/2 Normal Saline) 25 ,000 units in 250 mls @ 12.974 mls/hr IV .[id number] PRN; Protocol; 18 UNITS/KG/HR PRN Reason: ADJUST RATE PER PROTOCOL Last Admin: 10/08/17 05:35 Dose: 15 units/kg/hr, 10.811 mls/hr Sodium Chloride (Sodium Chloride 0.45%) 1,000 mls @ 60 mls/hr IV .[id number] [facility] Last Admin: 10/08/17 09:59 Dose: 60 mls/hr Insulin Detemir (Levemir) 25 unit SC HS [facility] Last Admin: 10/07/17 22:02 Dose: 25 unit Insulin Human Lispro (Humalog Med) 0 units SC ACHS [facility] PRN Reason: Protocol Last Admin: 10/08/17 07:30 Dose: Not Given Losartan Potassium (Cozaar) 12.5 mg PO DAILY [facility] Nifedipine (Procardia Xl) 60 mg PO DAILY [facility] Last Admin: 10/08/17 09:54 Dose: 60 mg Polyethylene Glycol (Miralax) 17 gm PO DAILY [facility] Last Admin: 10/07/17 16:03 Dose: 17 gm Warfarin Sodium (Coumadin) 5 mg PO 1800 [facility] PRN Reason: Protocol Last Admin: 10/07/17 22:02 Dose: 5 mg - Labs Labs: 10/08/17 04:00 10/08/17 04:00 PT 20.4 SECONDS (9.4-12.5) H 10/08/17 04:00 INR 1.75 (0.93-1.08) H 10/08/17 04:00 APTT 79.5 Seconds (25.1-36.5) H 10/08/17 10:55 Attending/Attestation - Attestation I have personally seen and examined this patient.: Yes I have fully participated in the care of the patient.: Yes I have reviewed all pertinent clinical information, including history, physical exam and plan: Yes Notes (Text): 10/08/17 13:11 Attending note; patient seen and examined with resident in ICU. Patient's family by the bedside. still have expressive aphasia. Right-sided weakness upper extremity more than lower extremity. blood pressure is fluctuating. Medications adjusted. right lower extremity is still weak. Repeat CT head did not show any hemorrhage. Eliquis discontinued. Will start heparin drip. Started on Coumadin. We will change to Coumadin upon discharge. Case discussed with neurologist in detail. monitor the patient closely in ICU. Frequent neuro checks.
[2017-10-07] MEDS ORDERED: Heparin25000 units/250ml 1/2NS 25,000 UNITS/250 ML BAG IV PRN (15:09)
[2017-10-07] MEDS: POLYETHYLENE GLYCOL 3350 17 GM/Dose PACKET PO SCH (16:03)
[2017-10-07 18:01] LABS: INR 2.07 (0.93-1.08); PROTHROMBIN TIME 23.9 SECONDS (9.4-12.5)
--- NOTE | 2017-10-07 19:22 | CP.PCM.PN ---
Subjective - Date & Time of Evaluation Date of Evaluation: 10/07/17 Time of Evaluation: 07:15 Objective - Vital Signs/Intake and Output Vital Signs (last 24 hours): Temp Pulse Resp BP Pulse Ox 98.2 F 61 30 H 158/72 H 100 10/07/17 06:00 10/07/17 18:00 10/07/17 18:00 10/07/17 18:00 10/07/17 18:00 Intake and Output: 10/07/17 10/08/17 18:59 06:59 Intake Total 500 Balance 500 - Medications Medications: Current Medications Acetaminophen (Tylenol 325mg Tab) 650 mg PO Q4 PRN PRN Reason: Fever >100.4 F Last Admin: 10/04/17 18:48 Dose: 650 mg Aspirin (Ecotrin) 81 mg PO DAILY [facility] Last Admin: 10/07/17 10:22 Dose: 81 mg Atorvastatin Calcium (Lipitor) 20 mg PO DIN [facility] Last Admin: 10/07/17 17:05 Dose: 20 mg Carvedilol (Coreg) 12.5 mg PO BID [facility] Last Admin: 10/07/17 17:05 Dose: 12.5 mg Clonidine HCl (Catapres) 0.2 mg PO BID [facility] Last Admin: 10/05/17 13:59 Dose: Not Given Docusate Sodium (Colace Liquid) 100 mg PO TID [facility] Last Admin: 10/07/17 17:05 Dose: 100 mg Famotidine (Pepcid) 20 mg PO DAILY [facility] Last Admin: 10/07/17 10:21 Dose: 20 mg Hydralazine HCl (Apresoline) 100 mg PO BID [facility] Last Admin: 10/04/17 18:46 Dose: 100 mg Hydralazine HCl (Apresoline) 10 mg IVP Q6 PRN PRN Reason: Systolic Blood Pressure Last Admin: 10/07/17 10:13 Dose: 10 mg Valproate Sodium 250 mg/ (Sodium Chloride) 102.5 mls @ 100 mls/hr IVPB Q12 [facility] Last Admin: 10/07/17 10:20 Dose: 100 mls/hr Heparin Sodium/Sodium Chloride (Heparin 29100 Units/250ml 1/2 Normal Saline) 25 ,000 units in 250 mls @ 12.974 mls/hr IV .[id number] PRN; Protocol; 18 UNITS/KG/HR PRN Reason: ADJUST RATE PER PROTOCOL Insulin Detemir (Levemir) 25 unit SC HS [facility] Last Admin: 10/06/17 21:39 Dose: 25 unit Insulin Human Lispro (Humalog Med) 0 units SC ACHS [facility] PRN Reason: Protocol Last Admin: 10/07/17 17:30 Dose: 3 units Nifedipine (Procardia Xl) 60 mg PO DAILY [facility] Last Admin: 10/07/17 10:22 Dose: 60 mg Polyethylene Glycol (Miralax) 17 gm PO DAILY [facility] Last Admin: 10/07/17 16:03 Dose: 17 gm Warfarin Sodium (Coumadin) 5 mg PO 1800 [facility] PRN Reason: Protocol - Labs Labs: 10/07/17 06:55 10/07/17 06:55 PT 23.9 SECONDS (9.4-12.5) H 10/07/17 17:40 INR 2.07 (0.93-1.08) H 10/07/17 17:40 APTT 33.0 Seconds (25.1-36.5) 10/07/17 17:40
--- NOTE | 2017-10-07 19:52 | CP.PCM.PN ---
Subjective - Date & Time of Evaluation Date of Evaluation: 10/07/17 Time of Evaluation: 12:00 - Subjective Subjective: Patient tolerating diet; breathing improved; Objective - Vital Signs/Intake and Output Vital Signs (last 24 hours): Temp Pulse Resp BP Pulse Ox 98.2 F 61 30 H 158/72 H 100 10/07/17 06:00 10/07/17 18:00 10/07/17 18:00 10/07/17 18:00 10/07/17 18:00 Intake and Output: 10/07/17 10/08/17 18:59 06:59 Intake Total 500 Balance 500 - Medications Medications: Current Medications Acetaminophen (Tylenol 325mg Tab) 650 mg PO Q4 PRN PRN Reason: Fever >100.4 F Last Admin: 10/04/17 18:48 Dose: 650 mg Aspirin (Ecotrin) 81 mg PO DAILY [facility] Last Admin: 10/07/17 10:22 Dose: 81 mg Atorvastatin Calcium (Lipitor) 20 mg PO DIN [facility] Last Admin: 10/07/17 17:05 Dose: 20 mg Carvedilol (Coreg) 12.5 mg PO BID [facility] Last Admin: 10/07/17 17:05 Dose: 12.5 mg Clonidine HCl (Catapres) 0.2 mg PO BID [facility] Last Admin: 10/05/17 13:59 Dose: Not Given Docusate Sodium (Colace Liquid) 100 mg PO TID [facility] Last Admin: 10/07/17 17:05 Dose: 100 mg Famotidine (Pepcid) 20 mg PO DAILY [facility] Last Admin: 10/07/17 10:21 Dose: 20 mg Hydralazine HCl (Apresoline) 100 mg PO BID [facility] Last Admin: 10/04/17 18:46 Dose: 100 mg Hydralazine HCl (Apresoline) 10 mg IVP Q6 PRN PRN Reason: Systolic Blood Pressure Last Admin: 10/07/17 10:13 Dose: 10 mg Valproate Sodium 250 mg/ (Sodium Chloride) 102.5 mls @ 100 mls/hr IVPB Q12 [facility] Last Admin: 10/07/17 10:20 Dose: 100 mls/hr Heparin Sodium/Sodium Chloride (Heparin 72775 Units/250ml 1/2 Normal Saline) 25 ,000 units in 250 mls @ 12.974 mls/hr IV .[id number] PRN; Protocol; 18 UNITS/KG/HR PRN Reason: ADJUST RATE PER PROTOCOL Insulin Detemir (Levemir) 25 unit SC HS [facility] Last Admin: 10/06/17 21:39 Dose: 25 unit Insulin Human Lispro (Humalog Med) 0 units SC ACHS [facility] PRN Reason: Protocol Last Admin: 10/07/17 17:30 Dose: 3 units Nifedipine (Procardia Xl) 60 mg PO DAILY [facility] Last Admin: 10/07/17 10:22 Dose: 60 mg Polyethylene Glycol (Miralax) 17 gm PO DAILY [facility] Last Admin: 10/07/17 16:03 Dose: 17 gm Warfarin Sodium (Coumadin) 5 mg PO 1800 [facility] PRN Reason: Protocol - Labs Labs: 10/07/17 06:55 10/07/17 06:55 PT 23.9 SECONDS (9.4-12.5) H 10/07/17 17:40 INR 2.07 (0.93-1.08) H 10/07/17 17:40 APTT 33.0 Seconds (25.1-36.5) 10/07/17 17:40 - Constitutional Appears: Non-toxic, No Acute Distress - Eye Exam Eye Exam: Normal appearance. absent: Scleral icterus - ENT Exam ENT Exam: Mucous Membranes Moist - Respiratory Exam Respiratory Exam: Clear to Ausculation Bilateral. absent: Respiratory Distress - Cardiovascular Exam Cardiovascular Exam: RRR, +S1, +S2 - GI/Abdominal Exam GI & Abdominal Exam: Soft. absent: Distended, Tenderness - Extremities Exam Additional comments: mild leg edema; - Neurological Exam Neurological Exam: Alert, Awake - Psychiatric Exam Psychiatric exam: Normal Mood. absent: Agitated - Skin Skin Exam: Warm. absent: Cyanosis Assessment and Plan (1) Acute CVA (cerebrovascular accident) Assessment & Plan: Fluctuating BP; agree with permissive htn, hydralazine 10 mg IVP for SBP > 200; Status: Acute (2) CKD (chronic kidney disease) Assessment & Plan: Stable renal function; monitor; avoid nephrotoxic agents (NSAIDS, phosphate containing enema); Status: Chronic (3) HTN (hypertension) Status: Acute (4) Pulmonary edema Status: Acute
[2017-10-07] MEDS ORDERED: Albuterol-Ipratrop 3 mg / 0.5 (3 ml) UD IH PRN (21:08)
--- NOTE | 2017-10-07 21:12 | CP.CCUPN ---
CCU Subjective - Physician Review Subjective (Free Text): 10/07/17 19:09 Patient was initially transferred to the tele floor. However patient had worsening in neurologic exam today, thus repeat CT was obtained revealing worsening in cerebral edema, thus patient was accepted back to icu. Patient is otherwise awake and alert. Able to verbalize and express herself. No fevers. Critical Care Time Spent (in minutes): 45 CCU Objective - Vital Signs / Intake & Output Vital Signs (Last 4 hours): Vital Signs Pulse Resp BP Pulse Ox 10/07/17 18:00 61 30 H 158/72 H 100 10/07/17 17:50 60 30 H 99 10/07/17 17:40 61 30 H 100 10/07/17 17:30 61 29 H 100 10/07/17 17:20 60 30 H 100 10/07/17 17:10 48 L 25 H 100 Intake and Output (Last 8hrs): Intake & Output 10/07/17 10/07/17 10/07/17 06:59 14:59 22:59 Intake Total 500 Balance 500 Weight 158 lb 14.4 oz Intake: IV 100 Right Forearm 100 Oral 400 Other: # Bowel Movements 0 - Physical Exam Head: Positive for: Atraumatic, Normocephalic Pupils: Positive for: PERRL Extroacular Muscles: Positive for: EOMI Conjunctiva: Positive for: Normal Mouth: Positive for: Moist Mucous Membranes Neck: Positive for: Normal Range of Motion Respiratory/Chest: Positive for: Clear to Auscultation, Good Air Exchange, Tachypneic. Negative for: Respiratory Distress, Accessory Muscle Use, Wheezes, Rales, Retracting, Rhonchi, Tender to Palpation Cardiovascular: Positive for: Regular Rate and Rhythm, Normal S1, S2. Negative for: Murmurs Abdomen: Positive for: Normal Bowel Sounds. Negative for: Tenderness, Distention, Peritoneal Signs Back: Positive for: Normal Inspection Upper Extremity: Positive for: Normal Inspection. Negative for: Cyanosis, Edema Lower Extremity: Positive for: Normal Inspection. Negative for: Edema Neurological: Positive for: GCS=15, Speech Normal, Other (right facial droop). Negative for: Motor Func Grossly Intact Skin: Positive for: Warm, Dry, Normal Color. Negative for: Rashes Psychiatric: Positive for: Alert, Oriented x 3, Normal Insight, Normal Concentration - Medications Active Medications: Active Medications Generic Name Dose Route Start Last Admin Trade Name Freq PRN Reason Stop Dose Admin Acetaminophen 650 mg 10/04/17 13:16 10/04/17 18:48 Tylenol 325mg Tab PO 650 mg Q4 PRN Administration Fever >100.4 F Albuterol/Ipratropium 3 ml 10/07/17 21:08 Duoneb 3 Mg/0.5 Mg (3 Ml) Ud IH [id number] PRN Shortness of Breath Aspirin 81 mg 10/03/17 10:00 10/07/17 10:22 Ecotrin PO 81 mg DAILY ROJELIO Administration Atorvastatin Calcium 20 mg 10/03/17 17:00 10/07/17 17:05 Lipitor PO 20 mg DIN ROJELIO Administration Carvedilol 12.5 mg 10/06/17 13:42 10/07/17 17:05 Coreg PO 12.5 mg BID ROJELIO Administration Clonidine HCl 0.2 mg 10/05/17 02:25 10/05/17 13:59 Catapres PO Not Given BID ROJELIO Docusate Sodium 100 mg 10/07/17 18:00 10/07/17 17:05 Colace Liquid PO 100 mg TID ROJELIO Administration Famotidine 20 mg 10/06/17 08:34 10/07/17 10:21 Pepcid PO 20 mg DAILY RO[facility]ELIO Administration Hydralazine HCl 100 mg 10/03/17 10:00 10/04/17 18:46 Apresoline PO 100 mg BID RO[facility]ELIO Administration Hydralazine HCl 10 mg 10/06/17 06:58 10/07/17 10:13 Apresoline IVP 10 mg Q6 PRN Administration Systolic Blood Pressure Valproate Sodium 250 mg/ 102.5 mls @ 100 mls/hr 10/06/17 22:00 10/07/17 10:20 Sodium Chloride IVPB 100 mls/hr Q12 ROJELIO Administration Heparin Sodium/Sodium Chloride 25,000 units in 250 mls @ 12.974 mls/hr 22:00 Heparin 01091 Units/250ml 1/2 Normal Saline IV .[id number] PRN ADJUST RATE PER PROTOCOL Protocol 18 UNITS/KG/HR Insulin Detemir 25 unit 10/04/17 05:15 10/06/17 21:39 Levemir SC 25 unit HS ROJELIO Administration Insulin Human Lispro 0 units 10/03/17 22:00 10/07/17 17:30 Humalog Med SC 3 units ACHS ROJELIO Administration Protocol Nifedipine 60 mg 10/03/17 10:00 10/07/17 10:22 Procardia Xl PO 60 mg DAILY [facility] Administration Polyethylene Glycol 17 gm 10/07/17 15:15 10/07/17 16:03 Miralax PO 17 gm DAILY [facility] Administration Warfarin Sodium 5 mg 10/07/17 22:00 Coumadin PO 1800 [facility] Protocol - Patient Studies Lab Studies: Microbiology Studies 10/05/17 12:00 MRSA Culture (Admit) - Final Naris MRSA NOT DETECTED Lab Studies 10/07/17 10/07/17 10/07/17 Range/Units 17:40 15:48 11:19 WBC (4.5-11.0) 10^3/ul RBC (3.5-6.1) 10^6/uL Hgb (12.0-16.0) g/dL Hct (36.0-48.0) % MCV (80.0-105.0) fl MCH (25.0-35.0) pg MCHC (31.0-37.0) g/dl RDW (11.5-14.5) % Plt Count (120.0-450.0) 10^3/uL MPV (7.0-11.0) fl Gran % (50.0-68.0) % Lymph % (Auto) (22.0-35.0) % Winn % (Auto) (1.0-6.0) % Eos % (Auto) (1.5-5.0) % Baso % (Auto) (0.0-3.0) % Gran # (1.4-6.5) Lymph # (Auto) (1.2-3.4) Winn # (Auto) (0.1-0.6) Eos # (Auto) (0.0-0.7) Baso # (Auto) (0.0-2.0) K/mm3 PT 23.9 H (9.4-12.5) SECONDS INR 2.07 H (0.93-1.08) APTT 33.0 (25.1-36.5) Seconds Sodium (132-148) mmol/L Potassium (3.6-5.0) mmol/L Chloride (98-107) mmol/L Carbon Dioxide (21-33) mmol/L Anion Gap (10-20) BUN (7-21) mg/dL Creatinine (0.7-1.2) mg/dl Est GFR ( Amer) Est GFR (Non-Af Amer) POC Glucose (mg/dL) 247 H 185 H (65-110) mg/dL Random Glucose (70-110) mg/dL Calcium (8.4-10.5) mg/dL Total Bilirubin (0.2-1.3) mg/dL AST (14-36) U/L ALT (7-56) U/L Alkaline Phosphatase (38-126) U/L Total Protein (5.8-8.3) g/dL Albumin (3.0-4.8) g/dL Globulin gm/dL Albumin/Globulin Ratio (1.1-1.8) 10/07/17 10/07/17 10/07/17 Range/Units 07:42 06:55 06:55 WBC 7.8 (4.5-11.0) 10^3/ul RBC 3.59 (3.5-6.1) 10^6/uL Hgb 9.7 L (12.0-16.0) g/dL Hct 30.2 L (36.0-48.0) % MCV 84.1 (80.0-105.0) fl MCH 27.0 (25.0-35.0) pg MCHC 32.1 (31.0-37.0) g/dl RDW 17.0 H (11.5-14.5) % Plt Count 155 (120.0-450.0) 10^3/uL MPV 11.9 H (7.0-11.0) fl Gran % 74.5 H (50.0-68.0) % Lymph % (Auto) 20.2 L (22.0-35.0) % Winn % (Auto) 4.0 (1.0-6.0) % Eos % (Auto) 0.9 L (1.5-5.0) % Baso % (Auto) 0.4 (0.0-3.0) % Gran # 5.82 (1.4-6.5) Lymph # (Auto) 1.6 (1.2-3.4) Winn # (Auto) 0.3 (0.1-0.6) Eos # (Auto) 0.1 (0.0-0.7) Baso # (Auto) 0.03 (0.0-2.0) K/mm3 PT (9.4-12.5) SECONDS INR (0.93-1.08) APTT (25.1-36.5) Seconds Sodium 150 H (132-148) mmol/L Potassium 3.9 (3.6-5.0) mmol/L Chloride 118 H (98-107) mmol/L Carbon Dioxide 18 L (21-33) mmol/L Anion Gap 17 (10-20) BUN 26 H (7-21) mg/dL Creatinine 1.4 H (0.7-1.2) mg/dl Est GFR ( Amer) 45 Est GFR (Non-Af Amer) 38 POC Glucose (mg/dL) 94 (65-110) mg/dL Random Glucose 107 (70-110) mg/dL Calcium 10.1 (8.4-10.5) mg/dL Total Bilirubin 0.7 (0.2-1.3) mg/dL AST 22 (14-36) U/L ALT 28 (7-56) U/L Alkaline Phosphatase 69 (38-126) U/L Total Protein 7.6 (5.8-8.3) g/dL Albumin 3.5 (3.0-4.8) g/dL Globulin 4.1 gm/dL Albumin/Globulin Ratio 0.9 L (1.1-1.8) 10/06/17 Range/Units 21:35 WBC (4.5-11.0) 10^3/ul RBC (3.5-6.1) 10^6/uL Hgb (12.0-16.0) g/dL Hct (36.0-48.0) % MCV (80.0-105.0) fl MCH (25.0-35.0) pg MCHC (31.0-37.0) g/dl RDW (11.5-14.5) % Plt Count (120.0-450.0) 10^3/uL MPV (7.0-11.0) fl Gran % (50.0-68.0) % Lymph % (Auto) (22.0-35.0) % Winn % (Auto) (1.0-6.0) % Eos % (Auto) (1.5-5.0) % Baso % (Auto) (0.0-3.0) % Gran # (1.4-6.5) Lymph # (Auto) (1.2-3.4) Winn # (Auto) (0.1-0.6) Eos # (Auto) (0.0-0.7) Baso # (Auto) (0.0-2.0) K/mm3 PT (9.4-12.5) SECONDS INR (0.93-1.08) APTT (25.1-36.5) Seconds Sodium (132-148) mmol/L Potassium (3.6-5.0) mmol/L Chloride (98-107) mmol/L Carbon Dioxide (21-33) mmol/L Anion Gap (10-20) BUN (7-21) mg/dL Creatinine (0.7-1.2) mg/dl Est GFR ( Amer) Est GFR (Non-Af Amer) POC Glucose (mg/dL) 263 H (65-110) mg/dL Random Glucose (70-110) mg/dL Calcium (8.4-10.5) mg/dL Total Bilirubin (0.2-1.3) mg/dL AST (14-36) U/L ALT (7-56) U/L Alkaline Phosphatase (38-126) U/L Total Protein (5.8-8.3) g/dL Albumin (3.0-4.8) g/dL Globulin gm/dL Albumin/Globulin Ratio (1.1-1.8) Laboratory Results - last 24 hr 10/06/17 10/07/17 10/07/17 21:35 06:55 06:55 WBC 7.8 RBC 3.59 Hgb 9.7 L Hct 30.2 L MCV 84.1 MCH 27.0 MCHC 32.1 RDW 17.0 H Plt Count 155 MPV 11.9 H Gran % 74.5 H Lymph % (Auto) 20.2 L Winn % (Auto) 4.0 Eos % (Auto) 0.9 L Baso % (Auto) 0.4 Gran # 5.82 Lymph # (Auto) 1.6 Winn # (Auto) 0.3 Eos # (Auto) 0.1 Baso # (Auto) 0.03 PT INR APTT Sodium 150 H Potassium 3.9 Chloride 118 H Carbon Dioxide 18 L Anion Gap 17 BUN 26 H Creatinine 1.4 H Est GFR ( Amer) 45 Est GFR (Non-Af Amer) 38 POC Glucose (mg/dL) 263 H Random Glucose 107 Calcium 10.1 Total Bilirubin 0.7 AST 22 ALT 28 Alkaline Phosphatase 69 Total Protein 7.6 Albumin 3.5 Globulin 4.1 Albumin/Globulin Ratio 0.9 L 10/07/17 10/07/17 10/07/17 07:42 11:19 15:48 WBC RBC Hgb Hct MCV MCH MCHC RDW Plt Count MPV Gran % Lymph % (Auto) Winn % (Auto) Eos % (Auto) Baso % (Auto) Gran # Lymph # (Auto) Winn # (Auto) Eos # (Auto) Baso # (Auto) PT INR APTT Sodium Potassium Chloride Carbon Dioxide Anion Gap BUN Creatinine Est GFR ( Amer) Est GFR (Non-Af Amer) POC Glucose (mg/dL) 94 185 H 247 H Random Glucose Calcium Total Bilirubin AST ALT Alkaline Phosphatase Total Protein Albumin Globulin Albumin/Globulin Ratio 10/07/17 17:40 WBC RBC Hgb Hct MCV MCH MCHC RDW Plt Count MPV Gran % Lymph % (Auto) Winn % (Auto) Eos % (Auto) Baso % (Auto) Gran # Lymph # (Auto) Winn # (Auto) Eos # (Auto) Baso # (Auto) PT 23.9 H INR 2.07 H APTT 33.0 Sodium Potassium Chloride Carbon Dioxide Anion Gap BUN Creatinine Est GFR ( Amer) Est GFR (Non-Af Amer) POC Glucose (mg/dL) Random Glucose Calcium Total Bilirubin AST ALT Alkaline Phosphatase Total Protein Albumin Globulin Albumin/Globulin Ratio Fingerstick Blood Sugar Results: 247 Results Reviewed to Date: Yes (CT of the head w/o contrast.) Review of Systems - Review of Systems All systems: reviewed and no additional remarkable complaints except Review of Systems: all negative except + sob. Critical Care Progress Note - Ventilator Checklist Head of Bed 30 Degrees: Yes Daily Sedation Vacation: Yes (n/a) - Extremities/Vascular Does the Patient have a Central Venous Catheter?: No - Prophylaxis GI Prophylaxis GI: PPI - Prophylaxis DVT Prophylaxis DVT: Heparin SQ - Nutrition Nutrition: Nutrition Category Date Time Status Dysphagia/Modified Consistency Diet [DIET] Diets 10/07/17 Dinner Ordered Assessment/Plan - Assessment and Plan (Free Text) Assessment: This is a 67 y/o with PMHx of IDDM, HTN, CAD, [place] s/p pacer maker, multiple strokes (L MCA and CROSS ROLLER) admitted for L frontal ischemic stroke. Had JABARI on 10/06 with tiny PFO with left to right shunting, and MVP. Patient had repeat CT head today revealing worsening in cerebral edema. Plan: Neuro: Left frontal ischemic stroke - Patient is alert, awake, following commands with expressive aphasia - Repeat head CT with slight increase in L frontal stroke - Eliquis was discontinued, now on heparin drip to be bridged with Coumadin - Maintain normothermia - continue Lipitor and asa - On Depakote for seizure prophylaxis. - Continue neuro checks, seizure prophylaxis Cardio:- Maintain MAP above 65. - s/p JABARI with small pfo, and mvp ( please see emr for full report). - on anticoagulation and statin as stated above - On coreg, norvasc, clonidine and hydralazine prn for BP. 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 Nephro: CASSIA on CKD - Cr stable - Monitor electrolytes, replete as needed - Maintain euvolemia - Avoid diuretics - Avoid nephrotoxic drugs ID: - Afebrile, no leukocytosis - No sign of infection - will continue to monitor Heme/onc: - Hgb stable- no overt signs of bleeding - Continue to monitor H/H Endo: IDDM - Levemir 25 units HS - ISS - maintain euglycemia DVT ppx: on heparin drip bridging with Coumadin for secondary prevention. Patient seen, examined and case discussed with the attending. - Date & Time Date: 10/07/17 Time: 07:40
[2017-10-07] MEDS: Insulin Detemir 100 units/ml Vial (Levemir) SC SCH (22:02)
--- NOTE | 2017-10-07 22:03 | CP.PCM.PN ---
Subjective - Date & Time of Evaluation Date of Evaluation: 10/07/17 Time of Evaluation: 18:00 - Subjective Subjective: Appears comfortable, aphasic Objective - Vital Signs/Intake and Output Vital Signs (last 24 hours): Temp Pulse Resp BP Pulse Ox 98.2 F 61 30 H 158/72 H 100 10/07/17 06:00 10/07/17 18:00 10/07/17 18:00 10/07/17 18:00 10/07/17 18:00 Intake and Output: 10/07/17 10/08/17 18:59 06:59 Intake Total 500 Balance 500 - Medications Medications: Current Medications Acetaminophen (Tylenol 325mg Tab) 650 mg PO Q4 PRN PRN Reason: Fever >100.4 F Last Admin: 10/04/17 18:48 Dose: 650 mg Albuterol/Ipratropium (Duoneb 3 Mg/0.5 Mg (3 Ml) Ud) 3 ml IH [id number] PRN PRN Reason: Shortness of Breath Aspirin (Ecotrin) 81 mg PO DAILY [facility] Last Admin: 10/07/17 10:22 Dose: 81 mg Atorvastatin Calcium (Lipitor) 20 mg PO DIN [facility] Last Admin: 10/07/17 17:05 Dose: 20 mg Carvedilol (Coreg) 12.5 mg PO BID [facility] Last Admin: 10/07/17 17:05 Dose: 12.5 mg Clonidine HCl (Catapres) 0.2 mg PO BID [facility] Last Admin: 10/05/17 13:59 Dose: Not Given Docusate Sodium (Colace Liquid) 100 mg PO TID [facility] Last Admin: 10/07/17 17:05 Dose: 100 mg Famotidine (Pepcid) 20 mg PO DAILY [facility] Last Admin: 10/07/17 10:21 Dose: 20 mg Hydralazine HCl (Apresoline) 100 mg PO BID [facility] Last Admin: 10/04/17 18:46 Dose: 100 mg Hydralazine HCl (Apresoline) 10 mg IVP Q6 PRN PRN Reason: Systolic Blood Pressure Last Admin: 10/07/17 10:13 Dose: 10 mg Valproate Sodium 250 mg/ (Sodium Chloride) 102.5 mls @ 100 mls/hr IVPB Q12 [facility] Last Admin: 10/07/17 10:20 Dose: 100 mls/hr Heparin Sodium/Sodium Chloride (Heparin 29159 Units/250ml 1/2 Normal Saline) 25 ,000 units in 250 mls @ 12.974 mls/hr IV .[id number] PRN; Protocol; 18 UNITS/KG/HR PRN Reason: ADJUST RATE PER PROTOCOL Insulin Detemir (Levemir) 25 unit SC HS [facility] Last Admin: 10/06/17 21:39 Dose: 25 unit Insulin Human Lispro (Humalog Med) 0 units SC ACHS [facility] PRN Reason: Protocol Last Admin: 10/07/17 21:58 Dose: Not Given Nifedipine (Procardia Xl) 60 mg PO DAILY [facility] Last Admin: 10/07/17 10:22 Dose: 60 mg Polyethylene Glycol (Miralax) 17 gm PO DAILY [facility] Last Admin: 10/07/17 16:03 Dose: 17 gm Warfarin Sodium (Coumadin) 5 mg PO 1800 [facility] PRN Reason: Protocol - Labs Labs: 10/07/17 06:55 10/07/17 06:55 PT 23.9 SECONDS (9.4-12.5) H 10/07/17 17:40 INR 2.07 (0.93-1.08) H 10/07/17 17:40 APTT 33.0 Seconds (25.1-36.5) 10/07/17 17:40 - Head Exam Head Exam: ATRAUMATIC - Eye Exam Eye Exam: Normal appearance - ENT Exam ENT Exam: Mucous Membranes Dry - Respiratory Exam Respiratory Exam: NORMAL BREATHING PATTERN - Cardiovascular Exam Cardiovascular Exam: +S1, +S2 - GI/Abdominal Exam GI & Abdominal Exam: Normal Bowel Sounds Assessment and Plan (1) Acute CVA (cerebrovascular accident) Assessment & Plan: cardio thrombo embolic switched to heparin/coumadin Status: Acute (2) Anemia Status: Acute (3) Coagulopathy Status: Acute
[2017-10-07] MEDS: Heparin25000 units/250ml 1/2NS 25,000 UNITS/250 ML BAG IV PRN (22:04)
[2017-10-08 04:06] LABS: HEMOGLOBIN 9.2 g/dL (12.0-16.0); MEAN CELL VOLUME 84.5 fl (80.0-105.0); MEAN CORPUSCULAR HEMOGLOBIN 26.9 pg (25.0-35.0); MEAN CORPUSCULAR HGB CONC 31.8 g/dl (31.0-37.0); MEAN PLATELET VOLUME 12.2 fl (7.0-11.0); RBC 3.42 10^6/uL (3.5-6.1); RED CELL DISTRIBUTION WIDTH 17.2 % (11.5-14.5); WHITE BLOOD COUNT 7.4 10^3/ul (4.5-11.0)
[2017-10-08 04:19] LABS: ALB/GLOB RATIO 0.9 (1.1-1.8); ALBUMIN 3.6 g/dL (3.0-4.8); CALCIUM 9.9 mg/dL (8.4-10.5)
[2017-10-08 04:33] LABS: INR 1.75 (0.93-1.08); PARTIAL THROMBOPLASTIN TIME 105.7 Seconds (25.1-36.5); PROTHROMBIN TIME 20.4 SECONDS (9.4-12.5)
[2017-10-08] MEDS: Heparin25000 units/250ml 1/2NS 25,000 UNITS/250 ML BAG IV PRN ×2 (05:35→23:47)
[2017-10-08] MEDS: Insulin Lispro (humaLOG) MEDIUM Coverage SC SCH ×4 (07:30→22:05)
[2017-10-08] MEDS: NIFEdipine 60 mg ER Tab PO SCH (09:54)
[2017-10-08] MEDS: Sodium Chloride 0.45% 1,000 ML IV SCH (09:59)
[2017-10-08] MEDS: Valproate 250 MG in Sodium Chloride 0.9% 100 ML IVPB SCH ×2 (10:03→22:10)
--- NOTE | 2017-10-08 11:01 | CP.PCM.PN ---
Subjective - Date & Time of Evaluation Date of Evaluation: 10/08/17 Time of Evaluation: 07:35 - Subjective Subjective: Pt seen and examined, reports no major complaints. Objective - Vital Signs/Intake and Output Vital Signs (last 24 hours): Temp Pulse Resp BP Pulse Ox 99 F 60 20 184/74 H 100 10/08/17 00:13 10/08/17 09:58 10/08/17 06:50 10/08/17 09:58 10/08/17 06:50 Intake and Output: 10/08/17 10/08/17 06:59 18:59 Intake Total 250 Balance 250 - Medications Medications: Current Medications Acetaminophen (Tylenol 325mg Tab) 650 mg PO Q4 PRN PRN Reason: Fever >100.4 F Last Admin: 10/04/17 18:48 Dose: 650 mg Albuterol/Ipratropium (Duoneb 3 Mg/0.5 Mg (3 Ml) Ud) 3 ml IH [id number] PRN PRN Reason: Shortness of Breath Aspirin (Ecotrin) 81 mg PO DAILY [facility] Last Admin: 10/08/17 09:58 Dose: 81 mg Atorvastatin Calcium (Lipitor) 20 mg PO DIN [facility] Last Admin: 10/07/17 17:05 Dose: 20 mg Carvedilol (Coreg) 6.25 mg PO BID [facility] Last Admin: 10/08/17 09:58 Dose: 6.25 mg Clonidine HCl (Catapres) 0.2 mg PO BID [facility] Last Admin: 10/05/17 13:59 Dose: Not Given Docusate Sodium (Colace Liquid) 100 mg PO TID [facility] Last Admin: 10/08/17 09:58 Dose: 100 mg Famotidine (Pepcid) 20 mg PO DAILY [facility] Last Admin: 10/08/17 09:58 Dose: 20 mg Hydralazine HCl (Apresoline) 100 mg PO BID [facility] Last Admin: 10/04/17 18:46 Dose: 100 mg Hydralazine HCl (Apresoline) 10 mg IVP Q6 PRN PRN Reason: Systolic Blood Pressure Last Admin: 10/08/17 03:12 Dose: 10 mg Valproate Sodium 250 mg/ (Sodium Chloride) 102.5 mls @ 100 mls/hr IVPB Q12 [facility] Last Admin: 10/08/17 10:03 Dose: 100 mls/hr Heparin Sodium/Sodium Chloride (Heparin 10898 Units/250ml 1/2 Normal Saline) 25 ,000 units in 250 mls @ 12.974 mls/hr IV .[id number] PRN; Protocol; 18 UNITS/KG/HR PRN Reason: ADJUST RATE PER PROTOCOL Last Admin: 10/08/17 05:35 Dose: 15 units/kg/hr, 10.811 mls/hr Sodium Chloride (Sodium Chloride 0.45%) 1,000 mls @ 60 mls/hr IV .[id number] [facility] Last Admin: 10/08/17 09:59 Dose: 60 mls/hr Insulin Detemir (Levemir) 25 unit SC HS [facility] Last Admin: 10/07/17 22:02 Dose: 25 unit Insulin Human Lispro (Humalog Med) 0 units SC ACHS [facility] PRN Reason: Protocol Last Admin: 10/08/17 07:30 Dose: Not Given Nifedipine (Procardia Xl) 60 mg PO DAILY [facility] Last Admin: 10/08/17 09:54 Dose: 60 mg Polyethylene Glycol (Miralax) 17 gm PO DAILY [facility] Last Admin: 10/07/17 16:03 Dose: 17 gm Warfarin Sodium (Coumadin) 5 mg PO 1800 [facility] PRN Reason: Protocol Last Admin: 10/07/17 22:02 Dose: 5 mg - Labs Labs: 10/08/17 04:00 10/08/17 04:00 PT 20.4 SECONDS (9.4-12.5) H 10/08/17 04:00 INR 1.75 (0.93-1.08) H 10/08/17 04:00 APTT 105.7 Seconds (25.1-36.5) H* 10/08/17 04:00 - Constitutional Appears: Non-toxic, No Acute Distress - Eye Exam Eye Exam: Normal appearance - ENT Exam ENT Exam: Mucous Membranes Moist - Respiratory Exam Respiratory Exam: Clear to Ausculation Bilateral, NORMAL BREATHING PATTERN - Cardiovascular Exam Cardiovascular Exam: REGULAR RHYTHM, +S1, +S2 - GI/Abdominal Exam GI & Abdominal Exam: Soft, Normal Bowel Sounds - Extremities Exam Extremities Exam: Pedal Edema - Neurological Exam Neurological Exam: Alert, Awake, Oriented x3 Neuro motor strength exam: Left Upper Extremity: 4, Right Upper Extremity: 0, Left Lower Extremity: 4, Right Lower Extremity: 3 Assessment and Plan - Assessment and Plan (Free Text) Assessment: 67yo female a/w acute ischemic L frontal CVA CVA HTN HLD Hx of Aflutter on A/C hx CAD Recommend: - supp o2 as needed - duonebs PRN - BP control, Coreg - Decrease dose of Coreg to 6.25mg BID - cont with Heparin/Coumadin bridge as per neurology - repeat CTH today - ASA, Statin - Pt eval - follow up neurology - GI ppx - DVT ppx - if CT Head stable, can be transferred to telemetry, stable
--- NOTE | 2017-10-08 15:37 | CP.PCM.PN ---
<Jerrod Cowart - Last Filed: 10/08/17 15:33> Subjective - Date & Time of Evaluation Date of Evaluation: 10/08/17 Time of Evaluation: 10:20 - Subjective Subjective: Dr. Nye Service Pt was seen and examined at bedside. No acute complaints at this time. Pt is able to move RLE as before. No acute or adverse events overnight. Pt BP remains elevated. Pt is tolerating oral intake. Pt denied fever, chills, sob, chest pains, abdominal pain, nausea, vomiting, diarrhea, constipation or urinary symptoms. Objective - Vital Signs/Intake and Output Vital Signs (last 24 hours): Temp Pulse Resp BP Pulse Ox 99 F 60 23 146/65 99 10/08/17 00:13 10/08/17 13:20 10/08/17 13:20 10/08/17 13:00 10/08/17 13:20 Intake and Output: 10/08/17 10/08/17 06:59 18:59 Intake Total 250 Balance 250 - Medications Medications: Current Medications Acetaminophen (Tylenol 325mg Tab) 650 mg PO Q4 PRN PRN Reason: Fever >100.4 F Last Admin: 10/04/17 18:48 Dose: 650 mg Albuterol/Ipratropium (Duoneb 3 Mg/0.5 Mg (3 Ml) Ud) 3 ml IH [id number] PRN PRN Reason: Shortness of Breath Aspirin (Ecotrin) 81 mg PO DAILY [facility] Last Admin: 10/08/17 09:58 Dose: 81 mg Atorvastatin Calcium (Lipitor) 20 mg PO DIN [facility] Last Admin: 10/07/17 17:05 Dose: 20 mg Carvedilol (Coreg) 6.25 mg PO BID [facility] Last Admin: 10/08/17 09:58 Dose: 6.25 mg Clonidine HCl (Catapres) 0.2 mg PO BID [facility] Last Admin: 10/05/17 13:59 Dose: Not Given Docusate Sodium (Colace Liquid) 100 mg PO TID [facility] Last Admin: 10/08/17 09:58 Dose: 100 mg Famotidine (Pepcid) 20 mg PO DAILY [facility] Last Admin: 10/08/17 09:58 Dose: 20 mg Hydralazine HCl (Apresoline) 100 mg PO BID [facility] Last Admin: 02/06/18 18:46 Dose: 100 mg Hydralazine HCl (Apresoline) 10 mg IVP Q6 PRN PRN Reason: Systolic Blood Pressure Last Admin: 10/08/17 03:12 Dose: 10 mg Valproate Sodium 250 mg/ (Sodium Chloride) 102.5 mls @ 100 mls/hr IVPB Q12 [facility] Last Admin: 10/08/17 10:03 Dose: 100 mls/hr Heparin Sodium/Sodium Chloride (Heparin 79448 Units/250ml 1/2 Normal Saline) 25 ,000 units in 250 mls @ 12.974 mls/hr IV .[id number] PRN; Protocol; 18 UNITS/KG/HR PRN Reason: ADJUST RATE PER PROTOCOL Last Admin: 10/08/17 05:35 Dose: 15 units/kg/hr, 10.811 mls/hr Sodium Chloride (Sodium Chloride 0.45%) 1,000 mls @ 60 mls/hr IV .[id number] [facility] Last Admin: 10/08/17 09:59 Dose: 60 mls/hr Insulin Detemir (Levemir) 25 unit SC HS [facility] Last Admin: 10/07/17 22:02 Dose: 25 unit Insulin Human Lispro (Humalog Med) 0 units SC ACHS [facility] PRN Reason: Protocol Last Admin: 10/08/17 07:30 Dose: Not Given Losartan Potassium (Cozaar) 12.5 mg PO DAILY [facility] Last Admin: 10/08/17 12:50 Dose: 12.5 mg Nifedipine (Procardia Xl) 60 mg PO DAILY [facility] Last Admin: 10/08/17 09:54 Dose: 60 mg Polyethylene Glycol (Miralax) 17 gm PO DAILY [facility] Last Admin: 10/07/17 16:03 Dose: 17 gm Warfarin Sodium (Coumadin) 5 mg PO 1800 [facility] PRN Reason: Protocol Last Admin: 10/07/17 22:02 Dose: 5 mg - Labs Labs: 10/08/17 04:00 10/08/17 04:00 PT 20.4 SECONDS (9.4-12.5) H 10/08/17 04:00 INR 1.75 (0.93-1.08) H 10/08/17 04:00 APTT 79.5 Seconds (25.1-36.5) H 10/08/17 10:55 - Constitutional Appears: No Acute Distress - Head Exam Head Exam: ATRAUMATIC, NORMAL INSPECTION, NORMOCEPHALIC - Eye Exam Eye Exam: EOMI, Normal appearance, PERRL Pupil Exam: NORMAL ACCOMODATION, PERRL - ENT Exam ENT Exam: Mucous Membranes Moist, Normal Exam - Respiratory Exam Respiratory Exam: Clear to Ausculation Bilateral, NORMAL BREATHING PATTERN - Cardiovascular Exam Cardiovascular Exam: REGULAR RHYTHM, +S1, +S2. absent: Murmur - GI/Abdominal Exam GI & Abdominal Exam: Soft, Normal Bowel Sounds. absent: Tenderness - Extremities Exam Additional comments: RT sided Weakness - Neurological Exam Neurological Exam: Alert, Awake, CN II-XII Intact Neuro motor strength exam: Left Upper Extremity: 4, Right Upper Extremity: 3, Left Lower Extremity: 4, Right Lower Extremity: 3 - Psychiatric Exam Psychiatric exam: Normal Affect, Normal Mood - Skin Skin Exam: Dry, Intact, Normal Color, Warm Assessment and Plan - Assessment and Plan (Free Text) Assessment: 67-year-old woman with a past medical history of insulin dependent diabetes, hypertension, CAD and pacemaker, multiple previous ischemic strokes (left MCA region and EDGE STRIPPER region) presented to ED with sudden onset of slurred speech, right facial droop and right arm numbness that lasted 10 minutes and resolved prior to admission. CT head was negative on admission. She was found to have an CASSIA, which resolved with hydration. CODE STROKE was called due to recurrent symptoms while on the medical floors. CT Head was unchanged and CTA Head/Neck was unremarkable. Patient continued to have persistent symptoms, and repeat CT Head showed acute stroke. Patient was transferred to ICU due to shortness of breath after [employer] was called. Pt has been in ICU for close monitoring. 1. CVA in frontal lobe, after recurrent TIA's - no hemorrhage is noted - CT head on 10/05 verified L frontal lobe infarct that was previously not seen ( on 10/03 and 10/05 CT's showed encephalomalacia in left frontal parietal regions but no bleeding or new infarcts; CTA head/neck were unremarkable) - JABARI showed EF 60-65%, atrial septum aneurysm w/ L to R shunt (negative bubble study) and mild flat plaque in descending aorta - Neuro consulted, recs appreciated - unable to do MRI at [facility] due to pacemaker; recommend outpatient follow up and MRI at other location with pacemaker capability - speech and swallow eval recommending advanced bite size with nectar thick liquids, 1:1 assist with po, aspiration precautions, HOB upright with all po - lipid panel wnl and A1C 8 - cont BP control - will switch from Eliquis to heparin drip and bridge to Coumadin. Will start tonight - continue lipitor - EP- Dr. Traore for pacemaker, recommends outpatient follow up - PT/OT pending after recurrent symptoms - Speech and swallow eval 2. HTN, in setting of CVA requiring permissive HTN - controlled on multiple medications per Nephro, Neuro and Cardio recs - continue coreg 25BID, clonidine 0.3 BID - Hydralazine and Nifedipine were held due to permissive HTN - will hold losartan and lasix due to CASSIA on admission - cont to monitor 3. Hx arrhythmias s/p pacemaker - recent interrogation by Dr. Traore (09/23/17) showed no Afib, and he recommends outpatient follow up - will switch patient from Eliquis to Heparin drip and Coumadin - patient on tele floor, cont to monitor HR 4. Hx CKD - CASSIA resolved - IVF NS@ 100 - NAC was started to prevent contrast nephropathy - holding home PO diabetic medications, Lasix, Losartan - Nephrology consulted, recommending outpatient workup for secondary causes of CKD and HTN 5. diabetes (A1C 8) - PO meds held due to CASSIA on admission and risk of contrast nephropathy - ISS medium - Levemir 25units HS (home dose) - fingerstick achs DVT ppx- Elquis and scds GI ppx- pepcid HHD Patient was seen, examined and discussed with attending, Dr. Nye <Layla Nye - Last Filed: 10/08/17 16:54> Objective - Vital Signs/Intake and Output Vital Signs (last 24 hours): Temp Pulse Resp BP Pulse Ox 99 F 60 23 146/65 99 10/08/17 00:13 10/08/17 13:20 10/08/17 13:20 10/08/17 13:00 10/08/17 13:20 Intake and Output: 10/08/17 10/08/17 06:59 18:59 Intake Total 250 Balance 250 - Medications Medications: Current Medications Acetaminophen (Tylenol 325mg Tab) 650 mg PO Q4 PRN PRN Reason: Fever >100.4 F Last Admin: 10/04/17 18:48 Dose: 650 mg Albuterol/Ipratropium (Duoneb 3 Mg/0.5 Mg (3 Ml) Ud) 3 ml IH [id number] PRN PRN Reason: Shortness of Breath Aspirin (Ecotrin) 81 mg PO DAILY [facility] Last Admin: 10/08/17 09:58 Dose: 81 mg Atorvastatin Calcium (Lipitor) 20 mg PO DIN [facility] Last Admin: 10/07/17 17:05 Dose: 20 mg Carvedilol (Coreg) 6.25 mg PO BID [facility] Last Admin: 10/08/17 09:58 Dose: 6.25 mg Clonidine HCl (Catapres) 0.2 mg PO BID [facility] Last Admin: 10/05/17 13:59 Dose: Not Given Docusate Sodium (Colace Liquid) 100 mg PO TID [facility] Last Admin: 10/08/17 14:00 Dose: 100 mg Famotidine (Pepcid) 20 mg PO DAILY [facility] Last Admin: 10/08/17 09:58 Dose: 20 mg Hydralazine HCl (Apresoline) 100 mg PO BID [facility] Last Admin: 10/04/17 18:46 Dose: 100 mg Hydralazine HCl (Apresoline) 10 mg IVP Q6 PRN PRN Reason: Systolic Blood Pressure Last Admin: 10/08/17 03:12 Dose: 10 mg Valproate Sodium 250 mg/ (Sodium Chloride) 102.5 mls @ 100 mls/hr IVPB Q12 [facility] Last Admin: 10/08/17 10:03 Dose: 100 mls/hr Heparin Sodium/Sodium Chloride (Heparin 08481 Units/250ml 1/2 Normal Saline) 25 ,000 units in 250 mls @ 12.974 mls/hr IV .[id number] PRN; Protocol; 18 UNITS/KG/HR PRN Reason: ADJUST RATE PER PROTOCOL Last Admin: 10/08/17 05:35 Dose: 15 units/kg/hr, 10.811 mls/hr Sodium Chloride (Sodium Chloride 0.45%) 1,000 mls @ 60 mls/hr IV .[id number] [facility] Last Admin: 10/08/17 09:59 Dose: 60 mls/hr Insulin Detemir (Levemir) 25 unit SC HS [facility] Last Admin: 10/07/17 22:02 Dose: 25 unit Insulin Human Lispro (Humalog Med) 0 units SC ACHS [facility] PRN Reason: Protocol Last Admin: 10/08/17 16:33 Dose: Not Given Losartan Potassium (Cozaar) 12.5 mg PO DAILY [facility] Last Admin: 10/08/17 12:50 Dose: 12.5 mg Nifedipine (Procardia Xl) 60 mg PO DAILY [facility] Last Admin: 10/08/17 09:54 Dose: 60 mg Polyethylene Glycol (Miralax) 17 gm PO DAILY [facility] Last Admin: 10/07/17 16:03 Dose: 17 gm Warfarin Sodium (Coumadin) 5 mg PO 1800 [facility] PRN Reason: Protocol Last Admin: 10/07/17 22:02 Dose: 5 mg - Labs Labs: 10/08/17 04:00 10/08/17 04:00 PT 20.4 SECONDS (9.4-12.5) H 10/08/17 04:00 INR 1.75 (0.93-1.08) H 10/08/17 04:00 APTT 97.9 Seconds (25.1-36.5) H 10/08/17 15:45 Attending/Attestation - Attestation I have personally seen and examined this patient.: Yes I have fully participated in the care of the patient.: Yes I have reviewed all pertinent clinical information, including history, physical exam and plan: Yes Notes (Text): 10/08/17 16:52 Attending note; patient seen and examined with resident in ICU. patient is more alert and awake. Right lower extremity weakness is improving. still have expressive aphasia. Right-sided weakness upper extremity more than lower extremity. BP is acceptable. Repeat CT head did not show any hemorrhage. Eliquis discontinued. on heparin drip. Started on Coumadin. Case discussed with neurologist in detail. monitor the patient closely in ICU. Frequent neuro checks.
[2017-10-08] MEDS: POLYETHYLENE GLYCOL 3350 17 GM/Dose PACKET PO SCH (17:40)
--- NOTE | 2017-10-08 18:49 | CT ---
EXAM: CT Head Without Intravenous Contrast CLINICAL HISTORY: 67 years old, female; Signs and symptoms; Other: R/O bleed TECHNIQUE: Axial computed tomography images of the head/brain without intravenous contrast. All CT scans at this facility use one or more dose reduction techniques, viz.: automated exposure control; ma/kV adjustment per patient size (including targeted exams where dose is matched to indication; i.e. head); or iterative reconstruction technique. Coronal and sagittal reformatted images were created and reviewed. COMPARISON: CT - HEAD W/O CONTRAST 2017-10-07 14:00 FINDINGS: Brain: Mild atrophy. No intracranial hemorrhage. No mass. Mild encephalomalacia within left occipital parietal region. Few scattered foci of decreased attenuation within periventricular/subcortical white matter. Ill-defined decreased attenuation within left frontal parietal region with loss of martinez-white matter differentiation, similar to previous examination. Midline shift: None. Ventricles: No hydrocephalus. Bones/joints: No acute fracture. Soft tissues: Unremarkable. Vasculature: Atherosclerotic disease of intracranial arteries. Sinuses: No acute sinusitis. Mastoid air cells: No mastoid effusion. Orbits: Unremarkable as visualized. IMPRESSION: 1. Evolving acute infarction within left frontal parietal region. 2. Chronic ischemic matter changes. 3. Incidental/non-acute findings are described above.
--- NOTE | 2017-10-08 19:03 | PN ---
DATE: SUBJECTIVE: The patient is able to have her pureed diet; however, she could not take her crushed medications. She has a slight improvement of power in the right leg. She is awake, cooperative, does not appear to be in any respiratory distress. IV heparin was started yesterday as well as Coumadin 3 mg was given yesterday. Eliquis was discontinued. PHYSICAL EXAMINATION: VITAL SIGNS: Blood pressure 145/61, heart rate 68, temperature 99, respirations 35. HEENT: Pale conjunctivae. CHEST: Diminished breath sounds over the bases. HEART: S1 and S2 regular. ABDOMEN: Soft. EXTREMITIES: No edema. Repeat head CT scan yesterday revealed early chronic infarct left anterior and middle cerebral artery distribution, again evident was marginal increased edema posteriorly at the left frontal parietal junction. No herniation. ASSESSMENT: 1. Left anterior and mid cerebral artery distribution cerebral infarct. 2. Chronic renal insufficiency. 3. Hypertension. 4. Diabetes mellitus. 5. History of dual-chamber pacemaker placement. The patient is in a paced rhythm. RECOMMENDATIONS: Continue current IV heparin. Continue hydralazine 10 mg every 6 hours p.r.n., Coreg 6.25 mg twice a day, Coumadin 5 mg will be administered today. Continue Cozaar 12.5 mg once a day, aspirin 81 mg once a day, Lipitor 20 mg once a day, Procardia XL 60 mg once a day. Valproic acid 250 mg IV piggyback q. 12 hours. Ramiro Syed MD
--- NOTE | 2017-10-08 19:13 | CP.PCM.PN ---
Subjective - Date & Time of Evaluation Date of Evaluation: 10/08/17 Time of Evaluation: 19:00 - Subjective Subjective: No complaints, appears comfortable Objective - Vital Signs/Intake and Output Vital Signs (last 24 hours): Temp Pulse Resp BP Pulse Ox 99 F 69 28 H 155/99 H 97 10/08/17 00:13 10/08/17 18:30 10/08/17 18:30 10/08/17 18:10 10/08/17 18:30 Intake and Output: 10/08/17 10/09/17 18:59 06:59 Intake Total 1290 Output Total 100 Balance 1190 - Medications Medications: Current Medications Acetaminophen (Tylenol 325mg Tab) 650 mg PO Q4 PRN PRN Reason: Fever >100.4 F Last Admin: 10/04/17 18:48 Dose: 650 mg Albuterol/Ipratropium (Duoneb 3 Mg/0.5 Mg (3 Ml) Ud) 3 ml IH [id number] PRN PRN Reason: Shortness of Breath Aspirin (Ecotrin) 81 mg PO DAILY [facility] Last Admin: 10/08/17 09:58 Dose: 81 mg Atorvastatin Calcium (Lipitor) 20 mg PO DIN [facility] Last Admin: 10/08/17 17:42 Dose: 20 mg Carvedilol (Coreg) 6.25 mg PO BID [facility] Last Admin: 10/08/17 17:32 Dose: 6.25 mg Clonidine HCl (Catapres) 0.2 mg PO BID [facility] Last Admin: 10/05/17 13:59 Dose: Not Given Docusate Sodium (Colace Liquid) 100 mg PO TID [facility] Last Admin: 10/08/17 17:30 Dose: 100 mg Famotidine (Pepcid) 20 mg PO DAILY [facility] Last Admin: 10/08/17 09:58 Dose: 20 mg Hydralazine HCl (Apresoline) 100 mg PO BID [facility] Last Admin: 10/04/17 18:46 Dose: 100 mg Hydralazine HCl (Apresoline) 10 mg IVP Q6 PRN PRN Reason: Systolic Blood Pressure Last Admin: 10/08/17 03:12 Dose: 10 mg Valproate Sodium 250 mg/ (Sodium Chloride) 102.5 mls @ 100 mls/hr IVPB Q12 [facility] Last Admin: 10/08/17 10:03 Dose: 100 mls/hr Heparin Sodium/Sodium Chloride (Heparin 67881 Units/250ml 1/2 Normal Saline) 25 ,000 units in 250 mls @ 12.974 mls/hr IV .[id number] PRN; Protocol; 18 UNITS/KG/HR PRN Reason: ADJUST RATE PER PROTOCOL Last Titration: 10/08/17 18:25 Dose: 12 units/kg/hr, 8.649 mls/hr Sodium Chloride (Sodium Chloride 0.45%) 1,000 mls @ 60 mls/hr IV .[id number] [facility] Last Admin: 10/08/17 09:59 Dose: 60 mls/hr Insulin Detemir (Levemir) 25 unit SC HS [facility] Last Admin: 10/07/17 22:02 Dose: 25 unit Insulin Human Lispro (Humalog Med) 0 units SC ACHS [facility] PRN Reason: Protocol Last Admin: 10/08/17 16:33 Dose: Not Given Losartan Potassium (Cozaar) 12.5 mg PO DAILY [facility] Last Admin: 10/08/17 12:50 Dose: 12.5 mg Nifedipine (Procardia Xl) 60 mg PO DAILY [facility] Last Admin: 10/08/17 09:54 Dose: 60 mg Ondansetron HCl (Zofran Inj) 4 mg IVP Q6H PRN PRN Reason: Nausea/Vomiting Last Admin: 10/08/17 19:01 Dose: 4 mg Polyethylene Glycol (Miralax) 17 gm PO DAILY [facility] Last Admin: 10/08/17 17:40 Dose: Not Given Warfarin Sodium (Coumadin) 5 mg PO 1800 [facility] PRN Reason: Protocol Last Admin: 10/08/17 17:31 Dose: 5 mg - Labs Labs: 10/08/17 04:00 10/08/17 04:00 PT 20.4 SECONDS (9.4-12.5) H 10/08/17 04:00 INR 1.75 (0.93-1.08) H 10/08/17 04:00 APTT 97.9 Seconds (25.1-36.5) H 10/08/17 15:45 - Head Exam Head Exam: ATRAUMATIC - Eye Exam Eye Exam: Normal appearance - ENT Exam ENT Exam: Mucous Membranes Dry - Respiratory Exam Respiratory Exam: NORMAL BREATHING PATTERN - Cardiovascular Exam Cardiovascular Exam: +S1, +S2 - GI/Abdominal Exam GI & Abdominal Exam: Normal Bowel Sounds Assessment and Plan (1) Acute CVA (cerebrovascular accident) Assessment & Plan: cardio thromboembolic heparin/coumadin per neuro Status: Acute (2) Anemia Assessment & Plan: anemia of CKD anemia of chronic disease Status: Acute (3) Coagulopathy Assessment & Plan: anticoagulation Status: Acute
[2017-10-08] MEDS: Insulin Detemir 100 units/ml Vial (Levemir) SC SCH (22:05)
--- NOTE | 2017-10-08 22:11 | CP.PCM.PN ---
Subjective - Date & Time of Evaluation Date of Evaluation: 10/08/17 Time of Evaluation: 12:00 - Subjective Subjective: Patient reports tolerating diet well; occasional shortness of breath; Objective - Vital Signs/Intake and Output Vital Signs (last 24 hours): Temp Pulse Resp BP Pulse Ox 99 F 69 28 H 155/99 H 97 10/08/17 00:13 10/08/17 18:30 10/08/17 18:30 10/08/17 18:10 10/08/17 18:30 Intake and Output: 10/08/17 10/09/17 18:59 06:59 Intake Total 1290 Output Total 100 Balance 1190 - Medications Medications: Current Medications Acetaminophen (Tylenol 325mg Tab) 650 mg PO Q4 PRN PRN Reason: Fever >100.4 F Last Admin: 10/04/17 18:48 Dose: 650 mg Albuterol/Ipratropium (Duoneb 3 Mg/0.5 Mg (3 Ml) Ud) 3 ml IH [id number] PRN PRN Reason: Shortness of Breath Aspirin (Ecotrin) 81 mg PO DAILY [facility] Last Admin: 10/08/17 09:58 Dose: 81 mg Atorvastatin Calcium (Lipitor) 20 mg PO DIN [facility] Last Admin: 10/08/17 17:42 Dose: 20 mg Carvedilol (Coreg) 6.25 mg PO BID [facility] Last Admin: 10/08/17 17:32 Dose: 6.25 mg Clonidine HCl (Catapres) 0.2 mg PO BID [facility] Last Admin: 10/05/17 13:59 Dose: Not Given Docusate Sodium (Colace Liquid) 100 mg PO TID [facility] Last Admin: 10/08/17 17:30 Dose: 100 mg Famotidine (Pepcid) 20 mg PO DAILY [facility] Last Admin: 10/08/17 09:58 Dose: 20 mg Hydralazine HCl (Apresoline) 100 mg PO BID [facility] Last Admin: 10/04/17 18:46 Dose: 100 mg Hydralazine HCl (Apresoline) 10 mg IVP Q6 PRN PRN Reason: Systolic Blood Pressure Last Admin: 10/08/17 03:12 Dose: 10 mg Valproate Sodium 250 mg/ (Sodium Chloride) 102.5 mls @ 100 mls/hr IVPB Q12 [facility] Last Admin: 10/08/17 10:03 Dose: 100 mls/hr Heparin Sodium/Sodium Chloride (Heparin 28369 Units/250ml 1/2 Normal Saline) 25 ,000 units in 250 mls @ 12.974 mls/hr IV .[id number] PRN; Protocol; 18 UNITS/KG/HR PRN Reason: ADJUST RATE PER PROTOCOL Last Titration: 10/08/17 18:25 Dose: 12 units/kg/hr, 8.649 mls/hr Sodium Chloride (Sodium Chloride 0.45%) 1,000 mls @ 60 mls/hr IV .[id number] [facility] Last Admin: 10/08/17 09:59 Dose: 60 mls/hr Insulin Detemir (Levemir) 25 unit SC HS [facility] Last Admin: 10/08/17 22:05 Dose: Not Given Insulin Human Lispro (Humalog Med) 0 units SC ACHS [facility] PRN Reason: Protocol Last Admin: 10/08/17 22:05 Dose: Not Given Losartan Potassium (Cozaar) 12.5 mg PO DAILY [facility] Last Admin: 10/08/17 12:50 Dose: 12.5 mg Nifedipine (Procardia Xl) 60 mg PO DAILY [facility] Last Admin: 10/08/17 09:54 Dose: 60 mg Ondansetron HCl (Zofran Inj) 4 mg IVP Q6H PRN PRN Reason: Nausea/Vomiting Last Admin: 10/08/17 19:01 Dose: 4 mg Polyethylene Glycol (Miralax) 17 gm PO DAILY [facility] Last Admin: 10/08/17 17:40 Dose: Not Given Warfarin Sodium (Coumadin) 5 mg PO 1800 [facility] PRN Reason: Protocol Last Admin: 10/08/17 17:31 Dose: 5 mg - Labs Labs: 10/08/17 04:00 10/08/17 04:00 PT 20.4 SECONDS (9.4-12.5) H 10/08/17 04:00 INR 1.75 (0.93-1.08) H 10/08/17 04:00 APTT 97.9 Seconds (25.1-36.5) H 10/08/17 15:45 - Constitutional Appears: Non-toxic, No Acute Distress - Eye Exam Eye Exam: Normal appearance. absent: Scleral icterus - ENT Exam ENT Exam: Mucous Membranes Moist - Respiratory Exam Respiratory Exam: Clear to Ausculation Bilateral. absent: Respiratory Distress - Cardiovascular Exam Cardiovascular Exam: REGULAR RHYTHM, +S1, +S2 - GI/Abdominal Exam GI & Abdominal Exam: Soft. absent: Distended, Tenderness - Extremities Exam Additional comments: mild leg edema; - Neurological Exam Neurological Exam: Alert, Awake - Psychiatric Exam Psychiatric exam: Normal Affect, Normal Mood. absent: Agitated - Skin Skin Exam: Warm. absent: Cyanosis Assessment and Plan (1) Acute CVA (cerebrovascular accident) Status: Acute (2) CKD (chronic kidney disease) Assessment & Plan: Stable renal function; monitor; avoid nephrotoxic meds; Status: Chronic (3) HTN (hypertension) Assessment & Plan: BP control fluctuating; will add losartan 12.5 mg daily, continue rest of meds; Status: Acute (4) Pulmonary edema Status: Acute (5) Hypernatremia Assessment & Plan: Secondary to inadequate PO fluid intake; agree with 1/2NS at 60 cc/hr; Status: Acute
[2017-10-09] MEDS: Sodium Chloride 0.45% 1,000 ML IV SCH ×2 (04:33→22:04)
[2017-10-09 05:49] LABS: HEMOGLOBIN 8.9 g/dL (12.0-16.0); MEAN CELL VOLUME 85.2 fl (80.0-105.0); MEAN CORPUSCULAR HEMOGLOBIN 26.8 pg (25.0-35.0); MEAN CORPUSCULAR HGB CONC 31.4 g/dl (31.0-37.0); MEAN PLATELET VOLUME 11.8 fl (7.0-11.0); RBC 3.32 10^6/uL (3.5-6.1); RED CELL DISTRIBUTION WIDTH 16.9 % (11.5-14.5)
[2017-10-09 06:00] LABS: ALB/GLOB RATIO 0.8 (1.1-1.8); ALBUMIN 3.2 g/dL (3.0-4.8); CALCIUM 9.4 mg/dL (8.4-10.5)
[2017-10-09 06:07] LABS: INR 1.48 (0.93-1.08); PROTHROMBIN TIME 17.1 SECONDS (9.4-12.5)
[2017-10-09] MEDS: Insulin Lispro (humaLOG) MEDIUM Coverage SC SCH ×4 (07:33→22:11)
[2017-10-09] MEDS: Valproate 250 MG in Sodium Chloride 0.9% 100 ML IVPB SCH ×2 (09:36→22:02)
[2017-10-09] MEDS: NIFEdipine 60 mg ER Tab PO SCH (09:38)
[2017-10-09] MEDS: POLYETHYLENE GLYCOL 3350 17 GM/Dose PACKET PO SCH (09:41)
--- NOTE | 2017-10-09 11:52 | CP.PCM.PN ---
Subjective - Date & Time of Evaluation Date of Evaluation: 10/09/17 Time of Evaluation: 11:49 - Subjective Subjective: Ms. Carlitos Friedman was seen and examined at the bedside in ICU. She is alert, oriented with right facial droop and right arm flaccid. She is able to answer to all questions and follow simple commands. She is able to move her right lower extremity in comparison from previous examination. Currently, receiving Heparin drip and IVF. There was no untoward events overnight. Objective - Vital Signs/Intake and Output Vital Signs (last 24 hours): Temp Pulse Resp BP Pulse Ox 97.5 F L 60 17 177/70 H 98 10/09/17 11:01 10/09/17 10:50 10/09/17 10:50 10/09/17 10:05 10/09/17 10:50 Intake and Output: 10/09/17 10/09/17 06:59 18:59 Intake Total 975 Output Total 700 Balance 275 - Medications Medications: Current Medications Acetaminophen (Tylenol 325mg Tab) 650 mg PO Q4 PRN PRN Reason: Fever >100.4 F Last Admin: 10/04/17 18:48 Dose: 650 mg Albuterol/Ipratropium (Duoneb 3 Mg/0.5 Mg (3 Ml) Ud) 3 ml IH [id number] PRN PRN Reason: Shortness of Breath Aspirin (Ecotrin) 81 mg PO DAILY [facility] Last Admin: 10/09/17 09:38 Dose: 81 mg Atorvastatin Calcium (Lipitor) 20 mg PO DIN [facility] Last Admin: 10/08/17 17:42 Dose: 20 mg Carvedilol (Coreg) 6.25 mg PO BID [facility] Last Admin: 10/09/17 09:37 Dose: 6.25 mg Clonidine HCl (Catapres) 0.2 mg PO BID [facility] Last Admin: 10/05/17 13:59 Dose: Not Given Docusate Sodium (Colace Liquid) 100 mg PO TID [facility] Last Admin: 10/09/17 09:36 Dose: 100 mg Famotidine (Pepcid) 20 mg PO DAILY [facility] Last Admin: 10/09/17 09:37 Dose: 20 mg Hydralazine HCl (Apresoline) 100 mg PO BID [facility] Last Admin: 10/04/17 18:46 Dose: 100 mg Hydralazine HCl (Apresoline) 10 mg IVP Q6 PRN PRN Reason: Systolic Blood Pressure Last Admin: 10/08/17 03:12 Dose: 10 mg Valproate Sodium 250 mg/ (Sodium Chloride) 102.5 mls @ 100 mls/hr IVPB Q12 [facility] Last Admin: 10/09/17 09:36 Dose: 100 mls/hr Heparin Sodium/Sodium Chloride (Heparin 81598 Units/250ml 1/2 Normal Saline) 25 ,000 units in 250 mls @ 12.974 mls/hr IV .[id number] PRN; Protocol; 18 UNITS/KG/HR PRN Reason: ADJUST RATE PER PROTOCOL Last Admin: 10/08/17 23:47 Dose: 12 units/kg/hr, 8.649 mls/hr Sodium Chloride (Sodium Chloride 0.45%) 1,000 mls @ 60 mls/hr IV .[id number] [facility] Last Admin: 10/09/17 04:33 Dose: 60 mls/hr Insulin Detemir (Levemir) 25 unit SC HS [facility] Last Admin: 10/08/17 22:05 Dose: Not Given Insulin Human Lispro (Humalog Med) 0 units SC ACHS [facility] PRN Reason: Protocol Last Admin: 10/09/17 07:33 Dose: Not Given Losartan Potassium (Cozaar) 25 mg PO DAILY [facility] Last Admin: 10/09/17 09:39 Dose: 25 mg Nifedipine (Procardia Xl) 60 mg PO DAILY [facility] Last Admin: 10/09/17 09:38 Dose: 60 mg Ondansetron HCl (Zofran Inj) 4 mg IVP Q6H PRN PRN Reason: Nausea/Vomiting Last Admin: 10/09/17 10:01 Dose: 4 mg Polyethylene Glycol (Miralax) 17 gm PO DAILY [facility] Last Admin: 10/09/17 09:41 Dose: 17 gm Warfarin Sodium (Coumadin) 5 mg PO 1800 ROJELIO PRN Reason: Protocol Last Admin: 10/08/17 17:31 Dose: 5 mg - Labs Labs: 10/09/17 05:00 10/09/17 05:00 PT 17.1 SECONDS (9.4-12.5) H 10/09/17 05:00 INR 1.48 (0.93-1.08) H 10/09/17 05:00 APTT 70.0 Seconds (25.1-36.5) H 10/09/17 05:00 - Constitutional Appears: No Acute Distress - Head Exam Head Exam: NORMAL INSPECTION - Neurological Exam Neurological Exam: Alert, Awake Neuro motor strength exam: Left Upper Extremity: 5, Right Upper Extremity: 0, Left Lower Extremity: 5, Right Lower Extremity: 2/1 Additional comments: Neurological improved from previous examination. She is able to move her right lower extremity. Assessment and Plan (1) Acute CVA (cerebrovascular accident) Assessment & Plan: Case discussed with Dr. Roberson, continue all current medical, physical, occupational, and speech therapies. Recommend normotension and elevated head of head at least 30 degrees. Status: Acute
--- NOTE | 2017-10-09 12:57 | CP.PCM.PN ---
<Jerrod Cowart - Last Filed: 10/09/17 12:58> Subjective - Date & Time of Evaluation Date of Evaluation: 10/09/17 Time of Evaluation: 08:00 - Subjective Subjective: Dr. Nye Service Pt was seen and examined at bedside. No acute complaints at this time. Pt is able to move RLE as before, however still has rt facial droop and flaccid RUE. No acute or adverse events overnight. Pt HTN improving. Pt is tolerating oral intake. Pt denied fever, chills, sob, chest pains, abdominal pain, nausea, vomiting, diarrhea, constipation or urinary symptoms. Objective - Vital Signs/Intake and Output Vital Signs (last 24 hours): Temp Pulse Resp BP Pulse Ox 97.5 F L 60 17 177/70 H 98 10/09/17 11:01 10/09/17 10:50 10/09/17 10:50 10/09/17 10:05 10/09/17 10:50 Intake and Output: 10/09/17 10/09/17 06:59 18:59 Intake Total 975 Output Total 700 Balance 275 - Medications Medications: Current Medications Acetaminophen (Tylenol 325mg Tab) 650 mg PO Q4 PRN PRN Reason: Fever >100.4 F Last Admin: 10/04/17 18:48 Dose: 650 mg Albuterol/Ipratropium (Duoneb 3 Mg/0.5 Mg (3 Ml) Ud) 3 ml IH [id number] PRN PRN Reason: Shortness of Breath Aspirin (Ecotrin) 81 mg PO DAILY [facility] Last Admin: 10/09/17 09:38 Dose: 81 mg Atorvastatin Calcium (Lipitor) 20 mg PO DIN [facility] Last Admin: 10/08/17 17:42 Dose: 20 mg Carvedilol (Coreg) 6.25 mg PO BID [facility] Last Admin: 10/09/17 09:37 Dose: 6.25 mg Clonidine HCl (Catapres) 0.2 mg PO BID [facility] Last Admin: 10/05/17 13:59 Dose: Not Given Docusate Sodium (Colace Liquid) 100 mg PO TID [facility] Last Admin: 10/09/17 09:36 Dose: 100 mg Famotidine (Pepcid) 20 mg PO DAILY [facility] Last Admin: 10/09/17 09:37 Dose: 20 mg Hydralazine HCl (Apresoline) 100 mg PO BID [facility] Last Admin: 10/04/17 18:46 Dose: 100 mg Hydralazine HCl (Apresoline) 10 mg IVP Q6 PRN PRN Reason: Systolic Blood Pressure Last Admin: 10/08/17 03:12 Dose: 10 mg Valproate Sodium 250 mg/ (Sodium Chloride) 102.5 mls @ 100 mls/hr IVPB Q12 [facility] Last Admin: 10/09/17 09:36 Dose: 100 mls/hr Heparin Sodium/Sodium Chloride (Heparin 04640 Units/250ml 1/2 Normal Saline) 25 ,000 units in 250 mls @ 12.974 mls/hr IV .[id number] PRN; Protocol; 18 UNITS/KG/HR PRN Reason: ADJUST RATE PER PROTOCOL Last Admin: 10/08/17 23:47 Dose: 12 units/kg/hr, 8.649 mls/hr Sodium Chloride (Sodium Chloride 0.45%) 1,000 mls @ 60 mls/hr IV .[id number] [facility] Last Admin: 10/09/17 04:33 Dose: 60 mls/hr Insulin Detemir (Levemir) 25 unit SC HS [facility] Last Admin: 10/08/17 22:05 Dose: Not Given Insulin Human Lispro (Humalog Med) 0 units SC ACHS [facility] PRN Reason: Protocol Last Admin: 10/09/17 11:51 Dose: 1 units Losartan Potassium (Cozaar) 25 mg PO DAILY [facility] Last Admin: 10/09/17 09:39 Dose: 25 mg Nifedipine (Procardia Xl) 60 mg PO DAILY [facility] Last Admin: 10/09/17 09:38 Dose: 60 mg Ondansetron HCl (Zofran Inj) 4 mg IVP Q6H PRN PRN Reason: Nausea/Vomiting Last Admin: 10/09/17 10:01 Dose: 4 mg Polyethylene Glycol (Miralax) 17 gm PO DAILY [facility] Last Admin: 10/09/17 09:41 Dose: 17 gm Warfarin Sodium (Coumadin) 5 mg PO 1800 ROJELIO PRN Reason: Protocol Last Admin: 10/08/17 17:31 Dose: 5 mg - Labs Labs: 10/09/17 05:00 10/09/17 05:00 PT 17.1 SECONDS (9.4-12.5) H 10/09/17 05:00 INR 1.48 (0.93-1.08) H 10/09/17 05:00 APTT 70.0 Seconds (25.1-36.5) H 10/09/17 05:00 - Constitutional Appears: No Acute Distress - Head Exam Head Exam: ATRAUMATIC, NORMAL INSPECTION, NORMOCEPHALIC Additional comments: RT facial droop - Eye Exam Eye Exam: EOMI, Normal appearance, PERRL Pupil Exam: NORMAL ACCOMODATION, PERRL - ENT Exam ENT Exam: Mucous Membranes Moist, Normal Exam - Neck Exam Neck Exam: Full ROM, Normal Inspection. absent: Lymphadenopathy - Respiratory Exam Respiratory Exam: Clear to Ausculation Bilateral, NORMAL BREATHING PATTERN - Cardiovascular Exam Cardiovascular Exam: REGULAR RHYTHM, +S1, +S2. absent: Murmur - GI/Abdominal Exam GI & Abdominal Exam: Soft, Normal Bowel Sounds. 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 CT head was negative on admission. She was found to have an CASSIA, which resolved with hydration. CODE STROKE was called due to recurrent symptoms while on the medical floors. CT Head was unchanged and CTA Head/Neck was unremarkable. Patient continued to have persistent symptoms, and repeat CT Head showed acute stroke. Patient was transferred to ICU due to shortness of breath after [employer] was called. Pt has been in ICU for close monitoring. 1. CVA in frontal lobe, after recurrent TIA's - still have expressive aphasia. Right-sided weakness upper extremity> Right lower extremity. - BP is acceptable. Repeat CT head did not show any hemorrhage. - Eliquis discontinued. on heparin drip. Started on Coumadin. - Neuro consulted, rec normotension and elevated head of head at least 30 degrees. - continue lipitor - EP- Dr. Traore for pacemaker, recommends outpatient follow up - PT/OT pending after recurrent symptoms - Speech and swallow eval 2. HTN, in setting of CVA requiring permissive HTN - controlled on multiple medications per Nephro, Neuro and Cardio recs - continue coreg 25BID, clonidine 0.3 BID - Hydralazine and Nifedipine were held due to permissive HTN - will hold losartan and lasix due to CASSIA on admission - cont to monitor 3. Hx arrhythmias s/p pacemaker - recent interrogation by Dr. Traore (09/23/17) showed no Afib, and he recommends outpatient follow up - will switch patient from Eliquis to Heparin drip and Coumadin - patient on tele floor, cont to monitor HR 4. Hx CKD - CASSIA resolved - IVF NS@ 100 - NAC was started to prevent contrast nephropathy - holding home PO diabetic medications, Lasix, Losartan - Nephrology consulted, recommending outpatient workup for secondary causes of CKD and HTN 5. diabetes (A1C 8) - PO meds held due to CASSIA on admission and risk of contrast nephropathy - ISS medium - Levemir 25units HS (home dose) - fingerstick achs DVT ppx- Elquis and scds GI ppx- pepcid HHD Patient was seen, examined and discussed with attending, Dr. Nye <Layla Nye - Last Filed: 10/09/17 13:50> Objective - Vital Signs/Intake and Output Vital Signs (last 24 hours): Temp Pulse Resp BP Pulse Ox 97.9 F 60 25 H 124/65 97 10/09/17 12:00 10/09/17 13:00 10/09/17 13:00 10/09/17 12:00 10/09/17 13:00 Intake and Output: 10/09/17 10/09/17 06:59 18:59 Intake Total 975 Output Total 700 Balance 275 - Medications Medications: Current Medications Acetaminophen (Tylenol 325mg Tab) 650 mg PO Q4 PRN PRN Reason: Fever >100.4 F Last Admin: 10/04/17 18:48 Dose: 650 mg Albuterol/Ipratropium (Duoneb 3 Mg/0.5 Mg (3 Ml) Ud) 3 ml IH [id number] PRN PRN Reason: Shortness of Breath Aspirin (Ecotrin) 81 mg PO DAILY [facility] Last Admin: 10/09/17 09:38 Dose: 81 mg Atorvastatin Calcium (Lipitor) 20 mg PO DIN [facility] Last Admin: 10/08/17 17:42 Dose: 20 mg Carvedilol (Coreg) 6.25 mg PO BID [facility] Last Admin: 10/09/17 09:37 Dose: 6.25 mg Clonidine HCl (Catapres) 0.2 mg PO BID [facility] Last Admin: 10/05/17 13:59 Dose: Not Given Docusate Sodium (Colace Liquid) 100 mg PO TID [facility] Last Admin: 10/09/17 13:08 Dose: 100 mg Famotidine (Pepcid) 20 mg PO DAILY [facility] Last Admin: 10/09/17 09:37 Dose: 20 mg Hydralazine HCl (Apresoline) 100 mg PO BID [facility] Last Admin: 10/04/17 18:46 Dose: 100 mg Hydralazine HCl (Apresoline) 10 mg IVP Q6 PRN PRN Reason: Systolic Blood Pressure Last Admin: 10/08/17 03:12 Dose: 10 mg Valproate Sodium 250 mg/ (Sodium Chloride) 102.5 mls @ 100 mls/hr IVPB Q12 [facility] Last Admin: 10/09/17 09:36 Dose: 100 mls/hr Heparin Sodium/Sodium Chloride (Heparin 81209 Units/250ml 1/2 Normal Saline) 25 ,000 units in 250 mls @ 12.974 mls/hr IV .[id number] PRN; Protocol; 18 UNITS/KG/HR PRN Reason: ADJUST RATE PER PROTOCOL Last Admin: 10/08/17 23:47 Dose: 12 units/kg/hr, 8.649 mls/hr Sodium Chloride (Sodium Chloride 0.45%) 1,000 mls @ 60 mls/hr IV .[id number] [facility] Last Admin: 10/09/17 04:33 Dose: 60 mls/hr Insulin Detemir (Levemir) 25 unit SC HS [facility] Last Admin: 10/08/17 22:05 Dose: Not Given Insulin Human Lispro (Humalog Med) 0 units SC ACHS [facility] PRN Reason: Protocol Last Admin: 10/09/17 11:51 Dose: 1 units Losartan Potassium (Cozaar) 25 mg PO DAILY [facility] Last Admin: 10/09/17 09:39 Dose: 25 mg Nifedipine (Procardia Xl) 60 mg PO DAILY [facility] Last Admin: 10/09/17 09:38 Dose: 60 mg Ondansetron HCl (Zofran Inj) 4 mg IVP Q6H PRN PRN Reason: Nausea/Vomiting Last Admin: 10/09/17 10:01 Dose: 4 mg Polyethylene Glycol (Miralax) 17 gm PO DAILY [facility] Last Admin: 10/09/17 09:41 Dose: 17 gm Warfarin Sodium (Coumadin) 5 mg PO 1800 [facility] PRN Reason: Protocol Last Admin: 10/08/17 17:31 Dose: 5 mg - Labs Labs: 10/09/17 05:00 10/09/17 05:00 PT 17.1 SECONDS (9.4-12.5) H 10/09/17 05:00 INR 1.48 (0.93-1.08) H 10/09/17 05:00 APTT 70.0 Seconds (25.1-36.5) H 10/09/17 05:00 Attending/Attestation - Attestation I have personally seen and examined this patient.: Yes I have fully participated in the care of the patient.: Yes I have reviewed all pertinent clinical information, including history, physical exam and plan: Yes Notes (Text): 10/09/17 13:49 Attending note; patient seen and examined with resident in ICU. patient's and son by the bedside patient is more alert and awake. Right lower extremity weakness is improving. still have expressive aphasia. Right-sided weakness upper extremity more than lower extremity. BP is acceptable. Repeat CT head did not show any hemorrhage. Eliquis discontinued. on heparin drip. Started on Coumadin. Case discussed with neurologist in detail. Frequent neuro checks. needs acute rehabilitation placement. Will discuss with behavioral health case manager and social media community manager for discharge planning.
--- NOTE | 2017-10-09 20:10 | PN ---
DATE: SUBJECTIVE: The patient was reported to me by the nurse that she vomited her Coumadin last night. She started on intravenous heparin. She is more awake, cooperative, and able to have something mobility of right leg. No chest pain. PHYSICAL EXAMINATION: VITAL SIGNS: Blood pressure 124/65, heart rate 67, respirations 21, temperature 97.9. HEENT: Loss of right nasolabial fold. CHEST: Clear. HEART: S1 and S2 regular. EXTREMITIES: No edema. LABORATORY DATA: Hemoglobin and hematocrit 8.5 and 28.3, white count and platelet count within normal limits. SMA-7: Sodium 147, potassium 4, chloride 114, CO2 of 23, glucose 89, BUN 24, creatinine 1.1. ASSESSMENT: 1. Left anterior and middle cerebral artery distribution cerebral infarcts. 2. Prerenal azotemia. 3. Hypertension. 4. Diabetes mellitus. 5. Dual-chamber pacemaker placement. The patient is in a paced rhythm. RECOMMENDATIONS: Continue current intravenous heparin in a regimen. Continue hydralazine 100 mg b.i.d., Coreg 6.25 mg twice a day, Coumadin 5 mg will be administered today. Continue Cozaar 25 mg once a day, aspirin 81 mg once a day, Lipitor 20 mg once a day, Procardia XL 60 mg once a day. Ramiro Syed MD
--- NOTE | 2017-10-09 21:28 | CP.PCM.PN ---
Subjective - Date & Time of Evaluation Date of Evaluation: 10/09/17 Time of Evaluation: 17:00 - Subjective Subjective: No complaints, appears comfortable Objective - Vital Signs/Intake and Output Vital Signs (last 24 hours): Temp Pulse Resp BP Pulse Ox 97.9 F 64 25 H 201/84 H 100 10/09/17 12:00 10/09/17 19:05 10/09/17 17:50 10/09/17 19:05 10/09/17 17:50 Intake and Output: 10/09/17 10/10/17 18:59 06:59 Intake Total 1316 Output Total 400 Balance 916 - Medications Medications: Current Medications Acetaminophen (Tylenol 325mg Tab) 650 mg PO Q4 PRN PRN Reason: Fever >100.4 F Last Admin: 10/04/17 18:48 Dose: 650 mg Albuterol/Ipratropium (Duoneb 3 Mg/0.5 Mg (3 Ml) Ud) 3 ml IH [id number] PRN PRN Reason: Shortness of Breath Aspirin (Ecotrin) 81 mg PO DAILY [facility] Last Admin: 10/09/17 09:38 Dose: 81 mg Atorvastatin Calcium (Lipitor) 20 mg PO DIN [facility] Last Admin: 10/09/17 17:28 Dose: 20 mg Carvedilol (Coreg) 6.25 mg PO BID [facility] Last Admin: 10/09/17 17:28 Dose: 6.25 mg Clonidine HCl (Catapres) 0.2 mg PO BID [facility] Last Admin: 10/05/17 13:59 Dose: Not Given Docusate Sodium (Colace Liquid) 100 mg PO TID [facility] Last Admin: 10/09/17 17:25 Dose: Not Given Famotidine (Pepcid) 20 mg PO DAILY [facility] Last Admin: 10/09/17 09:37 Dose: 20 mg Hydralazine HCl (Apresoline) 100 mg PO BID [facility] Last Admin: 10/04/17 18:46 Dose: 100 mg Hydralazine HCl (Apresoline) 10 mg IVP Q6 PRN PRN Reason: Systolic Blood Pressure Last Admin: 10/09/17 19:05 Dose: 10 mg Valproate Sodium 250 mg/ (Sodium Chloride) 102.5 mls @ 100 mls/hr IVPB Q12 [facility] Last Admin: 10/09/17 09:36 Dose: 100 mls/hr Heparin Sodium/Sodium Chloride (Heparin 29432 Units/250ml 1/2 Normal Saline) 25 ,000 units in 250 mls @ 12.974 mls/hr IV .[id number] PRN; Protocol; 18 UNITS/KG/HR PRN Reason: ADJUST RATE PER PROTOCOL Last Admin: 10/08/17 23:47 Dose: 12 units/kg/hr, 8.649 mls/hr Sodium Chloride (Sodium Chloride 0.45%) 1,000 mls @ 60 mls/hr IV .[id number] [facility] Last Admin: 10/09/17 04:33 Dose: 60 mls/hr Insulin Detemir (Levemir) 25 unit SC HS [facility] Last Admin: 10/08/17 22:05 Dose: Not Given Insulin Human Lispro (Humalog Med) 0 units SC ACHS [facility] PRN Reason: Protocol Last Admin: 10/09/17 16:59 Dose: 1 units Losartan Potassium (Cozaar) 25 mg PO DAILY [facility] Last Admin: 10/09/17 09:39 Dose: 25 mg Nifedipine (Procardia Xl) 60 mg PO DAILY [facility] Last Admin: 10/09/17 09:38 Dose: 60 mg Ondansetron HCl (Zofran Inj) 4 mg IVP Q6H PRN PRN Reason: Nausea/Vomiting Last Admin: 10/09/17 10:01 Dose: 4 mg Polyethylene Glycol (Miralax) 17 gm PO DAILY [facility] Last Admin: 10/09/17 09:41 Dose: 17 gm Warfarin Sodium (Coumadin) 5 mg PO 1800 [facility] PRN Reason: Protocol Last Admin: 10/09/17 17:29 Dose: 5 mg - Labs Labs: 10/09/17 05:00 10/09/17 05:00 PT 17.1 SECONDS (9.4-12.5) H 10/09/17 05:00 INR 1.48 (0.93-1.08) H 10/09/17 05:00 APTT 70.0 Seconds (25.1-36.5) H 10/09/17 05:00 - Head Exam Head Exam: ATRAUMATIC - ENT Exam ENT Exam: Mucous Membranes Dry - Respiratory Exam Respiratory Exam: NORMAL BREATHING PATTERN - Cardiovascular Exam Cardiovascular Exam: +S1, +S2 - GI/Abdominal Exam GI & Abdominal Exam: Normal Bowel Sounds Assessment and Plan (1) Acute CVA (cerebrovascular accident) Assessment & Plan: cardio thromboembolic was on Eliquis; on heparin/coumadin Status: Acute (2) Anemia Assessment & Plan: chronic and renal disease Status: Acute (3) Coagulopathy Assessment & Plan: anticoagulation Status: Acute
[2017-10-09] MEDS: Insulin Detemir 100 units/ml Vial (Levemir) SC SCH (22:41)
[2017-10-10] MEDS: Heparin25000 units/250ml 1/2NS 25,000 UNITS/250 ML BAG IV PRN (05:28)
[2017-10-10 07:19] LABS: HEMOGLOBIN 9.9 g/dL (12.0-16.0); MEAN CELL VOLUME 83.8 fl (80.0-105.0); MEAN CORPUSCULAR HEMOGLOBIN 26.3 pg (25.0-35.0); MEAN CORPUSCULAR HGB CONC 31.4 g/dl (31.0-37.0); MEAN PLATELET VOLUME 12.2 fl (7.0-11.0); RBC 3.76 10^6/uL (3.5-6.1); RED CELL DISTRIBUTION WIDTH 16.6 % (11.5-14.5); WHITE BLOOD COUNT 8.8 10^3/ul (4.5-11.0)
[2017-10-10 07:45] LABS: ALB/GLOB RATIO 0.8 (1.1-1.8); ALT/SGPT 33 U/L (7-56); AST/SGOT 24 U/L (14-36); BLOOD UREA NITROGEN 24 mg/dL (7-21); CALCIUM 9.3 mg/dL (8.4-10.5); GFR AFRICAN-AMERICAN > 60; GFR NON-AFRICAN AMERICAN 55
[2017-10-10 07:47] LABS: INR 1.86 (0.93-1.08); PARTIAL THROMBOPLASTIN TIME 63.9 Seconds (25.1-36.5); PROTHROMBIN TIME 21.7 SECONDS (9.4-12.5)
[2017-10-10] MEDS: NIFEdipine 60 mg ER Tab PO SCH ×2 (08:46→09:48)
[2017-10-10] MEDS: Insulin Lispro (humaLOG) MEDIUM Coverage SC SCH ×4 (08:53→22:05)
[2017-10-10] MEDS: Valproate 250 MG in Sodium Chloride 0.9% 100 ML IVPB SCH ×2 (09:50→22:05)
--- NOTE | 2017-10-10 13:02 | CP.PCM.PN ---
Subjective - Date & Time of Evaluation Date of Evaluation: 10/10/17 Time of Evaluation: 13:00 - Subjective Subjective: Ms. Carlitos Friedman was seen and examined at the bedside. She is alert, with dysarthia. She denies any headache, dizziness, lightheadedness, nause, or vomiting, but claims of poor appetite. She is able to follow simple commands. She had episode of elevated blood pressure medication was given with blood pressure at the moment is 176/90. She remains with right facial droop and right arm flaccidity. She is able to move her right lower extremity. She remains on heparin drip with no s/s bleeding. She was able to state that ehad physical therapy this morning. Objective - Vital Signs/Intake and Output Vital Signs (last 24 hours): Temp Pulse Resp BP Pulse Ox 98.1 F 60 17 170/74 H 97 10/10/17 12:00 10/10/17 12:30 10/10/17 12:30 10/10/17 12:00 10/10/17 12:30 Intake and Output: 10/10/17 10/10/17 06:59 18:59 Intake Total 1226 Output Total 150 Balance 1076 - Medications Medications: Current Medications Acetaminophen (Tylenol 325mg Tab) 650 mg PO Q4 PRN PRN Reason: Fever >100.4 F Last Admin: 10/04/17 18:48 Dose: 650 mg Albuterol/Ipratropium (Duoneb 3 Mg/0.5 Mg (3 Ml) Ud) 3 ml IH [id number] PRN PRN Reason: Shortness of Breath Aspirin (Ecotrin) 81 mg PO DAILY [facility] Last Admin: 10/10/17 09:47 Dose: Not Given Atorvastatin Calcium (Lipitor) 20 mg PO DIN [facility] Last Admin: 10/09/17 17:28 Dose: 20 mg Carvedilol (Coreg) 6.25 mg PO BID [facility] Last Admin: 10/10/17 09:46 Dose: Not Given Clonidine HCl (Catapres) 0.2 mg PO BID [facility] Last Admin: 10/05/17 13:59 Dose: Not Given Docusate Sodium (Colace Liquid) 100 mg PO TID [facility] Last Admin: 10/10/17 09:46 Dose: Not Given Famotidine (Pepcid) 20 mg PO DAILY [facility] Last Admin: 10/10/17 09:47 Dose: Not Given Hydralazine HCl (Apresoline) 100 mg PO BID [facility] Last Admin: 10/04/17 18:46 Dose: 100 mg Hydralazine HCl (Apresoline) 10 mg IVP Q6 PRN PRN Reason: Systolic Blood Pressure Last Admin: 10/10/17 08:00 Dose: 10 mg Valproate Sodium 250 mg/ (Sodium Chloride) 102.5 mls @ 100 mls/hr IVPB Q12 [facility] Last Admin: 10/10/17 09:50 Dose: 100 mls/hr Heparin Sodium/Sodium Chloride (Heparin 31047 Units/250ml 1/2 Normal Saline) 25 ,000 units in 250 mls @ 12.974 mls/hr IV .[id number] PRN; Protocol; 18 UNITS/KG/HR PRN Reason: ADJUST RATE PER PROTOCOL Last Admin: 10/10/17 05:28 Dose: 12 units/kg/hr, 8.649 mls/hr Sodium Chloride (Sodium Chloride 0.45%) 1,000 mls @ 60 mls/hr IV .[id number] [facility] Last Admin: 10/09/17 22:04 Dose: 60 mls/hr Insulin Detemir (Levemir) 25 unit SC HS [facility] Last Admin: 10/09/17 22:41 Dose: 25 unit Insulin Human Lispro (Humalog Med) 0 units SC ACHS [facility] PRN Reason: Protocol Last Admin: 10/10/17 08:53 Dose: Not Given Losartan Potassium (Cozaar) 25 mg PO DAILY [facility] Last Admin: 10/10/17 09:47 Dose: Not Given Nifedipine (Procardia Xl) 60 mg PO DAILY [facility] Last Admin: 10/10/17 09:48 Dose: Not Given Ondansetron HCl (Zofran Inj) 4 mg IVP Q6H PRN PRN Reason: Nausea/Vomiting Last Admin: 10/09/17 10:01 Dose: 4 mg Polyethylene Glycol (Miralax) 17 gm PO DAILY [facility] Last Admin: 10/09/17 09:41 Dose: 17 gm Warfarin Sodium (Coumadin) 5 mg PO 1800 [facility]EL[facility] PRN Reason: Protocol Last Admin: 10/09/17 17:29 Dose: 5 mg - Labs Labs: 10/10/17 05:30 10/10/17 05:30 PT 21.7 SECONDS (9.4-12.5) H 10/10/17 05:30 INR 1.86 (0.93-1.08) H 10/10/17 05:30 APTT 63.9 Seconds (25.1-36.5) H 10/10/17 05:30 - Constitutional Appears: No Acute Distress - Head Exam Head Exam: NORMAL INSPECTION - Neurological Exam Neurological Exam: Alert, Awake Neuro motor strength exam: Left Upper Extremity: 5, Right Upper Extremity: 0, Left Lower Extremity: 5, Right Lower Extremity: 2/1 Additional comments: Neurological unchanged from previous examination. Assessment and Plan (1) Acute CVA (cerebrovascular accident) Assessment & Plan: Case discussed with Dr. Delgado, continue all current medical, physical, occupational, and speech therapies. Recommend dietary consult for supplements to boost her appetite. Recommend blood pressure control. Status: Acute
--- NOTE | 2017-10-10 13:37 | CP.PCM.PN ---
<Silas Fernandes - Last Filed: 10/11/17 03:42> Subjective - Date & Time of Evaluation Date of Evaluation: 10/10/17 Time of Evaluation: 11:00 - Subjective Subjective: Patient seen and examined at bedside. Patient's aphasia has improved. Patient able to speak however cannot make out full sentences. Patient still portrays weakness in right upper and lower extremity. Denies headache, abdominal pain, fever, chills, nausea, vomiting, diarrhea. Objective - Vital Signs/Intake and Output Vital Signs (last 24 hours): Temp Pulse Resp BP Pulse Ox 98.1 F 60 17 170/74 H 97 10/10/17 12:00 10/10/17 12:30 10/10/17 12:30 10/10/17 12:00 10/10/17 12:30 Intake and Output: 10/10/17 10/10/17 06:59 18:59 Intake Total 1226 Output Total 150 Balance 1076 - Medications Medications: Current Medications Acetaminophen (Tylenol 325mg Tab) 650 mg PO Q4 PRN PRN Reason: Fever >100.4 F Last Admin: 10/04/17 18:48 Dose: 650 mg Albuterol/Ipratropium (Duoneb 3 Mg/0.5 Mg (3 Ml) Ud) 3 ml IH [id number] PRN PRN Reason: Shortness of Breath Aspirin (Ecotrin) 81 mg PO DAILY [facility] Last Admin: 10/10/17 09:47 Dose: Not Given Atorvastatin Calcium (Lipitor) 20 mg PO DIN [facility] Last Admin: 10/09/17 17:28 Dose: 20 mg Carvedilol (Coreg) 6.25 mg PO BID [facility] Last Admin: 10/10/17 09:46 Dose: Not Given Clonidine HCl (Catapres) 0.2 mg PO BID [facility] Last Admin: 10/05/17 13:59 Dose: Not Given Docusate Sodium (Colace Liquid) 100 mg PO TID [facility] Last Admin: 10/10/17 09:46 Dose: Not Given Famotidine (Pepcid) 20 mg PO DAILY [facility] Last Admin: 10/10/17 09:47 Dose: Not Given Hydralazine HCl (Apresoline) 100 mg PO BID [facility] Last Admin: 10/04/17 18:46 Dose: 100 mg Hydralazine HCl (Apresoline) 10 mg IVP Q6 PRN PRN Reason: Systolic Blood Pressure Last Admin: 10/10/17 08:00 Dose: 10 mg Valproate Sodium 250 mg/ (Sodium Chloride) 102.5 mls @ 100 mls/hr IVPB Q12 [facility] Last Admin: 10/10/17 09:50 Dose: 100 mls/hr Heparin Sodium/Sodium Chloride (Heparin 74462 Units/250ml 1/2 Normal Saline) 25 ,000 units in 250 mls @ 12.974 mls/hr IV .[id number] PRN; Protocol; 18 UNITS/KG/HR PRN Reason: ADJUST RATE PER PROTOCOL Last Admin: 10/10/17 05:28 Dose: 12 units/kg/hr, 8.649 mls/hr Sodium Chloride (Sodium Chloride 0.45%) 1,000 mls @ 60 mls/hr IV .[id number] [facility] Last Admin: 10/09/17 22:04 Dose: 60 mls/hr Insulin Detemir (Levemir) 25 unit SC HS [facility] Last Admin: 10/09/17 22:41 Dose: 25 unit Insulin Human Lispro (Humalog Med) 0 units SC ACHS [facility] PRN Reason: Protocol Last Admin: 10/10/17 08:53 Dose: Not Given Losartan Potassium (Cozaar) 25 mg PO DAILY [facility] Last Admin: 10/10/17 09:47 Dose: Not Given Nifedipine (Procardia Xl) 60 mg PO DAILY [facility] Last Admin: 10/10/17 09:48 Dose: Not Given Ondansetron HCl (Zofran Inj) 4 mg IVP Q6H PRN PRN Reason: Nausea/Vomiting Last Admin: 10/09/17 10:01 Dose: 4 mg Polyethylene Glycol (Miralax) 17 gm PO DAILY [facility] Last Admin: 10/09/17 09:41 Dose: 17 gm Warfarin Sodium (Coumadin) 5 mg PO 1800 ROJELIO PRN Reason: Protocol Last Admin: 10/09/17 17:29 Dose: 5 mg - Labs Labs: 10/10/17 05:30 10/10/17 05:30 PT 21.7 SECONDS (9.4-12.5) H 10/10/17 05:30 INR 1.86 (0.93-1.08) H 10/10/17 05:30 APTT 63.9 Seconds (25.1-36.5) H 10/10/17 05:30 - Constitutional Appears: Non-toxic, No Acute Distress - Head Exam Head Exam: ATRAUMATIC, NORMAL INSPECTION, NORMOCEPHALIC - Eye Exam Eye Exam: EOMI, Normal appearance - ENT Exam ENT Exam: Mucous Membranes Moist, Normal Exam - Neck Exam Neck Exam: Normal Inspection. absent: Full ROM - Respiratory Exam Respiratory Exam: Clear to Ausculation Bilateral, NORMAL BREATHING PATTERN. absent: Chest Wall Tenderness, Rhonchi, Wheezes - Cardiovascular Exam Cardiovascular Exam: REGULAR RHYTHM, +S1, +S2 - GI/Abdominal Exam GI & Abdominal Exam: Soft, Normal Bowel Sounds - Neurological Exam Neurological Exam: Alert, Awake, Oriented x3. 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 CT head was negative on admission. She was found to have an CASSIA, which resolved with hydration. CODE STROKE was called due to recurrent symptoms while on the medical floors. CT Head was unchanged and CTA Head/Neck was unremarkable. Patient continued to have persistent symptoms, and repeat CT Head showed acute stroke. Patient was transferred to ICU due to shortness of breath after [employer] was called. Pt has been in ICU for close monitoring. Plan: CVA in frontal lobe, after recurrent TIA's - expressive aphasia improving. Right-sided weakness upper extremity> Right lower extremity still present. - Repeat CT head did not show any hemorrhage. - Continue heparin drip along with Coumadin. - Neuro consulted, rec normotension and elevated head of head at least 30 degrees. - continue lipitor - EP- Dr. Traore for pacemaker, recommends outpatient follow up - PT recommends subacute rehab - Speech and swallow evaluation; pureed diet recommended HTN, in setting of CVA requiring permissive HTN - controlled on multiple medications per Nephro, Neuro and Cardio recs - continue coreg 25BID, clonidine 0.3 BID - Hydralazine held due to permissive HTN - Continue to hold lasix due to CASSIA on admission - cont to monitor History of arrhythmias s/p pacemaker - recent interrogation by Dr. Traore (09/23/17) showed no Afib, and he recommends outpatient follow up - Patient currently on Heparin drip and coumadin History of CKD - CASSIA resolved - IVF NS@ 60 - NAC was started to prevent contrast nephropathy - holding home PO diabetic medications and lasix - Nephrology consulted, recommending outpatient workup for secondary causes of CKD and HTN DM II (HgA1C 8) - PO meds held due to CASSIA on admission and risk of contrast nephropathy - ISS medium - Levemir 25units HS (home dose) - fingerstick achs DVT/GI prophylaxis- Elquis and scds/pepcid HHD Patient was seen, examined and discussed with attending, Dr. Re Fernandes PGY1 <Jass Grimaldo - Last Filed: 10/11/17 15:06> Objective - Vital Signs/Intake and Output Vital Signs (last 24 hours): Temp Pulse Resp BP Pulse Ox 98.3 F 74 19 170/99 H 100 10/11/17 12:00 10/11/17 14:00 10/11/17 12:00 10/11/17 12:00 10/11/17 09:40 Intake and Output: 10/11/17 10/11/17 06:59 18:59 Intake Total 533 Balance 533 - Medications Medications: Current Medications Acetaminophen (Tylenol 325mg Tab) 650 mg PO Q4 PRN PRN Reason: Fever >100.4 F Last Admin: 10/04/17 18:48 Dose: 650 mg Albuterol/Ipratropium (Duoneb 3 Mg/0.5 Mg (3 Ml) Ud) 3 ml IH [id number] PRN PRN Reason: Shortness of Breath Aspirin (Ecotrin) 81 mg PO DAILY [facility] Last Admin: 10/11/17 10:27 Dose: 81 mg Atorvastatin Calcium (Lipitor) 20 mg PO DIN [facility] Last Admin: 10/10/17 18:14 Dose: 20 mg Carvedilol (Coreg) 12.5 mg PO BID [facility] Clonidine HCl (Catapres) 0.1 mg PO Q8H PRN PRN Reason: Systolic Blood Pressure Last Admin: 10/11/17 10:27 Dose: 0.1 mg Docusate Sodium (Colace Liquid) 100 mg PO TID [facility] Last Admin: 10/11/17 13:07 Dose: 100 mg Famotidine (Pepcid) 20 mg PO DAILY [facility] Last Admin: 10/11/17 10:27 Dose: 20 mg Hydralazine HCl (Apresoline) 100 mg PO BID [facility] Last Admin: 10/04/17 18:46 Dose: 100 mg Hydralazine HCl (Apresoline) 10 mg IVP Q6 PRN PRN Reason: Systolic Blood Pressure Last Admin: 10/10/17 08:00 Dose: 10 mg Valproate Sodium 250 mg/ (Sodium Chloride) 102.5 mls @ 100 mls/hr IVPB Q12 [facility] Last Admin: 10/11/17 10:27 Dose: 100 mls/hr Sodium Chloride (Sodium Chloride 0.45%) 1,000 mls @ 60 mls/hr IV .[id number] [facility] Last Admin: 10/11/17 05:02 Dose: 60 mls/hr Insulin Detemir (Levemir) 25 unit SC [facility] Last Admin: 10/10/17 22:16 Dose: 25 unit Insulin Human Lispro (Humalog Med) 0 units SC ACHS [facility] PRN Reason: Protocol Last Admin: 10/11/17 11:30 Dose: Not Given Losartan Potassium (Cozaar) 50 mg PO DAILY [facility] Last Admin: 10/11/17 10:26 Dose: 50 mg Nifedipine (Procardia Xl) 60 mg PO DAILY [facility] Last Admin: 10/11/17 10:26 Dose: 60 mg Ondansetron HCl (Zofran Inj) 4 mg IVP Q6H PRN PRN Reason: Nausea/Vomiting Last Admin: 10/09/17 10:01 Dose: 4 mg Polyethylene Glycol (Miralax) 17 gm PO DAILY [facility] Last Admin: 10/11/17 10:30 Dose: Not Given Warfarin Sodium (Coumadin) 2 mg PO 1800 [facility] PRN Reason: Protocol - Labs Labs: 10/11/17 06:30 10/11/17 06:30 PT 45.1 SECONDS (9.4-12.5) H 10/11/17 12:50 INR 3.82 (0.93-1.08) H* 10/11/17 12:50 APTT 52.5 Seconds (25.1-36.5) H 10/11/17 12:50 Attending/Attestation - Attestation I have personally seen and examined this patient.: Yes I have fully participated in the care of the patient.: Yes I have reviewed all pertinent clinical information, including history, physical exam and plan: Yes Notes (Text): I have seen and examined patient at bedside. Agree with the above note with the following addition/ exception: Briefly this is 67 year old female with history of HTN, DM-2, PPM who was admitted with cardiothromboembolic CVA. She was on eliquis which was stopped and was switched to heparin/ coumadin. Today INR is therapeutic. Will stop heparin. She continues to have expressive aphasia and RUE >RLE weakness. Will continue to monitor neuro checks. Discussed with patients son in detail. PT recommended [facility]. Awaiting placement. Upon discharge patient will follow up with Dr Hicks. Dr Jass Grimaldo
--- NOTE | 2017-10-10 16:11 | PN ---
DATE: 10/10/2017 SUBJECTIVE: The patient is awake, oriented, and has voluntary movement of the right lower extremity. She did vomit today some of her medications as they were mixed with food. PHYSICAL EXAMINATION: VITAL SIGNS: Most recent blood pressure is 170/74, heart rate 66, temperature 98.1, respirations 20. HEENT: Loss of right nasolabial fold. CHEST: Clear. HEART: S1 and S2, regular. EXTREMITIES: No edema. LABORATORY DATA: Hemoglobin and hematocrit 9.9 and 31.5. White count and platelet count are within normal limit. SMA-7: Sodium 145, potassium 3.8, chloride 112, CO2 of 22, glucose 132, BUN 24, and creatinine 1.0. ASSESSMENT: 1. Left anterior and middle cerebral artery territory cerebral infarct. 2. Uncontrolled hypertension. 3. Uncontrolled diabetes mellitus. 4. Prerenal azotemia. RECOMMENDATIONS: Continue hydralazine 100 mg twice a day. Continue intravenous heparin in therapeutic regimen. Continue aspirin 81 mg once a day, Lipitor 20 mg once a day, and Procardia XL 60 mg once a day. Coumadin 5 mg will be given today. Today's INR is 1.86. Ramiro Syed MD
[2017-10-10] MEDS: POLYETHYLENE GLYCOL 3350 17 GM/Dose PACKET PO SCH (16:44)
--- NOTE | 2017-10-10 19:18 | CP.PCM.PN ---
Subjective - Date & Time of Evaluation Date of Evaluation: 10/10/17 Time of Evaluation: 11:00 - Subjective Subjective: Patient breathing well; partially consuming diet; vomited earlier; Objective - Vital Signs/Intake and Output Vital Signs (last 24 hours): Temp Pulse Resp BP Pulse Ox 97.4 F L 78 20 196/95 H 96 10/10/17 16:00 10/10/17 18:11 10/10/17 18:11 10/10/17 18:00 10/10/17 18:10 Intake and Output: 10/10/17 10/11/17 18:59 06:59 Intake Total 823 Balance 823 - Medications Medications: Current Medications Acetaminophen (Tylenol 325mg Tab) 650 mg PO Q4 PRN PRN Reason: Fever >100.4 F Last Admin: 10/04/17 18:48 Dose: 650 mg Albuterol/Ipratropium (Duoneb 3 Mg/0.5 Mg (3 Ml) Ud) 3 ml IH [id number] PRN PRN Reason: Shortness of Breath Aspirin (Ecotrin) 81 mg PO DAILY [facility] Last Admin: 10/10/17 09:47 Dose: Not Given Atorvastatin Calcium (Lipitor) 20 mg PO DIN [facility] Last Admin: 10/10/17 18:14 Dose: 20 mg Carvedilol (Coreg) 6.25 mg PO BID [facility] Last Admin: 10/10/17 18:14 Dose: 6.25 mg Clonidine HCl (Catapres) 0.2 mg PO BID [facility] Last Admin: 10/05/17 13:59 Dose: Not Given Docusate Sodium (Colace Liquid) 100 mg PO TID [facility] Last Admin: 10/10/17 17:58 Dose: Not Given Famotidine (Pepcid) 20 mg PO DAILY [facility] Last Admin: 10/10/17 09:47 Dose: Not Given Hydralazine HCl (Apresoline) 100 mg PO BID [facility] Last Admin: 10/04/17 18:46 Dose: 100 mg Hydralazine HCl (Apresoline) 10 mg IVP Q6 PRN PRN Reason: Systolic Blood Pressure Last Admin: 10/10/17 08:00 Dose: 10 mg Valproate Sodium 250 mg/ (Sodium Chloride) 102.5 mls @ 100 mls/hr IVPB Q12 [facility] Last Admin: 10/10/17 09:50 Dose: 100 mls/hr Heparin Sodium/Sodium Chloride (Heparin 32693 Units/250ml 1/2 Normal Saline) 25 ,000 units in 250 mls @ 12.974 mls/hr IV .[id number] PRN; Protocol; 18 UNITS/KG/HR PRN Reason: ADJUST RATE PER PROTOCOL Last Admin: 10/10/17 05:28 Dose: 12 units/kg/hr, 8.649 mls/hr Sodium Chloride (Sodium Chloride 0.45%) 1,000 mls @ 60 mls/hr IV .[id number] [facility] Last Admin: 10/09/17 22:04 Dose: 60 mls/hr Insulin Detemir (Levemir) 25 unit SC HS [facility] Last Admin: 10/09/17 22:41 Dose: 25 unit Insulin Human Lispro (Humalog Med) 0 units SC ACHS [facility] PRN Reason: Protocol Last Admin: 10/10/17 17:58 Dose: Not Given Losartan Potassium (Cozaar) 25 mg PO DAILY [facility] Last Admin: 10/10/17 09:47 Dose: Not Given Nifedipine (Procardia Xl) 60 mg PO DAILY [facility] Last Admin: 10/10/17 09:48 Dose: Not Given Ondansetron HCl (Zofran Inj) 4 mg IVP Q6H PRN PRN Reason: Nausea/Vomiting Last Admin: 10/09/17 10:01 Dose: 4 mg Polyethylene Glycol (Miralax) 17 gm PO DAILY [facility] Last Admin: 10/10/17 16:44 Dose: Not Given Warfarin Sodium (Coumadin) 5 mg PO 1800 [facility] PRN Reason: Protocol Last Admin: 10/10/17 18:14 Dose: 5 mg - Labs Labs: 10/10/17 05:30 10/10/17 05:30 PT 21.7 SECONDS (9.4-12.5) H 10/10/17 05:30 INR 1.86 (0.93-1.08) H 10/10/17 05:30 APTT 63.9 Seconds (25.1-36.5) H 10/10/17 05:30 - Constitutional Appears: Non-toxic, No Acute Distress - Eye Exam Eye Exam: absent: Scleral icterus - ENT Exam ENT Exam: Mucous Membranes Moist - Cardiovascular Exam Cardiovascular Exam: RRR, +S1, +S2 - GI/Abdominal Exam GI & Abdominal Exam: Soft, Tenderness. absent: Distended - Extremities Exam Additional comments: no leg edema; - Neurological Exam Neurological Exam: Alert, Awake Additional comments: facial droop improved - Psychiatric Exam Psychiatric exam: Normal Affect, Normal Mood. absent: Agitated - Skin Skin Exam: Warm. absent: Cyanosis Assessment and Plan (1) Acute CVA (cerebrovascular accident) Status: Acute (2) CKD (chronic kidney disease) Assessment & Plan: Stable renal function; continue losartan 25 mg daily; Status: Chronic (3) HTN (hypertension) Assessment & Plan: BP still markedly elevated; was on high dose of clonidine at home previously; restart clonidine 0.1 mg q8h prn for SBP > 170; Status: Acute (4) Pulmonary edema Status: Acute (5) Hypernatremia Assessment & Plan: Improving with 1/2NS at 60 cc/hr, continue; Status: Acute
--- NOTE | 2017-10-10 19:53 | CP.PCM.PN ---
Subjective - Date & Time of Evaluation Date of Evaluation: 10/10/17 Time of Evaluation: 18:45 - Subjective Subjective: No complaints, appears comfortable Objective - Vital Signs/Intake and Output Vital Signs (last 24 hours): Temp Pulse Resp BP Pulse Ox 97.4 F L 78 20 196/95 H 96 10/10/17 16:00 10/10/17 18:11 10/10/17 18:11 10/10/17 18:00 10/10/17 18:10 Intake and Output: 10/10/17 10/11/17 18:59 06:59 Intake Total 823 Balance 823 - Medications Medications: Current Medications Acetaminophen (Tylenol 325mg Tab) 650 mg PO Q4 PRN PRN Reason: Fever >100.4 F Last Admin: 10/04/17 18:48 Dose: 650 mg Albuterol/Ipratropium (Duoneb 3 Mg/0.5 Mg (3 Ml) Ud) 3 ml IH [id number] PRN PRN Reason: Shortness of Breath Aspirin (Ecotrin) 81 mg PO DAILY [facility] Last Admin: 10/10/17 09:47 Dose: Not Given Atorvastatin Calcium (Lipitor) 20 mg PO DIN [facility] Last Admin: 10/10/17 18:14 Dose: 20 mg Carvedilol (Coreg) 6.25 mg PO BID [facility] Last Admin: 10/10/17 18:14 Dose: 6.25 mg Clonidine HCl (Catapres) 0.2 mg PO BID [facility] Last Admin: 10/05/17 13:59 Dose: Not Given Clonidine HCl (Catapres) 0.1 mg PO Q8H PRN PRN Reason: Systolic Blood Pressure Docusate Sodium (Colace Liquid) 100 mg PO TID [facility] Last Admin: 10/10/17 17:58 Dose: Not Given Famotidine (Pepcid) 20 mg PO DAILY [facility] Last Admin: 10/10/17 09:47 Dose: Not Given Hydralazine HCl (Apresoline) 100 mg PO BID [facility] Last Admin: 10/04/17 18:46 Dose: 100 mg Hydralazine HCl (Apresoline) 10 mg IVP Q6 PRN PRN Reason: Systolic Blood Pressure Last Admin: 10/10/17 08:00 Dose: 10 mg Valproate Sodium 250 mg/ (Sodium Chloride) 102.5 mls @ 100 mls/hr IVPB Q12 [facility] Last Admin: 10/10/17 09:50 Dose: 100 mls/hr Heparin Sodium/Sodium Chloride (Heparin 53406 Units/250ml 1/2 Normal Saline) 25 ,000 units in 250 mls @ 12.974 mls/hr IV .[id number] PRN; Protocol; 18 UNITS/KG/HR PRN Reason: ADJUST RATE PER PROTOCOL Last Admin: 10/10/17 05:28 Dose: 12 units/kg/hr, 8.649 mls/hr Sodium Chloride (Sodium Chloride 0.45%) 1,000 mls @ 60 mls/hr IV .[id number] [facility] Last Admin: 10/09/17 22:04 Dose: 60 mls/hr Insulin Detemir (Levemir) 25 unit SC HS [facility] Last Admin: 10/09/17 22:41 Dose: 25 unit Insulin Human Lispro (Humalog Med) 0 units SC ACHS [facility] PRN Reason: Protocol Last Admin: 10/10/17 17:58 Dose: Not Given Losartan Potassium (Cozaar) 25 mg PO DAILY [facility] Last Admin: 10/10/17 09:47 Dose: Not Given Nifedipine (Procardia Xl) 60 mg PO DAILY [facility] Last Admin: 10/10/17 09:48 Dose: Not Given Ondansetron HCl (Zofran Inj) 4 mg IVP Q6H PRN PRN Reason: Nausea/Vomiting Last Admin: 10/09/17 10:01 Dose: 4 mg Polyethylene Glycol (Miralax) 17 gm PO DAILY [facility] Last Admin: 10/10/17 16:44 Dose: Not Given Warfarin Sodium (Coumadin) 5 mg PO 1800 [facility] PRN Reason: Protocol Last Admin: 10/10/17 18:14 Dose: 5 mg - Labs Labs: 10/10/17 05:30 10/10/17 05:30 PT 21.7 SECONDS (9.4-12.5) H 10/10/17 05:30 INR 1.86 (0.93-1.08) H 10/10/17 05:30 APTT 63.9 Seconds (25.1-36.5) H 10/10/17 05:30 - Head Exam Head Exam: ATRAUMATIC - Eye Exam Eye Exam: Normal appearance - ENT Exam ENT Exam: Mucous Membranes Dry - Respiratory Exam Respiratory Exam: NORMAL BREATHING PATTERN - Cardiovascular Exam Cardiovascular Exam: +S1, +S2 - GI/Abdominal Exam GI & Abdominal Exam: Normal Bowel Sounds Assessment and Plan (1) Acute CVA (cerebrovascular accident) Assessment & Plan: cardio thromboembolic was on Eliquis but switched to heparin/coumadin Status: Acute (2) Anemia Assessment & Plan: chronic disease Status: Acute (3) Coagulopathy Assessment & Plan: anticoagulation Status: Acute
[2017-10-10] MEDS: Sodium Chloride 0.45% 1,000 ML IV SCH (20:14)
[2017-10-10] MEDS: Insulin Detemir 100 units/ml Vial (Levemir) SC SCH (22:16)
[2017-10-11] MEDS: Sodium Chloride 0.45% 1,000 ML IV SCH (05:02)
[2017-10-11 07:18] LABS: HEMOGLOBIN 10.2 g/dL (12.0-16.0); MEAN CELL VOLUME 83.8 fl (80.0-105.0); MEAN CORPUSCULAR HEMOGLOBIN 26.2 pg (25.0-35.0); MEAN CORPUSCULAR HGB CONC 31.2 g/dl (31.0-37.0); MEAN PLATELET VOLUME 11.5 fl (7.0-11.0); RBC 3.9 10^6/uL (3.5-6.1); RED CELL DISTRIBUTION WIDTH 16.6 % (11.5-14.5); WHITE BLOOD COUNT 10.9 10^3/ul (4.5-11.0)
[2017-10-11] MEDS: Insulin Lispro (humaLOG) MEDIUM Coverage SC SCH ×4 (07:30→21:51)
--- NOTE | 2017-10-11 07:30 | CP.PCM.DIS ---
<Silas Fernandes - Last Filed: 10/14/17 04:25> Provider - Provider Date of Admission: 10/02/17 15:50 Attending physician: Jass Grimaldo MD Primary care physician: Álvaro Hicks DO Consults: Cardiology: Dr. Starr Nephrology: Dr. Huber Neurology: Dr. Delgado Time Spent in preparation of Discharge (in minutes): 45 Diagnosis - Discharge Diagnosis (1) Acute CVA (cerebrovascular accident) Status: Acute Priority: High (2) HLD (hyperlipidemia) Status: Chronic Priority: Medium (3) Type 2 diabetes mellitus Status: Chronic Priority: Medium (4) HTN (hypertension) Status: Chronic Priority: High Hospital Course - Lab Results Lab Results: Micro Results 10/05/17 12:00 Naris MRSA Culture (Admit) - Final MRSA NOT DETECTED Most Recent Lab Values WBC 10.9 10^3/ul (4.5-11.0) D 10/11/17 06:30 RBC 3.90 10^6/uL (3.5-6.1) 10/11/17 06:30 Hgb 10.2 g/dL (12.0-16.0) L 10/11/17 06:30 Hct 32.7 % (36.0-48.0) L 10/11/17 06:30 MCV 83.8 fl (80.0-105.0) 10/11/17 06:30 MCH 26.2 pg (25.0-35.0) 10/11/17 06:30 MCHC 31.2 g/dl (31.0-37.0) 10/11/17 06:30 RDW 16.6 % (11.5-14.5) H 10/11/17 06:30 Plt Count 233 10^3/uL (120.0-450.0) 10/11/17 06:30 MPV 11.5 fl (7.0-11.0) H 10/11/17 06:30 Gran % 74.5 % (50.0-68.0) H 10/07/17 06:55 Lymph % (Auto) 20.2 % (22.0-35.0) L 10/07/17 06:55 Bosque % (Auto) 4.0 % (1.0-6.0) 10/07/17 06:55 Eos % (Auto) 0.9 % (1.5-5.0) L 10/07/17 06:55 Baso % (Auto) 0.4 % (0.0-3.0) 10/07/17 06:55 Gran # 5.82 (1.4-6.5) 10/07/17 06:55 Lymph # (Auto) 1.6 (1.2-3.4) 10/07/17 06:55 [place] # (Auto) 0.3 (0.1-0.6) 10/07/17 06:55 Eos # (Auto) 0.1 (0.0-0.7) 10/07/17 06:55 Baso # (Auto) 0.03 K/mm3 (0.0-2.0) 10/07/17 06:55 PT 21.7 SECONDS (9.4-12.5) H 10/10/17 05:30 INR 1.86 (0.93-1.08) H 10/10/17 05:30 APTT 63.9 Seconds (25.1-36.5) H 10/10/17 05:30 pCO2 24 mm/Hg (35-45) L 10/05/17 11:10 pO2 73.0 mm/Hg (80-100) L 10/05/17 11:10 HCO3 15.6 mmol/L (21-28) L 10/05/17 11:10 ABG pH 7.42 (7.35-7.45) 10/05/17 11:10 ABG Total CO2 16.3 mmol.L (22-28) L 10/05/17 11:10 ABG O2 Saturation 95.9 % (95-98) 10/05/17 11:10 ABG O2 Content 12.6 ML/dl (15-23) L 10/05/17 11:10 ABG Base Excess -7.6 mmol/L (-2.0-3.0) L 10/05/17 11:10 ABG Hemoglobin 9.4 g/dL (11.7-17.4) L 10/05/17 11:10 ABG Carboxyhemoglobin 1.0 % (0.5-1.5) 10/05/17 11:10 POC ABG HHb (Measured) 4.1 % (0-5) 10/05/17 11:10 ABG Methemoglobin 0.3 % (0.0-3.0) 10/05/17 11:10 ABG O2 Capacity 13.1 mL/dl (16-24) L 10/05/17 11:10 Hgb O2 Saturation 94.7 % (95.0-98.0) L 10/05/17 11:10 FiO2 36.0 % 10/05/17 11:10 Sodium 145 mmol/L (132-148) 10/10/17 05:30 Potassium 3.8 mmol/L (3.6-5.0) 10/10/17 05:30 Chloride 112 mmol/L (98-107) H 10/10/17 05:30 Carbon Dioxide 22 mmol/L (21-33) 10/10/17 05:30 Anion Gap 15 (10-20) 10/10/17 05:30 BUN 24 mg/dL (7-21) H 10/10/17 05:30 Creatinine 1.0 mg/dl (0.7-1.2) 10/10/17 05:30 Est GFR ( Amer) > 60 10/10/17 05:30 Est GFR (Non-Af Amer) 55 10/10/17 05:30 POC Glucose (mg/dL) 149 mg/dL (65-110) H 10/10/17 21:31 Random Glucose 132 mg/dL (70-110) H 10/10/17 05:30 Hemoglobin A1c 8.0 % (4.2-6.5) H 10/02/17 15:18 Calcium 9.3 mg/dL (8.4-10.5) 10/10/17 05:30 Phosphorus 3.0 mg/dL (2.5-4.5) 10/04/17 06:30 Magnesium 2.0 mg/dL (1.7-2.2) 10/09/17 08:44 Total Bilirubin 0.4 mg/dL (0.2-1.3) 10/10/17 05:30 AST 24 U/L (14-36) 10/10/17 05:30 ALT 33 U/L (7-56) 10/10/17 05:30 Alkaline Phosphatase 71 U/L (38-126) 10/10/17 05:30 Troponin I 0.07 ng/mL 10/02/17 15:18 Total Protein 6.7 g/dL (5.8-8.3) 10/10/17 05:30 Albumin 3.0 g/dL (3.0-4.8) 10/10/17 05:30 Globulin 3.7 gm/dL 10/10/17 05:30 Albumin/Globulin Ratio 0.8 (1.1-1.8) L 10/10/17 05:30 Triglycerides 159 mg/dL (35-160) 10/02/17 15:18 Cholesterol 140 mg/dL (130-200) 10/02/17 15:18 LDL Cholesterol Direct 85 mg/dL (0-129) 10/02/17 15:18 HDL Cholesterol 32 mg/dL (29-60) 10/02/17 15:18 Vitamin B12 312 pg/mL (239-931) 10/04/17 06:30 TSH 3rd Generation 2.76 mIU/mL (0.46-4.68) 10/04/17 06:30 Ur Random Creatinine 48 mg/dL 10/03/17 03:40 Ur Random Sodium 103 meq/L 10/03/17 03:40 Ur Random Urea Nitrogn 586 mg/dL 10/03/17 03:40 Blood Type A POSITIVE 10/02/17 15:37 Antibody Screen Negative 10/02/17 15:37 BBK History Checked Patient has bt 10/02/17 15:37 - Hospital Course Hospital Course: Patient is a 67 year old female with a history of insulin dependent diabetes, hypertension, CAD s/p pacemaker who presented initially on 10/02/17 with complaints of face feeling twisted and unable to speak. Patient also states she had right arm numbness, weakness, and right facial droop. To note patient has experienced four TIAs with first occuring in 04/2016 which caused right handed weakness, with the following three causing aphasia which lasted only a few minutes. CT head was negative on admission. She was found to have an CASSIA, which resolved with hydration. CODE STROKE was called due to recurrent symptoms while on the medical floors. CT Head was unchanged and CTA Head/Neck was unremarkable. Patient continued to have persistent symptoms, and repeat CT Head showed acute stroke in left frontal lobe. Patient was transferred to ICU due to shortness of breath after [employer] was called. Patient was examined in the ICU and found to have expressive aphasia as well as right sided upper and lower extremity weakness and numbness. Patient was then transferred to telemetry for further monitoring. While on the floors, patient continued to progress with regards to her symptoms. The first morning after being transferred patient was able to verbally communicate with more facility. Right sided lower extremity weakness was improving, with a muscle strength increasing from 0/5 to 3/5. Patient still was unable to move her right upper extremity. The following morning patient's expressive aphasia had completely resolved and continued to grain muscle strength in right lower extremity. Patient's right upper extremity was still noted to have some weakness however patient was able to move the right upper extremity. During course of stay patient received continuous physical therapy. As per physical therapy evaluation and recommendations, acute rehab would be fitting for patient upon discharge. Patient did note to have an issue with hypertension however with Nephrology on board, patient's blood pressure was finally stabilized. Once authorization was complete, patient was transferred to acute rehabilitation for further treatment. Case reviewed and discussed with Dr. Re Fernandes PGY1 Discharge Exam - Head Exam Head Exam: ATRAUMATIC, NORMAL INSPECTION, NORMOCEPHALIC - Eye Exam Eye Exam: EOMI, Normal appearance - ENT Exam ENT Exam: Normal Exam - Respiratory Exam Respiratory Exam: Clear to PA & Lateral, NORMAL BREATHING PATTERN, UNREMARKABLE - Cardiovascular Exam Cardiovascular Exam: REGULAR RHYTHM, +S1, +S2 - GI/Abdominal Exam GI & Abdominal Exam: Hypoactive Bowel Sounds, Unremarkable - Extremities Exam Extremities exam: normal inspection - Back Exam Back exam: NORMAL INSPECTION - Neurological Exam Neurological exam: Alert, Oriented x3 Additional comments: expressive aphasia resolved, right lower extremity muscle strength 4/5, right upper extremity 1/5 - Psychiatric Exam Psychiatric exam: Normal Affect, Normal Mood - Skin Skin Exam: Intact, Normal Color, Warm Discharge Plan - Discharge Medications Prescriptions: Albuterol/Ipratropium [Duoneb 3 mg/0.5 mg (3 ml) UD] 3 ml IH [id number] PRN #1 neb PRN Reason: Shortness Of Breath Acetaminophen [Tylenol 325mg tab] 650 mg PO Q4 PRN #60 tab PRN Reason: Fever >100.4 F Carvedilol [Coreg] 12.5 mg PO BID #24 tab cloNIDine [Catapres] 0.1 mg PO BID #28 tab Docusate [Colace LIQUID] 100 mg PO TID #42 udc Famotidine [Pepcid] 20 mg PO DAILY #14 tab Insulin Detemir [Levemir] 10 unit SC HS #1 unit NIFEdipine ER [Procardia XL] 60 mg PO DAILY #14 ter Polyethylene Glycol 3350 [Miralax] 17 gm PO DAILY #14 packet Valproic Acid Cap [Depakene Cap] 250 mg PO BID #14 sgl - Follow Up Plan Condition: IMPROVED Disposition: REHAB FACILITY/REHAB UNIT Instructions: Lowering the Risk of Having Another Stroke, Stroke Rehab Exercises Additional Instructions: Discharge instructions Follow up with Dr. Hicks, primary care doctor, within 1 week of hospital/ rehab discharge. Follow up with Dr. Edison Traore for regular pacemaker interrogation. Follow up with Dr. Miguelangel Huber for chronic kidney disease Patient take glucerna dietary supplement with meals, honey thickened. Referrals: Álvaro Hicks DO [Primary Care Provider] - <Jass Grimaldo - Last Filed: 10/14/17 13:19> Provider - Provider Date of Admission: 10/02/17 15:50 Attending physician: Jass Grimaldo MD Primary care physician: Álvaro Hicks DO Hospital Course - Lab Results Lab Results: Micro Results 10/05/17 12:00 Naris MRSA Culture (Admit) - Final MRSA NOT DETECTED Most Recent Lab Values WBC 6.8 10^3/ul (4.5-11.0) 10/13/17 07:30 RBC 3.43 10^6/uL (3.5-6.1) L 10/13/17 07:30 Hgb 9.1 g/dL (12.0-16.0) L 10/13/17 07:30 Hct 29.2 % (36.0-48.0) L 10/13/17 07:30 MCV 85.1 fl (80.0-105.0) 10/13/17 07:30 MCH 26.5 pg (25.0-35.0) 10/13/17 07:30 MCHC 31.2 g/dl (31.0-37.0) 10/13/17 07:30 RDW 16.7 % (11.5-14.5) H 10/13/17 07:30 Plt Count 197 10^3/uL (120.0-450.0) 10/13/17 07:30 MPV 12.0 fl (7.0-11.0) H 10/13/17 07:30 Gran % 74.5 % (50.0-68.0) H 10/07/17 06:55 Lymph % (Auto) 20.2 % (22.0-35.0) L 10/07/17 06:55 Bosque % (Auto) 4.0 % (1.0-6.0) 10/07/17 06:55 Eos % (Auto) 0.9 % (1.5-5.0) L 10/07/17 06:55 Baso % (Auto) 0.4 % (0.0-3.0) 10/07/17 06:55 Gran # 5.82 (1.4-6.5) 10/07/17 06:55 Lymph # (Auto) 1.6 (1.2-3.4) 10/07/17 06:55 [place] # (Auto) 0.3 (0.1-0.6) 10/07/17 06:55 Eos # (Auto) 0.1 (0.0-0.7) 10/07/17 06:55 Baso # (Auto) 0.03 K/mm3 (0.0-2.0) 10/07/17 06:55 PT 18.8 SECONDS (9.4-12.5) H 10/13/17 07:30 INR 1.62 (0.93-1.08) H 10/13/17 07:30 APTT 35.5 Seconds (25.1-36.5) 10/12/17 06:30 pCO2 24 mm/Hg (35-45) L 10/05/17 11:10 pO2 73.0 mm/Hg (80-100) L 10/05/17 11:10 HCO3 15.6 mmol/L (21-28) L 10/05/17 11:10 ABG pH 7.42 (7.35-7.45) 10/05/17 11:10 ABG Total CO2 16.3 mmol.L (22-28) L 10/05/17 11:10 ABG O2 Saturation 95.9 % (95-98) 10/05/17 11:10 ABG O2 Content 12.6 ML/dl (15-23) L 10/05/17 11:10 ABG Base Excess -7.6 mmol/L (-2.0-3.0) L 10/05/17 11:10 ABG Hemoglobin 9.4 g/dL (11.7-17.4) L 10/05/17 11:10 ABG Carboxyhemoglobin 1.0 % (0.5-1.5) 10/05/17 11:10 POC ABG HHb (Measured) 4.1 % (0-5) 10/05/17 11:10 ABG Methemoglobin 0.3 % (0.0-3.0) 10/05/17 11:10 ABG O2 Capacity 13.1 mL/dl (16-24) L 10/05/17 11:10 Hgb O2 Saturation 94.7 % (95.0-98.0) L 10/05/17 11:10 FiO2 36.0 % 10/05/17 11:10 Sodium 142 mmol/L (132-148) 10/13/17 07:30 Potassium 4.0 mmol/L (3.6-5.0) 10/13/17 07:30 Chloride 109 mmol/L (98-107) H 10/13/17 07:30 Carbon Dioxide 26 mmol/L (21-33) 10/13/17 07:30 Anion Gap 12 (10-20) 10/13/17 07:30 BUN 16 mg/dL (7-21) 10/13/17 07:30 Creatinine 1.0 mg/dl (0.7-1.2) 10/13/17 07:30 Est GFR ( Amer) > 60 10/13/17 07:30 Est GFR (Non-Af Amer) 55 10/13/17 07:30 POC Glucose (mg/dL) 279 mg/dL (65-110) H 10/13/17 16:34 Random Glucose 134 mg/dL (70-110) H 10/13/17 07:30 Hemoglobin A1c 8.0 % (4.2-6.5) H 10/02/17 15:18 Calcium 8.6 mg/dL (8.4-10.5) 10/13/17 07:30 Phosphorus 3.0 mg/dL (2.5-4.5) 10/04/17 06:30 Magnesium 2.0 mg/dL (1.7-2.2) 10/09/17 08:44 Total Bilirubin 0.1 mg/dL (0.2-1.3) L 10/13/17 07:30 AST 20 U/L (14-36) 10/13/17 07:30 ALT 32 U/L (7-56) 10/13/17 07:30 Alkaline Phosphatase 58 U/L (38-126) 10/13/17 07:30 Troponin I 0.07 ng/mL 10/02/17 15:18 Total Protein 5.9 g/dL (5.8-8.3) 10/13/17 07:30 Albumin 2.7 g/dL (3.0-4.8) L 10/13/17 07:30 Globulin 3.3 gm/dL 10/13/17 07:30 Albumin/Globulin Ratio 0.8 (1.1-1.8) L 10/13/17 07:30 Triglycerides 159 mg/dL (35-160) 10/02/17 15:18 Cholesterol 140 mg/dL (130-200) 10/02/17 15:18 LDL Cholesterol Direct 85 mg/dL (0-129) 10/02/17 15:18 HDL Cholesterol 32 mg/dL (29-60) 10/02/17 15:18 Vitamin B12 312 pg/mL (239-931) 10/04/17 06:30 TSH 3rd Generation 2.76 mIU/mL (0.46-4.68) 10/04/17 06:30 Ur Random Creatinine 48 mg/dL 10/03/17 03:40 Ur Random Sodium 103 meq/L 10/03/17 03:40 Ur Random Urea Nitrogn 586 mg/dL 10/03/17 03:40 Blood Type A POSITIVE 10/02/17 15:37 Antibody Screen Negative 10/02/17 15:37 BBK History Checked Patient has bt 10/02/17 15:37 Attending/Attestation - Attestation I have personally seen and examined this patient.: Yes I have fully participated in the care of the patient.: Yes I have reviewed all pertinent clinical information, including history, physical exam and plan: Yes Notes (Text): have seen and examined patient at bedside. Agree with the above note with the following addition/ exception: Briefly this is 67 year old female with history of HTN, DM-2, PPM who was admitted with cardiothromboembolic CVA. Expressive aphasia and RLE weakness has significantly improved. RUE weakness remains there however slightly improved. Speech has improved as well. She was on eliquis which was stopped and was switched to coumadin. Advised patient to continue coumadin and have a repeat INR tomorrow Target INR 2-3. BP was high therefore antihypertensives were adjusted. Speech and swallow recommended puree diet. Encourage her to eat. Appetite has improved today. Insulin adjusted for hypoglycemia. PT recommended DOUGLAS. Upon discharge patient will follow up with Dr Hicks and Dr León GOINS. Dr Jass Grimaldo
[2017-10-11 07:34] LABS: PARTIAL THROMBOPLASTIN TIME 99.2 Seconds (25.1-36.5); PROTHROMBIN TIME 41.5 SECONDS (9.4-12.5)
[2017-10-11 07:36] LABS: INR 3.52 (0.93-1.08)
[2017-10-11 08:16] LABS: ALB/GLOB RATIO 0.8 (1.1-1.8); ALBUMIN 2.9 g/dL (3.0-4.8); ALT/SGPT 29 U/L (7-56); AST/SGOT 27 U/L (14-36); BLOOD UREA NITROGEN 19 mg/dL (7-21); CALCIUM 8.9 mg/dL (8.4-10.5); GFR AFRICAN-AMERICAN > 60; GFR NON-AFRICAN AMERICAN 55
[2017-10-11] MEDS ORDERED: Heparin25000 units/250ml 1/2NS 25,000 UNITS/250 ML BAG IV PRN ×2 (09:30→09:35)
[2017-10-11] MEDS: NIFEdipine 60 mg ER Tab PO SCH (10:26)
[2017-10-11] MEDS: Valproate 250 MG in Sodium Chloride 0.9% 100 ML IVPB SCH ×2 (10:27→21:44)
[2017-10-11] MEDS: POLYETHYLENE GLYCOL 3350 17 GM/Dose PACKET PO SCH (10:30)
[2017-10-11 13:21] LABS: INR 3.82 (0.93-1.08); PARTIAL THROMBOPLASTIN TIME 52.5 Seconds (25.1-36.5); PROTHROMBIN TIME 45.1 SECONDS (9.4-12.5)
--- NOTE | 2017-10-11 13:42 | CP.PCM.PN ---
Subjective - Date & Time of Evaluation Date of Evaluation: 10/11/17 Time of Evaluation: 12:00 - Subjective Subjective: Neurology Progress note: Pt seen and examined at bedside. No acute events overnight. She is alert with dysarthia, able to follow commands. Pt with also right facial droop and right arm flaccidity but is able to move her right lower extremity. 12 Point ROS performed and negative other than stated above. Objective - Vital Signs/Intake and Output Vital Signs (last 24 hours): Temp Pulse Resp BP Pulse Ox 98.1 F 73 20 193/84 H 99 10/11/17 06:00 10/11/17 10:27 10/11/17 06:00 10/11/17 10:27 10/11/17 06:00 Intake and Output: 10/11/17 10/11/17 06:59 18:59 Intake Total 533 Balance 533 - Medications Medications: Current Medications Acetaminophen (Tylenol 325mg Tab) 650 mg PO Q4 PRN PRN Reason: Fever >100.4 F Last Admin: 10/04/17 18:48 Dose: 650 mg Albuterol/Ipratropium (Duoneb 3 Mg/0.5 Mg (3 Ml) Ud) 3 ml IH [id number] PRN PRN Reason: Shortness of Breath Aspirin (Ecotrin) 81 mg PO DAILY [facility] Last Admin: 10/11/17 10:27 Dose: 81 mg Atorvastatin Calcium (Lipitor) 20 mg PO DIN [facility] Last Admin: 10/10/17 18:14 Dose: 20 mg Carvedilol (Coreg) 12.5 mg PO BID [facility] Clonidine HCl (Catapres) 0.1 mg PO Q8H PRN PRN Reason: Systolic Blood Pressure Last Admin: 10/11/17 10:27 Dose: 0.1 mg Docusate Sodium (Colace Liquid) 100 mg PO TID [facility] Last Admin: 10/11/17 13:07 Dose: 100 mg Famotidine (Pepcid) 20 mg PO DAILY [facility] Last Admin: 10/11/17 10:27 Dose: 20 mg Hydralazine HCl (Apresoline) 100 mg PO BID [facility] Last Admin: 10/04/17 18:46 Dose: 100 mg Hydralazine HCl (Apresoline) 10 mg IVP Q6 PRN PRN Reason: Systolic Blood Pressure Last Admin: 10/10/17 08:00 Dose: 10 mg Valproate Sodium 250 mg/ (Sodium Chloride) 102.5 mls @ 100 mls/hr IVPB Q12 [facility] Last Admin: 10/11/17 10:27 Dose: 100 mls/hr Sodium Chloride (Sodium Chloride 0.45%) 1,000 mls @ 60 mls/hr IV .[id number] [facility] Last Admin: 10/11/17 05:02 Dose: 60 mls/hr Insulin Detemir (Levemir) 25 unit SC HS [facility] Last Admin: 10/10/17 22:16 Dose: 25 unit Insulin Human Lispro (Humalog Med) 0 units SC ACHS [facility] PRN Reason: Protocol Last Admin: 10/11/17 11:30 Dose: Not Given Losartan Potassium (Cozaar) 50 mg PO DAILY [facility] Last Admin: 10/11/17 10:26 Dose: 50 mg Nifedipine (Procardia Xl) 60 mg PO DAILY [facility] Last Admin: 10/11/17 10:26 Dose: 60 mg Ondansetron HCl (Zofran Inj) 4 mg IVP Q6H PRN PRN Reason: Nausea/Vomiting Last Admin: 10/09/17 10:01 Dose: 4 mg Polyethylene Glycol (Miralax) 17 gm PO DAILY [facility] Last Admin: 10/11/17 10:30 Dose: Not Given Warfarin Sodium (Coumadin) 2 mg PO 1800 [facility] PRN Reason: Protocol - Labs Labs: 10/11/17 06:30 10/11/17 06:30 PT 45.1 SECONDS (9.4-12.5) H 10/11/17 12:50 INR 3.82 (0.93-1.08) H* 10/11/17 12:50 APTT 52.5 Seconds (25.1-36.5) H 10/11/17 12:50 - Constitutional Appears: No Acute Distress - Eye Exam Eye Exam: EOMI - Extremities Exam Extremities Exam: absent: Calf Tenderness, Pedal Edema - Neurological Exam Neurological Exam: Alert, Awake, Motor Sensory Deficit, Oriented x3 Neuro motor strength exam: Left Upper Extremity: 5, Right Upper Extremity: 0, Left Lower Extremity: 5, Right Lower Extremity: 4 Assessment and Plan - Assessment and Plan (Free Text) Assessment: 67-year-old woman with a past medical history of insulin dependent diabetes, hypertension, afib, CAD and pacemaker, multiple previous ischemic strokes (left MCA region 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 - Cont Coumadin with goal INR of 2-3 - Cont Aspirin 81mg daily - Cont PT & OT - Glycemic control with blood sugars 140-180 - Recommend blood pressure control - Plan for rehab once accepted Case and plan was reviewed and discussed in detail with Dr Delgado.
--- NOTE | 2017-10-11 14:17 | PN ---
DATE: 10/11/2017 CARDIOLOGY FOLLOWUP SUBJECTIVE: The patient is comfortable. She is ambulating with physical therapy. PHYSICAL EXAMINATION: VITAL SIGNS: Blood pressure varies from 173 to 193, heart rate is in the 70s. NECK: Negative JVD. LUNGS: Without rales. HEART: Reveals S1, S2. EXTREMITIES: Without edema. LABORATORY DATA: Hemoglobin is 10.2. Coagulations reveals an INR of 3.52 today. IMPRESSION: 1. Recurrent cerebrovascular accidents. 2. Accelerated hypertension. 3. Coronary artery disease. 4. Hypercholesterolemia. PLAN: The patient will need full anticoagulation. Given that her INR is currently therapeutic, we will discontinue her IV heparin. Losartan has been added for better blood pressure control. Orion Starr MD
--- NOTE | 2017-10-11 15:12 | CP.PCM.PN ---
<Silas Fernandes - Last Filed: 10/11/17 19:03> Subjective - Date & Time of Evaluation Date of Evaluation: 10/11/17 Time of Evaluation: 05:55 - Subjective Subjective: Patient seen and examined at bedside in no acute distress. Patient was able to communicate very well first thing in the morning; expressive aphasia continues to improve. Patient denies headaches, body aches, abdominal pain, nausea, vomiting, diarrhea, fever, chills. Patient states she has no complaints. Objective - Vital Signs/Intake and Output Vital Signs (last 24 hours): Temp Pulse Resp BP Pulse Ox 98.3 F 74 19 170/99 H 100 10/11/17 12:00 10/11/17 14:00 10/11/17 12:00 10/11/17 12:00 10/11/17 09:40 Intake and Output: 10/11/17 10/11/17 06:59 18:59 Intake Total 533 Balance 533 - Medications Medications: Current Medications Acetaminophen (Tylenol 325mg Tab) 650 mg PO Q4 PRN PRN Reason: Fever >100.4 F Last Admin: 10/04/17 18:48 Dose: 650 mg Albuterol/Ipratropium (Duoneb 3 Mg/0.5 Mg (3 Ml) Ud) 3 ml IH [id number] PRN PRN Reason: Shortness of Breath Aspirin (Ecotrin) 81 mg PO DAILY [facility] Last Admin: 10/11/17 10:27 Dose: 81 mg Atorvastatin Calcium (Lipitor) 20 mg PO DIN [facility] Last Admin: 10/10/17 18:14 Dose: 20 mg Carvedilol (Coreg) 12.5 mg PO BID [facility] Clonidine HCl (Catapres) 0.1 mg PO Q8H PRN PRN Reason: Systolic Blood Pressure Last Admin: 10/11/17 10:27 Dose: 0.1 mg Docusate Sodium (Colace Liquid) 100 mg PO TID [facility] Last Admin: 10/11/17 13:07 Dose: 100 mg Famotidine (Pepcid) 20 mg PO DAILY [facility] Last Admin: 10/11/17 10:27 Dose: 20 mg Hydralazine HCl (Apresoline) 100 mg PO BID [facility] Last Admin: 10/04/17 18:46 Dose: 100 mg Hydralazine HCl (Apresoline) 10 mg IVP Q6 PRN PRN Reason: Systolic Blood Pressure Last Admin: 10/10/17 08:00 Dose: 10 mg Valproate Sodium 250 mg/ (Sodium Chloride) 102.5 mls @ 100 mls/hr IVPB Q12 [facility] Last Admin: 10/11/17 10:27 Dose: 100 mls/hr Sodium Chloride (Sodium Chloride 0.45%) 1,000 mls @ 60 mls/hr IV .[id number] [facility] Last Admin: 10/11/17 05:02 Dose: 60 mls/hr Insulin Detemir (Levemir) 25 unit SC HS [facility] Last Admin: 10/10/17 22:16 Dose: 25 unit Insulin Human Lispro (Humalog Med) 0 units SC ACHS [facility] PRN Reason: Protocol Last Admin: 10/11/17 11:30 Dose: Not Given Losartan Potassium (Cozaar) 50 mg PO DAILY [facility] Last Admin: 10/11/17 10:26 Dose: 50 mg Nifedipine (Procardia Xl) 60 mg PO DAILY [facility] Last Admin: 10/11/17 10:26 Dose: 60 mg Ondansetron HCl (Zofran Inj) 4 mg IVP Q6H PRN PRN Reason: Nausea/Vomiting Last Admin: 10/09/17 10:01 Dose: 4 mg Polyethylene Glycol (Miralax) 17 gm PO DAILY [facility] Last Admin: 10/11/17 10:30 Dose: Not Given Warfarin Sodium (Coumadin) 2 mg PO 1800 [facility] PRN Reason: Protocol - Labs Labs: 10/11/17 06:30 10/11/17 06:30 PT 45.1 SECONDS (9.4-12.5) H 10/11/17 12:50 INR 3.82 (0.93-1.08) H* 10/11/17 12:50 APTT 52.5 Seconds (25.1-36.5) H 10/11/17 12:50 - Constitutional Appears: Non-toxic, No Acute Distress - Head Exam Head Exam: ATRAUMATIC, NORMAL INSPECTION, NORMOCEPHALIC - Eye Exam Eye Exam: EOMI, Normal appearance - ENT Exam ENT Exam: Mucous Membranes Moist, Normal Exam - Neck Exam Neck Exam: Normal Inspection - Respiratory Exam Respiratory Exam: Clear to Ausculation Bilateral, NORMAL BREATHING PATTERN. absent: Rhonchi, Wheezes - Cardiovascular Exam Cardiovascular Exam: REGULAR RHYTHM, +S1, +S2 - GI/Abdominal Exam GI & Abdominal Exam: Soft, Hypoactive Bowel Sounds - Extremities Exam Extremities Exam: Full ROM - Back Exam Back Exam: NORMAL INSPECTION - Neurological Exam Neurological Exam: Alert, Awake, Oriented x3 Additional comments: Expressive aphasia has improved Right sided lower extremity muscle strength 3/5 Right upper extremity remains weak. Muscle strength 1/5; patient was able to slightly use right arm to prop herself up in a seated position during physical exam. 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 CT head was negative on admission. She was found to have an CASSIA, which resolved with hydration. CODE STROKE was called due to recurrent symptoms while on the medical floors. CT Head was unchanged and CTA Head/Neck was unremarkable. Patient continued to have persistent symptoms, and repeat CT Head showed acute stroke. Patient was transferred to ICU due to shortness of breath after MANAGER CREDIT RISK was called. Pt has been in ICU for close monitoring. Plan: CVA in frontal lobe, after recurrent TIA's - expressive aphasia continues to improve. Right-sided weakness upper extremity present, however Right lower extremity is improving. Muscle strength now 3/5 - Repeat CT head did not show any hemorrhage. - Due to supratherapeutic INR, heparin drip discontinued and warfarin held - Neuro consulted, rec normotension and elevated head of head at least 30 degrees. - continue lipitor - EP- Dr. Traore for pacemaker, recommends outpatient follow up - PT recommends subacute rehab - Speech and swallow evaluation; pureed diet recommended HTN, in setting of CVA requiring permissive HTN - controlled on multiple medications per Nephro, Neuro and Cardio recs - continue coreg 25BID, clonidine 0.3 BID - losartan started - Continue to hold lasix due to CASSIA on admission - cont to monitor History of arrhythmias s/p pacemaker - recent interrogation by Dr. Traore (09/23/17) showed no Afib, and he recommends outpatient follow up - Patient currently on Heparin drip and coumadin History of CKD - CASSIA resolved - IVF NS@ 60 - NAC was started to prevent contrast nephropathy - holding home PO diabetic medications and lasix - Nephrology consulted, recommending outpatient workup for secondary causes of CKD and HTN DM II (HgA1C 8) - PO meds held due to CASSIA on admission and risk of contrast nephropathy - ISS medium - Levemir 10 units HS due to hypogylcemia - fingerstick achs DVT/GI prophylaxis- scds/pepcid HHD Patient was seen, examined and discussed with attending, Dr. Re Fernandes PGY1 <Jass Grimaldo - Last Filed: 10/12/17 16:16> Objective - Vital Signs/Intake and Output Vital Signs (last 24 hours): Temp Pulse Resp BP Pulse Ox 97.6 F 59 L 18 165/71 H 100 10/12/17 12:00 10/12/17 13:08 10/12/17 12:00 10/12/17 13:08 10/12/17 12:00 Intake and Output: 10/12/17 10/12/17 06:59 18:59 Intake Total 1365 300 Balance 1365 300 - Medications Medications: Current Medications Acetaminophen (Tylenol 325mg Tab) 650 mg PO Q4 PRN PRN Reason: Fever >100.4 F Last Admin: 10/04/17 18:48 Dose: 650 mg Albuterol/Ipratropium (Duoneb 3 Mg/0.5 Mg (3 Ml) Ud) 3 ml IH [id number] PRN PRN Reason: Shortness of Breath Aspirin (Ecotrin) 81 mg PO DAILY [facility] Last Admin: 10/12/17 11:40 Dose: 81 mg Atorvastatin Calcium (Lipitor) 20 mg PO DIN [facility] Last Admin: 10/11/17 17:15 Dose: 20 mg Carvedilol (Coreg) 12.5 mg PO BID [facility] Last Admin: 10/12/17 11:38 Dose: 12.5 mg Clonidine HCl (Catapres) 0.1 mg PO BID [facility] Last Admin: 10/12/17 11:39 Dose: 0.1 mg Docusate Sodium (Colace Liquid) 100 mg PO TID [facility] Last Admin: 10/12/17 13:55 Dose: Not Given Famotidine (Pepcid) 20 mg PO DAILY [facility] Last Admin: 10/12/17 11:40 Dose: 20 mg Sodium Chloride (Sodium Chloride 0.45%) 1,000 mls @ 40 mls/hr IV .Q24H [facility] Last Admin: 10/12/17 13:03 Dose: 40 mls/hr Insulin Detemir (Levemir) 10 unit SC HS [facility] Last Admin: 10/11/17 21:51 Dose: Not Given Insulin Human Regular (Humulin R Low) 0 units SC ACHS [facility] PRN Reason: Protocol Last Admin: 10/12/17 12:36 Dose: Not Given Losartan Potassium (Cozaar) 50 mg PO DAILY [facility] Last Admin: 10/12/17 11:39 Dose: 50 mg Nifedipine (Procardia Xl) 60 mg PO DAILY [facility] Last Admin: 10/12/17 13:08 Dose: 60 mg Ondansetron HCl (Zofran Inj) 4 mg IVP Q6H PRN PRN Reason: Nausea/Vomiting Last Admin: 10/09/17 10:01 Dose: 4 mg Polyethylene Glycol (Miralax) 17 gm PO DAILY [facility] Last Admin: 10/12/17 11:38 Dose: 17 gm Valproate Sodium (Depakene Cap) 250 mg PO BID [facility] Last Admin: 10/12/17 11:40 Dose: 250 mg Warfarin Sodium (Coumadin) 2 mg PO 1800 [facility] PRN Reason: Protocol - Labs Labs: 10/12/17 06:30 10/12/17 06:30 PT 33.2 SECONDS (9.4-12.5) H 10/12/17 06:30 INR 2.83 (0.93-1.08) H 10/12/17 06:30 APTT 35.5 Seconds (25.1-36.5) 10/12/17 06:30 Attending/Attestation - Attestation I have personally seen and examined this patient.: Yes I have fully participated in the care of the patient.: Yes I have reviewed all pertinent clinical information, including history, physical exam and plan: Yes Notes (Text): I have seen and examined patient at bedside. Agree with the above note with the following addition/ exception: Briefly this is 67 year old female with history of HTN, DM-2, PPM who was admitted with cardiothromboembolic CVA. Expressive aphasia and RLE weakness has significantly improved. RUE weakness remains there.She was on eliquis which was stopped and was switched to coumadin. INR is therapeutic. BP was high therefore antihypertensives were adjusted. Speech and swallow recommended puree diet. Encourage her to eat. Insulin adjusted for hypoglycemia. PT recommended [facility]. Awaiting placement. Upon discharge patient will follow up with Dr Hicks and Dr León GOINS. Dr Jass Grimaldo
--- NOTE | 2017-10-11 21:32 | CP.PCM.PN ---
Subjective - Date & Time of Evaluation Date of Evaluation: 10/11/17 Time of Evaluation: 20:00 - Subjective Subjective: Patient reports no difficulty breathing; tolerating diet without nausea/vomiting ; speech improved; Objective - Vital Signs/Intake and Output Vital Signs (last 24 hours): Temp Pulse Resp BP Pulse Ox 98.7 F 60 19 147/69 98 10/11/17 18:00 10/11/17 18:00 10/11/17 18:00 10/11/17 18:00 10/11/17 18:00 - Medications Medications: Current Medications Acetaminophen (Tylenol 325mg Tab) 650 mg PO Q4 PRN PRN Reason: Fever >100.4 F Last Admin: 10/04/17 18:48 Dose: 650 mg Albuterol/Ipratropium (Duoneb 3 Mg/0.5 Mg (3 Ml) Ud) 3 ml IH [id number] PRN PRN Reason: Shortness of Breath Aspirin (Ecotrin) 81 mg PO DAILY [facility] Last Admin: 10/11/17 10:27 Dose: 81 mg Atorvastatin Calcium (Lipitor) 20 mg PO DIN [facility] Last Admin: 10/11/17 17:15 Dose: 20 mg Carvedilol (Coreg) 12.5 mg PO BID [facility] Last Admin: 10/11/17 17:15 Dose: 12.5 mg Clonidine HCl (Catapres) 0.1 mg PO BID [facility] Docusate Sodium (Colace Liquid) 100 mg PO TID [facility] Last Admin: 10/11/17 17:15 Dose: 100 mg Famotidine (Pepcid) 20 mg PO DAILY [facility] Last Admin: 10/11/17 10:27 Dose: 20 mg Hydralazine HCl (Apresoline) 100 mg PO BID [facility] Last Admin: 10/04/17 18:46 Dose: 100 mg Hydralazine HCl (Apresoline) 10 mg IVP Q6 PRN PRN Reason: Systolic Blood Pressure Last Admin: 10/10/17 08:00 Dose: 10 mg Valproate Sodium 250 mg/ (Sodium Chloride) 102.5 mls @ 100 mls/hr IVPB Q12 [facility] Last Admin: 10/11/17 10:27 Dose: 100 mls/hr Sodium Chloride (Sodium Chloride 0.45%) 1,000 mls @ 60 mls/hr IV .[id number] [facility] Last Admin: 10/11/17 05:02 Dose: 60 mls/hr Insulin Detemir (Levemir) 10 unit SC HS [facility] Insulin Human Lispro (Humalog Med) 0 units SC ACHS [facility] PRN Reason: Protocol Last Admin: 10/11/17 17:10 Dose: Not Given Losartan Potassium (Cozaar) 50 mg PO DAILY [facility] Last Admin: 10/11/17 10:26 Dose: 50 mg Nifedipine (Procardia Xl) 60 mg PO DAILY [facility] Last Admin: 10/11/17 10:26 Dose: 60 mg Ondansetron HCl (Zofran Inj) 4 mg IVP Q6H PRN PRN Reason: Nausea/Vomiting Last Admin: 10/09/17 10:01 Dose: 4 mg Polyethylene Glycol (Miralax) 17 gm PO DAILY [facility] Last Admin: 10/11/17 10:30 Dose: Not Given Warfarin Sodium (Coumadin) 2 mg PO 1800 [facility] PRN Reason: Protocol - Labs Labs: 10/11/17 06:30 10/11/17 06:30 PT 45.1 SECONDS (9.4-12.5) H 10/11/17 12:50 INR 3.82 (0.93-1.08) H* 10/11/17 12:50 APTT 52.5 Seconds (25.1-36.5) H 10/11/17 12:50 - Constitutional Appears: Non-toxic, No Acute Distress - Eye Exam Eye Exam: Normal appearance. absent: Scleral icterus - ENT Exam ENT Exam: Mucous Membranes Moist - Respiratory Exam Respiratory Exam: Clear to Ausculation Bilateral. absent: Respiratory Distress - Cardiovascular Exam Cardiovascular Exam: RRR, +S1, +S2 - GI/Abdominal Exam GI & Abdominal Exam: Soft. absent: Distended, Tenderness - Extremities Exam Additional comments: mild lower leg edema - Neurological Exam Neurological Exam: Alert, Awake - Psychiatric Exam Psychiatric exam: Normal Affect, Normal Mood. absent: Agitated - Skin Skin Exam: Warm. absent: Cyanosis Assessment and Plan (1) Acute CVA (cerebrovascular accident) Assessment & Plan: Thought to be embolic, on heparin drip as bridge to coumadin; Status: Acute (2) CKD (chronic kidney disease) Assessment & Plan: Relatively mild proteinuric kidney disease likely due to DM; losartan increased for better bp control, can expect mild increase in serum creatinine; Status: Chronic (3) HTN (hypertension) Assessment & Plan: Better controlled after increasing meds and re-starting clonidine at 0.1 mg bid (was on 0.3 mg at home); goal <130/80 for proteinuric CKD; Status: Acute (4) Pulmonary edema Status: Resolved (5) Hypernatremia Assessment & Plan: Mild, continue 1/2NS at 60 cc/hr until patient able to have better PO fluid intake; Status: Acute
[2017-10-11] MEDS: Insulin Detemir 100 units/ml Vial (Levemir) SC SCH (21:51)
[2017-10-12] MEDS ORDERED: Dextrose 50% SYRINGE Inj (50 ml) IVP ONE (02:40)
[2017-10-12] MEDS: Sodium Chloride 0.45% 1,000 ML IV SCH (04:57)
[2017-10-12 07:21] LABS: HEMOGLOBIN 9.8 g/dL (12.0-16.0); MEAN CELL VOLUME 85.1 fl (80.0-105.0); MEAN CORPUSCULAR HEMOGLOBIN 26.5 pg (25.0-35.0); MEAN CORPUSCULAR HGB CONC 31.1 g/dl (31.0-37.0); MEAN PLATELET VOLUME 11.1 fl (7.0-11.0); RBC 3.7 10^6/uL (3.5-6.1); RED CELL DISTRIBUTION WIDTH 16.6 % (11.5-14.5); WHITE BLOOD COUNT 7.3 10^3/ul (4.5-11.0)
[2017-10-12 07:32] LABS: PROTHROMBIN TIME 33.2 SECONDS (9.4-12.5)
[2017-10-12 07:33] LABS: INR 2.83 (0.93-1.08); PARTIAL THROMBOPLASTIN TIME 35.5 Seconds (25.1-36.5)
[2017-10-12 09:12] LABS: ALB/GLOB RATIO 0.8 (1.1-1.8); ALBUMIN 2.4 g/dL (3.0-4.8); ALT/SGPT 25 U/L (7-56); AST/SGOT 23 U/L (14-36); BLOOD UREA NITROGEN 19 mg/dL (7-21); CALCIUM 8.6 mg/dL (8.4-10.5); GFR AFRICAN-AMERICAN > 60; GFR NON-AFRICAN AMERICAN > 60
[2017-10-12] MEDS: Insulin Reg-LOW-Coverage SC SCH ×4 (09:34→22:13)
--- NOTE | 2017-10-12 10:58 | PN ---
DATE: 10/12/2017 CARDIOLOGY FOLLOWUP SUBJECTIVE: The patient is feeling well. PHYSICAL EXAMINATION VITAL SIGNS: Blood pressure is 123/93, heart rates in the 50s. NECK: Negative JVD. LUNGS: Without rales. HEART: Reveals S1, S2. EXTREMITIES: Without edema. LABORATORY DATA: Hemoglobin is 9.8. Chemistries: The glucose is 102. IMPRESSION: 1. Accelerated hypertension, which is now well-controlled. 2. History of recurrent cerebrovascular accidents. 3. High probability for cardiac source of embolism. 4. Coronary artery disease. 5. Hypercholesterolemia. PLAN: Given these findings, the patient will need full dose anticoagulation. Physical therapy has been ordered. Orion Starr MD
[2017-10-12] MEDS: POLYETHYLENE GLYCOL 3350 17 GM/Dose PACKET PO SCH (11:38)
[2017-10-12] MEDS ORDERED: Sodium Chloride 0.45% 1,000 ML IV SCH (11:38)
[2017-10-12] MEDS: NIFEdipine 60 mg ER Tab PO SCH (13:08)
--- NOTE | 2017-10-12 14:13 | CP.PCM.PN ---
Subjective - Date & Time of Evaluation Date of Evaluation: 10/12/17 Time of Evaluation: 07:10 - Subjective Subjective: Neurology Progress note: Pt seen and examined at bedside. No acute events overnight. She is alert able to follow commands. No dysarthria. Pt with mild right facial droop and right arm flaccidity however she is is able to move her right lower extremity. 12 Point ROS performed and negative other than stated above. Objective - Vital Signs/Intake and Output Vital Signs (last 24 hours): Temp Pulse Resp BP Pulse Ox 97.6 F 59 L 18 165/71 H 100 10/12/17 12:00 10/12/17 13:08 10/12/17 12:00 10/12/17 13:08 10/12/17 12:00 Intake and Output: 10/12/17 10/12/17 06:59 18:59 Intake Total 1365 Balance 1365 - Medications Medications: Current Medications Acetaminophen (Tylenol 325mg Tab) 650 mg PO Q4 PRN PRN Reason: Fever >100.4 F Last Admin: 10/04/17 18:48 Dose: 650 mg Albuterol/Ipratropium (Duoneb 3 Mg/0.5 Mg (3 Ml) Ud) 3 ml IH [id number] PRN PRN Reason: Shortness of Breath Aspirin (Ecotrin) 81 mg PO DAILY [facility] Last Admin: 10/12/17 11:40 Dose: 81 mg Atorvastatin Calcium (Lipitor) 20 mg PO DIN [facility] Last Admin: 10/11/17 17:15 Dose: 20 mg Carvedilol (Coreg) 12.5 mg PO BID [facility] Last Admin: 10/12/17 11:38 Dose: 12.5 mg Clonidine HCl (Catapres) 0.1 mg PO BID [facility] Last Admin: 10/12/17 11:39 Dose: 0.1 mg Docusate Sodium (Colace Liquid) 100 mg PO TID [facility] Last Admin: 10/12/17 13:55 Dose: Not Given Famotidine (Pepcid) 20 mg PO DAILY [facility] Last Admin: 10/12/17 11:40 Dose: 20 mg Sodium Chloride (Sodium Chloride 0.45%) 1,000 mls @ 40 mls/hr IV .Q24H [facility] Last Admin: 10/12/17 13:03 Dose: 40 mls/hr Insulin Detemir (Levemir) 10 unit SC HS [facility] Last Admin: 10/11/17 21:51 Dose: Not Given Insulin Human Regular (Humulin R Low) 0 units SC ACHS [facility] PRN Reason: Protocol Last Admin: 10/12/17 12:36 Dose: Not Given Losartan Potassium (Cozaar) 50 mg PO DAILY [facility] Last Admin: 10/12/17 11:39 Dose: 50 mg Nifedipine (Procardia Xl) 60 mg PO DAILY [facility] Last Admin: 10/12/17 13:08 Dose: 60 mg Ondansetron HCl (Zofran Inj) 4 mg IVP Q6H PRN PRN Reason: Nausea/Vomiting Last Admin: 10/09/17 10:01 Dose: 4 mg Polyethylene Glycol (Miralax) 17 gm PO DAILY [facility] Last Admin: 10/12/17 11:38 Dose: 17 gm Valproate Sodium (Depakene Cap) 250 mg PO BID [facility] Last Admin: 10/12/17 11:40 Dose: 250 mg Warfarin Sodium (Coumadin) 2 mg PO 1800 [facility] PRN Reason: Protocol - Labs Labs: 10/12/17 06:30 10/12/17 06:30 PT 33.2 SECONDS (9.4-12.5) H 10/12/17 06:30 INR 2.83 (0.93-1.08) H 10/12/17 06:30 APTT 35.5 Seconds (25.1-36.5) 10/12/17 06:30 - Constitutional Appears: No Acute Distress - Extremities Exam Extremities Exam: absent: Calf Tenderness, Pedal Edema - Neurological Exam Neurological Exam: Alert, Awake, Motor Sensory Deficit, Oriented x3 Neuro motor strength exam: Left Upper Extremity: 5, Right Upper Extremity: 0, Left Lower Extremity: 5, Right Lower Extremity: 4 Assessment and Plan - Assessment and Plan (Free Text) Assessment: 67-year-old woman with a past medical history of insulin dependent diabetes, hypertension, afib, CAD and pacemaker, 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 - Cont Aspirin; Coumadin with goal INR of 2-3; today INR of 2.83 - Cont PT & OT - Glycemic control with blood sugars 140-180 - Blood pressure control - Rehab once accepted Case and plan was reviewed and discussed in detail with Dr Delgado.
--- NOTE | 2017-10-12 19:12 | CP.PCM.PN ---
Subjective - Date & Time of Evaluation Date of Evaluation: 10/12/17 Time of Evaluation: 11:00 - Subjective Subjective: Reports feeling well; tolerating diet; denies shortness of breath; Objective - Vital Signs/Intake and Output Vital Signs (last 24 hours): Temp Pulse Resp BP Pulse Ox 97.2 F L 67 20 158/72 H 100 10/12/17 18:00 10/12/17 18:00 10/12/17 18:00 10/12/17 18:00 10/12/17 18:00 Intake and Output: 10/12/17 10/13/17 18:59 06:59 Intake Total 300 Balance 300 - Medications Medications: Current Medications Acetaminophen (Tylenol 325mg Tab) 650 mg PO Q4 PRN PRN Reason: Fever >100.4 F Last Admin: 10/04/17 18:48 Dose: 650 mg Albuterol/Ipratropium (Duoneb 3 Mg/0.5 Mg (3 Ml) Ud) 3 ml IH [id number] PRN PRN Reason: Shortness of Breath Aspirin (Ecotrin) 81 mg PO DAILY [facility] Last Admin: 10/12/17 11:40 Dose: 81 mg Atorvastatin Calcium (Lipitor) 20 mg PO DIN [facility] Last Admin: 10/12/17 17:38 Dose: 20 mg Carvedilol (Coreg) 12.5 mg PO BID [facility] Last Admin: 10/12/17 17:38 Dose: 12.5 mg Clonidine HCl (Catapres) 0.1 mg PO BID [facility] Last Admin: 10/12/17 17:38 Dose: 0.1 mg Docusate Sodium (Colace Liquid) 100 mg PO TID [facility] Last Admin: 10/12/17 18:14 Dose: Not Given Famotidine (Pepcid) 20 mg PO DAILY [facility] Last Admin: 10/12/17 11:40 Dose: 20 mg Sodium Chloride (Sodium Chloride 0.45%) 1,000 mls @ 40 mls/hr IV .Q24H [facility] Last Admin: 10/12/17 13:03 Dose: 40 mls/hr Insulin Detemir (Levemir) 10 unit SC HS [facility] Last Admin: 10/11/17 21:51 Dose: Not Given Insulin Human Regular (Humulin R Low) 0 units SC ACHS [facility] PRN Reason: Protocol Last Admin: 10/12/17 17:38 Dose: 2 units Losartan Potassium (Cozaar) 50 mg PO DAILY [facility] Last Admin: 10/12/17 11:39 Dose: 50 mg Nifedipine (Procardia Xl) 60 mg PO DAILY [facility] Last Admin: 10/12/17 13:08 Dose: 60 mg Ondansetron HCl (Zofran Inj) 4 mg IVP Q6H PRN PRN Reason: Nausea/Vomiting Last Admin: 10/09/17 10:01 Dose: 4 mg Polyethylene Glycol (Miralax) 17 gm PO DAILY [facility] Last Admin: 10/12/17 11:38 Dose: 17 gm Valproate Sodium (Depakene Cap) 250 mg PO BID [facility] Last Admin: 10/12/17 17:37 Dose: 250 mg Warfarin Sodium (Coumadin) 2 mg PO 1800 [facility] PRN Reason: Protocol - Labs Labs: 10/12/17 06:30 10/12/17 06:30 PT 33.2 SECONDS (9.4-12.5) H 10/12/17 06:30 INR 2.83 (0.93-1.08) H 10/12/17 06:30 APTT 35.5 Seconds (25.1-36.5) 10/12/17 06:30 - Constitutional Appears: Non-toxic, No Acute Distress - Eye Exam Eye Exam: Normal appearance. absent: Scleral icterus - ENT Exam ENT Exam: Mucous Membranes Moist - Respiratory Exam Respiratory Exam: Clear to Ausculation Bilateral. absent: Respiratory Distress - Cardiovascular Exam Cardiovascular Exam: RRR, +S1, +S2 - GI/Abdominal Exam GI & Abdominal Exam: Soft. absent: Distended, Tenderness - Extremities Exam Additional comments: trace leg edema; - Neurological Exam Neurological Exam: Alert, Awake - Psychiatric Exam Psychiatric exam: absent: Agitated - Skin Skin Exam: Warm. absent: Cyanosis Assessment and Plan (1) Acute CVA (cerebrovascular accident) Status: Acute (2) CKD (chronic kidney disease) Assessment & Plan: Stable renal function; continue losartan; Status: Chronic (3) HTN (hypertension) Assessment & Plan: BP still elevated, slowly going back up on home meds; if having adequate diet, should restart lasix 20 mg daily; Status: Acute (4) Pulmonary edema Status: Resolved (5) Hypernatremia Assessment & Plan: Mild, IVF being decreased; encouraged to drink more fluids; Status: Acute
--- NOTE | 2017-10-12 21:52 | CP.PCM.PN ---
<Silas Fernandes - Last Filed: 10/12/17 21:53> Subjective - Date & Time of Evaluation Date of Evaluation: 10/12/17 Time of Evaluation: 07:35 - Subjective Subjective: Patient seen and examined at bedside with no acute complaints. Patient able to communicate more so today. Is aware she continues to make progress. Patient's was present at time; states he would prefer for his to go to [facility] for acute rehab. Patient denies headache, body ache, dizziness, chest pain, shortness of breath, nausea, vomiting, diarrhea, abdominal pain, fevers, chills, cough. Objective - Vital Signs/Intake and Output Vital Signs (last 24 hours): Temp Pulse Resp BP Pulse Ox 97.2 F L 67 20 158/72 H 100 10/12/17 18:00 10/12/17 18:00 10/12/17 18:00 10/12/17 18:00 10/12/17 18:00 Intake and Output: 10/12/17 10/13/17 18:59 06:59 Intake Total 300 360 Balance 300 360 - Medications Medications: Current Medications Acetaminophen (Tylenol 325mg Tab) 650 mg PO Q4 PRN PRN Reason: Fever >100.4 F Last Admin: 10/04/17 18:48 Dose: 650 mg Albuterol/Ipratropium (Duoneb 3 Mg/0.5 Mg (3 Ml) Ud) 3 ml IH [id number] PRN PRN Reason: Shortness of Breath Aspirin (Ecotrin) 81 mg PO DAILY [facility] Last Admin: 10/12/17 11:40 Dose: 81 mg Atorvastatin Calcium (Lipitor) 20 mg PO DIN [facility] Last Admin: 10/12/17 17:38 Dose: 20 mg Carvedilol (Coreg) 12.5 mg PO BID [facility] Last Admin: 10/12/17 17:38 Dose: 12.5 mg Clonidine HCl (Catapres) 0.1 mg PO BID [facility] Last Admin: 10/12/17 17:38 Dose: 0.1 mg Docusate Sodium (Colace Liquid) 100 mg PO TID [facility] Last Admin: 10/12/17 18:14 Dose: Not Given Famotidine (Pepcid) 20 mg PO DAILY [facility] Last Admin: 10/12/17 11:40 Dose: 20 mg Sodium Chloride (Sodium Chloride 0.45%) 1,000 mls @ 40 mls/hr IV .Q24H [facility] Last Admin: 10/12/17 13:03 Dose: 40 mls/hr Insulin Detemir (Levemir) 10 unit SC HS [facility] Last Admin: 10/11/17 21:51 Dose: Not Given Insulin Human Regular (Humulin R Low) 0 units SC ACHS [facility] PRN Reason: Protocol Last Admin: 10/12/17 17:38 Dose: 2 units Losartan Potassium (Cozaar) 50 mg PO DAILY [facility] Last Admin: 10/12/17 11:39 Dose: 50 mg Nifedipine (Procardia Xl) 60 mg PO DAILY [facility] Last Admin: 10/12/17 13:08 Dose: 60 mg Ondansetron HCl (Zofran Inj) 4 mg IVP Q6H PRN PRN Reason: Nausea/Vomiting Last Admin: 10/09/17 10:01 Dose: 4 mg Polyethylene Glycol (Miralax) 17 gm PO DAILY [facility] Last Admin: 10/12/17 11:38 Dose: 17 gm Valproate Sodium (Depakene Cap) 250 mg PO BID [facility] Last Admin: 10/12/17 17:37 Dose: 250 mg Warfarin Sodium (Coumadin) 2 mg PO 1800 [facility] PRN Reason: Protocol - Labs Labs: 10/12/17 06:30 10/12/17 06:30 PT 33.2 SECONDS (9.4-12.5) H 10/12/17 06:30 INR 2.83 (0.93-1.08) H 10/12/17 06:30 APTT 35.5 Seconds (25.1-36.5) 10/12/17 06:30 - Constitutional Appears: Non-toxic, No Acute Distress - Head Exam Head Exam: ATRAUMATIC, NORMAL INSPECTION, NORMOCEPHALIC - Eye Exam Eye Exam: EOMI, Normal appearance - ENT Exam ENT Exam: Mucous Membranes Moist, Normal Exam - Neck Exam Neck Exam: Normal Inspection - Respiratory Exam Respiratory Exam: Clear to Ausculation Bilateral, NORMAL BREATHING PATTERN. absent: Rales, Rhonchi, Wheezes - Cardiovascular Exam Cardiovascular Exam: REGULAR RHYTHM, +S1, +S2 - GI/Abdominal Exam GI & Abdominal Exam: Soft, Normal Bowel Sounds - Neurological Exam Neurological Exam: Alert, Awake, CN II-XII Intact Additional comments: right lower extremity muscle strength 4/5 right upper extremity muscle strength 2/5 - Psychiatric Exam Psychiatric exam: Normal Affect, Normal Mood - Skin Skin Exam: Intact, Normal Color, Warm Assessment and Plan - Assessment and Plan (Free Text) Assessment: 67-year-old woman with a past medical history of insulin dependent diabetes, hypertension, CAD and pacemaker, multiple previous ischemic strokes (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 CT head was negative on admission. She was found to have an CASSIA, which resolved with hydration. CODE STROKE was called due to recurrent symptoms while on the medical floors. CT Head was unchanged and CTA Head/Neck was unremarkable. Patient continued to have persistent symptoms, and repeat CT Head showed acute stroke. 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 Plan: CVA in frontal lobe, after recurrent TIA's - expressive aphasia resolved. Right-sided weakness upper extremity improving, however Right lower extremity weakness has resolved. Muscle strength now 4/5 - Repeat CT head did not show any hemorrhage. - Warfarin restarted since INR is therapeutic - Neuro consulted, rec normotension and elevated head of head at least 30 degrees. - continue lipitor - EP- Dr. Traore for pacemaker, recommends outpatient follow up - PT recommends subacute rehab - Speech and swallow evaluation; pureed diet recommended. Patient has a decreased appetite, glucerna has been added for supplementation. HTN, in setting of CVA requiring permissive HTN - controlled on multiple medications per Nephro, Neuro and Cardio recs - continue coreg 25BID, clonidine 0.1 BID - losartan increased - Continue to hold lasix due to CASSIA on admission - cont to monitor History of arrhythmias s/p pacemaker - recent interrogation by Dr. Traore (09/23/17) showed no Afib, and he recommends outpatient follow up - Patient currently on coumadin 2 mg qD History of CKD - CASSIA resolved - IVF NS@ 60 - NAC was started to prevent contrast nephropathy - holding home PO diabetic medications and lasix - Nephrology consulted, recommending outpatient workup for secondary causes of CKD and HTN DM II (HgA1C 8) - PO meds held - ISS medium - Levemir 10 units HS due to hypogylcemia - fingerstick achs DVT/GI prophylaxis- scds/pepcid HHD Patient was seen, examined and discussed with attending, Dr. Re Fernandes PGY1 <Jass Grimaldo - Last Filed: 10/14/17 11:34> Objective - Vital Signs/Intake and Output Vital Signs (last 24 hours): Temp Pulse Resp BP Pulse Ox 99 F 62 19 129/69 99 10/13/17 18:00 10/13/17 18:00 10/13/17 18:00 10/13/17 18:00 10/13/17 18:00 - Labs Labs: 10/13/17 07:30 10/13/17 07:30 PT 18.8 SECONDS (9.4-12.5) H 10/13/17 07:30 INR 1.62 (0.93-1.08) H 10/13/17 07:30 APTT 35.5 Seconds (25.1-36.5) 10/12/17 06:30 Attending/Attestation - Attestation I have personally seen and examined this patient.: Yes I have fully participated in the care of the patient.: Yes I have reviewed all pertinent clinical information, including history, physical exam and plan: Yes Notes (Text): I have seen and examined patient at bedside. Agree with the above note with the following addition/ exception: Briefly this is 67 year old female with history of HTN, DM-2, PPM who was admitted with cardiothromboembolic CVA. Expressive aphasia and RLE weakness has significantly improved. RUE weakness remains there. She was on eliquis which was stopped and was switched to coumadin. INR is therapeutic. BP was high therefore antihypertensives were adjusted. Speech and swallow recommended puree diet. Encourage her to eat. Insulin adjusted for hypoglycemia. PT recommended [facility]. Awaiting placement. Upon discharge patient will follow up with Dr Hicks and Dr León GOINS. Dr Jass Grimaldo
[2017-10-12] MEDS: Insulin Detemir 100 units/ml Vial (Levemir) SC SCH (22:23)
[2017-10-13 08:08] LABS: HEMOGLOBIN 9.1 g/dL (12.0-16.0); MEAN CELL VOLUME 85.1 fl (80.0-105.0); MEAN CORPUSCULAR HEMOGLOBIN 26.5 pg (25.0-35.0); MEAN CORPUSCULAR HGB CONC 31.2 g/dl (31.0-37.0); RBC 3.43 10^6/uL (3.5-6.1); RED CELL DISTRIBUTION WIDTH 16.7 % (11.5-14.5); WHITE BLOOD COUNT 6.8 10^3/ul (4.5-11.0)
[2017-10-13 08:19] LABS: INR 1.62 (0.93-1.08); PROTHROMBIN TIME 18.8 SECONDS (9.4-12.5)
[2017-10-13] MEDS: Insulin Reg-LOW-Coverage SC SCH ×3 (08:20→17:32)
[2017-10-13 08:30] LABS: BLOOD UREA NITROGEN 16 mg/dL (7-21)
[2017-10-13 08:31] LABS: ALB/GLOB RATIO 0.8 (1.1-1.8); ALBUMIN 2.7 g/dL (3.0-4.8); ALT/SGPT 32 U/L (7-56); AST/SGOT 20 U/L (14-36); CALCIUM 8.6 mg/dL (8.4-10.5); GFR AFRICAN-AMERICAN > 60; GFR NON-AFRICAN AMERICAN 55
[2017-10-13] MEDS: POLYETHYLENE GLYCOL 3350 17 GM/Dose PACKET PO SCH (09:55)
[2017-10-13] MEDS: NIFEdipine 60 mg ER Tab PO SCH (09:55)
--- NOTE | 2017-10-13 12:21 | PN ---
DATE: 10/13/2017 CARDIOLOGY FOLLOWUP SUBJECTIVE: The patient is comfortable. No shortness of breath. No chest pain. PHYSICAL EXAMINATION: VITAL SIGNS: Blood pressure is 161/81, heart rate in the 60s. NECK: Negative JVD. LUNGS: Without rales. HEART: S1 and S2. EXTREMITIES: Without edema. LABORATORY DATA: Hemoglobin is 9.1, BUN and creatinine unremarkable, glucose is 134. IMPRESSION: 1. Status post multiple cerebrovascular accident. 2. Hypertension. 3. Coronary artery disease. 4. Hypercholesterolemia. The patient's INR is currently at 1.62. We will need to make adjustments. Orion Starr MD
--- NOTE | 2017-10-13 13:38 | CP.PCM.PN ---
Subjective - Date & Time of Evaluation Date of Evaluation: 10/13/17 Time of Evaluation: 13:34 - Subjective Subjective: Ms. Carlitos Friedman was seen and examined at the bedside. She is alert, oriented in all spheres. Her dysarthia is improving, she can participate in pleasant conversation in comparison from previous examination which she can utter only few words. She denies any headache, dizziness, lightheadedness, blurred vision. She is able to tolerate po intake. She is able to follow simple commands with her right arm remains flaccid, right facial droop and able to move right lower extremity. There was no untoward events overnight. Objective - Vital Signs/Intake and Output Vital Signs (last 24 hours): Temp Pulse Resp BP Pulse Ox 99.3 F 61 20 116/59 L 100 10/13/17 12:00 10/13/17 12:00 10/13/17 12:00 10/13/17 12:00 10/13/17 06:00 Intake and Output: 10/13/17 10/13/17 06:59 18:59 Intake Total 818 Output Total 0 Balance 818 - Medications Medications: Current Medications Acetaminophen (Tylenol 325mg Tab) 650 mg PO Q4 PRN PRN Reason: Fever >100.4 F Last Admin: 10/04/17 18:48 Dose: 650 mg Albuterol/Ipratropium (Duoneb 3 Mg/0.5 Mg (3 Ml) Ud) 3 ml IH [id number] PRN PRN Reason: Shortness of Breath Aspirin (Ecotrin) 81 mg PO DAILY [facility] Last Admin: 10/13/17 09:55 Dose: 81 mg Atorvastatin Calcium (Lipitor) 20 mg PO DIN [facility] Last Admin: 10/12/17 17:38 Dose: 20 mg Carvedilol (Coreg) 12.5 mg PO BID [facility] Last Admin: 10/13/17 09:56 Dose: 12.5 mg Clonidine HCl (Catapres) 0.1 mg PO BID [facility] Last Admin: 10/13/17 09:55 Dose: 0.1 mg Docusate Sodium (Colace Liquid) 100 mg PO TID [facility] Last Admin: 10/13/17 09:55 Dose: 100 mg Famotidine (Pepcid) 20 mg PO DAILY [facility] Last Admin: 10/13/17 09:55 Dose: 20 mg Furosemide (Lasix) 20 mg PO DAILY [facility] Last Admin: 10/13/17 09:55 Dose: 20 mg Insulin Detemir (Levemir) 10 unit SC HS [facility] Last Admin: 10/12/17 22:23 Dose: 10 unit Insulin Human Regular (Humulin R Low) 0 units SC ACHS [facility] PRN Reason: Protocol Last Admin: 10/13/17 12:40 Dose: 1 units Losartan Potassium (Cozaar) 100 mg PO DAILY [facility] Last Admin: 10/13/17 09:55 Dose: 100 mg Nifedipine (Procardia Xl) 60 mg PO DAILY [facility] Last Admin: 10/13/17 09:55 Dose: 60 mg Ondansetron HCl (Zofran Inj) 4 mg IVP Q6H PRN PRN Reason: Nausea/Vomiting Last Admin: 10/09/17 10:01 Dose: 4 mg Polyethylene Glycol (Miralax) 17 gm PO DAILY [facility] Last Admin: 10/13/17 09:55 Dose: 17 gm Valproate Sodium (Depakene Cap) 250 mg PO BID [facility] Last Admin: 10/13/17 09:55 Dose: 250 mg Warfarin Sodium (Coumadin) 3 mg PO 1800 [facility] PRN Reason: Protocol - Labs Labs: 10/13/17 07:30 10/13/17 07:30 PT 18.8 SECONDS (9.4-12.5) H 10/13/17 07:30 INR 1.62 (0.93-1.08) H 10/13/17 07:30 APTT 35.5 Seconds (25.1-36.5) 10/12/17 06:30 - Constitutional Appears: No Acute Distress - Head Exam Head Exam: NORMAL INSPECTION - Neurological Exam Neurological Exam: Alert, Awake, Oriented x3 Neuro motor strength exam: Left Upper Extremity: 5, Right Upper Extremity: 0, Left Lower Extremity: 5, Right Lower Extremity: 2/1 Additional comments: Neurological improved from previous examination. Assessment and Plan (1) Acute CVA (cerebrovascular accident) Assessment & Plan: Case discussed with DR. Delgado, continue al current medical regimen including anticoagulant, physical, occupational, and speech therapies. Recommend blood pressure control, blood sugar control, and acute rehab for more intensive rehab. therapies. Status: Acute
[2017-10-13 17:38] VITALS: BP 129/69; PULSE 62
[2017-10-13 18:27] VITALS: RESP 19; TEMP 99; O2SAT 99
--- NOTE | 2017-10-13 19:21 | CP.PCM.PN ---
Subjective - Date & Time of Evaluation Date of Evaluation: 10/13/17 Time of Evaluation: 11:00 - Subjective Subjective: Patient reporting breathing well; tolerating diet; speech improved; Objective - Vital Signs/Intake and Output Vital Signs (last 24 hours): Temp Pulse Resp BP Pulse Ox 99 F 62 19 129/69 99 10/13/17 18:00 10/13/17 18:00 10/13/17 18:00 10/13/17 18:00 10/13/17 18:00 - Medications Medications: Current Medications Acetaminophen (Tylenol 325mg Tab) 650 mg PO Q4 PRN PRN Reason: Fever >100.4 F Last Admin: 10/04/17 18:48 Dose: 650 mg Albuterol/Ipratropium (Duoneb 3 Mg/0.5 Mg (3 Ml) Ud) 3 ml IH [id number] PRN PRN Reason: Shortness of Breath Aspirin (Ecotrin) 81 mg PO DAILY [facility] Last Admin: 10/13/17 09:55 Dose: 81 mg Atorvastatin Calcium (Lipitor) 20 mg PO DIN [facility] Last Admin: 10/13/17 17:33 Dose: 20 mg Carvedilol (Coreg) 12.5 mg PO BID [facility] Last Admin: 10/13/17 17:32 Dose: 12.5 mg Clonidine HCl (Catapres) 0.1 mg PO BID [facility] Last Admin: 10/13/17 17:33 Dose: 0.1 mg Docusate Sodium (Colace Liquid) 100 mg PO TID [facility] Last Admin: 10/13/17 17:33 Dose: Not Given Famotidine (Pepcid) 20 mg PO DAILY [facility] Last Admin: 10/13/17 09:55 Dose: 20 mg Furosemide (Lasix) 20 mg PO DAILY [facility] Last Admin: 10/13/17 09:55 Dose: 20 mg Insulin Detemir (Levemir) 10 unit SC HS [facility] Last Admin: 10/12/17 22:23 Dose: 10 unit Insulin Human Regular (Humulin R Low) 0 units SC ACHS [facility] PRN Reason: Protocol Last Admin: 10/13/17 17:32 Dose: 3 units Losartan Potassium (Cozaar) 100 mg PO DAILY [facility] Last Admin: 10/13/17 09:55 Dose: 100 mg Nifedipine (Procardia Xl) 60 mg PO DAILY [facility] Last Admin: 10/13/17 09:55 Dose: 60 mg Ondansetron HCl (Zofran Inj) 4 mg IVP Q6H PRN PRN Reason: Nausea/Vomiting Last Admin: 10/09/17 10:01 Dose: 4 mg Polyethylene Glycol (Miralax) 17 gm PO DAILY [facility] Last Admin: 10/13/17 09:55 Dose: 17 gm Valproate Sodium (Depakene Cap) 250 mg PO BID [facility] Last Admin: 10/13/17 17:33 Dose: 250 mg Warfarin Sodium (Coumadin) 3 mg PO 1800 [facility] PRN Reason: Protocol Last Admin: 10/13/17 17:33 Dose: 3 mg - Labs Labs: 10/13/17 07:30 10/13/17 07:30 PT 18.8 SECONDS (9.4-12.5) H 10/13/17 07:30 INR 1.62 (0.93-1.08) H 10/13/17 07:30 APTT 35.5 Seconds (25.1-36.5) 10/12/17 06:30 - Constitutional Appears: Non-toxic, No Acute Distress - Eye Exam Eye Exam: Normal appearance. absent: Scleral icterus - ENT Exam ENT Exam: Mucous Membranes Moist - Respiratory Exam Respiratory Exam: Clear to Ausculation Bilateral. absent: Respiratory Distress - Cardiovascular Exam Cardiovascular Exam: RRR, +S1, +S2 - GI/Abdominal Exam GI & Abdominal Exam: Soft. absent: Distended, Tenderness - Extremities Exam Additional comments: trace leg edema b/l - Neurological Exam Neurological Exam: Alert, Awake - Psychiatric Exam Psychiatric exam: Normal Affect, Normal Mood. absent: Agitated - Skin Skin Exam: Warm. absent: Cyanosis Assessment and Plan (1) Acute CVA (cerebrovascular accident) Status: Acute (2) CKD (chronic kidney disease) Assessment & Plan: Stable renal function; avoid nephrotoxic meds (NSAIDS, phosphate enema); Status: Chronic (3) HTN (hypertension) Assessment & Plan: BP better controlled; losartan increased to 100 mg today, continue rest of meds; Status: Chronic (4) Hypernatremia Assessment & Plan: Improved, advised to drink more water; Status: Acute
== END 2017-10-13 20:21 | DRG 64 ==
LOC: ED 14:52 → ERH 15:50 → 3RSO 18:24 → CCU 10-05 11:30 → 3RSO 10-10 23:26
PROVIDERS: ADMIT Internal Medicine; ATTEND Hospitalist
PROC: B24BZZ4 Ultrasonography of Heart with Aorta, Transesophageal (ICD-10-PCS; principal; 2017-10-06 10:00)
DX: I63.8 Other cerebral infarction (principal); J81.0 Acute pulmonary edema; N17.9 Acute kidney failure, unspecified; E11.22 Type 2 diabetes mellitus with diabetic chronic kidney disease; E11.649 Type 2 diabetes mellitus with hypoglycemia without coma; I48.91 Unspecified atrial fibrillation; E87.0 Hyperosmolality and hypernatremia; I48.92 Unspecified atrial flutter; R47.01 Aphasia; G93.89 Other specified disorders of brain; I25.10 Atherosclerotic heart disease of native coronary artery without angina pectoris; K21.9 Gastro-esophageal reflux disease without esophagitis; N18.3 Chronic kidney disease, stage 3 (moderate); I12.9 Hypertensive chronic kidney disease with stage 1 through stage 4 chronic kidney disease, or unspecified chronic kidney disease; D64.9 Anemia, unspecified; G51.0 Bell's palsy; E78.00 Pure hypercholesterolemia, unspecified; Z86.73 Personal history of transient ischemic attack (TIA), and cerebral infarction without residual deficits; Z95.0 Presence of cardiac pacemaker; Z79.4 Long term (current) use of insulin; Z79.01 Long term (current) use of anticoagulants; Z79.82 Long term (current) use of aspirin

== ENCOUNTER 2017-12-15 09:35 | Inpatient (IN) | payer BC, MEDICARE ==
[2017-12-15 09:36] VITALS: BMI 28.0
--- NOTE | 2017-12-15 09:39 | ED PDOC ---
Arrival/HPI - General Time Seen by Provider: 12/15/17 09:37 Historian: Family, EMS - History of Present Illness Narrative History of Present Illness (Text): 12/15/17 09:38 67yo female with PMHx of NIDDM, hypertension, CVA, CAD, Hyperlipdemia bib by EMS from [place] for psychiatric evaluation. the who was by the bedside states patient is currently at [facility] for therapy s/p CVA this September. states he was told by the staffs that the patient was aggressive with the staffs at the [facility] this morning and was referred to the ED for psych evaluation. Patient admitted to been aggressive with the staffs at the [facility]. States she told them and her that she wants to go home. She denies SI/HI, hallucination, any somatic complaint. Past Medical History - Provider Review Nursing Documentation Reviewed: Yes - Infectious Disease Hx of Infectious Diseases: None - Tetanus Immunization Tetanus Immunization: Unknown - Cardiac Hx Cardiac Disorders: Yes Hx Hypertension: Yes - Pulmonary Hx Respiratory Disorders: No - Neurological HX Cerebrovascular Accident: Yes - HEENT Hx Cataracts: Yes (bl sx 2014) - Renal Hx Renal Disorder: Yes Other/Comment: stage 2 renal disease - Endocrine/Metabolic Hx Diabetes Mellitus Type 2: Yes - Hematological/Oncological Hx Blood Disorders: No - Integumentary Hx Dermatological Disorder: Yes Other/Comment: b/l skin discolorations both legs and itchy skin - Musculoskeletal/Rheumatological Hx Musculoskeletal Disorders: No Hx Falls: No Other/Comment: 5th toe right ft turn inward pt keeps bandaid on toe to protect nail, 2nd toe crooked instep turns inward,left foot bunyon - Gastrointestinal Hx Gastroesophageal Reflux: Yes - Genitourinary/Gynecological Hx Genitourinary Disorders: No - Psychiatric Hx Emotional Abuse: No Hx Physical Abuse: No Hx Substance Use: No - Surgical History Hx Cardiac Catheterization: Yes (2012) Other/Comment: pacemaker, breast sx 07/02/1984 left benign tumor, benign fibroid tumor removal 2000, colon polyps removed via colonoscopy, fishbome extraction via bronchoscopy from throat - Anesthesia Hx Anesthesia Reactions: Yes ("AWARE OF SURROUNDINGS BUT UNABLE TO MOVE FOR A WHILE") Hx Malignant Hyperthermia: No - Suicidal Assessment Feels Threatened In Home Enviroment: No Family/Social History - Physician Review Nursing Documentation Reviewed: Yes Family/Social History: Unknown Family HX Smoking Status: Never Smoked Hx Alcohol Use: No Hx Substance Use: No Allergies/Home Meds Allergies/Adverse Reactions: Allergies Sulfa (Sulfonamide Antibiotics) Allergy (Severe, Verified 10/14/17 05:07) RASH acetaminophen [From Percocet] Adverse Reaction (Severe, Verified 10/14/17 05:07) NAUSEA/VOMITING oxycodone HCl [From Percocet] Adverse Reaction (Severe, Verified 10/14/17 05:07) NAUSEA/VOMITING bacitracin Adverse Reaction (Mild, Verified 10/14/17 05:07) RASH fentanyl Adverse Reaction (Verified 10/14/17 05:07) VOMITING Home Medications: Home Meds Medication Instructions Recorded Confirmed Atorvastatin [Lipitor] 20 mg PO DIN 09/15/17 12/15/17 Aspirin [Ecotrin] 81 mg PO DAILY 09/16/17 12/15/17 Losartan [Cozaar] 100 mg PO DAILY 10/13/17 12/15/17 Albuterol/Ipratropium [Duoneb 3 3 ml IH Q6 12/15/17 12/15/17 mg/0.5 mg (3 ml) UD] Escitalopram Oxalate [Lexapro] 5 mg PO HS 12/15/17 12/15/17 Magnesium Hydroxide [Milk Of 30 ml PO PRN PRN 12/15/17 12/15/17 Magnesia] Review of Systems - Physician Review All systems were reviewed & negative as marked: Yes - Review of Systems Constitutional: Normal Eyes: Normal ENT: Normal Respiratory: Normal Cardiovascular: Normal Gastrointestinal: Normal Genitourinary Female: Normal Musculoskeletal: Normal Skin: Normal Neurological: Normal Endocrine: Normal Hemo/Lymphatic: Normal Psychiatric: Other (Psych evaluation) Physical Exam Vital Signs Reviewed: Yes Vital Signs Temp Pulse Resp BP Pulse Ox 12/15/17 14:08 70 18 157/82 H 98 12/15/17 11:40 73 18 166/87 H 99 12/15/17 09:45 98.6 F 98 H 20 170/99 H 98 Temperature: Afebrile Blood Pressure: Normal Pulse: Regular Respiratory Rate: Normal Appearance: Positive for: Well-Appearing, Non-Toxic, Comfortable Pain Distress: None Mental Status: Positive for: Alert and Oriented X 3 - Systems Exam Head: Present: Atraumatic, Normocephalic Pupils: Present: PERRL Extroacular Muscles: Present: EOMI Conjunctiva: Present: Normal Mouth: Present: Moist Mucous Membranes Neck: Present: Normal Range of Motion Respiratory/Chest: Present: Clear to Auscultation, Good Air Exchange. No: Respiratory Distress, Accessory Muscle Use Cardiovascular: Present: Regular Rate and Rhythm, Normal S1, S2. No: Murmurs Abdomen: No: Tenderness, Distention, Peritoneal Signs Back: Present: Normal Inspection Upper Extremity: Present: Normal Inspection, Other (Contracted right arm with limited ROM secondary to old CVA). No: Cyanosis, Edema Lower Extremity: Present: Normal Inspection. No: Edema Neurological: Present: GCS=15, CN II-XII Intact, Speech Normal Skin: Present: Warm, Dry, Normal Color. No: Rashes Psychiatric: Present: Alert, Oriented x 3, Normal Insight, Normal Concentration Medical Decision Making ED Course and Treatment: 12/15/17 19:05 PT in ED for stated history. She was hypokalemic and repleted. Her Cr. is comparable to her previous labs. She was medically cleared for psych evaluation and was seen in ED by AVIS Perez. She DC with the Psychiatrist and pt was admitted for Depression to Dr. Noguera/s service. - Lab Interpretations Lab Results: 12/15/17 10:13 12/15/17 10:13 Lab Results 12/15/17 10:13: Alcohol, Quantitative < 10 12/15/17 10:13: Salicylates < 1 L, Acetaminophen < 10.0 L 12/15/17 10:13: Urine Opiates Screen Negative, Urine Methadone Screen Negative, Ur Barbiturates Screen Negative, Ur Phencyclidine Scrn Negative, Ur Amphetamines Screen Negative, U Benzodiazepines Scrn Negative, U Oth Cocaine Metabols Negative, U Cannabinoids Screen Negative 12/15/17 10:13: Sodium 144, Potassium 3.0 L, Chloride 100, Carbon Dioxide 32, Anion Gap 15, BUN 17, Creatinine 1.3 H, Est GFR ( Amer) 49, Est GFR (Non- Af Amer) 41, Random Glucose 111 H, Calcium 9.7, Total Bilirubin 0.2, AST 27, ALT 23, Alkaline Phosphatase 128 H D, Total Protein 8.7 H, Albumin 4.1, Globulin 4.6, Albumin/Globulin Ratio 0.9 L 12/15/17 10:13: Urine Color Yellow, Urine Appearance Sl cloudy, Urine pH 7.0, Ur Specific [place] 1.020, Urine Protein >=300 H, Urine Glucose (UA) 100 H, Urine Ketones Negative, Urine Blood Trace-lysed H, Urine Nitrate Negative, Urine Bilirubin Negative, Urine Urobilinogen 0.2, Ur Leukocyte Esterase Negative , Urine RBC 0 - 2, Urine WBC Negative, Ur Epithelial Cells 0 - 2 12/15/17 10:13: WBC 7.4, RBC 4.34, Hgb 11.7 L D, Hct 36.1, MCV 83.2, MCH 27.0, MCHC 32.4, RDW 17.6 H, Plt Count 242, MPV 11.9 H, Gran % 61.6, Lymph % (Auto) 30.0, [place]ook[place] % (Auto) 3.4, Eos % (Auto) 4.9, Baso % (Auto) 0.1, Gran # 4.57, Lymph # (Auto) 2.2, [place] # (Auto) 0.3, Eos # (Auto) 0.4, Baso # (Auto) 0.01 - RAD Interpretation Radiology Orders: 12/15/17 15:28 CHEST PORTABLE [RAD] Stat - Medication Orders Current Medication Orders: Albuterol/Ipratropium (Duoneb 3 Mg/0.5 Mg (3 Ml) Ud) 3 ml IH [id number] PRN PRN Reason: Shortness of Breath Albuterol/Ipratropium (Duoneb 3 Mg/0.5 Mg (3 Ml) Ud) 3 ml IH [id number] [facility] Aspirin (Aspirin Chewable) 81 mg PO DAILY [facility] Atorvastatin Calcium (Lipitor) 20 mg PO DIN [facility] Clonidine HCl (Catapres) 0.2 mg PO Q8H [facility] Divalproex Sodium (Depakote Dr (*Bid*)) 250 mg PO AMHS [facility] PRN Reason: Protocol Docusate Sodium (Colace) 100 mg PO TID [facility] Famotidine (Pepcid) 20 mg PO DAILY [facility] Hydrochlorothiazide (Hydrodiuril) 25 mg PO DAILY [facility] Ibuprofen (Motrin Tab) 400 mg PO Q4H PRN PRN Reason: Pain, moderate (4-7) Indomethacin (Indocin) 25 mg PO TID PRN PRN Reason: Pain, moderate (4-7) Insulin Detemir (Levemir) 15 unit SC HS [facility] Insulin Human Regular (Humulin R Low) 0 units SC ACHS [facility] Lorazepam (Ativan) 0.25 mg PO TID PRN; Protocol PRN Reason: Anxiety Losartan Potassium (Cozaar) 100 mg PO DAILY [facility] Magnesium Hydroxide (Milk Of Magnesia) 30 ml PO DAILY PRN PRN Reason: Constipation Nifedipine (Procardia Xl) 60 mg PO DAILY [facility] Nortriptyline HCl (Pamelor) 25 mg PO HS [facility] Ondansetron HCl (Zofran Odt) 4 mg PO Q8H PRN PRN Reason: Nausea/Vomiting Polyethylene Glycol (Miralax) 17 gm PO DAILY [facility] Warfarin Sodium (Coumadin) 4 mg PO 1800 [facility] PRN Reason: Protocol Discontinued Medications Potassium Chloride (K-Dur 20 Meq Er Tab) 40 meq PO STAT STA Stop: 12/15/17 10:49 Last Admin: 12/15/17 11:05 Dose: 40 meq Disposition/Present on Arrival - Present on Arrival Any Indicators Present on Arrival: No History of DVT/PE: No History of Uncontrolled Diabetes: No Urinary Catheter: No History Surgical Site Infection Following: None - Disposition Have Diagnosis and Disposition been Completed?: Yes Diagnosis: Depression Disposition: HOSPITALIZED Disposition Time: 14:00 Patient Plan: Admission Patient Problems: Current Active Problems Problem Status Onset Depression Acute Condition: FAIR
[2017-12-15 10:30] LABS: BASO # 0.01 K/mm3 (0.0-2.0); BASO % 0.1 % (0.0-3.0); EOS # 0.4 (0.0-0.7); EOS % 4.9 % (1.5-5.0); GRAN # 4.57 (1.4-6.5); GRAN % 61.6 % (50.0-68.0); HEMOGLOBIN 11.7 g/dL (12.0-16.0); LYMPH # 2.2 (1.2-3.4); MEAN CELL VOLUME 83.2 fl (80.0-105.0); MEAN CORPUSCULAR HGB CONC 32.4 g/dl (31.0-37.0); MEAN PLATELET VOLUME 11.9 fl (7.0-11.0); MONO # 0.3 (0.1-0.6); MONO % 3.4 % (1.0-6.0); RBC 4.34 10^6/uL (3.5-6.1); RED CELL DISTRIBUTION WIDTH 17.6 % (11.5-14.5); WHITE BLOOD COUNT 7.4 10^3/ul (4.5-11.0)
[2017-12-15 10:31] LABS: URINE BILIRUBIN NEGATIVE (NEGATIVE); URINE BLOOD TRACE-LYSED (NEGATIVE); URINE GLUCOSE (UA) 100 mg/dL (NEGATIVE); URINE LEUKOCYTE ESTERASE NEGATIVE Leu/uL (NEGATIVE); URINE PROTEIN >=300 mg/dL (<30 mg/dL); URINE UROBILINOGEN 0.2 E.U./dL (<1 E.U./dL)
[2017-12-15 10:35] LABS: ALB/GLOB RATIO 0.9 (1.1-1.8); ALBUMIN 4.1 g/dL (3.0-4.8); CALCIUM 9.7 mg/dL (8.4-10.5)
[2017-12-15 10:36] LABS: ACETAMINOPHEN < 10.0 ug/ml (10.0-20.0); SALICYLATE < 1 mg/dL (2.0-20.0)
[2017-12-15 10:39] LABS: URINE APPEARANCE SL CLOUDY (CLEAR); URINE COLOR YELLOW (YELLOW)
[2017-12-15 10:43] LABS: URINE EPITHELIAL CELLS 0 - 2 /hpf (0-5); URINE RBC 0 - 2 /hpf (0-2); URINE WBC NEGATIVE /hpf (0-6)
[2017-12-15 10:46] LABS: BARBITURATES, UR NEGATIVE (NEGATIVE); BENZODIAZEPINES, UR NEGATIVE (NEGATIVE); OPIATES, UR NEGATIVE (NEGATIVE); PHENCYCLIDINE, UR NEGATIVE (NEGATIVE)
[2017-12-15] MEDS ORDERED: Potassium Chloride 20 mEq ER Tab PO STA (10:48)
--- NOTE | 2017-12-15 16:06 | RAD ---
HISTORY: admission COMPARISON: 10/05/2017. FINDINGS: LUNGS: The lungs are well inflated. There is patchy airspace disease in the right upper lobe. There is interval significant improved aeration in the lungs. There is mild pulmonary venous congestion. PLEURA: No significant pleural effusion identified, no pneumothorax apparent. CARDIOVASCULAR: There is mild cardiomegaly. Atherosclerotic aortic arch calcifications are present. . There is stable position of a left-sided dual lead transvenous permanent pacing device with OSSEOUS STRUCTURES: No significant abnormalities. VISUALIZED UPPER ABDOMEN: Normal. OTHER FINDINGS: None. IMPRESSION: Interval significant improved aeration in both lungs. Patchy airspace disease in the right upper lobe could represent residual pulmonary edema or new pneumonia. Follow-up is advised.
--- NOTE | 2017-12-15 17:47 | PCM.BM ---
<Edison Kong - Last Filed: 12/15/17 17:44> Treatment Plan Problems - Problems identified on initial assessmt AGITATED, AGGRESSIVE BEHAVIOR Date Initiated: 12/15/17 Time Initiated: 17:45 Assessment reference: HP, NA Status: Active DEPRESSIVE SYMPTOMS Date Initiated: 12/15/17 Time Initiated: 17:45 Assessment reference: HP, NA Status: Active INEFFECTIVE IMPULSE CONTROL Date Initiated: 12/15/17 Time Initiated: 17:45 Assessment reference: HP, NA Status: Active Treatment assets and liabiliti Patient Assests: cooperative, negotiates basic needs, other Patient Liabilities: live alone, poor support system, medical problems, other Discharge/Continuing Care - Education Needs Education Needs: Patient Medication, Patient Diagnosis/Disease Process, Patient Coping Skills, Patient Anger Management skills, Patient Placement options, Patient Community resources, Patient Activities of Daily Living, Patient Nutrition, Patient Uses of Medical Equipment, Patient Health Practices/Safety, Patient Personal Hygiene/Grooming, Patient Aftercare Safety Plan - Discharge Discharge Criteria: Tolerates medication w/o severe side effects, Free of Suicidal thoughts, Free of Homicidal thoughts, Free of paranoid thoughts, Free of agitation, Normal sleep pattern, Ability to care for self Discharge to:: Home, Snf <Poornima Umaña - Last Filed: 12/16/17 14:42> 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
[2017-12-15] MEDS ORDERED: Magnesium Hydroxide Susp 30 ml UD PO PRN (18:06)
[2017-12-15] MEDS ORDERED: Albuterol-Ipratrop 3 mg / 0.5 (3 ml) UD IH PRN (18:11)
[2017-12-15 19:44] VITALS: O2SAT 100
[2017-12-15] MEDS: Divalproex 250 mg DR (BID formulation) PO SCH (21:27)
[2017-12-15] MEDS: Insulin Reg-LOW-Coverage SC SCH (21:28)
[2017-12-15] MEDS: Insulin Detemir 100 units/ml Vial (Levemir) SC SCH (21:28)
[2017-12-15] MEDS: Albuterol-Ipratrop 3 mg / 0.5 (3 ml) UD IH SCH (21:30)
[2017-12-16] MEDS: Albuterol-Ipratrop 3 mg / 0.5 (3 ml) UD IH SCH ×5 (02:19→22:45)
[2017-12-16 08:25] LABS: INR 1.16 (0.93-1.08); PROTHROMBIN TIME 13.4 SECONDS (9.4-12.5)
[2017-12-16 08:28] LABS: HDL CHOLESTEROL 32 mg/dL (29-60)
[2017-12-16 08:39] LABS: LDL CHOLESTEROL 58 mg/dL (0-129)
[2017-12-16 08:55] LABS: FREE T4 1.12 ng/dL (0.78-2.19)
[2017-12-16] MEDS: Insulin Reg-LOW-Coverage SC SCH ×4 (09:06→23:29)
[2017-12-16] MEDS: Divalproex 250 mg DR (BID formulation) PO SCH ×2 (09:07→22:52)
[2017-12-16] MEDS: NIFEdipine 60 mg ER Tab PO SCH (09:08)
[2017-12-16] MEDS: POLYETHYLENE GLYCOL 3350 17 GM/Dose PACKET PO SCH (09:08)
--- NOTE | 2017-12-16 15:16 | PCM.PSYCH ---
Initial Psychiatric Evaluation - Initial Psychiatric Evaluation Type of Admission: Voluntary Legal Status: Capacity (pt had a capacity to sign consent for tx) Chief Complaint (in patient's own words): "I don't want that..." Patient's Reaction to Hospitalization: patient was transferred from subacute rehabilitation for evaluation and stabilization of aggressive behavior possible depression History of Present Illness and Precipitating Events: shortly patient is 67 year old -[place] female, not known previous psychiatric history, patient was referred by senior living facility [facility] where patient had subacute rehabilitation, patient was status post stroke and had residual weakness on her right upper extremity, as per history post stroke depression and generalized anxiety disorder, patient was on Lexapro and was seen by psychiatrist at the senior living, patient became agitated, scratch other resident and self, required the emergency room transfer, in the emergency room patient presented to be depressed, hopeless, helpless, was angry , patient seems to be in danger to self and others, required further evaluation and stabilization to the psychiatric inpatient unit. patient was seen in the treatment team meeting, transfer. Reviewed, discussed with staff, patient presented to have acceptable personal hygiene, fare ADLs, patient is able to ambulate, but obviously has weakness in her right upper extremities, patient was not able to participate in treatment plan in meaningful way, patient was not able to provide logical history, for example when this scenario writer asked what brought patient to the hospital patient answered "" this scenario writer tried to explain the treatment plan but patient responded "Dr. Hansen", Then on each and every question pt was repeating "". patient reported that she feels angry, depressed, hopeless, helpless, pt also was very irritable, angry, then when this scenario writer tried to explain the treatment plan and medications and asked pt to sign treatment plan, pt threw the paper towards this scenario writer and told "I don't want it...". pt was redirected out of the room. as per h/o: initially pt was admitted in [place] 09/15/17 and discharged on with right hand weakness and diagnosed with TIA, she was again admitted to the [facility] on 10/02/17 with Motor Aphasia, Right side weakness and diagnosed with acute CVA. With [facility] on 10/05/17 she was transferred to the ICU with respiratory Distress and hypertension while in [facility]. JABARI showed an Aneurysmal Atrial Septum with a Tiny PFO, , then she was transferred to the [facility] unit for continued care and Physical therapy, then subsequently to the [facility], from where she was transferred for agitation and aggression. Past medical history: pt has hx of HTN, CAD with stents, Multiple CVAs, CKD II; Multiples CVA, GERD, at present the patient still has dense Right hemiplegia. PSH: cataract extraction 2014; Cardiac Cath; Benign fibroid tumor Removed 2000; benign breast Tumor removed 1978, Permanent Pacemaker patient never Smoked; No ETOH; No illegal substance use; live with family FH: States: No Known family hx Allergies: Sulfa Antibiotics; Oxycodone; Bacitracin; Fentanyl Medication: Reviewed 12/15/17 10:13 12/15/17 10:13 Lab Results 12/16/17 08:00: PT 13.4 H, INR 1.16 H 12/16/17 08:00: Valproic Acid 35 L 12/16/17 08:00: Triglycerides 78, Cholesterol 111 L, LDL Cholesterol Direct 58, HDL Cholesterol 32 12/16/17 08:00: Free T4 1.12, TSH 3rd Generation 1.93 12/16/17 06:34: POC Glucose (mg/dL) 136 H 12/15/17 21:07: POC Glucose (mg/dL) 317 H 12/15/17 10:13: Alcohol, Quantitative < 10 12/15/17 10:13: Salicylates < 1 L, Acetaminophen < 10.0 L 12/15/17 10:13: Urine Opiates Screen Negative, Urine Methadone Screen Negative, Ur Barbiturates Screen Negative, Ur Phencyclidine Scrn Negative, Ur Amphetamines Screen Negative, U Benzodiazepines Scrn Negative, U Oth Cocaine Metabols Negative, U Cannabinoids Screen Negative 12/15/17 10:13: Sodium 144, Potassium 3.0 L, Chloride 100, Carbon Dioxide 32, Anion Gap 15, BUN 17, Creatinine 1.3 H, Est GFR ( Amer) 49, Est GFR (Non- Af Amer) 41, Random Glucose 111 H, Calcium 9.7, Total Bilirubin 0.2, AST 27, ALT 23, Alkaline Phosphatase 128 H D, Total Protein 8.7 H, Albumin 4.1, Globulin 4.6, Albumin/Globulin Ratio 0.9 L 12/15/17 10:13: Urine Color Yellow, Urine Appearance Sl cloudy, Urine pH 7.0, Ur Specific [place] 1.020, Urine Protein >=300 H, Urine Glucose (UA) 100 H, Urine Ketones Negative, Urine Blood Trace-lysed H, Urine Nitrate Negative, Urine Bilirubin Negative, Urine Urobilinogen 0.2, Ur Leukocyte Esterase Negative , Urine RBC 0 - 2, Urine WBC Negative, Ur Epithelial Cells 0 - 2 12/15/17 10:13: WBC 7.4, RBC 4.34, Hgb 11.7 L D, Hct 36.1, MCV 83.2, MCH 27.0, MCHC 32.4, RDW 17.6 H, Plt Count 242, MPV 11.9 H, Gran % 61.6, Lymph % (Auto) 30.0, [place] % (Auto) 3.4, Eos % (Auto) 4.9, Baso % (Auto) 0.1, Gran # 4.57, Lymph # (Auto) 2.2, [place] # (Auto) 0.3, Eos # (Auto) 0.4, Baso # (Auto) 0.01 Vital Signs Temp Pulse Resp BP Pulse Ox 12/16/17 13:38 82 128/66 12/16/17 09:08 62 145/69 12/16/17 06:47 98.1 F 98 H 22 138/85 12/16/17 06:26 97.2 F L 66 18 170/60 H 100 12/16/17 06:10 66 170/61 H 12/15/17 17:35 98 F 84 18 171/81 H 100 12/15/17 16:19 72 16 150/80 99 12/15/17 14:08 70 18 157/82 H 98 12/15/17 11:40 73 18 166/87 H 99 12/15/17 09:45 98.6 F 98 H 20 170/99 H 98 Current Medications: Active Medications Generic Name Dose Route Start Last Admin Trade Name Freq PRN Reason Stop Dose Admin Albuterol/Ipratropium 3 ml 12/15/17 18:11 Duoneb 3 Mg/0.5 Mg (3 Ml) Ud IH [id number] PRN Shortness of Breath Albuterol/Ipratropium 3 ml 12/15/17 20:00 12/16/17 14:03 Duoneb 3 Mg/0.5 Mg (3 Ml) Ud IH Not Given [id number] ROJELIO Amitriptyline HCl 10 mg 12/16/17 22:00 Elavil PO HS ROJELIO Aspirin 81 mg 12/16/17 08:00 12/16/17 09:07 Aspirin Chewable PO 81 mg DAILY ROJELIO Administration Atorvastatin Calcium 20 mg 12/16/17 17:00 Lipitor PO DIN ROJELIO Clonidine HCl 0.2 mg 12/15/17 22:00 12/16/17 13:38 Catapres PO 0.2 mg Q8H ROJELIO Administration Divalproex Sodium 250 mg 12/15/17 22:00 12/16/17 09:[address] (*Bid*) PO 250 mg AMHS ROJELIO Administration Protocol Docusate Sodium 100 mg 12/16/17 08:00 12/16/17 13:39 Colace PO 100 mg TID ROJELIO Administration Famotidine 20 mg 12/16/17 08:00 12/16/17 09:07 Pepcid PO 20 mg DAILY ROJELIO Administration Hydrochlorothiazide 25 mg 12/16/17 08:00 12/16/17 09:06 Hydrodiuril PO 25 mg DAILY [facility] Administration Ibuprofen 400 mg 12/15/17 18:21 Motrin Tab PO Q4H PRN Pain, moderate (4-7) Indomethacin 25 mg 12/15/17 18:22 Indocin PO TID PRN Pain, moderate (4-7) Insulin Detemir 15 unit 12/15/17 22:00 12/15/17 21:28 Levemir SC 15 unit HS ROJELIO Administration Insulin Human Regular 0 units 12/15/17 22:00 12/16/17 12:00 Humulin R Low SC Not Given ACHS ROJELIO Lorazepam 0.25 mg 12/15/17 18:50 Ativan PO TID PRN Anxiety Protocol Losartan Potassium 100 mg 12/16/17 08:00 12/16/17 09:05 Cozaar PO 100 mg DAILY ROJELIO Administration Magnesium Hydroxide 30 ml 12/15/17 18:06 Milk Of Magnesia PO DAILY PRN Constipation Nifedipine 60 mg 12/16/17 08:00 12/16/17 09:08 Procardia Xl PO 60 mg DAILY ROJELIO Administration Ondansetron HCl 4 mg 12/15/17 18:05 Zofran Odt PO Q8H PRN Nausea/Vomiting Polyethylene Glycol 17 gm 12/16/17 08:00 12/16/17 09:08 Miralax PO 17 gm DAILY ROJELIO Administration Warfarin Sodium 5 mg 12/16/17 18:00 Coumadin PO 1800 ROJELIO Past Psychiatric History - Past Psychiatric History Previous Treatment History: None Prior Professional Help: see HPI Prior Psychiatric Treatment: see HPI At what hospital: see HPI Duration: see HPI Nature of Treatment: see HPI Explanation of prior treatment: see HPI History of Abuse: not know h/o History of ETOH/Drug Use: see HPI pt does not have h/o substance abuse or smoking History of Family Illness: not known Pertinent Medical Hx (Current Medical&Sleep Prob, Allergies): Allergies Allergy/AdvReac Type Severity Reaction Status Date / Time Sulfa (Sulfonamide Allergy Severe RASH Verified 10/14/17 05:07 Antibiotics) acetaminophen [From Percocet] AdvReac Severe NAUSEA/VOMI Verified 10/14/17 05:07 TING oxycodone HCl [From Percocet] AdvReac Severe NAUSEA/VOMI Verified 10/14/17 05:07 TING bacitracin AdvReac Mild RASH Verified 10/14/17 05:07 fentanyl AdvReac VOMITING Verified 10/14/17 05:07 Atorvastatin [Lipitor] 20 mg PO DIN 09/15/17 Aspirin [Ecotrin] 81 mg PO DAILY 09/16/17 Acetaminophen [Tylenol 325mg tab] 650 mg PO Q4 PRN #60 tab 10/12/17 Albuterol/Ipratropium [Duoneb 3 mg/0.5 mg (3 ml) UD] 3 ml IH [id number] PRN #1 neb 10/12/17 Famotidine [Pepcid] 20 mg PO DAILY #14 tab 10/12/17 NIFEdipine ER [Procardia XL] 60 mg PO DAILY #14 ter 10/12/17 Polyethylene Glycol 3350 [Miralax] 17 gm PO DAILY #14 packet 10/12/17 Losartan [Cozaar] 100 mg PO DAILY 10/13/17 Acetaminophen [Tylenol 325mg tab] 650 mg PO Q4 PRN tab 11/12/17 Docusate [Colace] 100 mg PO TID cap 11/12/17 Ibuprofen [Motrin Tab] 400 mg PO Q4 PRN tab 11/12/17 Indomethacin [Indocin] 25 mg PO TID PRN cap 11/12/17 Insulin Detemir [Levemir] 15 units SC HS vial 11/12/17 Insulin Human Regular [HumuLIN R] 0 units SC ACHS ml 11/12/17 Ondansetron ODT [Zofran ODT] 4 mg PO Q8H PRN odt 11/12/17 Valproic Acid Oral Soln [Depakene Oral Soln] 250 mg PO Q12 cup 11/12/17 Warfarin [Coumadin] 4 mg PO 1800 #0 11/12/17 cloNIDine [Catapres] 0.2 mg PO Q8 tab 11/12/17 hydroCHLOROthiazide [Hydrodiuril] 25 mg PO DAILY tab 11/12/17 Albuterol/Ipratropium [Duoneb 3 mg/0.5 mg (3 ml) UD] 3 ml IH Q6 12/15/17 Escitalopram Oxalate [Lexapro] 5 mg PO HS 12/15/17 Magnesium Hydroxide [Milk Of Magnesia] 30 ml PO PRN PRN 12/15/17 Review of Systems - Review of Systems Systems not reviewed;Unavailable: Acuity of Condition - EENT Eyes: As Per HPI Ears: As Per HPI Nose/Mouth/Throat: As Per HPI - Breasts Breasts: As Per HPI - Cardiovascular Cardiovascular: As Per HPI - Respiratory Respiratory: As Per HPI - Gastrointestinal Gastrointestinal: As Per HPI - Genitourinary Genitourinary: As Per HPI - Reproductive: Female Reproductive:Female: As Per HPI - Menstruation Menstruation: As Per HPI - Musculoskeletal Musculoskeletal: As Par HPI - Integumentary Integumentary: As Per HPI - Neurological Neurological: As Per HPI - Psychiatric Psychiatric: As Per HPI - Endocrine Endocrine: As Per HPI - Hematologic/Lymphatic Hematologic: As Per HPI Mental Status Examination - Personal Presentation Personal Presentation: Looks stated age - Affect Affect: Flat (and irritable) - Motor Activity Motor Activity: Psychomotor Retardation (alternating with agitation) - Reliability in Providing Information Reliability in Providing Information: Poor, due to alteration in thoughts, Poor , due to cognitve impairment - Speech Speech: Disorganized, Other (pt has aphasia) - Mood Mood: Depressed, Anxious - Formal Thought Process Formal Thought Process: Circumstantial, Other (disorganized) - Hallucinations/Delusions Hallucinations: Other (denied ) - Obsessions/Compulsions Obsessions: None Compulsions: None - Cognitive Functions Orientation: Person Attention/Concentration: Easily distracted Abstract Thinking: [place] Estimate of Intelligence: Below average - Risk Risk: Self-mutilation, Diminished functioning - Strength & Assets Inventory Strength & Assets Inventory: Family support, Cooperative - Limitations Limitations: Other (pt is aphasic, multiple medical issues) DSM 5 DX - DSM 5 DSM 5 Diagnosis: rule out mood disorder due to general medical condition, patient had stroke, rule out stroke related depression - Recommended/Plan of Treatment Treatment Recommendations and Plan of Treatment: Milieu/structure/supportive therapy Medical consult appreciated, see medical team note for more detailed info SW consultation for discharge plan and social issues Med management senior living medications continued Valproic acid 250 twice a day continued for mood stabilization and seizure prophylaxis Lexapro discontinued Amitriptyline 10 mg at the nighttime for depression,TCA is tx of choice for depression secondary to stroke Ativan 0.25 mg 3 times a day as needed for agitation and anxiety Will call for urology consultation as well as medical as needed Physical therapy evaluation Family involvement Follow up on labs Will monitor closely Pt was educated about risk/benefits and alternatives of medications, coping strategies (safety plan, suicide prevention), relapse prevention, importance of follow up with psychiatrist and therapist, stay away from drugs/alcohol/smoking Projected ELOS: 7days Prognosis: guarded Discharge Plan and Discharge Criteria: Pt will be not depressed or manic, will be more hopeful, will be not psychotic or anxious, will be not having thoughts of harming self or others, will be tolerating medications well, will not have major side effects, will be able to function, will not pose threat to self or others. - Smoking Cessation Smoking Cessation Initiated: No Reason for not providing: Denied smoking.
[2017-12-16] MEDS: Insulin Detemir 100 units/ml Vial (Levemir) SC SCH (22:53)
--- NOTE | 2017-12-16 23:59 | CON ---
DATE: HISTORY OF PRESENT ILLNESS: Patient is a poor historian, does not talk much. Information collected from old records and ER notes. Patient was brought to emergency room by the family. Patient was brought in from [place] for psychiatric evaluation. Since patient recently had CVA in September and she was receiving physical therapy in [place], she was found to be very agitated, non-cooperative and exhausted by the staff. So, she was sent to emergency room for further evaluation. PAST MEDICAL HISTORY: Significant for hypertension; non-insulin dependent diabetes; history of CVA; coronary artery disease, status post multiple angioplasties. Patient was admitted in 09/15/2017 with right-sided weakness. Impression was TIA. She was sent to [facility] for physical therapy where she was admitted again on 10/02/2017 supposedly having dysphasia and right-sided weakness. At that point, she was admitted to ICU. She underwent JABARI that shows an atrial septal dilatation, patent foramen ovale. Chronic kidney disease, gastroesophageal reflux disease. PAST SURGICAL HISTORY: Significant for cataract extraction, history of fibroid uterus, history of benign breast tumor removed in 1978, status post pacemaker placement. SOCIAL HISTORY: She is . Denies smoking, drinking, or alcohol use. MEDICATIONS AT HOME: She is on clonidine 0.2 every 8, Coumadin 5 mg daily, valproic acid, MiraLax, nifedipine, magnesium oxide, losartan, insulin, indomethacin, famotidine, Lexapro 5 mg at bedtime, Darvocet 800 mg with dinner, aspirin 81 mg daily, nebulizer treatment. REVIEW OF SYSTEMS: Significant for being confused and disoriented. Does not offer any complaint. PHYSICAL EXAMINATION: GENERAL: She is awake and alert, confused, disoriented. VITAL SIGNS: She is afebrile. Pulse 98, respiration 22, blood pressure 138/84. LUNGS: Bilateral good air flow. No rhonchi or crackle. HEART: S1 and S2 audible. ABDOMEN: Soft, nontender. No rebound. No guarding. NEUROLOGIC: Patient is awake and alert, but confused and disoriented, not very much communicative. LABORATORY DATA: WBC is 7.4, hemoglobin 11.7, hematocrit 36, and platelets of 242. PT 13.4, INR 1.16. Chemistry: Sodium 144, potassium 3, chloride 100, CO2 of 32, BUN 17, and creatinine 1.7. Blood sugar of 136. X-ray of chest was unremarkable. ASSESSMENT: 1. Dementia with behavior disorder. 2. History of transient ischemic attack. 3. History of cerebrovascular accident. 4. Hypertension. 5. Gng-vgvgemm-[id number] diabetes. 6. Coronary artery disease, status post angioplasty. PLAN: Currently, patient is on aspirin, lorazepam, clonidine, Colace. I will continue her on Coumadin. Since she is subtherapeutic, I will give her 5 mg of Coumadin today and follow up PT/INR in a.m. Monitor her blood sugar. Thanks for consult. We will follow up. Lynne Bradshaw MD
[2017-12-17] MEDS: Albuterol-Ipratrop 3 mg / 0.5 (3 ml) UD IH SCH ×4 (03:00→23:01)
[2017-12-17] MEDS: Insulin Reg-LOW-Coverage SC SCH ×4 (07:50→22:04)
--- NOTE | 2017-12-17 09:17 | PCM.PYCHPN ---
Psychiatric Progress Note - Psychiatric Progress Note Patient seen today, length of contact: 25 min Problems Identified/Issues Discussed: I reviewed assessment and recent notes. Patient has been labile, depressed and disorganized at times. She generally keeps to herself and has been compliant with medications. Recently has been more visible and attending groups. Patient was interviewed at bedside. She is quiet and appears withdrawn. Aware that shes in a hospital and keeps repeating that it is June 16. Patient reports her mood is fine however affect is not congruent. Responses are odd, constricted and blunt. She doesn't appear to be responding to internal stimuli and denies hallucinations. Thought process is scattered during course of interview. Patient denies side effects from medications thus far. There were no behavioral issues overnight Diagnostic Results: rule out mood disorder due to general medical condition, patient had stroke, rule out stroke related depression Mental Status Examination - Cognitive Function Orientation: Person Attention: WNL Concentration: Poor - Mood Mood: Depressed, Anxious - Affect Affect: Flat ( odd, constricted and blunt.) - Formal Thought Process Formal Thought Process: Circumstantial, Other (disorganized) - Suicidal Ideation Suicidal Ideation: No - Homicidal Ideation Homicidal Ideation: No Goal/Treatment Plan - Goal/Treatment Plan Progress Toward Problem(s) and Goals/Treatment Plan: * c/w current tx and plan * Vitals reviewed and noted below: Selected Entries 12/17/17 07:02 Temperature 97.8 F Pulse Rate 75 Respiratory 19 Rate Blood Pressure 171/89 H * No new weekend labs thus far
[2017-12-17] MEDS: POLYETHYLENE GLYCOL 3350 17 GM/Dose PACKET PO SCH (10:05)
[2017-12-17] MEDS: NIFEdipine 60 mg ER Tab PO SCH (10:06)
[2017-12-17] MEDS: Divalproex 250 mg DR (BID formulation) PO SCH ×2 (10:08→21:59)
--- NOTE | 2017-12-17 18:08 | PN ---
DATE: SUBJECTIVE: The patient is 67 years old, seen and examined. Seems to be comfortable. Does not talk much. Eating fair. PHYSICAL EXAMINATION: VITAL SIGNS: She is afebrile, pulse 75, respirations 18, blood pressure 122/63. LUNGS: Bilateral good airflow. No rhonchi or crackle. HEART: S1 and S2 audible. ABDOMEN: Soft. Nontender. No rebound. No guarding. NEUROLOGIC: She is awake, alert, oriented, able to answer simple questions, but confused. ASSESSMENT: 1. Altered mental status. 2. Mild dementia. 3. History of cerebrovascular accident in the past. 4. Hypertension. 5. Qcu-uteekma-ceinafura diabetes. 6. Coronary artery disease, status post angioplasty. PLAN: Currently, the patient is on aspirin 81 daily. She is on Coumadin 5 mg daily. I will order for PT/INR in the a.m. I would also check for CBC and PT/INR in the a.m. For now, continue current dose of Coumadin. Lynne Bradshaw MD
[2017-12-17] MEDS: Insulin Detemir 100 units/ml Vial (Levemir) SC SCH (22:00)
[2017-12-18] MEDS: Albuterol-Ipratrop 3 mg / 0.5 (3 ml) UD IH SCH ×4 (01:06→23:28)
[2017-12-18] MEDS: Insulin Reg-LOW-Coverage SC SCH ×4 (07:35→21:42)
[2017-12-18 08:17] LABS: BASO # 0.01 K/mm3 (0.0-2.0); BASO % 0.2 % (0.0-3.0); EOS # 0.4 (0.0-0.7); EOS % 9.1 % (1.5-5.0); GRAN # 1.95 (1.4-6.5); GRAN % 41.6 % (50.0-68.0); LYMPH # 2.1 (1.2-3.4); LYMPH % 45.1 % (22.0-35.0); MEAN CELL VOLUME 85.2 fl (80.0-105.0); MEAN CORPUSCULAR HEMOGLOBIN 27.1 pg (25.0-35.0); MEAN CORPUSCULAR HGB CONC 31.8 g/dl (31.0-37.0); MONO # 0.2 (0.1-0.6); PLATELET COUNT 200 10^3/uL (120.0-450.0); RBC 4.06 10^6/uL (3.5-6.1); RED CELL DISTRIBUTION WIDTH 18.6 % (11.5-14.5); WHITE BLOOD COUNT 4.7 10^3/ul (4.5-11.0)
[2017-12-18 08:29] LABS: INR 1.34 (0.93-1.08); PROTHROMBIN TIME 15.5 SECONDS (9.4-12.5)
--- NOTE | 2017-12-18 09:14 | PCM.PYCHPN ---
Psychiatric Progress Note - Psychiatric Progress Note Patient seen today, length of contact: 25 min Patient Chief Complaint: "great" Problems Identified/Issues Discussed: I reviewed assessment and recent notes. Patient remains been labile, depressed and confused at times. Sometimes she needs to be directed to her room location. She generally keeps to herself and has been compliant with medications. Recently has been more visible and attending some groups but with minimal participation. Generally keeps to herself even when in the dayroom. Patient was interviewed at bedside. She is brighter and pleasant this morning. Aware that shes in a hospital but doesn't know current month or year. Patient reports her mood is "great" and affect is more reactive and congruent though still blunt. Responses are brief and thought process is scattered during course of interview. She doesn't appear to be responding to internal stimuli and denies hallucinations. Patient denies side effects from medications thus far. There were no behavioral issues over the weekend thus far. Diagnostic Results: rule out mood disorder due to general medical condition, patient had stroke, rule out stroke related depression Mental Status Examination - Cognitive Function Orientation: Person Attention: WNL Concentration: Poor - Mood Mood: Depressed, Anxious - Affect Affect: Blunted (more reactive though still blunt ) - Formal Thought Process Formal Thought Process: Circumstantial, Other (disorganized) - Suicidal Ideation Suicidal Ideation: No - Homicidal Ideation Homicidal Ideation: No Goal/Treatment Plan - Goal/Treatment Plan Progress Toward Problem(s) and Goals/Treatment Plan: * c/w current tx and plan * Appreciate f/u by Dr. Bradshaw on 12/17/17~plan to check PT/INR and CBC in the AM * Vitals reviewed and noted below: 12/17/17 12/17/17 12/17/17 07:02 10:06 14:14 Temperature 97.8 F Pulse Rate 75 78 75 Respiratory 19 Rate Blood Pressure 171/89 H 160/84 H 132/63 12/17/17 12/18/17 22:07 07:41 Temperature 97.9 F Pulse Rate 66 67 Respiratory 20 Rate Blood Pressure 134/76 149/74 * New weekend labs noted below: Laboratory Results - last 24 hr 12/17/17 12/17/17 12/17/17 11:29 16:13 21:53 WBC RBC Hgb Hct MCV MCH MCHC RDW Plt Count Gran % Lymph % (Auto) [place] % (Auto) Eos % (Auto) Baso % (Auto) Gran # Lymph # (Auto) [place] # (Auto) Eos # (Auto) Baso # (Auto) PT INR POC Glucose (mg/dL) 163 H 232 H 327 H 12/18/17 12/18/17 12/18/17 07:00 07:30 08:00 WBC 4.7 D RBC 4.06 Hgb 11.0 L Hct 34.6 L MCV 85.2 MCH 27.1 MCHC 31.8 RDW 18.6 H Plt Count 200 Gran % 41.6 L Lymph % (Auto) 45.1 H [place] % (Auto) 4.0 Eos % (Auto) 9.1 H Baso % (Auto) 0.2 Gran # 1.95 Lymph # (Auto) 2.1 [place] # (Auto) 0.2 Eos # (Auto) 0.4 Baso # (Auto) 0.01 PT 15.5 H INR 1.34 H POC Glucose (mg/dL) 149 H
[2017-12-18] MEDS: POLYETHYLENE GLYCOL 3350 17 GM/Dose PACKET PO SCH (09:25)
[2017-12-18] MEDS: NIFEdipine 60 mg ER Tab PO SCH (09:27)
[2017-12-18] MEDS: Divalproex 250 mg DR (BID formulation) PO SCH ×2 (09:27→21:44)
[2017-12-18] MEDS: Insulin Detemir 100 units/ml Vial (Levemir) SC SCH (21:43)
[2017-12-19] MEDS: Albuterol-Ipratrop 3 mg / 0.5 (3 ml) UD IH SCH ×4 (04:19→22:51)
[2017-12-19] MEDS: Insulin Reg-LOW-Coverage SC SCH ×4 (08:47→21:05)
[2017-12-19] MEDS: NIFEdipine 60 mg ER Tab PO SCH (09:08)
[2017-12-19] MEDS: Divalproex 250 mg DR (BID formulation) PO SCH ×2 (09:09→21:19)
[2017-12-19] MEDS: POLYETHYLENE GLYCOL 3350 17 GM/Dose PACKET PO SCH (09:10)
--- NOTE | 2017-12-19 14:32 | CARD ---
APPROVED REPORT EKG Measurement Heart [id number] <Conclusion> AV sequential or dual chamber electronic pacemaker
--- NOTE | 2017-12-19 15:16 | PCM.PYCHPN ---
Psychiatric Progress Note - Psychiatric Progress Note Patient seen today, length of contact: 30 minutes Patient Chief Complaint: "I do not want to go tosubacute rehabilitation" Problems Identified/Issues Discussed: Suicide/ homicide prevention, past psychiatric h/o, current psychiatric symptoms , medical problems, risk/benefits and alternatives of medications, medications compliance, coping strategies, substance abuse h/o, relapse prevention, importance of follow up with psychiatrist and therapist, discharge plan. Medical Problems: pt has hx of HTN, CAD with stents, Multiple CVAs, CKD II; Multiples CVA, GERD, at present the patient still has dense Right hemiplegia. Diagnostic Results: 12/18/17 08:00 12/15/17 10:13 Lab Results 12/19/17 11:16: POC Glucose (mg/dL) 137 H 12/19/17 07:14: POC Glucose (mg/dL) 96 12/18/17 21:33: POC Glucose (mg/dL) 359 H 12/18/17 16:19: POC Glucose (mg/dL) 215 H 12/18/17 11:14: POC Glucose (mg/dL) 233 H 12/18/17 08:00: WBC 4.7 D, RBC 4.06, Hgb 11.0 L, Hct 34.6 L, MCV 85.2, MCH 27.1 , MCHC 31.8, RDW 18.6 H, Plt Count 200, Gran % 41.6 L, Lymph % (Auto) 45.1 H, [place] % (Auto) 4.0, Eos % (Auto) 9.1 H, Baso % (Auto) 0.2, Gran # 1.95, Lymph # ( Auto) 2.1, [place] # (Auto) 0.2, Eos # (Auto) 0.4, Baso # (Auto) 0.01 12/18/17 07:30: PT 15.5 H, INR 1.34 H 12/18/17 07:00: POC Glucose (mg/dL) 149 H 12/17/17 21:53: POC Glucose (mg/dL) 327 H 12/17/17 16:13: POC Glucose (mg/dL) 232 H 12/17/17 11:29: POC Glucose (mg/dL) 163 H 12/17/17 07:12: POC Glucose (mg/dL) 111 H 12/16/17 21:17: POC Glucose (mg/dL) 253 H 12/16/17 16:34: POC Glucose (mg/dL) 287 H 12/16/17 11:08: POC Glucose (mg/dL) 120 H 12/16/17 08:00: PT 13.4 H, INR 1.16 H 12/16/17 08:00: Valproic Acid 35 L 12/16/17 08:00: RPR Nonreactive 12/16/17 08:00: Triglycerides 78, Cholesterol 111 L, LDL Cholesterol Direct 58, HDL Cholesterol 32 12/16/17 08:00: Free T4 1.12, TSH 3rd Generation 1.93 12/16/17 06:34: POC Glucose (mg/dL) 136 H 12/15/17 21:07: POC Glucose (mg/dL) 317 H 12/15/17 10:13: Alcohol, Quantitative < 10 12/15/17 10:13: Salicylates < 1 L, Acetaminophen < 10.0 L 12/15/17 10:13: Urine Opiates Screen Negative, Urine Methadone Screen Negative, Ur Barbiturates Screen Negative, Ur Phencyclidine Scrn Negative, Ur Amphetamines Screen Negative, U Benzodiazepines Scrn Negative, U Oth Cocaine Metabols Negative, U Cannabinoids Screen Negative 12/15/17 10:13: Sodium 144, Potassium 3.0 L, Chloride 100, Carbon Dioxide 32, Anion Gap 15, BUN 17, Creatinine 1.3 H, Est GFR ( Amer) 49, Est GFR (Non- Af Amer) 41, Random Glucose 111 H, Calcium 9.7, Total Bilirubin 0.2, AST 27, ALT 23, Alkaline Phosphatase 128 H D, Total Protein 8.7 H, Albumin 4.1, Globulin 4.6, Albumin/Globulin Ratio 0.9 L 12/15/17 10:13: Urine Color Yellow, Urine Appearance Sl cloudy, Urine pH 7.0, Ur Specific [place] 1.020, Urine Protein >=300 H, Urine Glucose (UA) 100 H, Urine Ketones Negative, Urine Blood Trace-lysed H, Urine Nitrate Negative, Urine Bilirubin Negative, Urine Urobilinogen 0.2, Ur Leukocyte Esterase Negative , Urine RBC 0 - 2, Urine WBC Negative, Ur Epithelial Cells 0 - 2 12/15/17 10:13: WBC 7.4, RBC 4.34, Hgb 11.7 L D, Hct 36.1, MCV 83.2, MCH 27.0, MCHC 32.4, RDW 17.6 H, Plt Count 242, MPV 11.9 H, Gran % 61.6, Lymph % (Auto) 30.0, [place] % (Auto) 3.4, Eos % (Auto) 4.9, Baso % (Auto) 0.1, Gran # 4.57, Lymph # (Auto) 2.2, [place] # (Auto) 0.3, Eos # (Auto) 0.4, Baso # (Auto) 0.01 Vital Signs Temp Pulse Resp BP Pulse Ox 12/19/17 13:20 76 160/76 H 12/19/17 09:08 70 167/79 H 12/19/17 07:23 97.9 F 70 20 167/79 H 12/19/17 06:48 70 167/79 H 12/18/17 21:57 67 166/71 H 12/18/17 15:00 67 166/71 H 12/18/17 14:23 86 171/82 H 12/18/17 09:28 67 149/73 12/18/17 09:27 67 114/73 12/18/17 07:41 97.9 F 67 20 149/74 12/17/17 22:07 66 134/76 12/17/17 14:14 75 132/63 12/17/17 10:06 78 160/84 H 12/17/17 07:02 97.8 F 75 19 171/89 H 12/17/17 06:22 75 171/89 H 12/16/17 22:56 66 129/71 12/16/17 16:00 70 92/51 L 12/16/17 13:38 82 128/66 12/16/17 09:08 62 145/69 12/16/17 06:47 98.1 F 98 H 22 138/85 12/16/17 06:26 97.2 F L 66 18 170/60 H 100 12/16/17 06:10 66 170/61 H 12/15/17 17:35 98 F 84 18 171/81 H 100 12/15/17 16:19 72 16 150/80 99 12/15/17 14:08 70 18 157/82 H 98 12/15/17 11:40 73 18 166/87 H 99 12/15/17 09:45 98.6 F 98 H 20 170/99 H 98 DSM 5 Symptoms Update: shortly patient is 67 year old -Citizen Of [place] female, not known previous psychiatric history, patient was referred by alf facility [facility] where patient had subacute rehabilitation, patient was status post stroke and had residual weakness on her right upper extremity, as per history post stroke depression and generalized anxiety disorder, patient was on Lexapro and was seen by psychiatrist at the alf, patient became agitated, scratch other resident and self, required the emergency room transfer, in the emergency room patient presented to be depressed, hopeless, helpless, was angry , patient seems to be in danger to self and others, required further evaluation and stabilization to the psychiatric inpatient unit. patient was seen next to the nursing station, very good personal hygiene, pt has expressive aphasia, at the same time pt was able to communicate when multiple choices answers will be given, pt was able to choose from that choices , pt said she does not want to be d/c to [facility]. pt at times seems to be angry and frustrated whenever she was not able to express herself. as per staff patient is visible in the unit trying to attend groups. pt tolerates meds well, no side effects observed or reported, AIMS 0, no EPS. family meeting requested. Impression: Rule out CVA related depression Medication Change: Yes (amitriptyline increased) Medical Record Reviewed: Yes Consults ordered or reviewed: medical consult appreciated please see notes for more detailed information Mental Status Examination - Cognitive Function Orientation: Person Memory: Intact Attention: WNL Concentration: Poor Association: Loose Fund of Knowledge: WNL - Mood Mood: Depressed, Anxious - Affect Affect: Blunted (more reactive though still blunt ) - Language Language: Aphasia (expressive) - Formal Thought Process Formal Thought Process: Circumstantial, Other (disorganized) - Suicidal Ideation Suicidal Ideation: No - Homicidal Ideation Homicidal Ideation: No Goal/Treatment Plan - Goal/Treatment Plan Need for Continued Stay: Remain at risks for inpatient hospitalization, Severe depression anxiety, Discharge may exacerbated symptoms, Failed transitioning, Severe functional impairment Progress Toward Problem(s) and Goals/Treatment Plan: Milieu/structure/supportive therapy Medical consult appreciated, see medical team note for more detailed info SW consultation for discharge plan and social issues Med management alf medications continued Valproic acid 250 twice a day continued for mood stabilization and seizure prophylaxis Amitriptyline 20 mg at the nighttime for depression,TCA is tx of choice for depression secondary to stroke Ativan 0.25 mg 3 times a day as needed for agitation and anxiety Will call for urology consultation as well as medical as needed Physical therapy evaluation Family involvement Follow up on labs Will monitor closely Pt was educated about risk/benefits and alternatives of medications, coping strategies (safety plan, suicide prevention), relapse prevention, importance of follow up with psychiatrist and therapist, stay away from drugs/alcohol/smoking family meeting requested Estimated Date of D/C: 12/23/17
--- NOTE | 2017-12-19 16:58 | PN ---
DATE: SUBJECTIVE: The patient is 67 years old, seen and examined, looks much better, awake and alert, ambulating. PHYSICAL EXAMINATION: VITAL SIGNS: The patient is afebrile, pulse 70, respirations 20, blood pressure 167/79. LUNGS: Bilateral good air flow. No rhonchi or crackle. HEART: S1 and S2 audible. ABDOMEN: Soft and nontender. No rebound. No guarding. NEUROLOGIC: The patient is awake and alert, able to communicate, ambulatory. She seems a lot better today. LABORATORY DATA: Blood sugar is 96; lunch time, it is 137. ASSESSMENT: 1. Status post altered mental status, seems to be doing much better; mild dementia. 2. History of cerebrovascular accident with left hemiparesis. 3. Hypertension. 4. Non-insulin dependent diabetes. 5. History of atrial fibrillation. 6. Coronary artery disease, status post angioplasty. PLAN: We will give her 8 mg Coumadin today and follow up her PT/INR in a.m. Order for EKG to see the control of AFib. Encouraged ambulation. Monitor blood sugar. Lynne Bradshaw MD
[2017-12-19] MEDS: Insulin Detemir 100 units/ml Vial (Levemir) SC SCH (21:18)
[2017-12-20] MEDS: Albuterol-Ipratrop 3 mg / 0.5 (3 ml) UD IH SCH ×5 (02:41→22:20)
[2017-12-20 08:15] LABS: INR 2.48 (0.93-1.08)
[2017-12-20] MEDS: Insulin Reg-LOW-Coverage SC SCH ×4 (08:26→22:00)
[2017-12-20] MEDS: POLYETHYLENE GLYCOL 3350 17 GM/Dose PACKET PO SCH (09:13)
[2017-12-20] MEDS: Divalproex 250 mg DR (BID formulation) PO SCH ×2 (09:13→22:00)
[2017-12-20] MEDS: NIFEdipine 60 mg ER Tab PO SCH (09:14)
--- NOTE | 2017-12-20 14:23 | PCM.PYCHPN ---
Psychiatric Progress Note - Psychiatric Progress Note Patient seen today, length of contact: 30 minutes Patient Chief Complaint: "I do not want to go tosubacute rehabilitation" Problems Identified/Issues Discussed: Suicide/ homicide prevention, past psychiatric h/o, current psychiatric symptoms , medical problems, risk/benefits and alternatives of medications, medications compliance, coping strategies, substance abuse h/o, relapse prevention, importance of follow up with psychiatrist and therapist, discharge plan. Medical Problems: pt has hx of HTN, CAD with stents, Multiple CVAs, CKD II; Multiples CVA, GERD, at present the patient still has dense Right hemiplegia. Diagnostic Results: 12/18/17 08:00 12/15/17 10:13 Lab Results 12/19/17 11:16: POC Glucose (mg/dL) 137 H 12/19/17 07:14: POC Glucose (mg/dL) 96 12/18/17 21:33: POC Glucose (mg/dL) 359 H 12/18/17 16:19: POC Glucose (mg/dL) 215 H 12/18/17 11:14: POC Glucose (mg/dL) 233 H 12/18/17 08:00: WBC 4.7 D, RBC 4.06, Hgb 11.0 L, Hct 34.6 L, MCV 85.2, MCH 27.1 , MCHC 31.8, RDW 18.6 H, Plt Count 200, Gran % 41.6 L, Lymph % (Auto) 45.1 H, [place] % (Auto) 4.0, Eos % (Auto) 9.1 H, Baso % (Auto) 0.2, Gran # 1.95, Lymph # ( Auto) 2.1, [place] # (Auto) 0.2, Eos # (Auto) 0.4, Baso # (Auto) 0.01 12/18/17 07:30: PT 15.5 H, INR 1.34 H 12/18/17 07:00: POC Glucose (mg/dL) 149 H 12/17/17 21:53: POC Glucose (mg/dL) 327 H 12/17/17 16:13: POC Glucose (mg/dL) 232 H 12/17/17 11:29: POC Glucose (mg/dL) 163 H 12/17/17 07:12: POC Glucose (mg/dL) 111 H 12/16/17 21:17: POC Glucose (mg/dL) 253 H 12/16/17 16:34: POC Glucose (mg/dL) 287 H 12/16/17 11:08: POC Glucose (mg/dL) 120 H 12/16/17 08:00: PT 13.4 H, INR 1.16 H 12/16/17 08:00: Valproic Acid 35 L 12/16/17 08:00: RPR Nonreactive 12/16/17 08:00: Triglycerides 78, Cholesterol 111 L, LDL Cholesterol Direct 58, HDL Cholesterol 32 12/16/17 08:00: Free T4 1.12, TSH 3rd Generation 1.93 12/16/17 06:34: POC Glucose (mg/dL) 136 H 12/15/17 21:07: POC Glucose (mg/dL) 317 H 12/15/17 10:13: Alcohol, Quantitative < 10 12/15/17 10:13: Salicylates < 1 L, Acetaminophen < 10.0 L 12/15/17 10:13: Urine Opiates Screen Negative, Urine Methadone Screen Negative, Ur Barbiturates Screen Negative, Ur Phencyclidine Scrn Negative, Ur Amphetamines Screen Negative, U Benzodiazepines Scrn Negative, U Oth Cocaine Metabols Negative, U Cannabinoids Screen Negative 12/15/17 10:13: Sodium 144, Potassium 3.0 L, Chloride 100, Carbon Dioxide 32, Anion Gap 15, BUN 17, Creatinine 1.3 H, Est GFR ( Amer) 49, Est GFR (Non- Af Amer) 41, Random Glucose 111 H, Calcium 9.7, Total Bilirubin 0.2, AST 27, ALT 23, Alkaline Phosphatase 128 H D, Total Protein 8.7 H, Albumin 4.1, Globulin 4.6, Albumin/Globulin Ratio 0.9 L 12/15/17 10:13: Urine Color Yellow, Urine Appearance Sl cloudy, Urine pH 7.0, Ur Specific [place] 1.020, Urine Protein >=300 H, Urine Glucose (UA) 100 H, Urine Ketones Negative, Urine Blood Trace-lysed H, Urine Nitrate Negative, Urine Bilirubin Negative, Urine Urobilinogen 0.2, Ur Leukocyte Esterase Negative , Urine RBC 0 - 2, Urine WBC Negative, Ur Epithelial Cells 0 - 2 12/15/17 10:13: WBC 7.4, RBC 4.34, Hgb 11.7 L D, Hct 36.1, MCV 83.2, MCH 27.0, MCHC 32.4, RDW 17.6 H, Plt Count 242, MPV 11.9 H, Gran % 61.6, Lymph % (Auto) 30.0, [place] % (Auto) 3.4, Eos % (Auto) 4.9, Baso % (Auto) 0.1, Gran # 4.57, Lymph # (Auto) 2.2, [place] # (Auto) 0.3, Eos # (Auto) 0.4, Baso # (Auto) 0.01 Vital Signs Temp Pulse Resp BP Pulse Ox 12/19/17 13:20 76 160/76 H 12/19/17 09:08 70 167/79 H 12/19/17 07:23 97.9 F 70 20 167/79 H 12/19/17 06:48 70 167/79 H 12/18/17 21:57 67 166/71 H 12/18/17 15:00 67 166/71 H 12/18/17 14:23 86 171/82 H 12/18/17 09:28 67 149/73 12/18/17 09:27 67 114/73 12/18/17 07:41 97.9 F 67 20 149/74 12/17/17 22:07 66 134/76 12/17/17 14:14 75 132/63 12/17/17 10:06 78 160/84 H 12/17/17 07:02 97.8 F 75 19 171/89 H 12/17/17 06:22 75 171/89 H 12/16/17 22:56 66 129/71 12/16/17 16:00 70 92/51 L 12/16/17 13:38 82 128/66 12/16/17 09:08 62 145/69 12/16/17 06:47 98.1 F 98 H 22 138/85 12/16/17 06:26 97.2 F L 66 18 170/60 H 100 12/16/17 06:10 66 170/61 H 12/15/17 17:35 98 F 84 18 171/81 H 100 12/15/17 16:19 72 16 150/80 99 12/15/17 14:08 70 18 157/82 H 98 12/15/17 11:40 73 18 166/87 H 99 12/15/17 09:45 98.6 F 98 H 20 170/99 H 98 DSM 5 Symptoms Update: shortly patient is 67 year old -[place] female, not known previous psychiatric history, patient was referred by [facility] facility [facility] where patient had subacute rehabilitation, patient was status post stroke and had residual weakness on her right upper extremity, as per history post stroke depression and generalized anxiety disorder, patient was on Lexapro and was seen by psychiatrist at the correction, patient became agitated, scratch other resident and self, required the emergency room transfer, in the emergency room patient presented to be depressed, hopeless, helpless, was angry , patient seems to be in danger to self and others, required further evaluation and stabilization to the psychiatric inpatient unit. patient was seen at the dinning area, very good personal hygiene, pt has expressive aphasia, but pt was able to hold conversation, affect was more reactive, pt does not want to go to the [facility], family is arranging home health aid. pt at times seems to be angry and frustrated whenever she was not able to express herself. as per staff patient is visible in the unit trying to attend groups. pt tolerates meds well, no side effects observed or reported, AIMS 0, no EPS. family meeting requested. Impression: Rule out CVA related depression Medication Change: Yes (amitriptyline increased yesterday) Medical Record Reviewed: Yes Mental Status Examination - Cognitive Function Orientation: Person Memory: Intact Attention: WNL Concentration: Poor Association: Loose Fund of Knowledge: WNL - Mood Mood: Depressed, Anxious - Affect Affect: Blunted (more reactive though still blunt ) - Language Language: Aphasia (expressive) - Formal Thought Process Formal Thought Process: Circumstantial, Other (disorganized) - Suicidal Ideation Suicidal Ideation: No - Homicidal Ideation Homicidal Ideation: No Goal/Treatment Plan - Goal/Treatment Plan Need for Continued Stay: Remain at risks for inpatient hospitalization, Severe depression anxiety, Discharge may exacerbated symptoms, Failed transitioning, Severe functional impairment Progress Toward Problem(s) and Goals/Treatment Plan: Milieu/structure/supportive therapy Medical consult appreciated, see medical team note for more detailed info SW consultation for discharge plan and social issues Med management correction medications continued Valproic acid 250 twice a day continued for mood stabilization and seizure prophylaxis Amitriptyline 20 mg at the nighttime for depression,TCA is tx of choice for depression secondary to stroke Ativan 0.25 mg 3 times a day as needed for agitation and anxiety Will call for urology consultation as well as medical as needed Physical therapy evaluation Family involvement Follow up on labs Will monitor closely Pt was educated about risk/benefits and alternatives of medications, coping strategies (safety plan, suicide prevention), relapse prevention, importance of follow up with psychiatrist and therapist, stay away from drugs/alcohol/smoking family meeting requested Estimated Date of D/C: 12/23/17
[2017-12-20] MEDS: Insulin Detemir 100 units/ml Vial (Levemir) SC SCH (22:00)
--- NOTE | 2017-12-20 23:36 | PN ---
DATE: SUBJECTIVE: Patient is 67 years old, seen and examined, much more awake, alert, oriented, communicative, ambulatory. PHYSICAL EXAMINATION: VITAL SIGNS: She is afebrile, pulse 73, respirations 18, blood pressure 131/65. LUNGS: Bilateral good airflow. No rhonchi or crackle. HEART: S1 and S2 audible. ABDOMEN: Soft. Nontender. No rebound. No guarding. NEUROLOGIC: She is awake, alert, oriented, communicative. LABORATORY EXAM: PT 29, INR 2.48. RPR is nonreactive. EKG shows A-V sequential dual-chamber electronic pacemaker. ASSESSMENT: 1. History of depression. 2. Hypertension. 3. History of atrial fibrillation. 4. Status post pacemaker placement. 5. History of coronary artery disease. 6. Non-insulin dependant diabetes. PLAN: Patient is stable from psychological point of view. Plan is to discharge her tomorrow. Her PT/INR is therapeutic. We will resume her usual medication dose of Coumadin, 4 mg daily, and possible plan for discharge. Lynne Bradshaw MD
[2017-12-21] MEDS: Albuterol-Ipratrop 3 mg / 0.5 (3 ml) UD IH SCH ×4 (03:00→21:58)
[2017-12-21 07:13] VITALS: RESP 20
[2017-12-21] MEDS: Insulin Reg-LOW-Coverage SC SCH ×4 (08:40→22:13)
[2017-12-21] MEDS: POLYETHYLENE GLYCOL 3350 17 GM/Dose PACKET PO SCH (09:13)
[2017-12-21] MEDS: Divalproex 250 mg DR (BID formulation) PO SCH ×2 (09:13→22:13)
[2017-12-21] MEDS: NIFEdipine 60 mg ER Tab PO SCH (09:16)
[2017-12-21 09:55] LABS: INR 2.39 (0.93-1.08)
--- NOTE | 2017-12-21 15:02 | PCM.PYCHPN ---
Psychiatric Progress Note - Psychiatric Progress Note Patient seen today, length of contact: 30 minutes Patient Chief Complaint: "I did not like subacute, I was disagreeing, that's why I was agitated" Problems Identified/Issues Discussed: Suicide/ homicide prevention, past psychiatric h/o, current psychiatric symptoms , medical problems, risk/benefits and alternatives of medications, medications compliance, coping strategies, substance abuse h/o, relapse prevention, importance of follow up with psychiatrist and therapist, discharge plan. Medical Problems: pt has hx of HTN, CAD with stents, Multiple CVAs, CKD II; Multiples CVA, GERD, at present the patient still has dense Right hemiplegia. Diagnostic Results: 12/18/17 08:00 12/15/17 10:13 Lab Results 12/19/17 11:16: POC Glucose (mg/dL) 137 H 12/19/17 07:14: POC Glucose (mg/dL) 96 12/18/17 21:33: POC Glucose (mg/dL) 359 H 12/18/17 16:19: POC Glucose (mg/dL) 215 H 12/18/17 11:14: POC Glucose (mg/dL) 233 H 12/18/17 08:00: WBC 4.7 D, RBC 4.06, Hgb 11.0 L, Hct 34.6 L, MCV 85.2, MCH 27.1 , MCHC 31.8, RDW 18.6 H, Plt Count 200, Gran % 41.6 L, Lymph % (Auto) 45.1 H, [place] % (Auto) 4.0, Eos % (Auto) 9.1 H, Baso % (Auto) 0.2, Gran # 1.95, Lymph # ( Auto) 2.1, [place] # (Auto) 0.2, Eos # (Auto) 0.4, Baso # (Auto) 0.01 12/18/17 07:30: PT 15.5 H, INR 1.34 H 12/18/17 07:00: POC Glucose (mg/dL) 149 H 12/17/17 21:53: POC Glucose (mg/dL) 327 H 12/17/17 16:13: POC Glucose (mg/dL) 232 H 12/17/17 11:29: POC Glucose (mg/dL) 163 H 12/17/17 07:12: POC Glucose (mg/dL) 111 H 12/16/17 21:17: POC Glucose (mg/dL) 253 H 12/16/17 16:34: POC Glucose (mg/dL) 287 H 12/16/17 11:08: POC Glucose (mg/dL) 120 H 12/16/17 08:00: PT 13.4 H, INR 1.16 H 12/16/17 08:00: Valproic Acid 35 L 12/16/17 08:00: RPR Nonreactive 12/16/17 08:00: Triglycerides 78, Cholesterol 111 L, LDL Cholesterol Direct 58, HDL Cholesterol 32 12/16/17 08:00: Free T4 1.12, TSH 3rd Generation 1.93 12/16/17 06:34: POC Glucose (mg/dL) 136 H 12/15/17 21:07: POC Glucose (mg/dL) 317 H 12/15/17 10:13: Alcohol, Quantitative < 10 12/15/17 10:13: Salicylates < 1 L, Acetaminophen < 10.0 L 12/15/17 10:13: Urine Opiates Screen Negative, Urine Methadone Screen Negative, Ur Barbiturates Screen Negative, Ur Phencyclidine Scrn Negative, Ur Amphetamines Screen Negative, U Benzodiazepines Scrn Negative, U Oth Cocaine Metabols Negative, U Cannabinoids Screen Negative 12/15/17 10:13: Sodium 144, Potassium 3.0 L, Chloride 100, Carbon Dioxide 32, Anion Gap 15, BUN 17, Creatinine 1.3 H, Est GFR ( Amer) 49, Est GFR (Non- Af Amer) 41, Random Glucose 111 H, Calcium 9.7, Total Bilirubin 0.2, AST 27, ALT 23, Alkaline Phosphatase 128 H D, Total Protein 8.7 H, Albumin 4.1, Globulin 4.6, Albumin/Globulin Ratio 0.9 L 12/15/17 10:13: Urine Color Yellow, Urine Appearance Sl cloudy, Urine pH 7.0, Ur Specific [place] 1.020, Urine Protein >=300 H, Urine Glucose (UA) 100 H, Urine Ketones Negative, Urine Blood Trace-lysed H, Urine Nitrate Negative, Urine Bilirubin Negative, Urine Urobilinogen 0.2, Ur Leukocyte Esterase Negative , Urine RBC 0 - 2, Urine WBC Negative, Ur Epithelial Cells 0 - 2 12/15/17 10:13: WBC 7.4, RBC 4.34, Hgb 11.7 L D, Hct 36.1, MCV 83.2, MCH 27.0, MCHC 32.4, RDW 17.6 H, Plt Count 242, MPV 11.9 H, Gran % 61.6, Lymph % (Auto) 30.0, [place] % (Auto) 3.4, Eos % (Auto) 4.9, Baso % (Auto) 0.1, Gran # 4.57, Lymph # (Auto) 2.2, [place] # (Auto) 0.3, Eos # (Auto) 0.4, Baso # (Auto) 0.01 Vital Signs Temp Pulse Resp BP Pulse Ox 12/19/17 13:20 76 160/76 H 12/19/17 09:08 70 167/79 H 12/19/17 07:23 97.9 F 70 20 167/79 H 12/19/17 06:48 70 167/79 H 12/18/17 21:57 67 166/71 H 12/18/17 15:00 67 166/71 H 12/18/17 14:23 86 171/82 H 12/18/17 09:28 67 149/73 12/18/17 09:27 67 114/73 12/18/17 07:41 97.9 F 67 20 149/74 12/17/17 22:07 66 134/76 12/17/17 14:14 75 132/63 12/17/17 10:06 78 160/84 H 12/17/17 07:02 97.8 F 75 19 171/89 H 12/17/17 06:22 75 171/89 H 12/16/17 22:56 66 129/71 12/16/17 16:00 70 92/51 L 12/16/17 13:38 82 128/66 12/16/17 09:08 62 145/69 12/16/17 06:47 98.1 F 98 H 22 138/85 12/16/17 06:26 97.2 F L 66 18 170/60 H 100 12/16/17 06:10 66 170/61 H 12/15/17 17:35 98 F 84 18 171/81 H 100 12/15/17 16:19 72 16 150/80 99 12/15/17 14:08 70 18 157/82 H 98 04/19/18 11:40 73 18 166/87 H 99 12/15/17 09:45 98.6 F 98 H 20 170/99 H 98 DSM 5 Symptoms Update: shortly patient is 67 year old -Chinese female, not known previous psychiatric history, patient was referred by [place] [facility] where patient had subacute rehabilitation, patient was status post stroke and had residual weakness on her right upper extremity, as per history post stroke depression and generalized anxiety disorder, patient was on Lexapro and was seen by psychiatrist at the [place] [facility], patient became agitated, scratch other resident and self, required the emergency room transfer, in the emergency room patient presented to be depressed, hopeless, helpless, was angry , patient seems to be in danger to self and others, required further evaluation and stabilization to the psychiatric inpatient unit. patient was seen in her room, very good personal hygiene, pt has expressive aphasia, but pt was able to hold conversation, affect was more reactive, pt does not want to go to the [facility], family is arranging home health aid, patient is looking forward to a family meeting on this Tuesday. Patient reported that she was agitated at the subacute rehabilitation because she didn't like that place, and "people were mean" pt at times seems to be angry and frustrated whenever she was not able to express herself. as per staff patient is visible in the unit trying to attend groups. pt tolerates meds well, no side effects observed or reported, AIMS 0, no EPS. family meeting requested. Impression: Rule out CVA related depression Medication Change: Yes (amitriptyline increased 25 mg a day) Medical Record Reviewed: Yes Mental Status Examination - Cognitive Function Orientation: Person Memory: Intact Attention: WNL Concentration: Poor (some improvement) Association: Loose (some improvement) Fund of Knowledge: WNL - Mood Mood: Depressed (I feel better), Anxious - Affect Affect: Constricted (but more reactive and mood congruent) - Language Language: Aphasia (expressive) - Formal Thought Process Formal Thought Process: Circumstantial (better organized) - Suicidal Ideation Suicidal Ideation: No - Homicidal Ideation Homicidal Ideation: No Goal/Treatment Plan - Goal/Treatment Plan Need for Continued Stay: Remain at risks for inpatient hospitalization, Severe depression anxiety, Discharge may exacerbated symptoms, Failed transitioning, Severe functional impairment Progress Toward Problem(s) and Goals/Treatment Plan: Milieu/structure/supportive therapy Medical consult appreciated, see medical team note for more detailed info SW consultation for discharge plan and social issues Med management [place] [facility] medications continued Valproic acid 250 twice a day continued for mood stabilization and seizure prophylaxis Amitriptyline 25 mg at the nighttime for depression,TCA is tx of choice for depression secondary to stroke Ativan 0.25 mg 3 times a day as needed for agitation and anxiety Will call for urology consultation as well as medical as needed Physical therapy evaluation Family involvement Follow up on labs Will monitor closely Pt was educated about risk/benefits and alternatives of medications, coping strategies (safety plan, suicide prevention), relapse prevention, importance of follow up with psychiatrist and therapist, stay away from drugs/alcohol/smoking family meeting requested Estimated Date of D/C: 12/23/17
--- NOTE | 2017-12-21 20:02 | PN ---
DATE: SUBJECTIVE: The patient is a 67-year-old, seen and examined, lying in bed. Seems to be comfortable. Complained of right sided weakness. As per nurse, she forgets that she had a stroke. PHYSICAL EXAMINATION: VITAL SIGNS: She is afebrile, pulse 58, respirations 20, blood pressure 116/66. LUNGS: Bilateral good airflow. No rhonchi or crackle. HEART: S1 and S2 audible. ABDOMEN: Soft. Nontender. No rebound. No guarding. NEUROLOGIC: She is awake and alert, confused, disoriented, right hemiparesis. LABORATORY DATA: PT is 28, INR is 2.39. Blood sugar is 204. Valproic acid is 35. ASSESSMENT: 1. History of depression. 2. History of cerebrovascular accident. 3. Paroxysmal atrial fibrillation. 4. Coronary artery disease status post angioplasty. PLAN: Currently patient is on clonidine, aspirin. She is on Coumadin 4 mg daily. We will follow up with the INR. Discharge plan for a.m. Lynne Bradshaw MD
[2017-12-21] MEDS: Insulin Detemir 100 units/ml Vial (Levemir) SC SCH (22:12)
[2017-12-22] MEDS: Albuterol-Ipratrop 3 mg / 0.5 (3 ml) UD IH SCH ×4 (02:40→20:22)
[2017-12-22 08:00] LABS: INR 2.23 (0.93-1.08); PROTHROMBIN TIME 26.1 SECONDS (9.4-12.5)
[2017-12-22] MEDS: NIFEdipine 60 mg ER Tab PO SCH (09:18)
[2017-12-22] MEDS: POLYETHYLENE GLYCOL 3350 17 GM/Dose PACKET PO SCH (09:18)
[2017-12-22] MEDS: Divalproex 250 mg DR (BID formulation) PO SCH ×2 (09:20→21:24)
[2017-12-22] MEDS: Insulin Reg-LOW-Coverage SC SCH ×4 (09:27→21:21)
--- NOTE | 2017-12-22 13:49 | PCM.PYCHPN ---
Psychiatric Progress Note - Psychiatric Progress Note Patient seen today, length of contact: 30 minutes Patient Chief Complaint: "I am good" Problems Identified/Issues Discussed: Suicide/ homicide prevention, past psychiatric h/o, current psychiatric symptoms , medical problems, risk/benefits and alternatives of medications, medications compliance, coping strategies, substance abuse h/o, relapse prevention, importance of follow up with psychiatrist and therapist, discharge plan. Medical Problems: pt has hx of HTN, CAD with stents, Multiple CVAs, CKD II; Multiples CVA, GERD, at present the patient still has dense Right hemiplegia. Diagnostic Results: 12/18/17 08:00 12/15/17 10:13 Lab Results 12/19/17 11:16: POC Glucose (mg/dL) 137 H 12/19/17 07:14: POC Glucose (mg/dL) 96 12/18/17 21:33: POC Glucose (mg/dL) 359 H 12/18/17 16:19: POC Glucose (mg/dL) 215 H 12/18/17 11:14: POC Glucose (mg/dL) 233 H 12/18/17 08:00: WBC 4.7 D, RBC 4.06, Hgb 11.0 L, Hct 34.6 L, MCV 85.2, MCH 27.1 , MCHC 31.8, RDW 18.6 H, Plt Count 200, Gran % 41.6 L, Lymph % (Auto) 45.1 H, [place] % (Auto) 4.0, Eos % (Auto) 9.1 H, Baso % (Auto) 0.2, Gran # 1.95, Lymph # ( Auto) 2.1, [place] # (Auto) 0.2, Eos # (Auto) 0.4, Baso # (Auto) 0.01 12/18/17 07:30: PT 15.5 H, INR 1.34 H 12/18/17 07:00: POC Glucose (mg/dL) 149 H 12/17/17 21:53: POC Glucose (mg/dL) 327 H 12/17/17 16:13: POC Glucose (mg/dL) 232 H 12/17/17 11:29: POC Glucose (mg/dL) 163 H 12/17/17 07:12: POC Glucose (mg/dL) 111 H 12/16/17 21:17: POC Glucose (mg/dL) 253 H 12/16/17 16:34: POC Glucose (mg/dL) 287 H 12/16/17 11:08: POC Glucose (mg/dL) 120 H 12/16/17 08:00: PT 13.4 H, INR 1.16 H 12/16/17 08:00: Valproic Acid 35 L 12/16/17 08:00: RPR Nonreactive 12/16/17 08:00: Triglycerides 78, Cholesterol 111 L, LDL Cholesterol Direct 58, HDL Cholesterol 32 12/16/17 08:00: Free T4 1.12, TSH 3rd Generation 1.93 12/16/17 06:34: POC Glucose (mg/dL) 136 H 12/15/17 21:07: POC Glucose (mg/dL) 317 H 12/15/17 10:13: Alcohol, Quantitative < 10 12/15/17 10:13: Salicylates < 1 L, Acetaminophen < 10.0 L 12/15/17 10:13: Urine Opiates Screen Negative, Urine Methadone Screen Negative, Ur Barbiturates Screen Negative, Ur Phencyclidine Scrn Negative, Ur Amphetamines Screen Negative, U Benzodiazepines Scrn Negative, U Oth Cocaine Metabols Negative, U Cannabinoids Screen Negative 12/15/17 10:13: Sodium 144, Potassium 3.0 L, Chloride 100, Carbon Dioxide 32, Anion Gap 15, BUN 17, Creatinine 1.3 H, Est GFR ( Amer) 49, Est GFR (Non- Af Amer) 41, Random Glucose 111 H, Calcium 9.7, Total Bilirubin 0.2, AST 27, ALT 23, Alkaline Phosphatase 128 H D, Total Protein 8.7 H, Albumin 4.1, Globulin 4.6, Albumin/Globulin Ratio 0.9 L 12/15/17 10:13: Urine Color Yellow, Urine Appearance Sl cloudy, Urine pH 7.0, Ur Specific [place] 1.020, Urine Protein >=300 H, Urine Glucose (UA) 100 H, Urine Ketones Negative, Urine Blood Trace-lysed H, Urine Nitrate Negative, Urine Bilirubin Negative, Urine Urobilinogen 0.2, Ur Leukocyte Esterase Negative , Urine RBC 0 - 2, Urine WBC Negative, Ur Epithelial Cells 0 - 2 12/15/17 10:13: WBC 7.4, RBC 4.34, Hgb 11.7 L D, Hct 36.1, MCV 83.2, MCH 27.0, MCHC 32.4, RDW 17.6 H, Plt Count 242, MPV 11.9 H, Gran % 61.6, Lymph % (Auto) 30.0, [place] % (Auto) 3.4, Eos % (Auto) 4.9, Baso % (Auto) 0.1, Gran # 4.57, Lymph # (Auto) 2.2, [place] # (Auto) 0.3, Eos # (Auto) 0.4, Baso # (Auto) 0.01 Vital Signs Temp Pulse Resp BP Pulse Ox 12/19/17 13:20 76 160/76 H 12/19/17 09:08 70 167/79 H 12/19/17 07:23 97.9 F 70 20 167/79 H 12/19/17 06:48 70 167/79 H 12/18/17 21:57 67 166/71 H 12/18/17 15:00 67 166/71 H 12/18/17 14:23 86 171/82 H 12/18/17 09:28 67 149/73 12/18/17 09:27 67 114/73 12/18/17 07:41 97.9 F 67 20 149/74 12/17/17 22:07 66 134/76 12/17/17 14:14 75 132/63 12/17/17 10:06 78 160/84 H 12/17/17 07:02 97.8 F 75 19 171/89 H 12/17/17 06:22 75 171/89 H 12/16/17 22:56 66 129/71 12/16/17 16:00 70 92/51 L 12/16/17 13:38 82 128/66 12/16/17 09:08 62 145/69 12/16/17 06:47 98.1 F 98 H 22 138/85 12/16/17 06:26 97.2 F L 66 18 170/60 H 100 12/16/17 06:10 66 170/61 H 12/15/17 17:35 98 F 84 18 171/81 H 100 12/15/17 16:19 72 16 150/80 99 12/15/17 14:08 70 18 157/82 H 98 12/15/17 11:40 73 18 166/87 H 99 12/15/17 09:45 98.6 F 98 H 20 170/99 H 98 DSM 5 Symptoms Update: shortly patient is 67 year old -[place] female, not known previous psychiatric history, patient was referred by intermediate facility [facility] where patient had subacute rehabilitation, patient was status post stroke and had residual weakness on her right upper extremity, as per history post stroke depression and generalized anxiety disorder, patient was on Lexapro and was seen by psychiatrist at the intermediate, patient became agitated, scratch other resident and self, required the emergency room transfer, in the emergency room patient presented to be depressed, hopeless, helpless, was angry , patient seems to be in danger to self and others, required further evaluation and stabilization to the psychiatric inpatient unit. patient was seen at the dinning area, pt presented with very good personal hygiene, pt has expressive aphasia, but pt was able to hold conversation, affect was more reactive, pt does not want to go to the [facility], family is arranging home health aid, patient is looking forward to a family meeting on this Tuesday, pt said she knows how to give herself injection of insulin, diabetic education nurse was called. as per staff patient is visible in the unit attends groups regularly. pt tolerates meds well, no side effects observed or reported, AIMS 0, no EPS. family meeting requested. Impression: Rule out CVA related depression Medication Change: Yes (amitriptyline increased 25 mg a day) Medical Record Reviewed: Yes Mental Status Examination - Cognitive Function Orientation: Person Memory: Intact Attention: WNL Concentration: Poor (some improvement) Association: Loose (some improvement) Fund of Knowledge: WNL - Mood Mood: Depressed (I feel better) - Affect Affect: Constricted (but more reactive and mood congruent) - Language Language: Aphasia (expressive) - Formal Thought Process Formal Thought Process: Circumstantial (better organized) - Suicidal Ideation Suicidal Ideation: No - Homicidal Ideation Homicidal Ideation: No Goal/Treatment Plan - Goal/Treatment Plan Need for Continued Stay: Remain at risks for inpatient hospitalization, Severe depression anxiety, Discharge may exacerbated symptoms, Failed transitioning, Severe functional impairment Progress Toward Problem(s) and Goals/Treatment Plan: Milieu/structure/supportive therapy Medical consult appreciated, see medical team note for more detailed info SW consultation for discharge plan and social issues Med management intermediate medications continued Valproic acid 250 twice a day continued for mood stabilization and seizure prophylaxis depakote level tomorrow Amitriptyline 25 mg at the nighttime for depression,TCA is tx of choice for depression secondary to stroke Ativan 0.25 mg 3 times a day as needed for agitation and anxiety Will call for urology consultation as well as medical as needed Physical therapy evaluation Family involvement Follow up on labs Will monitor closely Pt was educated about risk/benefits and alternatives of medications, coping strategies (safety plan, suicide prevention), relapse prevention, importance of follow up with psychiatrist and therapist, stay away from drugs/alcohol/smoking family meeting requested tomorrow Diabetic christian education director was called OT was called PT is involved possible d/c tomorrow Estimated Date of D/C: 12/23/17
--- NOTE | 2017-12-22 16:35 | PN ---
DATE: 12/22/2017 SUBJECTIVE: The patient is 67 years old, seen and examined, lying in bed, seems to be comfortable. Confused, disoriented at times. PHYSICAL EXAMINATION: VITAL SIGNS: She is afebrile, pulse 63, respirations 20, blood pressure 142/80. LUNGS: Bilateral fair airflow. No rhonchi or crackle. HEART: S1 and S2 audible. ABDOMEN: Soft. Nontender. No rebound. No guarding. NEUROLOGIC: The patient is awake and alert, confused and disoriented at times. EXTREMITIES: Bilateral legs, no edema. She does have right-sided weakness. LABORATORY EXAM: PT is 26.1, INR 2.23. ASSESSMENT: 1. History of depression with mild dementia. 2. Paroxysmal atrial fibrillation. 3. History of cerebrovascular accident with right hemiparesis. 4. Diabetes mellitus, insulin dependent. PLAN: We will continue the patient on current medications. Discharge plan for today. She will follow up with . Lynne Bradshaw MD
[2017-12-22] MEDS: Insulin Detemir 100 units/ml Vial (Levemir) SC SCH (21:23)
[2017-12-23 06:27] VITALS: BP 137/66
[2017-12-23 06:51] VITALS: PULSE 20; TEMP 97.3
[2017-12-23] MEDS: NIFEdipine 60 mg ER Tab PO SCH (08:03)
[2017-12-23] MEDS: POLYETHYLENE GLYCOL 3350 17 GM/Dose PACKET PO SCH (08:04)
[2017-12-23] MEDS: Insulin Reg-LOW-Coverage SC SCH ×2 (08:08→11:44)
[2017-12-23] MEDS: Albuterol-Ipratrop 3 mg / 0.5 (3 ml) UD IH SCH ×2 (08:33→13:54)
[2017-12-23] MEDS: Divalproex 250 mg DR (BID formulation) PO SCH (09:53)
--- NOTE | 2017-12-23 15:33 | PCM.PYCHDC ---
Mental Status Examination - Mental Status Examination Orientation: Person, Place, Situation, Time Memory: Intact (at times pt has expressive aphasia) Mood: Neutral Affect: Constricted (but reactive and mood congruent) Speech: Appropriate (pt has expressive aphasia), Slurred (at times) Attention: WNL (much improvement) Concentration: WNL (much improvement) Association: WNL Fund of Knowledge: WNL Formal Thought Process: No Impairment Description of patient's judgement and insight: Pt has improved insight into mental and medical illness, pt was compliant with medications and unit rules and regulations, pt was attending groups, was calm, cooperative, socially appropriate, no behavioral incidents, no agitation, no aggression. Psychotic Thoughts and Behaviors: Pt denied v/a/t hallucinations, denied paranoid ideation, pt does not appear to be psychotic, and thought process is goal directed and well organized. Suicidal Ideation: No Current Homicidal Ideation?: No Plan: pt adamantly denied thoughts of harming self or others denied intent or plan Discharge Summary - Discharge Note Reason for Hospitalization: patient was transferred from subacute rehabilitation for evaluation and stabilization of aggressive behavior possible depression Psychiatric History (includes Medical, Family, Personal Hx): see HPI Laboratory Data: Abnormal Lab Results 12/22/17 12/22/17 12/23/17 16:23 20:59 07:20 POC Glucose (mg/dL) 242 H 290 H 65 Valproic Acid 12/23/17 12/23/17 07:45 11:02 POC Glucose (mg/dL) 356 H Valproic Acid 50 Consultations:: List each consultation separately and include: 1. Reason for request. 2. Findings. 3. Follow-up Consultations: medical consult appreciated please see notes for more detailed information pt was seen by PT pt was seen by diabetic education nurse see notes for more detailed information Summary of Hospital Course include:: 1. Description of specific treatment plan utilized for patients during their course of treatmen. 2. Summarize the time- course for resolution of acute symptoms and/or regressed behaviors. 3. Describe issues identified and worked on during hospitalization. 4. Describe medication utilized. 5. Describe medical problems identified and treated. 6. Reassessment of suicide risk Summary of Hospital Course: shortly patient is 67 year old -[place] female, not known previous psychiatric history, patient was referred by snf facility [facility] where patient had subacute rehabilitation, patient was status post stroke and had residual weakness on her right upper extremity, as per history post stroke depression and generalized anxiety disorder, patient was on Lexapro and was seen by psychiatrist at the snf, patient became agitated, scratch other resident and self, required the emergency room transfer, in the emergency room patient presented to be depressed, hopeless, helpless, was angry , patient seems to be in danger to self and others, required further evaluation and stabilization to the psychiatric inpatient unit. initially patient was seen in the treatment team meeting, discussed with staff, patient presented to have acceptable personal hygiene, fare ADLs, patient is able to ambulate, but obviously has weakness in her right upper extremities, patient was not able to participate in treatment plan in meaningful way, patient was not able to provide logical history, for example when this advertising writer asked what brought patient to the hospital patient answered "" this advertising writer tried to explain the treatment plan but patient responded "Dr. Hansen", Then on each and every question pt was repeating "". patient reported that she feels angry, depressed, hopeless, helpless, pt also was very irritable , angry, then when this advertising writer tried to explain the treatment plan and medications and asked pt to sign treatment plan, pt threw the paper towards this advertising writer and told "I don't want it...". pt was redirected out of the room. as per h/o: initially pt was admitted in [place] 09/15/17 and discharged on with right hand weakness and diagnosed with TIA, she was again admitted to the [facility] on 10/02/17 with Motor Aphasia, Right side weakness and diagnosed with acute CVA. With [employer] on 10/05/17 she was transferred to the ICU with respiratory Distress and hypertension while in [facility]. JABARI showed an Aneurysmal Atrial Septum with a Tiny PFO, , then she was transferred to the [facility] unit for continued care and Physical therapy, then subsequently to the [facility], from where she was transferred for agitation and aggression. Past medical history: pt has hx of HTN, CAD with stents, Multiple CVAs, CKD II; Multiples CVA, GERD, at present the patient still has dense Right hemiplegia. PSH: cataract extraction 2014; Cardiac Cath; Benign fibroid tumor Removed 2000; benign breast Tumor removed 1978, Permanent Pacemaker patient never Smoked; No ETOH; No illegal substance use; live with family FH: States: No Known family hx Allergies: Sulfa Antibiotics; Oxycodone; Bacitracin; Fentanyl Medication: Reviewed 12/15/17 10:13 12/15/17 10:13 Lab Results 12/16/17 08:00: PT 13.4 H, INR 1.16 H 12/16/17 08:00: Valproic Acid 35 L 12/16/17 08:00: Triglycerides 78, Cholesterol 111 L, LDL Cholesterol Direct 58, HDL Cholesterol 32 12/16/17 08:00: Free T4 1.12, TSH 3rd Generation 1.93 12/16/17 06:34: POC Glucose (mg/dL) 136 H 12/15/17 21:07: POC Glucose (mg/dL) 317 H 12/15/17 10:13: Alcohol, Quantitative < 10 12/15/17 10:13: Salicylates < 1 L, Acetaminophen < 10.0 L 12/15/17 10:13: Urine Opiates Screen Negative, Urine Methadone Screen Negative, Ur Barbiturates Screen Negative, Ur Phencyclidine Scrn Negative, Ur Amphetamines Screen Negative, U Benzodiazepines Scrn Negative, U Oth Cocaine Metabols Negative, U Cannabinoids Screen Negative 12/15/17 10:13: Sodium 144, Potassium 3.0 L, Chloride 100, Carbon Dioxide 32, Anion Gap 15, BUN 17, Creatinine 1.3 H, Est GFR ( Amer) 49, Est GFR (Non- Af Amer) 41, Random Glucose 111 H, Calcium 9.7, Total Bilirubin 0.2, AST 27, ALT 23, Alkaline Phosphatase 128 H D, Total Protein 8.7 H, Albumin 4.1, Globulin 4.6, Albumin/Globulin Ratio 0.9 L 12/15/17 10:13: Urine Color Yellow, Urine Appearance Sl cloudy, Urine pH 7.0, Ur Specific [place] 1.020, Urine Protein >=300 H, Urine Glucose (UA) 100 H, Urine Ketones Negative, Urine Blood Trace-lysed H, Urine Nitrate Negative, Urine Bilirubin Negative, Urine Urobilinogen 0.2, Ur Leukocyte Esterase Negative , Urine RBC 0 - 2, Urine WBC Negative, Ur Epithelial Cells 0 - 2 12/15/17 10:13: WBC 7.4, RBC 4.34, Hgb 11.7 L D, Hct 36.1, MCV 83.2, MCH 27.0, MCHC 32.4, RDW 17.6 H, Plt Count 242, MPV 11.9 H, Gran % 61.6, Lymph % (Auto) 30.0, [place] % (Auto) 3.4, Eos % (Auto) 4.9, Baso % (Auto) 0.1, Gran # 4.57, Lymph # (Auto) 2.2, [place] # (Auto) 0.3, Eos # (Auto) 0.4, Baso # (Auto) 0.01 Vital Signs Temp Pulse Resp BP Pulse Ox 12/16/17 13:38 82 128/66 12/16/17 09:08 62 145/69 12/16/17 06:47 98.1 F 98 H 22 138/85 12/16/17 06:26 97.2 F L 66 18 170/60 H 100 12/16/17 06:10 66 170/61 H 12/15/17 17:35 98 F 84 18 171/81 H 100 12/15/17 16:19 72 16 150/80 99 12/15/17 14:08 70 18 157/82 H 98 12/15/17 11:40 73 18 166/87 H 99 12/15/17 09:45 98.6 F 98 H 20 170/99 H 98 over the course of this hospitalization pt was stabilized on the following medications: Valproic acid 250 twice a day for mood stabilization and seizure prophylaxis depakote level 12/23/17 was 50 Amitriptyline 25 mg at the nighttime for depression,TCA is tx of choice for depression secondary to stroke Ativan 0.25 mg 3 times a day as needed for agitation and anxiety, but pt was not agitated, did not required PRN meds she tolerated medications well, no side effects observed or reported, aims 0, no EPS Patient was seen by medical team, please see Dr. Bradshaw notes for more detailed information PT recommended d/c home with PT patient improved significantly, aphasia improved as well, mood improved, sleep and appetite improved, patient was going to groups, socially appropriate, patient does not have any aggression or agitation, patient was able to verbalize her needs. Today this advertising writer as well as manager social work as well as patient as well as patient herself participated in family meeting. Please see manager social work notes for more detailed information. Patient does not want to her both sons to be involved during that meeting, patient made clear that she is doing one was making decision for herself. Patient's was educated about treatment plan, discharge plan, medications , home health services information was provided by manager social work, outpatient psychiatry follow up also was discussed, patient seems to be appreciated at the same time very anxious about medical condition of his . Going back to the patient presentation, patient able to ambulate independently, patient seems having good understanding that she has limitations with her right arm, patient was evaluated by diabetes education nurse, patient presented well and is able to give self injection of insulin. patient and were agreed with discharge plan. Discharge took more than 35 minutes. Over the course of this hospitalization pt was attending groups, pt also had medication management, had therapeutic milieu. Overall pt improved significantly, pt's affect became brighter, pt was less depressed, has realistic future oriented plans, pt also does not appear to be psychotic, or anxious, pt was socially appropriate, no behavioral issues, pts insight improved as well and soon pt deemed to be ready for discharge. At the time of the discharge pt denied been depressed, denied thoughts of harming self or others, denied psychotic symptoms, and pt does not appeared to be psychotic, denied been anxious, pt is not in imminent danger to self or others, will be following up at , information about follow up appointment, time and address provided to the pt, it is patient responsibility to follow up with outpatient clinic, PMD as well as specialists (see SW note for more detailed information). In case pt will need to obtain results of studies pending at discharge pt was provided with contact information of Psychiatric Inpatient unit [phone] as well as Medical Record Department [phone]. pt does not smoke or using drugs. pt was provided with prescriptions for all of medications (please see medication reconciliation form) Pt was educated about safety plan in case of worsening of symptoms or in case of suicidal or homicidal ideation call 911 or go to the nearest ER, also was educated to take meds as prescribed and stay away from drugs, pt verbalized understanding. 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 Current Visit: Yes Status: Acute Priority: High - Final Diagnosis (DSM 5) Condition upon Discharge: IMPROVED Disposition: HOME/ ROUTINE Follow-up Treatment Plan: At the time of the discharge pt denied been depressed, denied thoughts of harming self or others, denied psychotic symptoms, and pt does not appeared to be psychotic, denied been anxious, pt is not in imminent danger to self or others, will be following up at , information about follow up appointment, time and address provided to the pt, it is patient responsibility to follow up with outpatient clinic, PMD as well as specialists (see SW note for more detailed information). In case pt will need to obtain results of studies pending at discharge pt was provided with contact information of Psychiatric Inpatient unit [phone] as well as Medical Record Department [phone]. pt does not smoke or using drugs. pt was provided with prescriptions for all of medications (please see medication reconciliation form) Pt was educated about safety plan in case of worsening of symptoms or in case of suicidal or homicidal ideation call 911 or go to the nearest ER, also was educated to take meds as prescribed and stay away from drugs, pt verbalized understanding. Prescriptions/Medication Reconciliation: RX: Amitriptyline [Elavil] 25 mg PO HS #14 tab RX: Aspirin [Aspirin Chewable] 81 mg PO DAILY #7 chew RX: Atorvastatin [Lipitor] 20 mg PO DIN #7 tab RX: cloNIDine [Catapres] 0.2 mg PO Q8H #21 tab RX: Divalproex [Depakote DR (*BID*)] 250 mg PO AMHS #30 tcp RX: Docusate [Colace] 100 mg PO TID #21 cap RX: Famotidine [Pepcid] 20 mg PO DAILY #7 tab RX: hydroCHLOROthiazide [Hydrodiuril] 25 mg PO DAILY #7 tab RX: Losartan [Cozaar] 100 mg PO DAILY #7 tab RX: NIFEdipine ER [Procardia XL] 60 mg PO DAILY #7 ter RX: Polyethylene Glycol 3350 [Miralax] 17 gm PO DAILY #7 packet RX: Warfarin [Coumadin] 4 mg PO 1800 #7 tab - Smoking Cessation Smoking Cessation Medication prescribed: No Reason for not providing: pt does not smoke - Antipsychotic Medications Pt discharged on 2 or more routine antipsychotic medications: No
--- NOTE | 2017-12-26 08:21 | PN ---
DATE: 12/23/2017 SUBJECTIVE: The patient is a 67 years old, seen and examined, lying in bed, seems to be comfortable, confused, disoriented. OBJECTIVE: VITAL SIGNS: She is afebrile, pulse 51, respirations 20, blood pressure 139/56. LUNGS: Bilateral good airflow. No rhonchi or crackle. HEART: S1 and S2 audible. ABDOMEN: Soft. Nontender. No rebound. No guarding. NEUROLOGIC: She is awake and alert, but confused, disoriented at times. EXTREMITIES: Bilateral leg, no edema. LABORATORY EXAM: PT is 26, INR 2.23. Blood sugar is 356, this morning was 65. ASSESSMENT: 1. History of depression. 2. Dementia. 3. Iww-lrirubq-hoawwqijb diabetes. 4. Hypertension. 5. History of cerebrovascular accident with right hemiparesis. PLAN: The patient is being discharged home today. She will be given Levemir 20 units at bedtime. She will continue all other medications. She will follow with her . Lynne Bradshaw MD
== END 2017-12-23 15:55 | disposition home or self-care (01) | DRG 884 ==
LOC: ED 09:35 → ERH 15:38 → PSYC 16:30
PROVIDERS: ADMIT Psychiatry & Neurology Psychiatry; ATTEND Psychiatry & Neurology Psychiatry
PROC: 3E0F7GC Introduction of Other Therapeutic Substance into Respiratory Tract, Via Natural or Artificial Opening (ICD-10-PCS; principal; 2017-12-17)
DX: F06.30 Mood disorder due to known physiological condition, unspecified (principal); I69.351 Hemiplegia and hemiparesis following cerebral infarction affecting right dominant side; R47.01 Aphasia; F03.91 Unspecified dementia, unspecified severity, with behavioral disturbance; F32.9 Major depressive disorder, single episode, unspecified; F41.1 Generalized anxiety disorder; I25.10 Atherosclerotic heart disease of native coronary artery without angina pectoris; N18.2 Chronic kidney disease, stage 2 (mild); I12.9 Hypertensive chronic kidney disease with stage 1 through stage 4 chronic kidney disease, or unspecified chronic kidney disease; K21.9 Gastro-esophageal reflux disease without esophagitis; E11.22 Type 2 diabetes mellitus with diabetic chronic kidney disease; I48.0 Paroxysmal atrial fibrillation; Z79.82 Long term (current) use of aspirin; Z79.4 Long term (current) use of insulin; Z95.5 Presence of coronary angioplasty implant and graft; Z95.0 Presence of cardiac pacemaker

== ENCOUNTER 2018-04-16 18:59 | Emergency (ER) | payer BC, MEDICARE ==
[2018-04-16 18:59] VITALS: BMI 28.0
[2018-04-16 19:09] VITALS: TEMP 98.1
--- NOTE | 2018-04-16 19:31 | ED PDOC ---
Arrival/HPI <Reji Lozano - Last Filed: 04/16/18 21:49> - General Historian: Patient, Family - History of Present Illness Time/Duration: 24 hours Symptom Onset: Sudden Symptom Course: Unchanged Activities at Onset: Other (fell in bathroom) Context: Slipped <Esteban Simons - Last Filed: 04/16/18 22:01> - General Chief Complaint: Trauma Time Seen by Provider: 04/16/18 19:11 - History of Present Illness Narrative History of Present Illness (Text): 04/16/18 19:28 Patient is a 67 year old female with PMH of CVA, CAD, AFib (on warfarin), CKD, DM2, HTN, and gout who presents to ED s/p fall about 20 hours ago. Family was nearby when she fell in the bathroom and she did not have any symptoms after the fall so they were not concerned. Her home health RN came around 1500 this afternoon, took her INR and stated it was around 6. They were concerned and subsequently took her to ED. She remembers falling and denies LOC, lightheadedness at the time, or any other aura prior to falling. She states that normally she ambulates independently around the house. She has fallen only one time before while staying at [facility]. She states she has had some trouble ambulating lately because of gout pains in her left foot. She admits to intermittent light-headedness but denies GERMAIN, blurry vision or other vision changes, neck pain, CP, SOB, abdominal pain, nausea, vomiting, or any other joint pains. (Esteban Simons) Past Medical History - Provider Review Nursing Documentation Reviewed: Yes - Travel History Have you recently traveled outside [place] w/in the past 3 mons?: No - Infectious Disease Hx of Infectious Diseases: None - Tetanus Immunization Tetanus Immunization: Unknown - Cardiac Hx Cardiac Disorders: Yes Hx Hypertension: Yes - Pulmonary Hx Respiratory Disorders: No - Neurological HX Cerebrovascular Accident: Yes - HEENT Hx Cataracts: Yes (2014) - Renal Hx Renal Disorder: Yes Other/Comment: stage 2 renal disease - Endocrine/Metabolic Hx Diabetes Mellitus Type 2: Yes - Hematological/Oncological Hx Blood Disorders: No - Integumentary Hx Dermatological Disorder: Yes Other/Comment: b/l skin discolorations both legs and itchy skin - Musculoskeletal/Rheumatological Hx Musculoskeletal Disorders: No Hx Falls: No Other/Comment: 5th toe right ft turn inward pt keeps bandaid on toe to protect nail, 2nd toe crooked instep turns inward,left foot bunyon - Gastrointestinal Hx Gastroesophageal Reflux: Yes - Genitourinary/Gynecological Hx Genitourinary Disorders: No - Psychiatric Hx Psychophysiologic Disorder: No Hx Emotional Abuse: No Hx Physical Abuse: No Hx Substance Use: No - Surgical History Hx Cardiac Catheterization: Yes (2012) Other/Comment: pacemaker, breast sx 07/02/1984 left benign tumor, benign fibroid tumor removal 2000, colon polyps removed via colonoscopy, fishbome extraction via bronchoscopy from throat - Anesthesia Hx Anesthesia Reactions: Yes ("AWARE OF SURROUNDINGS BUT UNABLE TO MOVE FOR A WHILE") Hx Malignant Hyperthermia: No - Suicidal Assessment Feels Threatened In Home Enviroment: No <Esteban Simons - Last Filed: 04/16/18 22:01> Family/Social History - Physician Review Nursing Documentation Reviewed: Yes Family/Social History: Diabetes (father ), Hypertension (father) Smoking Status: Never Smoked Hx Alcohol Use: No Hx Substance Use: No <Esteban Simons - Last Filed: 04/16/18 22:01> Allergies/Home Meds <Reji Lozano - Last Filed: 04/16/18 21:49> <Esteban Simons - Last Filed: 04/16/18 22:01> Allergies/Adverse Reactions: Allergies Sulfa (Sulfonamide Antibiotics) Allergy (Severe, Verified 04/16/18 19:15) RASH acetaminophen [From Percocet] Adverse Reaction (Severe, Verified 04/16/18 19:15) NAUSEA/VOMITING oxycodone HCl [From Percocet] Adverse Reaction (Severe, Verified 04/16/18 19:15) NAUSEA/VOMITING bacitracin Adverse Reaction (Mild, Verified 04/16/18 19:15) RASH fentanyl Adverse Reaction (Verified 04/16/18 19:15) VOMITING Home Medications: Home Meds Medication Instructions Recorded Confirmed Losartan Potassium [Cozaar] 100 mg PO DAILY 04/16/18 04/16/18 Review of Systems - Physician Review All systems were reviewed & negative as marked: Yes - Review of Systems Constitutional: absent: Fatigue, Fevers Eyes: absent: Vision Changes, Photophobia, Eye Pain ENT: absent: Hearing Changes, Sore Throat, Rhinorrhea Respiratory: absent: SOB, Cough Cardiovascular: absent: Chest Pain, AGUDELO Gastrointestinal: absent: Abdominal Pain, Nausea, Vomiting, Appetite Changes Genitourinary Female: absent: Dysuria, Frequency Musculoskeletal: absent: Arthralgias Skin: absent: Rash Neurological: Dizziness. absent: Headache, Focal Weakness, Gait Changes, Speech Changes, Facial Droop Endocrine: absent: Diaphoresis Hemo/Lymphatic: absent: Adenopathy Psychiatric: absent: Anxiety, Depression <Esteban Simons - Last Filed: 04/16/18 22:01> Physical Exam Vital Signs Reviewed: Yes Temperature: Afebrile Blood Pressure: Normal Pulse: Regular Respiratory Rate: Normal Appearance: Positive for: Non-Toxic, Comfortable Pain Distress: None Mental Status: Positive for: Alert and Oriented X 3 - Systems Exam Head: Present: Atraumatic, Normocephalic Pupils: Present: PERRL Extroacular Muscles: Present: EOMI Conjunctiva: Present: Normal Ears: Present: Normal Mouth: Present: Moist Mucous Membranes Pharnyx: Present: Normal. No: ERYTHEMA, EXUDATE Nose (External): Present: Atraumatic Neck: Present: Normal Range of Motion. No: JVD Respiratory/Chest: Present: Clear to Auscultation. No: Wheezes, Rales, Rhonchi Cardiovascular: Present: Regular Rate and Rhythm, Normal S1, S2, Other (paced rhythm, s/p pacemaker). No: Murmurs, Rub, Gallop Abdomen: No: Tenderness, Rebound, Guarding, Hernias Back: Present: Normal Inspection. No: CVA Tenderness Upper Extremity: Present: Normal Inspection, Neurovascularly Intact, Capillary Refill < 2s, Other (mild tenderness to palpation on left elbow, otherwise no tenderness to palpation of UE). No: Cyanosis, Edema, Swelling Lower Extremity: Present: Normal Inspection, Neurovascularly Intact, Other (no tenderness to palpation on hips, knees, or legs). No: Edema, CALF TENDERNESS, Swelling Neurological: Present: CN II-XII Intact, Speech Normal, Normal Sensory Function , Memory Normal, Normal 2Pt Descrimination, Other (patient with residual R- sided UE weakness which is chronic since CVA, no new weakness or changes in sensation) Skin: Present: Warm, Dry Lymphatic: No: Cervical Adenopathy Psychiatric: Present: Alert, Oriented x 3 <Esteban Simons - Last Filed: 04/16/18 22:01> Vital Signs Temp Pulse Resp BP Pulse Ox 04/16/18 19:09 98.1 F 81 18 155/62 H 95 Medical Decision Making - Lab Interpretations I have reviewed the lab results: Yes - RAD Interpretation Circuit Judge: ED Physician, Radiologist - EKG Interpretation Interpreted by ED Physician: Yes Type: 12 lead EKG <Reji Lozano - Last Filed: 04/16/18 21:49> - Lab Interpretations I have reviewed the lab results: Yes Interpretation: Abnormal lab values (INR 5.27, BUN/Cr not changed from baseline (hx of CKD), mild anemia likely secondary to CKD, encouraged PMD follow up) - RAD Interpretation Circuit Judge: ED Physician, Radiologist - EKG Interpretation Interpreted by ED Physician: Yes Type: 12 lead EKG Comparison: Com.w/previous EKG <Esteban Simons - Last Filed: 04/16/18 22:01> ED Course and Treatment: Impression: In agreement with resident note, which includes further HPI details. Patient was seen and evaluated with resident, came up with plan and treatment together. Pt, whose past medical history includes CVA, CAD, atrial fibrillation, chronic kidney disease, diabetes, hypertension, and Gout, presented s/p fall in the bathroom yesterday with low INR. Plan: -- CT Chest, Abdomen, and Pelvis w/o contrast -- CT Head w/o contrast -- EKG -- XR Left Elbow -- XR Right Elbow -- Labs -- Reassess and disposition (Reji Lozano) 04/16/18 19:34 -Patient is s/p fall last night and on warfarin for hx of AFib -EKG consistent with paced rhythm, no ST or T wave changes -Patient's main complaint is some left sided elbow pain to palpation. She is otherwise non-tender to palpation of head, UE, pelvis, and LE. -Will get R elbow xray to r/o trauma -Will also get CT head, chest, abdomen, pelvis wo contrast to r/o trauma and/or bleed 04/16/18 20:38 -INR noted to be 5.27 -CT completed, reads pending 04/16/18 21:40 -Compression deformity noted at T12, recommended correlating with clinical history -Patient without pain at T12 at this time -Hiatal hernia also noted, patient informed, follow up with PMD if symptomatic -Normocytic anemia most likely secondary to anemia of chronic disease, patient informed, discuss with PMD at next visit -Recommend patient hold warfarin for tomorrow as INR is 5.27, home health RN will return for another INR check on Tuesday -Will discharge with close PMD follow up (Esteban Simons) - Lab Interpretations Lab Results: 04/16/18 19:37 04/16/18 19:37 Lab Results 04/16/18 19:37: Sodium 143, Potassium 3.8, Chloride 102, Carbon Dioxide 31, Anion Gap 14, BUN 42 H, Creatinine 1.5 H, Est GFR ( Amer) 42, Est GFR ( Non-Af Amer) 35, Random Glucose 184 H, Calcium 9.5, Total Bilirubin 0.2, AST 36 D, ALT < 6 L, Alkaline Phosphatase 63, Total Protein 8.3, Albumin 3.6, Globulin 4.7, Albumin/Globulin Ratio 0.7 L 04/16/18 19:37: PT 62.1 H, INR 5.27 H*, APTT 38.6 H 04/16/18 19:37: WBC 6.8 D, RBC 3.51, Hgb 10.1 L, Hct 30.6 L, MCV 87.2, MCH 28.8 , MCHC 33.0, RDW 15.2 H, Plt Count 231, MPV 11.7 H, Gran % 57.9, Lymph % (Auto) 31.8, Archer % (Auto) 5.6, Eos % (Auto) 4.3, Baso % (Auto) 0.4, Gran # 3.93, Lymph # (Auto) 2.2, Archer # (Auto) 0.4, Eos # (Auto) 0.3, Baso # (Auto) 0.03 - RAD Interpretation Narrative RAD Interpretations (Text): 04/16/18 21:18 CT Head Wo Contrast FINDINGS: Brain: There is cerebral and cerebellar cortical volume loss compatible with the patient's age. Scattered low density areas in the periventricular white matter and basal ganglia probably reflect chronic small vessel ischemic changes. There is encephalomalacia identified in the left frontal temporal parietal lobe likely related to a prior infarct. Vascular calcifications are present. There is no intracranial hemorrhage or mass. No abnormal extra-axial or parenchymal fluid collections. Posterior fossa is unremarkable. Ventricles: The ventricles and basilar cisterns are prominant likely related to chronic volume loss. Bones/joints: Normal. No acute fracture. Sinuses: Mild mucosal thickening in the ethmoid sinuses present. Mastoid air cells: Normal as visualized. No mastoid effusion. Soft tissues: Normal. IMPRESSION: There are low-attenuation areas in the periventricular white matter and basal ganglia, probably reflecting chronic ischemic changes. However, if there is clinical concern for an acute infarction, followup MRI could be useful. CT Chest FINDINGS: Lungs: Peribronchial thickening and bronchiectasis is evident. There is peribronchial groundglass diffuse alveolar opacities identified throughout the lungs bilaterally correlate with history. Findings are nonspecific could represent atypical infectious or inflammatory process, bronchopneumonia. . Pleural space: . No pneumothorax. No pleural effusion. Heart: . No cardiomegaly. No pericardial effusion. Mediastinum: Hiatal hernia present. IV contrast not given which does limit evaluation of the mediastinal structures in the setting of trauma. Aorta: Vascular calcifications of the aorta present. Lymph nodes: . No enlarged lymph nodes. Bones/joints: Degenerative spondylosis is present. Superior compression deformity identified at T12 vertebral body. Cystic erosive change is identified. Fragmentation of the anterior aspect of the bone is present. This was not noted previously. Correlate with clinical history and site of pain. Soft tissues: Unremarkable. Kidneys and ureters: There are hypodensities present in the kidneys bilaterally may represent cysts although remain incompletely characterized. IMPRESSION: 1. There is peribronchial groundglass diffuse alveolar opacities identified throughout the lungs bilaterally correlate with history. Findings are nonspecific could represent atypical infectious or inflammatory process, bronchopneumonia. Recommend followup correlation with medical history. 2. Hiatal hernia present. 3.Superior compression deformity identified at T12 vertebral body. Cystic erosive change is identified. Fragmentation of the anterior aspect of the bone is present. This was not noted previously. Correlate with clinical history and site of pain. CT Abdomen/Pelvis FINDINGS: Lower thorax: Hiatal hernia present. ABDOMEN: Liver: . No mass. Gallbladder and bile ducts: . No calcified stones. No ductal dilation. Pancreas: . No ductal dilation. Spleen: There is a hypodensity identified along the medial aspect of the spleen measuring 3.4 cm incompletely characterized without contrast. Adrenals: Diffuse thickening of the adrenal gland is evident. Kidneys and ureters: There are hypodensities present in the kidneys bilaterally may represent cysts although remain incompletely characterized without IV contrast. Stomach and bowel: Stool within the colon present. Appendix: No evidence of appendicitis. PELVIS: Bladder: Unremarkable as visualized. Reproductive: Unremarkable as visualized. ABDOMEN and PELVIS: Intraperitoneal space: IV contrast not given which does limit evaluation of the solid organs of the abdomen and pelvis especially in the setting of trauma. Bones/joints: Degenerative spondylosis is present. Superior compression deformity identified at T12 vertebral body. Cystic erosive change is identified. Fragmentation of the anterior aspect of the bone is present. This was not noted previously. Correlate with clinical history and site of pain. Soft tissues: Bilateral fat containing inguinal hernias are evident. Vasculature: . No abdominal aortic aneurysm. Lymph nodes: Scattered mesenteric lymph nodes. IMPRESSION: 1. Hiatal hernia present. 2. There are hypodensities present in the kidneys bilaterally may represent cysts although remain incompletely characterized without IV contrast. 3. There is a hypodensity identified along the medial aspect of the spleen measuring 3.4 cm incompletely characterized without contrast. 4. Bilateral fat containing inguinal hernias are evident. 5.Superior compression deformity identified at T12 vertebral body. Cystic erosive change is identified. Fragmentation of the anterior aspect of the bone is present. This was not noted previously. Correlate with clinical history and site of pain. R elbow xray negative for acute fx (Esteban Simons) Radiology Orders: 04/16/18 19:25 CHEST,ABDOMEN, PELVIS W/O CONT [CT] Stat HEAD W/O CONTRAST [CT] Stat 04/16/18 20:42 ELBOW RIGHT 3 VIEWS ROUTINE [RAD] Stat - EKG Interpretation EKG Interpretation (Text): 04/16/18 20:01 AV dual chamber electronic pacemaker (Esteban Simons) Disposition/Present on Arrival <Reji Lozano - Last Filed: 04/16/18 21:49> - Present on Arrival Any Indicators Present on Arrival: No History of DVT/PE: No History of Uncontrolled Diabetes: No Urinary Catheter: No History of Decub. Ulcer: No History Surgical Site Infection Following: None - Disposition Have Diagnosis and Disposition been Completed?: Yes Disposition Time: 21:44 Patient Plan: Discharge <Esteban Simons - Last Filed: 04/16/18 22:01> - Disposition Diagnosis: Fall, Anemia, Hiatal hernia, Elevated INR Disposition: HOME/ ROUTINE Patient Problems: Current Active Problems Problem Status Onset Anemia Acute Elevated INR Acute Fall Acute Hiatal hernia Acute Condition: FAIR Discharge Instructions (ExitCare): Preventing Falls in the Older Adult, Hiatal Hernia (DC), Normocytic Normochromic Anemia (DC) Referrals: Álvaro Hicks DO [Primary Care Provider] - Follow up with primary Forms: [employer] ([place])
[2018-04-16 19:53] LABS: BASO # 0.03 K/mm3 (0.0-2.0); BASO % 0.4 % (0.0-3.0); EOS # 0.3 (0.0-0.7); EOS % 4.3 % (1.5-5.0); GRAN # 3.93 (1.4-6.5); GRAN % 57.9 % (50.0-68.0); HEMOGLOBIN 10.1 g/dL (12.0-16.0); LYMPH # 2.2 (1.2-3.4); LYMPH % 31.8 % (22.0-35.0); MEAN CELL VOLUME 87.2 fl (80.0-105.0); MEAN CORPUSCULAR HEMOGLOBIN 28.8 pg (25.0-35.0); MEAN PLATELET VOLUME 11.7 fl (7.0-11.0); MONO # 0.4 (0.1-0.6); MONO % 5.6 % (1.0-6.0); RBC 3.51 10^6/uL (3.5-6.1); RED CELL DISTRIBUTION WIDTH 15.2 % (11.5-14.5); WHITE BLOOD COUNT 6.8 10^3/ul (4.5-11.0)
[2018-04-16 20:04] LABS: ALB/GLOB RATIO 0.7 (1.1-1.8); ALBUMIN 3.6 g/dL (3.0-4.8); AST/SGOT 36 U/L (14-36); BLOOD UREA NITROGEN 42 mg/dL (7-21); CALCIUM 9.5 mg/dL (8.4-10.5); GFR AFRICAN-AMERICAN 42; GFR NON-AFRICAN AMERICAN 35
[2018-04-16 20:07] LABS: PARTIAL THROMBOPLASTIN TIME 38.6 Seconds (25.1-36.5)
[2018-04-16 20:08] LABS: ALT/SGPT < 6 U/L (7-56)
[2018-04-16 20:11] LABS: INR 5.27; PROTHROMBIN TIME 62.1 SECONDS (9.4-12.5)
[2018-04-16 23:44] VITALS: BP 152/76; PULSE 80; RESP 17; O2SAT 100
--- NOTE | 2018-04-17 09:02 | CT ---
Date of service: 04/16/2018 PROCEDURE: CT HEAD WITHOUT CONTRAST. HISTORY: s/p fall COMPARISON: 10/08/2017. TECHNIQUE: Axial computed tomography images were obtained through the head/brain without intravenous contrast. Radiation dose: Total exam DLP = 986.42 mGy-cm. This CT exam was performed using one or more of the following dose reduction techniques: Automated exposure control, adjustment of the mA and/or kV according to patient size, and/or use of iterative reconstruction technique. FINDINGS: HEMORRHAGE: No intracranial hemorrhage. BRAIN: Redemonstration of cystic encephalomalacia in the left frontal and parietal lobes, and parieto-occipital watershed territory. There is associated volume loss, ex vacuo dilatation of the left lateral ventricle and well aerated degeneration of the pyramidal tract. There is no mass, mass effect or abnormal extra-axial fluid collection. VENTRICLES: There is mild age-related global parenchymal volume loss and proportionate enlargement of the ventricles and cortical sulci. CALVARIUM: There is no calvarial fracture or extracranial soft tissue swelling. PARANASAL SINUSES: Predominantly clear. MASTOID AIR CELLS: Predominantly clear. OTHER FINDINGS: None. IMPRESSION: No acute intracranial abnormality. Chronic left MCA and MCA -DRILLING MANAGER watershed territory infarctions. A preliminary report was provided by [facility] services.
--- NOTE | 2018-04-17 09:26 | RAD ---
Date of service: 04/16/2018 PROCEDURE: Radiographs of the right elbow. HISTORY: s/p fall pain on palpation COMPARISON: No prior. FINDINGS: BONES: Bone alignment and mineralization are normal. There is no acute displaced fracture or bone destruction. JOINTS: Normal. No osteoarthritis. SOFT TISSUES: Normal. JOINT EFFUSION: None. OTHER FINDINGS: None. IMPRESSION: No acute fracture or dislocation.
--- NOTE | 2018-04-17 09:53 | CARD ---
APPROVED REPORT Date of service: 04/16/2018 EKG Measurement Heart [id number] <Conclusion> AV sequential or dual chamber electronic pacemaker
--- NOTE | 2018-04-17 13:36 | CT ---
Date of service: 04/16/2018 PROCEDURE: CT Chest, Abdomen and Pelvis without intravenous contrast HISTORY: s/p fall L side, head COMPARISON: None available. TECHNIQUE: Radiation dose: Total exam DLP = 543 mGy-cm. This CT exam was performed using one or more of the following dose reduction techniques: Automated exposure control, adjustment of the mA and/or kV according to patient size, and/or use of iterative reconstruction technique. FINDINGS: CT CHEST WITHOUT CONTRAST: LUNGS: Patchy bilateral peribronchial infiltrates are seen bilaterally right greater than left findings are consistent with bronchitis or pneumonia MEDIASTINUM: Unremarkable. Normal caliber aorta and pulmonary arterial trunk. Normal size heart. LYMPH NODES: Unremarkable. PLEURA: Unremarkable. No pneumothorax. No pleural fluid. BONES: Unremarkable. OTHER FINDINGS: Small hiatal hernia CT ABDOMEN AND PELVIS: LIVER: Unremarkable. No gross lesion or ductal dilatation. GALLBLADDER AND BILE DUCTS: Unremarkable. PANCREAS: Unremarkable. No gross lesion or ductal dilatation. SPLEEN: Unremarkable. ADRENALS: Unremarkable. No mass. KIDNEYS AND URETERS: Unremarkable. No hydronephrosis. No solid mass. VASCULATURE: Unremarkable. No aortic aneurysm. BOWEL: Unremarkable. No obstruction. No gross mural thickening. APPENDIX: Normal appendix. PERITONEUM: Unremarkable. No free fluid. No free air. LYMPH NODES: Unremarkable. No enlarged lymph nodes. BLADDER: Unremarkable. REPRODUCTIVE: Unremarkable. BONES: Chronic appearing T12 compression deformity OTHER FINDINGS: None. IMPRESSION: Patchy peribronchial infiltrates bilaterally consistent with broncho pneumonia
== END 2018-04-16 23:20 | disposition home or self-care (01) ==
LOC: ED 18:59
DX: D64.9 Anemia, unspecified (principal); K44.9 Diaphragmatic hernia without obstruction or gangrene; R79.1 Abnormal coagulation profile; W19.XXXA Unspecified fall, initial encounter; Y92.002 Bathroom of unspecified non-institutional (private) residence as the place of occurrence of the external cause; E11.9 Type 2 diabetes mellitus without complications; I12.9 Hypertensive chronic kidney disease with stage 1 through stage 4 chronic kidney disease, or unspecified chronic kidney disease; N18.9 Chronic kidney disease, unspecified; I25.10 Atherosclerotic heart disease of native coronary artery without angina pectoris; I48.91 Unspecified atrial fibrillation; Z79.01 Long term (current) use of anticoagulants; Z86.73 Personal history of transient ischemic attack (TIA), and cerebral infarction without residual deficits

== ENCOUNTER → 2018-11-10 | Outpatient (CLI) | payer MEDICARE, BC | LOC: CARDIO 07:47 ==